=== PATIENT | male | born 1945 | race Caucasian/White ===

== ENCOUNTER 2020-04-06 13:42 | Outpatient (RCR) | payer MEDICARE, OTHER, SELFPAY ==
--- NOTE | 2020-07-31 15:10 | PM.DS ---
DS: Providers Provider Date of Service: 08/01/20 DS: Medications Discharge Medications Home Medications: Previous Rx's Medication Instructions Recorded acetaminophen 650 mg PO BID@0900,1300 #30 tab 07/31/20 acetaminophen 650 mg PO TID PRN #30 tab 07/31/20 allopurinol 300 mg PO DAILY@0900 #30 tab 07/31/20 bicalutamide 50 mg PO DAILY@0900 #30 tab 07/31/20 bisacodyl [Gentle Laxative 10 mg ID DAILY PRN #30 ea 07/31/20 (bisacodyl)] carbidopa-levodopa 1 tab PO DAILY@2100 #30 tab 07/31/20 carbidopa-levodopa 2 tab PO TID@0900,1300,1700 #30 tab 07/31/20 dicyclomine 10 mg PO BID@0900,1700 #30 cap 07/31/20 docusate sodium 100 mg PO BID@1000,2200 #30 cap 07/31/20 fludrocortisone 0.1 mg PO DAILY@0900 #30 tab 07/31/20 lactulose 10 g PO BEDTIME@2200 #30 ml 07/31/20 magnesium hydroxide [Milk of 30 ml PO DAILY PRN #30 ml 07/31/20 Magnesia] miconazole nitrate [Inzo 1 appl TOPICAL DAILY PRN #30 g 07/31/20 Antifungal] nystatin 1 appl TOPICAL BID PRN #30 g 07/31/20 polyethylene glycol 3350 17 g PO DAILY #30 ea 07/31/20 polyvinyl alcohol [Artificial 1 drp OPHTHALMIC (EYE) 07/31/20 Tears (polyvin alc)] TID@0900,1300,2100 #30 ml prochlorperazine maleate 10 mg PO Q6H PRN #30 tab 07/31/20 pseudoephedrine HCl [Nasal 60 mg PO Q6H PRN #30 tab 07/31/20 Decongestant (pseudoeph)] quetiapine 50 mg PO BEDTIME #30 tab 07/31/20 sennosides [Senna Lax] 8.6 mg PO BID@0900,1700 #30 tab 07/31/20 tamsulosin 0.4 mg PO BEDTIME #30 cap 07/31/20 zinc oxide 1 appl TOPICAL DAILY PRN #30 g 07/31/20 DS: Summary Hospital Course Hospital Course: Mr. Rodriguez is a 75 year old with a history of Parkinsons with progressive dementia, HTN, hypercholesterolemia, gout, morbid obesity, depression, IBS, chronic anemia, IBS, ROBYN. Mr. Rodriguez is on carbidopa for his Parkinsons. He is fairly immobile from this and his morbid obesity and ROBYN. He also has orthostatic hypotension for which he was started on Florinef. Mr. Rodriguez has diet controlled diabetes mellitus. His last HbA1c was in the 5 range. He has IBS and is on bentyl. Mr. Rodriguez has had an elevated PSA which is being followed. He is on Casodex and flomax for urinary retention from his prostate issues. Mr. Rodriguez has been on our unit with the exception of a hospitalization in October 17, 2019 for a COVID infection with acute respiratory failure. Mr. Rodriguez received two doses of the Pfizer vaccine. Time Spent with Patient Time attestation: Total time spent providing and/or coordinating discharge services: Discharge coordination time: Greater than 30 minutes Discharge Plan Discharge Attending provider: Ash Donovan Medications: New bicalutamide 50 mg Tablet 50 mg PO DAILY@0900 Qty: 30 RF: 0 sennosides [Senna Lax] 8.6 mg Tablet 8.6 mg PO BID@0900,1700 Qty: 30 RF: 0 acetaminophen 325 mg Tablet 650 mg PO BID@0900,1300 Qty: 30 RF: 0 acetaminophen 325 mg Tablet 650 mg PO TID PRN (Reason: FEVER/HEADACHE/PAIN, MILD (1-3)) Qty: 30 RF: 0 polyethylene glycol 3350 17 gram Powder In Packet 17 g PO DAILY Qty: 30 RF: 0 miconazole nitrate [Inzo Antifungal] 2 % Cream 1 appl topical DAILY PRN (Reason: SKIN IRRITATION) Qty: 30 RF: 0 prochlorperazine maleate 5 mg Tablet 10 mg PO Q6H PRN (Reason: Nausea) Qty: 30 RF: 0 polyvinyl alcohol [Artificial Tears (polyvin alc)] 1.4 % Drops 1 drp ophthalmic (eye) TID@0900,1300,2100 Qty: 30 RF: 0 zinc oxide 20 % Ointment 1 appl topical DAILY PRN (Reason: SKIN IRRITATION) Qty: 30 RF: 0 magnesium hydroxide [Milk of Magnesia] 400 mg/5 mL Suspension 30 ml PO DAILY PRN (Reason: Constipation) Qty: 30 RF: 0 tamsulosin 0.4 mg Capsule 0.4 mg PO BEDTIME Qty: 30 RF: 0 bisacodyl [Gentle Laxative (bisacodyl)] 10 mg Suppository 10 mg ID DAILY PRN (Reason: Constipation) Qty: 30 RF: 0 docusate sodium 100 mg Capsule 100 mg PO BID@1000,2200 Qty: 30 RF: 0 pseudoephedrine HCl [Nasal Decongestant (pseudoeph)] 30 mg Tablet 60 mg PO Q6H PRN (Reason: Congestion) Qty: 30 RF: 0 allopurinol 300 mg Tablet 300 mg PO DAILY@0900 Qty: 30 RF: 0 nystatin 100,000 unit/gram Powder 1 appl topical BID PRN (Reason: Rash) Qty: 30 RF: 0 carbidopa-levodopa 25-100 mg Tablet 2 tab PO TID@0900,1300,1700 Qty: 30 RF: 0 carbidopa-levodopa 25-100 mg Tablet 1 tab PO DAILY@2100 Qty: 30 RF: 0 fludrocortisone 0.1 mg Tablet 0.1 mg PO DAILY@0900 Qty: 30 RF: 0 dicyclomine 10 mg Capsule 10 mg PO BID@0900,1700 Qty: 30 RF: 0 quetiapine 50 mg Tablet 50 mg PO BEDTIME Qty: 30 RF: 0 lactulose 20 gram/30 mL Solution 10 g PO BEDTIME@2200 Qty: 30 RF: 0
== END 2020-08-01 12:24 | disposition home or self-care (01) ==
LOC: HO.SHU2 13:42
PROVIDERS: Visit Provider Hospitalist
DX: Z51.89 Encounter for other specified aftercare (principal)
CPT/HCPCS: 99217

== ENCOUNTER 2020-09-14 05:32 | Outpatient (REF) | payer OTHER, SELFPAY ==
[2020-09-14 06:53] LABS: Basophils Percent Auto 0.4 % (0-2); MANUAL DIFF FLAG SCAN; Mean Corpuscular Volume 93.7 fL (80-98); PLT CLUMP 1; Red Cell Distribution Width 13.8 % (11.0-16.0); SCAN SMEAR FLAG 1
[2020-09-14 06:55] LABS: Eosinophils Absolute Auto 0.2 X10*3/uL (0.0-0.4); Eosinophils Percent Auto 2.7 % (0-4); Hematocrit 41.7 % (42-52); Hemoglobin 13.8 g/dl (14.0-18.0); Imm Gran Abs Auto 0.01 X10*3/uL (0.00-0.03); Imm Gran Pct Auto 0.2 % (0.0-0.4); Lymphocytes Absolute Auto 1.7 X10*3/uL (1.2-4.9); Lymphocytes Percent Auto 31.5 % (20-40); Mean Corpuscular HGB Conc 33.1 g/dl (31.0-36.0); Mean Platelet Volume 10.1 fL (9.4-12.4); Monocytes Absolute Auto 0.4 X10*3/uL (0.1-1.2); Monocytes Percent Auto 7.5 % (2-11); Neutrophils Absolute Auto 3.2 X10*3/uL (2.0-8.3); Neutrophils Percent Auto 57.7 % (45-73); Platelet Count 117 X10*3/uL (160-400); Red Blood Count 4.45 X10*6/uL (4.60-5.80); White Blood Count 5.5 X10*3/uL (4.8-10.8)
[2020-09-14 07:32] LABS: SLIDE REVIEW VERIFIED
[2020-09-14 07:58] LABS: Anion Gap 14 (12-20); Blood Urea Nitrogen 22 mg/dL (9-16); Calcium 8.3 mg/dL (8.4-10.2); Carbon Dioxide 27 mmol/L (22-29); Chloride 107 mmol/L (96-108); Estimated Glomerular Filt Rate > 60; Glucose Fasting 84 mg/dL (60-99); Potassium 3.7 mmol/L (3.3-5.1); Sodium 144 mmol/L (135-145)
[2020-09-14 11:10] LABS: Prostate Specific Antigen 0.07 ng/mL (<0.05-4.0)
== END 2020-09-14 05:33 | disposition home or self-care (01) ==
LOC: HO.HSH2E 05:32
PROVIDERS: Visit Provider Internal Medicine Endocrinology, Diabetes & Metabolism
DX: Z85.46 Personal history of malignant neoplasm of prostate (principal); Z12.5 Encounter for screening for malignant neoplasm of prostate
CPT/HCPCS: 36415; 80048; 84153; 85025

== ENCOUNTER 2021-04-09 23:08 | Outpatient (REF) | payer MEDICARE, SELFPAY ==
[2021-04-09 23:17] LABS: Appearance Urine HAZY; Color Urine YELLOW; Glucose Urine UA NEG (NEG); Leukocyte Esterase Urine NEG (NEG); Nitrite Urine POS (NEG); PH 5.5 (5.0-8.0); Specific Gravity - Urine 1.025 (1.005-1.025); UACC Culture Trigger YES; Urine Blood NEG (NEG); Urine Ketones 5 MG/DL (NEG); Urine Protein TRACE MG/DL (NEG-TRACE)
[2021-04-09 23:25] LABS: Bacteria Urine 3+ /LPF; Mucus Urine 1+ /LPF; Squamous Epithelial Cell Urine TRACE /LPF
== END 2021-04-09 23:09 | disposition home or self-care (01) ==
LOC: HO.HSH2E 23:08
PROVIDERS: Visit Provider Internal Medicine Medical Oncology
DX: N39.0 Urinary tract infection, site not specified (principal)
CPT/HCPCS: 81001; 87086

== ENCOUNTER 2021-04-10 05:46 | Outpatient (REF) | payer MEDICARE, SELFPAY ==
[2021-04-10 07:44] LABS: MANUAL DIFF FLAG NO
[2021-04-10 07:46] LABS: Basophils Percent Auto 0.1 % (0-2); Eosinophils Percent Auto 0.1 % (0-4); Hematocrit 39.7 % (42-52); Hemoglobin 13.1 g/dl (14.0-18.0); Imm Gran Pct Auto 0.7 % (0.0-0.4); Mean Corpuscular Hemoglobin 31.1 pg (27.0-33.0); Mean Corpuscular Volume 94.3 fL (80-98); Mean Platelet Volume 10.4 fL (9.4-12.4); Monocytes Absolute Auto 0.7 X10*3/uL (0.1-1.2); Monocytes Percent Auto 5.1 % (2-11); Neutrophils Absolute Auto 12.2 X10*3/uL (2.0-8.3); Platelet Count 134 X10*3/uL (160-400); Red Blood Count 4.21 X10*6/uL (4.60-5.80)
[2021-04-10 08:04] LABS: Alanine Aminotransferase < 6 U/L (0-40); Albumin Level 3.4 g/dL (3.5-5.0); Alkaline Phosphatase 88 U/L (39-117); Anion Gap 14 (12-20); Aspartate Amino Transferase 11 U/L (5-37); Bilirubin Total 0.9 mg/dL (0.0-1.0); Blood Urea Nitrogen 17 mg/dL (9-16); Calcium 8.3 mg/dL (8.4-10.2); Carbon Dioxide 25 mmol/L (22-29); Chloride 104 mmol/L (96-108); Estimated Glomerular Filt Rate > 60; Glucose Fasting 106 mg/dL (60-99); Potassium 3.9 mmol/L (3.3-5.1); Sodium 139 mmol/L (135-145); Total Protein 6.7 g/dL (6.5-8.0)
[2021-04-10 08:35] LABS: Erythrocyte Sedimentation Rate 65 MM/HR (0-15)
== END 2021-04-10 05:47 | disposition home or self-care (01) ==
LOC: HO.HSH2E 05:46
PROVIDERS: Visit Provider Internal Medicine Medical Oncology
DX: D64.9 Anemia, unspecified (principal)
CPT/HCPCS: 36415; 80053; 85025; 85652

== ENCOUNTER 2021-04-10 19:46 | Inpatient (IN) | payer OTHER, SELFPAY ==
--- NOTE | ~2021-04-10 | US_ITS ---
EXAMINATION: RIGHT LOWER EXTREMITY DEEP VENOUS ULTRASOUND CLINICAL INFORMATION: Right lower extremity pain and swelling. COMPARISON: None. TECHNIQUE: Duplex Doppler imaging with compression maneuvers were performed of the right lower extremity deep venous system. FINDINGS: The visualized common femoral, femoral and popliteal veins demonstrate normal compressibility and color flow without evidence of venous thrombosis. Visualized portions of the calf veins demonstrate normal color fill-in suggesting patency. There is no evidence of a Vargas's cyst. US/US venous duplex LE RT IMPRESSION: No evidence of deep venous thrombosis involving the right lower extremity.
[2021-04-10 19:53] VITALS: BP 132/56; PULSE 60; PULSE 70; RESP 16; TEMP 37.1; O2SAT 95; O2SAT 96; BMI 30.5
[2021-04-10 20:05] VITALS: BP 132/56; PULSE 58; RESP 15; TEMP 37.1; O2SAT 96
[2021-04-10 20:55] LABS: Appearance Urine CLEAR; Color Urine DK YELLOW; Glucose Urine UA NEG (NEG); Leukocyte Esterase Urine NEG (NEG); Nitrite Urine NEG (NEG); Specific Gravity - Urine 1.025 (1.005-1.025); Urine Blood NEG (NEG); Urine Ketones 5 MG/DL (NEG); Urine Protein TRACE MG/DL (NEG-TRACE)
[2021-04-10 21:10] LABS: Bacteria Urine TRACE /LPF; Mucus Urine 1+ /LPF; RBC Urine 0-2 /HPF (0); Squamous Epithelial Cell Urine 1+ /LPF; WBC Urine 0-2 /HPF (0-4)
[2021-04-10 22:00] VITALS: BP 132/56; PULSE 58; RESP 16; TEMP 36.9; O2SAT 97
--- NOTE | 2021-04-10 22:13 | ED.FEVER ---
HPI - Fever General Chief Complaint: Fever Stated Complaint: LETHARGY/FEVER Time Seen by Provider: 04/10/21 22:12 Source: EMS Mode of arrival: EMS Limitations: altered mental status and physical limitation History of Present Illness HPI Narrative: [facility] had a low grade fever. Blood work today showed elevated WBC and pyuria MD elicited complaint: fever, malaise and weakness Onset (ago): hour(s) Context: other (lives in group home) Relieving factors: nothing Related Data Previous Rx's Medication Instructions Recorded acetaminophen 325 mg tablet 650 mg PO BID@0900,1300 #30 tab 07/31/20 acetaminophen 325 mg tablet 650 mg PO TID PRN #30 tab 07/31/20 allopurinol 300 mg tablet 300 mg PO DAILY@0900 #30 tab 07/31/20 bicalutamide 50 mg tablet 50 mg PO DAILY@0900 #30 tab 07/31/20 bisacodyl 10 mg rectal suppository 10 mg AK DAILY PRN #30 ea 07/31/20 (Gentle Laxative (bisacodyl)) carbidopa 25 mg-levodopa 100 mg 1 tab PO DAILY@2100 #30 tab 07/31/20 tablet carbidopa 25 mg-levodopa 100 mg 2 tab PO TID@0900,1300,1700 #30 tab 07/31/20 tablet dicyclomine 10 mg capsule 10 mg PO BID@0900,1700 #30 cap 07/31/20 docusate sodium 100 mg capsule 100 mg PO BID@1000,2200 #30 cap 07/31/20 fludrocortisone 0.1 mg tablet 0.1 mg PO DAILY@0900 #30 tab 07/31/20 lactulose 20 gram/30 mL oral 10 g PO BEDTIME@2200 #30 ml 07/31/20 solution magnesium hydroxide 400 mg/5 mL 30 ml PO DAILY PRN #30 ml 07/31/20 oral suspension (Milk of Magnesia) miconazole nitrate 2 % topical 1 appl TOPICAL DAILY PRN #30 g 07/31/20 cream (Inzo Antifungal) nystatin 100,000 unit/gram topical 1 appl TOPICAL BID PRN #30 g 07/31/20 powder polyethylene glycol 3350 17 gram 17 g PO DAILY #30 ea 07/31/20 oral powder packet polyvinyl alcohol 1.4 % eye drops 1 drp OPHTHALMIC (EYE) 07/31/20 (Artificial Tears (polyvinyl TID@0900,1300,2100 #30 ml alcohol)) prochlorperazine maleate 5 mg 10 mg PO Q6H PRN #30 tab 07/31/20 tablet pseudoephedrine HCl 30 mg tablet 60 mg PO Q6H PRN #30 tab 07/31/20 (Nasal Decongestant (pseudoephedrine)) quetiapine 50 mg tablet 50 mg PO BEDTIME #30 tab 07/31/20 sennosides 8.6 mg tablet (Senna 8.6 mg PO BID@0900,1700 #30 tab 07/31/20 Lax) tamsulosin 0.4 mg capsule 0.4 mg PO BEDTIME #30 cap 07/31/20 zinc oxide 20 % topical ointment 1 appl TOPICAL DAILY PRN #30 g 07/31/20 Allergies Allergy/AdvReac Type Severity Reaction Status Date / Time cefazolin [From KEFZOL] Allergy Unknown RASH Unverified 03/30/20 16:19 Review of Systems Review of Systems: Yes Unobtainable due to mental status [facility] Social History Social History Alcohol intake: never Patient Tobacco Use Status: Never used Tobacco Use of substances other than those prescribed or required for medical reasons: No Advance Directives: No Advance Directives Information Provided: Yes Physical Exam Vital Signs: Vital Signs: Last Vital Signs Temp 98.3 F 04/10/21 23:14 Pulse 62 04/10/21 23:14 Resp 16 04/10/21 23:14 BP 129/43 L 04/10/21 23:14 Pulse Ox 97 04/10/21 23:14 Body Mass Index 30.5 Const: Other: elderly male with parkinsons, speaks slowly Orientation/consciousness: oriented to person HENMT: Head: Yes normal to inspection Ears: external ears normal General nose exam: Normal external nose present Mouth: Normal oral and palatal mucosa present and oropharynx normal Throat: Yes posterior oropharynx normal Eyes: General: appearance normal, both eyes and all related structures Neck: Other: supple Neck: Yes normal visual inspection Chest: Chest palpation & inspection: normal inspection of the chest Resp: Auscultation: clear to auscultation bilaterally Cardio: Jugular venous distension: no JVD Rate: regular rate Rhythm: regular rhythm Heart sounds: S1 normal heart sound present and S2 normal heart sound present GI: Inspection: Yes normal to inspection Palpation (GI): Soft to palpation, nontender and No hepatosplenomegaly present Auscultation: normal bowel sounds : General: Yes no CVA tenderness Back/Spine/Pelvis: Back: no CVA tenderness Skin: Other: right leg with erythema General skin exam: no rashes or lesions noted Neuro: Other: patient is globally weak but able to move his extremities General: oriented to person Extrem: Other: right lower extremity with swelling Psych: Appearance: grossly normal Course Reevaluation(s) Reevaluation #1: Patient with fever and what [facility]. Repeat UA negative, fever and now with and erythematous leg that is swollen, no DVT. Will admit for cellulitis Time: 23:32 MDM - Fever Lab Data Labs: Lab Results 04/10/21 04/10/21 Range/Units 20:28 23:03 Urine Color DK YELLOW Urine Appearance CLEAR Urine pH 6.0 (5.0-8.0) Ur Specific [place] 1.025 (1.005-1.025) Urine Protein TRACE (NEG-TRACE) MG/DL Urine Glucose (UA) NEG (NEG) MG/DL Urine Ketones 5 (NEG) MG/DL Urine Blood NEG (NEG) Urine Nitrite NEG (NEG) Ur Leukocyte Esterase NEG (NEG) Urine RBC 0-2 (0) /HPF Urine WBC 0-2 (0-4) /HPF Ur Squamous Epith Cells 1+ /LPF Urine Bacteria TRACE /LPF Urine Mucus 1+ /LPF COVID-19 (LNOG) Negative (Negative) COVID-19 Clin Com See Note Imaging Data duplex right leg: Radiologist's impression: IMPRESSION: No evidence of deep venous thrombosis involving the right lower extremity. Discharge Plan Discharge Clinical Impression: Cellulitis Patient Disposition: Admitted As Inpatient Prescriptions: No Action bicalutamide 50 mg Tablet 50 mg PO DAILY@0900 Qty: 30 RF: 0 sennosides [Senna Lax] 8.6 mg Tablet 8.6 mg PO BID@0900,1700 Qty: 30 RF: 0 acetaminophen 325 mg Tablet 650 mg PO BID@0900,1300 Qty: 30 RF: 0 acetaminophen 325 mg Tablet 650 mg PO TID PRN (Reason: FEVER/HEADACHE/PAIN, MILD (1-3)) Qty: 30 RF: 0 polyethylene glycol 3350 17 gram Powder In Packet 17 g PO DAILY Qty: 30 RF: 0 miconazole nitrate [Inzo Antifungal] 2 % Cream 1 appl topical DAILY PRN (Reason: SKIN IRRITATION) Qty: 30 RF: 0 prochlorperazine maleate 5 mg Tablet 10 mg PO Q6H PRN (Reason: Nausea) Qty: 30 RF: 0 polyvinyl alcohol [Artificial Tears (polyvin alc)] 1.4 % Drops 1 drp ophthalmic (eye) TID@0900,1300,2100 Qty: 30 RF: 0 zinc oxide 20 % Ointment 1 appl topical DAILY PRN (Reason: SKIN IRRITATION) Qty: 30 RF: 0 magnesium hydroxide [Milk of Magnesia] 400 mg/5 mL Suspension 30 ml PO DAILY PRN (Reason: Constipation) Qty: 30 RF: 0 tamsulosin 0.4 mg Capsule 0.4 mg PO BEDTIME Qty: 30 RF: 0 bisacodyl [Gentle Laxative (bisacodyl)] 10 mg Suppository 10 mg AK DAILY PRN (Reason: Constipation) Qty: 30 RF: 0 docusate sodium 100 mg Capsule 100 mg PO BID@1000,2200 Qty: 30 RF: 0 pseudoephedrine HCl [Nasal Decongestant (pseudoeph)] 30 mg Tablet 60 mg PO Q6H PRN (Reason: Congestion) Qty: 30 RF: 0 allopurinol 300 mg Tablet 300 mg PO DAILY@0900 Qty: 30 RF: 0 nystatin 100,000 unit/gram Powder 1 appl topical BID PRN (Reason: Rash) Qty: 30 RF: 0 carbidopa-levodopa 25-100 mg Tablet 2 tab PO TID@0900,1300,1700 Qty: 30 RF: 0 carbidopa-levodopa 25-100 mg Tablet 1 tab PO DAILY@2100 Qty: 30 RF: 0 fludrocortisone 0.1 mg Tablet 0.1 mg PO DAILY@0900 Qty: 30 RF: 0 dicyclomine 10 mg Capsule 10 mg PO BID@0900,1700 Qty: 30 RF: 0 quetiapine 50 mg Tablet 50 mg PO BEDTIME Qty: 30 RF: 0 lactulose 20 gram/30 mL Solution 10 g PO BEDTIME@2200 Qty: 30 RF: 0
[2021-04-10 23:14] VITALS: BP 129/43; PULSE 62; RESP 16; TEMP 36.8; O2SAT 97
[2021-04-10] MEDS: Ampicillin Sodium/Sulbactam Na 3 GM in 0.9 % Sodium Chloride 100 ML IV (23:18)
[2021-04-10 23:25] LABS: COVID-19 Test Negative (Negative)
--- NOTE | 2021-04-10 23:54 | PM.IMHP ---
History of Present Illness Date of Service: 04/10/21 Chief Complaint: malaise 76-year-old male with a past medical history of hypertension, hyperlipidemia, obesity, Parkinson disease, IBS, anemia, ROBYN, BPH presented to the hospital with a chief complaint of generalized weakness. [facility] Patient reports that he has been feeling weak and tired over the past couple days. Complains of cough. Denies any sputum production Complains of subjective fevers Denies any urinary symptoms. Mentioned that he has chronic venous stasis on his right leg and skin discoloration many years; complains of mild swelling and redness. Denies any nausea vomiting or diarrhea. Review of all other systems is negative except mentioned above ER course: Per ER team [facility] complaining of with a GN subjective fevers; noted to have right leg swollen; concern for cellulitis; given Unasyn. Admitted to the hospital for further management. Dizziness duplex was negative for blood clots. PMFSH Pertinent family history: Reviewed and noncontributory to the current presentation Social History Alcohol intake: never Patient Tobacco Use Status: Never used Tobacco Use of substances other than those prescribed or required for medical reasons: No Advance Directives: No Advance Directives Information Provided: Yes Meds Allergies Allergy/AdvReac Type Severity Reaction Status Date / Time cefazolin [From KEFZOL] Allergy Unknown RASH Unverified 03/30/20 16:19 Physical Exam Vital Signs and Narrative: Vital Signs: Last Vital Signs Temp 98.3 F 04/10/21 23:14 Pulse 62 04/10/21 23:14 Resp 16 04/10/21 23:14 BP 129/43 L 04/10/21 23:14 Pulse Ox 97 04/10/21 23:14 Body Mass Index 30.5 Gen: Appears be in no acute distress HEENT: NCAT, Moist mucosa. Pulmonary: Vesicular breath sounds, fair air entry CVS: Normal S1-S2 Abdomen: BS+, Soft, Nontender Extremities: Warm well perfused; right leg anteriorly noted to have dark discoloration-patient reported chronic; surrounding peripheral erythema noted and swollen leg. Warm to touch. Neuro: Alert and awake. Results Labs Labs: Laboratory Results - last 24 hr 04/10/21 04/10/21 20:28 23:03 Urine Color DK YELLOW Urine Appearance CLEAR Urine pH 6.0 Ur Specific [place] 1.025 Urine Protein TRACE Urine Glucose (UA) NEG Urine Ketones 5 Urine Blood NEG Urine Nitrite NEG Ur Leukocyte Esterase NEG Urine RBC 0-2 Urine WBC 0-2 Ur Squamous Epith Cells 1+ Urine Bacteria TRACE Urine Mucus 1+ COVID-19 (LONG) Negative COVID-19 Clin Com See Note Imaging Radiologist's Impressions: Impressions Venous Duplex 04/10/21 22:22 IMPRESSION: No evidence of deep venous thrombosis involving the right lower extremity. Assessment and Plan (1) Cellulitis: Qualifiers: Laterality: right Site of cellulitis: extremity Site of cellulitis of extremity: lower extremity Qualified Code(s): L03.115 - Cellulitis of right lower limb Status: Acute 76-year-old male with a past medical history of hypertension, hyperlipidemia, Parkinson's disease, ROBYN, obesity, anxiety, depression presented to the hospital with a chief complaint generalized weakness/subjective fevers. Noted to have right leg cellulitis. Admitted for further management. Right leg cellulitis: Continue vancomycin. Venous duplex negative. Id consult. History of Parkinson disease continue home medications carbidopa levodopa. For All other chronic conditions home medications will be continued once med rec is done. DVT ppx: SQH Full code Quality Stroke Does the patient have a stroke diagnosis?: No VTE Prior VTE?: No VTE Risk Level:: Medical - moderate - high VTE Device Contraindication: Treatment Not Indicated VTE Drug Contraindication: N/A - Med Ordered
[2021-04-11] VITALS (8 sets, daily range): BP systolic 115–157; BP diastolic 54–70; PULSE 53–88; RESP 15–18; TEMP 36–37.1; O2SAT 94–100
[2021-04-11] MEDS: Heparin Sodium,Porcine 5,000 UNIT/ML VIAL 5000 UNIT SUBCUT ×2 (00:38→10:15)
[2021-04-11] MEDS: 0.9 % Sodium Chloride Flush 3 ML SYRINGE IVFLUSH ×3 (00:39→16:17)
--- NOTE | 2021-04-11 01:17 | PC.NURSE ---
Pt alert and oriented, forgetful at times. Pt denies pain at this time. Pt incontinent, voided this shift. IV intact, vitals stable, afebrile. Pt tolerated IV abx well. Excoriation noted to buttock, [facility]. Discoloration noted to right lower leg. Redness and warmth noted to right thigh. Report given to ROSY Jimenez. Tech to transport.
[2021-04-11] MEDS: Dextrose 5 % and 0.45 % NaCl 1,000 ML 50 ML IVCONT (01:49)
[2021-04-11] MEDS: vancomycin HCL 1,500 MG in 0.9 % Sodium Chloride 500 ML 333.33 MG IV (02:01)
[2021-04-11 05:44] LABS: MANUAL DIFF FLAG NO
[2021-04-11 05:53] LABS: Basophils Percent Auto 0.1 % (0-2); Eosinophils Absolute Auto 0.2 X10*3/uL (0.0-0.4); Eosinophils Percent Auto 1.8 % (0-4); Hematocrit 35.2 % (42-52); Hemoglobin 11.8 g/dl (14.0-18.0); Imm Gran Abs Auto 0.06 X10*3/uL (0.00-0.03); Imm Gran Pct Auto 0.6 % (0.0-0.4); Lymphocytes Absolute Auto 1.3 X10*3/uL (1.2-4.9); Mean Corpuscular HGB Conc 33.5 g/dl (31.0-36.0); Mean Corpuscular Hemoglobin 31.4 pg (27.0-33.0); Mean Corpuscular Volume 93.6 fL (80-98); Mean Platelet Volume 10.3 fL (9.4-12.4); Monocytes Absolute Auto 0.7 X10*3/uL (0.1-1.2); Monocytes Percent Auto 6.7 % (2-11); Neutrophils Absolute Auto 7.8 X10*3/uL (2.0-8.3); Neutrophils Percent Auto 77.8 % (45-73); Platelet Count 113 X10*3/uL (160-400); Red Blood Count 3.76 X10*6/uL (4.60-5.80); Red Cell Distribution Width 13.7 % (11.0-16.0)
[2021-04-11 06:13] LABS: Anion Gap 12 (12-20); Blood Urea Nitrogen 17 mg/dL (9-16); Calcium 7.7 mg/dL (8.4-10.2); Carbon Dioxide 25 mmol/L (22-29); Chloride 106 mmol/L (96-108); Creatinine Clr Calc Pharmacy 80.7; Estimated Glomerular Filt Rate > 60; Glucose Random 81 mg/dL (60-115); Potassium 3.5 mmol/L (3.3-5.1); Sodium 139 mmol/L (135-145)
[2021-04-11] MEDS: 0.9 % Sodium Chloride 1,000 ML 80 ML IVCONT ×2 (08:49→22:11)
--- NOTE | 2021-04-11 09:58 | MHC.CLN ---
NUTRITION REVIEW OF WEIGHT HX SHOWS WEIGHT LOSS X 1 YEAR -21%. NO OTHER WEIGHTS VIEWED DURING THAT TIME PERIOD.
--- NOTE | 2021-04-11 10:23 | HO.PM.IMPN ---
Subjective Subjective Date of Service: 04/12/21 Interval History: Patient offers no acute complaints, denies fevers, no other acute issues overnight. Review of Systems General weakness, no headache no dizziness no fever chills. CVS no chest pain, no palpitation. Respiratory productive cough, does not know the color of phlegm. Gastrointestinal no nausea no vomiting, no abdominal pain Physical Exam Vital Signs: Vital Signs: Last Vital Signs Temp 97.5 F 04/11/21 07:33 Pulse 60 04/11/21 07:33 Resp 18 04/11/21 07:33 BP 157/67 H 04/11/21 07:33 Pulse Ox 94 04/11/21 07:33 Body Mass Index 30.5 General resting comfortably in no acute distress. Neck supple no JVD. CVS regular rate rhythm, Respiratory lungs clear to auscultation, no respiratory distress, no wheeze, no rhonchi. Gastrointestinal abdomen soft, nontender, bowel sounds audible Extremities right right lower extremity significant discoloration that seems chronic, with significant hyperemia extending to thigh, right leg bigger than left Neuro nonfocal , moving all 4 extremity, speech clear. Skin dark discoloration of lower extremity seems chronic. Psych poor insight Objective Data Active Medications Acetaminophen (Acetaminophen 325 Mg Tablet) 650 mg PO Q6H PRN PRN Reason: Pain, Mild (Pain Scale 1-3) Heparin Sodium (Porcine) (Heparin Sodium,Porcine 5,000 Unit/Ml Vial) 5,000 unit SUBCUT Q12H [facility] Last Admin: 04/11/21 10:15 Dose: 5,000 unit Documented by: GINA Vancomycin HCl 1,500 mg/ (Sodium Chloride) 500 mls @ 333.333 mls/hr IV Q24H [facility] Sodium Chloride (Ns) 1,000 mls @ 80 mls/hr IVCONT .[id number] [facility] Last Admin: 04/11/21 08:49 Dose: 80 mls/hr Documented by: GINA Melatonin (Melatonin 3 Mg Tablet) 6 mg PO BEDTIME PRN PRN Reason: Insomnia Pharmacy Consult (Consult Rx Vancomycin Dosing) 1 each MISCELLANE DAILY PRN PRN Reason: Consult order Senna (Sennosides 8.6 Mg Tablet) 17.2 mg PO BEDTIME PRN PRN Reason: Constipation Sodium Chloride (0.9 % Sodium Chloride Flush 3 Ml Syringe) 3 ml IVFLUSH QSHIFT [facility] Last Admin: 04/11/21 08:49 Dose: 3 ml Documented by: GINA Labs CBC & Chem 7: 04/11/21 05:17 04/11/21 05:17 Labs: Laboratory Results - last 24 hr 04/10/21 04/10/21 04/11/21 20:28 23:03 05:17 MCV 93.6 MCH 31.4 MCHC 33.5 RDW 13.7 Plt Count 113 L MPV 10.3 Immature Gran % (Auto) 0.6 H Neut % (Auto) 77.8 H Lymph % (Auto) 13.0 L [place] % (Auto) 6.7 Eos % (Auto) 1.8 Baso % (Auto) 0.1 Lymph # (Auto) 1.3 [place] # (Auto) 0.7 Eos # (Auto) 0.2 Baso # (Auto) 0.0 Abs Immat Gran (auto) 0.06 H Absolute Neuts (auto) 7.8 Absolute Nucleated RBC 0.000 Nucleated RBC % (auto) 0.0 Anion Gap Estim Creat Clear Calc Estimated GFR Random Glucose Calcium Urine Color DK YELLOW Urine Appearance CLEAR Urine pH 6.0 Ur Specific [place] 1.025 Urine Protein TRACE Urine Glucose (UA) NEG Urine Ketones 5 Urine Blood NEG Urine Nitrite NEG Ur Leukocyte Esterase NEG Urine RBC 0-2 Urine WBC 0-2 Ur Squamous Epith Cells 1+ Urine Bacteria TRACE Urine Mucus 1+ COVID-19 (LONG) Negative COVID-19 Clin Com See Note 04/11/21 05:17 MCV MCH MCHC RDW Plt Count MPV Immature Gran % (Auto) Neut % (Auto) Lymph % (Auto) [place] % (Auto) Eos % (Auto) Baso % (Auto) Lymph # (Auto) [place] # (Auto) Eos # (Auto) Baso # (Auto) Abs Immat Gran (auto) Absolute Neuts (auto) Absolute Nucleated RBC Nucleated RBC % (auto) Anion Gap 12 Estim Creat Clear Calc 80.7 Estimated GFR > 60 Random Glucose 81 Calcium 7.7 L D Urine Color Urine Appearance Urine pH Ur Specific [place] Urine Protein Urine Glucose (UA) Urine Ketones Urine Blood Urine Nitrite Ur Leukocyte Esterase Urine RBC Urine WBC Ur Squamous Epith Cells Urine Bacteria Urine Mucus COVID-19 (LONG) COVID-19 Clin Com Assessment and Plan (1) Cellulitis: Status: Acute (2) Chronic anemia: Status: Acute (3) Hypertension: Status: Acute Assessment and Plan: 76-year-old male with a past medical history of hypertension, hyperlipidemia, Parkinson's disease, ROBYN, obesity, anxiety, depression presented to the hospital with a chief complaint generalized weakness/subjective fevers.? Noted to have right leg cellulitis.? Admitted for further management. Right extensive leg cellulitis:? Significant hyperemia to mid thigh, cont. iv vancomycin day 2,? Venous duplex negative. WBC normalized, blood cultures 1/2 positive for gram-positive cocci, will follow final blood culture Follow Vanco trough and renal function History of Parkinson disease with progressive dementia continue home medications carbidopa/ levodopa. Hypertension stable blood pressure continue Norvasc 2.5 mg daily Depression continues Seroquel Chronic anemia hematocrit stable History of BPH continue home medication DVT ppx: SQH Full code Quality Stroke Does the patient have a stroke diagnosis?: No VTE Prior VTE?: No VTE Risk Level:: Medical - moderate - high VTE Device Contraindication: Treatment Not Indicated VTE Drug Contraindication: N/A - Med Ordered
--- NOTE | 2021-04-11 11:27 | PHA.MEDREC ---
Pharmacy Consult ? Medication Reconciliation Pharmacy has completed the medication reconciliation. Thanks Brooks Lopez
--- NOTE | 2021-04-11 14:13 | MHC.CM.PN ---
[facility]. HE LIVES IN ROOM 225 AT FACILITY. HCP IS ON FILE AND VERIFIED BROTHER MICHELLE ([phone]) IS HCP, ALTHOUGH PATIENT DOES REPORT THAT MICHELLE IS NOW PATIENT'S GUARDIAN PATIENT MOBILIZES WITH A WHEEL CHAIR AT FACILITY WITH ASSISTANCE. PCP IS DR [address] CASE MANAGEMENT OFFICE UPDATED. IMM 04/11 IN CHART
[2021-04-11] MEDS: Sennosides 8.6 MG TABLET PO (16:18)
[2021-04-11] MEDS: Carbidopa/Levodopa 25/100 TABLET 2 TAB PO (16:18)
[2021-04-11] MEDS: Dicyclomine HCl 10 MG CAPSULE PO (16:19)
[2021-04-11] MEDS: Acetaminophen 325 MG TABLET 650 MG PO (16:27)
[2021-04-11] MEDS: Carbidopa/Levodopa 25/100 TABLET 1 TAB PO (19:52)
[2021-04-11] MEDS: Lactulose 20 GM/30 ML SOLUTION 10 GM PO (19:52)
[2021-04-11] MEDS: amLODIPine Besylate 2.5 MG TABLET PO (19:52)
[2021-04-11] MEDS: QUEtiapine Fumarate 50 MG TABLET PO (19:53)
[2021-04-11] MEDS: Tamsulosin HCL 0.4 MG CAPSULE PO (19:53)
[2021-04-11] MEDS: Docusate Sodium 100 MG CAPSULE PO (19:53)
[2021-04-12] VITALS (7 sets, daily range): BP systolic 113–156; BP diastolic 57–84; PULSE 58–70; RESP 16–20; TEMP 36–36.7; O2SAT 93–98
[2021-04-12] MEDS: Heparin Sodium,Porcine 5,000 UNIT/ML VIAL 5000 UNIT SUBCUT ×3 (00:27→23:35)
[2021-04-12] MEDS: 0.9 % Sodium Chloride Flush 3 ML SYRINGE IVFLUSH ×4 (00:27→23:35)
[2021-04-12] MEDS: vancomycin HCL 1,500 MG in 0.9 % Sodium Chloride 500 ML 333.33 MG IV (02:34)
[2021-04-12] MEDS: Docusate Sodium 100 MG CAPSULE PO ×2 (09:15→20:15)
[2021-04-12] MEDS: Bicalutamide 50 MG TABLET PO (09:15)
[2021-04-12] MEDS: Carbidopa/Levodopa 25/100 TABLET 2 TAB PO ×3 (09:15→16:50)
[2021-04-12] MEDS: allopurinoL 300 MG TABLET PO (09:16)
[2021-04-12] MEDS: Dicyclomine HCl 10 MG CAPSULE PO ×2 (09:16→16:50)
--- NOTE | 2021-04-12 15:58 | P.PNIM_ITS ---
Subjective Subjective Date of Service: 04/12/21 Interval History: Being followed for right lower extremity cellulitis, unable to obtain meaningful history due to dementia, patient admits to have chronic leg swelling, denies pain, no acute issues noted overnight. Review of Systems General weakness, no headache no dizziness no fever chills.? CVS no chest pain, no palpitation.? Respiratory? productive cough Gastrointestinal no nausea no vomiting, no abdominal pain Physical Exam Vital Signs: Vital Signs: Last Vital Signs Temp 98.0 F 04/12/21 15:43 Pulse 68 04/12/21 15:43 Resp 18 04/12/21 15:43 BP 113/73 04/12/21 15:43 Pulse Ox 96 04/12/21 15:43 Body Mass Index 30.5 General resting c omfortably in no a cute distress.? Ne ck supple no JVD. CVS? regular rate rhythm, Respirator y lungs clear to a uscultation, no re spiratory distress , no wheeze, no rh onchi. Gastrointes tinal abdomen soft , nontender, bowel sounds audible Ex tremities right ri ght lower extremit y significant disc oloration that see ms chronic, with s ignificant new hyp eremia extending f rom rt foot to thi gh slight improvem ent in redness rig ht leg bigger than left (chronic) Ne uro nonfocal , mov ing all 4 extremit y, speech clear. S kin dark discolora tion of lower extr emity seems chroni c. Psych poor insi ght Objective Data Active Medications Acetaminophen (Acetaminophen 325 Mg Tablet) 650 mg PO Q6H PRN PRN Reason: Pain, Mild (Pain Scale 1-3) Last Admin: 04/11/21 16:27 Dose: 650 mg Documented by: LACIE Allopurinol (Allopurinol 300 Mg Tablet) 300 mg PO DAILY@0900 [facility] Last Admin: 04/12/21 09:16 Dose: 300 mg Documented by: GINA Amlodipine Besylate (Amlodipine Besylate 2.5 Mg Tablet) 2.5 mg PO BEDTIME [facility]; Protocol Last Admin: 04/11/21 19:52 Dose: 2.5 mg Documented by: LACIE Bicalutamide (Bicalutamide 50 Mg Tablet) 50 mg PO DAILY@0900 [facility] Last Admin: 04/12/21 09:15 Dose: 50 mg Documented by: GINA Bisacodyl (Bisacodyl 10 Mg Supp.Rect) 10 mg [place] DAILY PRN PRN Reason: Constipation Carbidopa/Levodopa (Carbidopa/Levodopa 25/100 Tablet) 2 tab PO TID@0900,1300,1700 [facility] Last Admin: 04/12/21 12:39 Dose: 2 tab Documented by: GINA Carbidopa/Levodopa (Carbidopa/Levodopa 25/100 Tablet) 1 tab PO DAILY@2100 [facility] Last Admin: 04/11/21 19:52 Dose: 1 tab Documented by: LACIE Dicyclomine HCl (Dicyclomine Hcl 10 Mg Capsule) 10 mg PO BID@0900,1700 [facility] Last Admin: 04/12/21 09:16 Dose: 10 mg Documented by: GINA Docusate Sodium (Docusate Sodium 100 Mg Capsule) 100 mg PO BID [facility] Last Admin: 04/12/21 09:15 Dose: 100 mg Documented by: GINA Heparin Sodium (Porcine) (Heparin Sodium,Porcine 5,000 Unit/Ml Vial) 5,000 unit SUBCUT Q12H [facility] Last Admin: 04/12/21 12:39 Dose: 5,000 unit Documented by: GINA Vancomycin HCl 1,500 mg/ (Sodium Chloride) 500 mls @ 333.333 mls/hr IV Q24H [facility] Last Infusion: 04/12/21 04:07 Dose: 0 mls/hr Documented by: TRE Lactulose (Lactulose 20 Gm/30 Ml Solution) 10 gm PO BEDTIME [facility] Last Admin: 04/11/21 19:52 Dose: 10 gm Documented by: LACIE Melatonin (Melatonin 3 Mg Tablet) 6 mg PO BEDTIME PRN PRN Reason: Insomnia Pharmacy Consult (Consult Rx Vancomycin Dosing) 1 each MISCELLANE DAILY PRN PRN Reason: Consult order Quetiapine Fumarate (Quetiapine Fumarate 50 Mg Tablet) 50 mg PO BEDTIME [facility] Last Admin: 04/11/21 19:53 Dose: 50 mg Documented by: LACIE Senna (Sennosides 8.6 Mg Tablet) 17.2 mg PO BEDTIME PRN PRN Reason: Constipation Senna (Sennosides 8.6 Mg Tablet) 8.6 mg PO BID@0900,1700 [facility] Last Admin: 04/12/21 09:16 Dose: Not Given Documented by: GINA Non-Admin Reason: loose stools Sodium Chloride (0.9 % Sodium Chloride Flush 3 Ml Syringe) 3 ml IVFLUSH QSHIFT [facility] Last Admin: 04/12/21 09:16 Dose: 3 ml Documented by: GINA Tamsulosin HCl (Tamsulosin Hcl 0.4 Mg Capsule) 0.4 mg PO BEDTIME [facility] Last Admin: 04/11/21 19:53 Dose: 0.4 mg Documented by: LACIE Labs CBC & Chem 7: 04/11/21 05:17 04/11/21 05:17 Microbiology Microbiology Results: Microbiology 04/10/21 23:03 Blood Culture - Preliminary Blood - Venous Prelim: GPC Gram Stain only 04/10/21 23:16 Blood Culture - Preliminary Blood - Venous No growth after 24 hours. Assessment and Plan (1) Hypertension: Status: Acute (2) Chronic anemia: Status: Acute (3) Cellulitis: Status: Acute Assessment and Plan: 76-year-old male with a past medical history of hypertension, hyperlipidemia, Parkinson's disease, ROBYN, obesity, anxiety, depression presented to the hospital with a chief complaint generalized weakness/subjective fevers.? Noted to have right leg cellulitis.? Admitted for further management. Extensive right leg cellulitis: No sepsis, Significant hyperemia to mid thigh, cont. iv vancomycin day 3,? Venous duplex negative. WBC normalized, blood cultures 1/2 positive for gram-positive cocci, will follow final blood culture Follow Vanco trough and renal function Will discuss case with ID if no improvement in redness or swelling. History of Parkinson disease with progressive dementia continue home medications carbidopa/ levodopa. Hypertension stable blood pressure continue Norvasc 2.5 mg daily? Depression continues Seroquel Chronic anemia hematocrit stable History of BPH continue home medication DVT ppx: SQH Full code Quality Stroke Does the patient have a stroke diagnosis?: No VTE Prior VTE?: No VTE Risk Level:: Medical - moderate - high VTE Device Contraindication: Treatment Not Indicated VTE Drug Contraindication: N/A - Med Ordered
[2021-04-12] MEDS: Sennosides 8.6 MG TABLET PO (16:50)
[2021-04-12] MEDS: Melatonin 3 MG TABLET 6 MG PO (20:13)
[2021-04-12] MEDS: QUEtiapine Fumarate 50 MG TABLET PO (20:13)
[2021-04-12] MEDS: amLODIPine Besylate 2.5 MG TABLET PO (20:14)
[2021-04-12] MEDS: Acetaminophen 325 MG TABLET 650 MG PO (20:14)
[2021-04-12] MEDS: Lactulose 20 GM/30 ML SOLUTION 10 GM PO (20:15)
[2021-04-12] MEDS: Carbidopa/Levodopa 25/100 TABLET 1 TAB PO (20:15)
[2021-04-12] MEDS: Tamsulosin HCL 0.4 MG CAPSULE PO (20:15)
[2021-04-13 01:35] LABS: Creatinine Clr Calc Pharmacy 77.2; Estimated Glomerular Filt Rate > 60
[2021-04-13 01:57] LABS: Vancomycin Trough 10.2 mcg/mL (10.0-20.0)
[2021-04-13] MEDS: vancomycin HCL 1,500 MG in 0.9 % Sodium Chloride 500 ML 333.33 MG IV (03:04)
[2021-04-13 04:00] VITALS: BP 141/76; PULSE 51; RESP 16; TEMP 36.6; O2SAT 96
[2021-04-13 08:00] VITALS: BP 113/57; PULSE 60; RESP 18; TEMP 36.1; O2SAT 95
[2021-04-13] MEDS: Bicalutamide 50 MG TABLET PO (09:43)
[2021-04-13] MEDS: allopurinoL 300 MG TABLET PO (09:43)
[2021-04-13] MEDS: Carbidopa/Levodopa 25/100 TABLET 2 TAB PO ×3 (09:43→15:57)
[2021-04-13] MEDS: Dicyclomine HCl 10 MG CAPSULE PO ×2 (09:43→15:55)
[2021-04-13] MEDS: Docusate Sodium 100 MG CAPSULE PO ×2 (09:43→20:03)
[2021-04-13] MEDS: 0.9 % Sodium Chloride Flush 3 ML SYRINGE IVFLUSH ×2 (09:47→15:55)
[2021-04-13 12:00] VITALS: BP 129/66; PULSE 59; RESP 18; TEMP 36.2; O2SAT 94
[2021-04-13] MEDS: Acetaminophen 325 MG TABLET 650 MG PO ×2 (12:20→20:07)
[2021-04-13] MEDS: Heparin Sodium,Porcine 5,000 UNIT/ML VIAL 5000 UNIT SUBCUT (12:20)
[2021-04-13 15:16] VITALS: BP 90/43; PULSE 64; RESP 19; TEMP 36.3; O2SAT 95
[2021-04-13] MEDS: Sennosides 8.6 MG TABLET PO (15:55)
--- NOTE | 2021-04-13 17:22 | P.PNIM_ITS ---
Subjective Subjective Date of Service: 04/13/21 Interval History: No fever Somnolent but arousable Unable to obtain ROS due to dementia Review of Systems Review of Systems: Yes all other systems are reviewed and are negative and Unobtainable due to mental status Physical Exam Vital Signs: Vital Signs: Last Vital Signs Temp 97.4 F 04/13/21 15:16 Pulse 64 04/13/21 15:16 Resp 19 04/13/21 15:16 BP 90/43 L 04/13/21 15:16 Pulse Ox 95 04/13/21 15:16 Body Mass Index 30.5 Gen: in no acute distress HEENT: sclera anicteric, moist mucus membranes Neck: supple Lungs: clear to auscultation bilaterally Heart: regular rate and rhythm, no murmurs Abd: soft, non-tender, non-distended Ext: R leg somewhat swollen Skin: well-demarcated hyperpigmented area on lower RLE that seems chronic, mild erythema and hyperemia extending from R foot to lower thigh, no fluctuant areas Neuro: disoriented Psych: impaired insight Objective Data Active Medications Acetaminophen (Acetaminophen 325 Mg Tablet) 650 mg PO Q6H PRN PRN Reason: Pain, Mild (Pain Scale 1-3) Last Admin: 04/13/21 12:20 Dose: 650 mg Documented by: GINA Allopurinol (Allopurinol 300 Mg Tablet) 300 mg PO DAILY@0900 [facility] Last Admin: 04/13/21 09:43 Dose: 300 mg Documented by: GINA Amlodipine Besylate (Amlodipine Besylate 2.5 Mg Tablet) 2.5 mg PO BEDTIME [facility]; Protocol Last Admin: 04/12/21 20:14 Dose: 2.5 mg Documented by: LACIE Bicalutamide (Bicalutamide 50 Mg Tablet) 50 mg PO DAILY@0900 [facility] Last Admin: 04/13/21 09:43 Dose: 50 mg Documented by: GINA Bisacodyl (Bisacodyl 10 Mg Supp.Rect) 10 mg [place] DAILY PRN PRN Reason: Constipation Carbidopa/Levodopa (Carbidopa/Levodopa 25/100 Tablet) 2 tab PO TID@0900,1300, 1700 [facility] Last Admin: 04/13/21 15:57 Dose: 2 tab Documented by: LACIE Carbidopa/Levodopa (Carbidopa/Levodopa 25/100 Tablet) 1 tab PO DAILY@2100 [facility] Last Admin: 04/12/21 20:15 Dose: 1 tab Documented by: LACIE Dicyclomine HCl (Dicyclomine Hcl 10 Mg Capsule) 10 mg PO BID@0900,1700 [facility] Last Admin: 04/13/21 15:55 Dose: 10 mg Documented by: LACIE Docusate Sodium (Docusate Sodium 100 Mg Capsule) 100 mg PO BID [facility] Last Admin: 04/13/21 09:43 Dose: 100 mg Documented by: GINA Heparin Sodium (Porcine) (Heparin Sodium,Porcine 5,000 Unit/Ml Vial) 5,000 unit SUBCUT Q12H [facility] Last Admin: 04/13/21 12:20 Dose: 5,000 unit Documented by: GINA Vancomycin HCl 1,500 mg/ (Sodium Chloride) 500 mls @ 333.333 mls/hr IV Q24H [facility] Last Infusion: 04/13/21 05:09 Dose: 0 mls/hr Documented by: CALVIN Lactulose (Lactulose 20 Gm/30 Ml Solution) 10 gm PO BEDTIME [facility] Last Admin: 04/12/21 20:15 Dose: 10 gm Documented by: LACIE Melatonin (Melatonin 3 Mg Tablet) 6 mg PO BEDTIME PRN PRN Reason: Insomnia Last Admin: 04/12/21 20:13 Dose: 6 mg Documented by: LACIE Pharmacy Consult (Consult Rx Vancomycin Dosing) 1 each MISCELLANE DAILY PRN PRN Reason: Consult order Quetiapine Fumarate (Quetiapine Fumarate 50 Mg Tablet) 50 mg PO BEDTIME [facility] Last Admin: 04/12/21 20:13 Dose: 50 mg Documented by: LACIE Senna (Sennosides 8.6 Mg Tablet) 17.2 mg PO BEDTIME PRN PRN Reason: Constipation Senna (Sennosides 8.6 Mg Tablet) 8.6 mg PO BID@0900,1700 [facility] Last Admin: 04/13/21 15:55 Dose: 8.6 mg Documented by: LACIE Sodium Chloride (0.9 % Sodium Chloride Flush 3 Ml Syringe) 3 ml IVFLUSH QSHIFT [facility] Last Admin: 04/13/21 15:55 Dose: 3 ml Documented by: LACIE Tamsulosin HCl (Tamsulosin Hcl 0.4 Mg Capsule) 0.4 mg PO BEDTIME [facility] Last Admin: 04/12/21 20:15 Dose: 0.4 mg Documented by: LACIE Labs CBC & Chem 7: 04/11/21 05:17 04/13/21 01:08 Labs: Laboratory Results - last 24 hr 04/13/21 04/13/21 01:08 01:08 Estim Creat Clear Calc 77.2 Estimated GFR > 60 Vancomycin Trough 10.2 Microbiology Microbiology Results: Microbiology 04/10/21 23:03 Blood Culture - Final Blood - Venous Coag negative Staphylococcus 04/10/21 23:16 Blood Culture - Preliminary Blood - Venous No growth after 48 hours. Assessment and Plan (1) Hypertension: Status: Acute (2) Chronic anemia: Status: Acute (3) Cellulitis: Status: Acute Assessment and Plan: hospital d#4 76yo M with HTN, HLD, Parkinson's dementia, ROBYN, obesity, anxiety, depression admitted for RLE cellulitis # extensive RLE cellulitis - IV vancomycin d#4. BCx 1/2 coag-neg Staph = contaminant. Venous duplex negative. WBC normalized. - Consider change to oral doxycycline tomorrow if continues to improve # thrombocytopenia, mild - monitor CBC in am # chronic anemia - H/H stable # HTN - continue amlodipine # Parkinson's dementia - continue carbidopa/levodopa # mood disorder - continue quetiapine # hx prostate CA - continue bicalutamide - continue tamsulosin # VTE ppx - UFH Quality Stroke Does the patient have a stroke diagnosis?: No VTE Prior VTE?: No VTE Risk Level:: Medical - moderate - high VTE Device Contraindication: Treatment Not Indicated VTE Drug Contraindication: N/A - Med Ordered
[2021-04-13 19:10] VITALS: BP 144/70; PULSE 116; RESP 19; TEMP 37.2; O2SAT 94
[2021-04-13 20:02] VITALS: BP 144/70; PULSE 62
[2021-04-13] MEDS: amLODIPine Besylate 2.5 MG TABLET PO (20:02)
[2021-04-13] MEDS: Tamsulosin HCL 0.4 MG CAPSULE PO (20:03)
[2021-04-13] MEDS: QUEtiapine Fumarate 50 MG TABLET PO (20:03)
[2021-04-13] MEDS: Lactulose 20 GM/30 ML SOLUTION 10 GM PO (20:03)
[2021-04-13] MEDS: Carbidopa/Levodopa 25/100 TABLET 1 TAB PO (20:03)
[2021-04-13] MEDS: Melatonin 3 MG TABLET 6 MG PO (20:08)
[2021-04-14] VITALS: BP 148/79; PULSE 59; RESP 16; TEMP 36.6; O2SAT 96
[2021-04-14] MEDS: 0.9 % Sodium Chloride Flush 3 ML SYRINGE IVFLUSH ×2 (00:44→09:28)
[2021-04-14] MEDS: Heparin Sodium,Porcine 5,000 UNIT/ML VIAL 5000 UNIT SUBCUT (00:44)
[2021-04-14] MEDS: vancomycin HCL 1,500 MG in 0.9 % Sodium Chloride 500 ML 333.33 MG IV (03:03)
[2021-04-14 04:00] VITALS: BP 147/73; PULSE 58; RESP 16; TEMP 36.1; O2SAT 96
[2021-04-14 06:09] LABS: Hematocrit 35.9 % (42-52); Hemoglobin 11.8 g/dl (14.0-18.0); Mean Corpuscular HGB Conc 32.9 g/dl (31.0-36.0); Mean Corpuscular Volume 94.2 fL (80-98); Mean Platelet Volume 9.7 fL (9.4-12.4); Platelet Count 131 X10*3/uL (160-400); Red Blood Count 3.81 X10*6/uL (4.60-5.80); Red Cell Distribution Width 13.3 % (11.0-16.0); White Blood Count 5.2 X10*3/uL (4.8-10.8)
[2021-04-14 06:43] LABS: Anion Gap 12 (12-20); Blood Urea Nitrogen 16 mg/dL (9-16); C Reactive Protein 6.07 mg/dL (< or = 0.50); Calcium 7.7 mg/dL (8.4-10.2); Carbon Dioxide 24 mmol/L (22-29); Chloride 112 mmol/L (96-108); Creatinine Clr Calc Pharmacy 88.7; Estimated Glomerular Filt Rate > 60; Glucose Random 82 mg/dL (60-115); Potassium 3.5 mmol/L (3.3-5.1); Sodium 144 mmol/L (135-145)
[2021-04-14 07:57] VITALS: BP 145/72; PULSE 67; RESP 18; TEMP 36.9; O2SAT 96
[2021-04-14] MEDS: Docusate Sodium 100 MG CAPSULE PO (09:18)
[2021-04-14] MEDS: Carbidopa/Levodopa 25/100 TABLET 2 TAB PO ×2 (09:18→12:41)
[2021-04-14] MEDS: allopurinoL 300 MG TABLET PO (09:18)
[2021-04-14] MEDS: Dicyclomine HCl 10 MG CAPSULE PO (09:18)
[2021-04-14] MEDS: Bicalutamide 50 MG TABLET PO (09:18)
[2021-04-14] MEDS: Sennosides 8.6 MG TABLET PO (09:18)
[2021-04-14 10:04] LABS: COVID-19 Test Negative (Negative)
--- NOTE | 2021-04-14 11:23 | MHC.CM.PN ---
Addendum entered by Makenna Maradiaga 04/14/21 15:36: JOS CALLED NURSING [employer]ER AT [facility], [place], AND INFORMED HIM PTS TRANSPORT WAS RUNNING LATE. JOS FAXED DC PAPERWORK AHEAD TO [phone]. Addendum entered by Makenna Maradiaga 04/14/21 11:38: [facility] NUR[facility] PROVIDED A DIRECT PHONE NUMBER FOR THE NURSE TO NURSE [phone] (2ND FLOOR) NUMBER GIVEN TO PTS [facility] NURSE Addendum entered by Makenna Maradiaga 04/14/21 11:30: CM LOCATED PTS HCP IN [facility]. THE NUMBER LISTED FOR MICHELLE THERE IS [phone]. A VM MESSAGE WAS LEFT AT THAT NUMBER INFORMING HIM OF DC AND PROVIDING A CALL BACK NUMBER FOR QUESTIONS. Original Note: PT CLEARED TO DC TODAY, BACK TO [facility]. JOS CALLED NURSING A[employer] F[employer]ER AT [facility] WHO REPORTED THEY COULD ACCEPT PT BACK AND REQUESTED HE BE DISCHARGED BY 1300 HOURS OR CLOSE TO THAT TIME POSSIBLE. HE WAS INFORMED PT WOULD RETURN WITH A NEW RX FOR DOXY. JOS ATTEMPTED TO REACH PTS BROTHER / HCP, MICHELLE AT THE NUMBER FOUND IN CM RECORDS ([phone]) HOWEVER IT WAS AN INCORRECT NUMBER. JOS WILL ATTEMPT TO FIND ALTERNATE NUMBER PT WILL DC BACK TO [facility] TODAY VIA BLS AT 1300 HRS
--- NOTE | 2021-04-14 11:31 | P.DS_ITS ---
DS: Providers Provider Date of Service: 04/14/21 Date of admission: 04/10/21 23:51 Date of discharge: 04/14/21 Primary care physician: Unknown Physician Consults: 04/11/21 00:55 Consult to Infectious Diseases Routine Consulting Provider: Estella Ellis Reason for consultation: cellulitis DS: Diagnosis Discharge Diagnosis (1) Cellulitis: Status: Acute (2) Leukocytosis: Status: Acute DS: Summary Hospital Course Hospital Course: From admission H+P by hospitalist Boo Stephens, 04/10/21: 76-year-old male with a past medical history of hypertension, hyperlipidemia, obesity, Parkinson disease, IBS, anemia, ROBYN, BPH presented to the hospital with a chief complaint of generalized weakness. Patient listened [facility]. Patient reports that he has been feeling weak and tired over the past couple days. Complains of cough.? Denies any sputum production Complains of subjective fevers Denies any urinary symptoms. Mentioned that he has chronic venous stasis on his right leg and skin discoloration many years; complains of mild swelling and redness. Denies any nausea vomiting or diarrhea. Review of all other systems is negative except mentioned above ER course: Per ER team [place] complaining of with a GN subjective fevers; noted to have right leg swollen; concern for cellulitis; given Unasyn.? Admitted to the hospital for further management.? Dizziness duplex was negative for blood clots. This 76 year-old man with HTN, HLD, Parkinson's dementia, ROBYN, obesity, anxiety, depression, and history of prostate cancer was admitted for extensive RLE cellulitis with leukocytosis. He was treated with IV vancomycin for 5 days. Blood cultures grew coagulase-negative Staphylococcus, a contaminant. Venous duplex was negative for thrombus. Leukocytosis normalized and the cellulitis improved markedly. He was discharged back to [facility] to complete 5 more days of PO doxycycline. Time Spent with Patient Time attestation: Total time spent providing and/or coordinating discharge services: Discharge coordination time: Greater than 30 minutes Quality: Stroke Does the patient have a stroke diagnosis?: No Physical Exam Vital Signs: Vital Signs: Last Vital Signs Temp 98.4 F 04/14/21 07:57 Pulse 67 04/14/21 07:57 Resp 18 04/14/21 07:57 BP 145/72 H 04/14/21 07:57 Pulse Ox 96 04/14/21 07:57 Body Mass Index 30.5 Gen: in no acute distress HEENT: sclera anicteric, moist mucus membranes Neck: supple Lungs: clear to auscultation bilaterally Heart: regular rate and rhythm, no murmurs Abd: soft, non-tender, non-distended Ext: R leg somewhat swollen Skin: well-demarcated hyperpigmented area on lower RLE that seems chronic, minimal erythema and hyperemia extending from R foot to lower thigh, no fluctuant areas Neuro: disoriented Psych: impaired insight DS: Data Data Completed and Pending Completed studies during hospitalization [Text1]: Laboratory Results WBC 5.2 X10*3/uL (4.8-10.8) 04/14/21 05:28 RBC 3.81 X10*6/uL (4.60-5.80) L 04/14/21 05:28 Hgb 11.8 g/dl (14.0-18.0) L 04/14/21 05:28 Hct 35.9 % (42-52) L 04/14/21 05:28 MCV 94.2 fL (80-98) 04/14/21 05:28 MCH 31.0 pg (27.0-33.0) 04/14/21 05:28 MCHC 32.9 g/dl (31.0-36.0) 04/14/21 05:28 RDW 13.3 % (11.0-16.0) 04/14/21 05:28 Plt Count 131 X10*3/uL (160-400) L 04/14/21 05:28 MPV 9.7 fL (9.4-12.4) 04/14/21 05:28 Immature Gran % (Auto) 0.6 % (0.0-0.4) H 04/11/21 05:17 Neut % (Auto) 77.8 % (45-73) H 04/11/21 05:17 Lymph % (Auto) 13.0 % (20-40) L 04/11/21 05:17 Alfalfa % (Auto) 6.7 % (2-11) 04/11/21 05:17 Eos % (Auto) 1.8 % (0-4) 04/11/21 05:17 Baso % (Auto) 0.1 % (0-2) 04/11/21 05:17 Lymph # (Auto) 1.3 X10*3/uL (1.2-4.9) 04/11/21 05:17 Alfalfa # (Auto) 0.7 X10*3/uL (0.1-1.2) 04/11/21 05:17 Eos # (Auto) 0.2 X10*3/uL (0.0-0.4) 04/11/21 05:17 Baso # (Auto) 0.0 X10*3/uL (0.0-0.2) 04/11/21 05:17 Abs Immat Gran (auto) 0.06 X10*3/uL (0.00-0.03) H 04/11/21 05:17 Absolute Neuts (auto) 7.8 X10*3/uL (2.0-8.3) 04/11/21 05:17 Absolute Nucleated RBC 0.000 X10*3/uL (0.0-0.012) 04/14/21 05:28 Nucleated RBC % (auto) 0.0 /100WBC (0.0-0.2) 04/14/21 05:28 Sodium 144 mmol/L (135-145) 04/14/21 05:28 Potassium 3.5 mmol/L (3.3-5.1) 04/14/21 05:28 Chloride 112 mmol/L (96-108) H 04/14/21 05:28 Carbon Dioxide 24 mmol/L (22-29) 04/14/21 05:28 Anion Gap 12 (12-20) 04/14/21 05:28 BUN 16 mg/dL (9-16) 04/14/21 05:28 Creatinine 0.80 mg/dL (0.5-1.4) 04/14/21 05:28 Estim Creat Clear Calc 88.7 04/14/21 05:28 Estimated GFR > 60 04/14/21 05:28 Random Glucose 82 mg/dL (60-115) 04/14/21 05:28 Calcium 7.7 mg/dL (8.4-10.2) L 04/14/21 05:28 C-Reactive Protein 6.07 mg/dL (< or = 0.50) H 04/14/21 05:28 Urine Color DK YELLOW 04/10/21 20:28 Urine Appearance CLEAR 04/10/21 20:28 Urine pH 6.0 (5.0-8.0) 04/10/21 20:28 Ur Specific [place] 1.025 (1.005-1.025) 04/10/21 20:28 Urine Protein TRACE MG/DL (NEG-TRACE) 04/10/21 20:28 Urine Glucose (UA) NEG MG/DL (NEG) 04/10/21 20:28 Urine Ketones 5 MG/DL (NEG) 04/10/21 20:28 Urine Blood NEG (NEG) 04/10/21 20:28 Urine Nitrite NEG (NEG) 04/10/21 20:28 Ur Leukocyte Esterase NEG (NEG) 04/10/21 20:28 Urine RBC 0-2 /HPF (0) 04/10/21 20:28 Urine WBC 0-2 /HPF (0-4) 04/10/21 20:28 Ur Squamous Epith Cells 1+ /LPF 04/10/21 20:28 Urine Bacteria TRACE /LPF 04/10/21 20:28 Urine Mucus 1+ /LPF 04/10/21 20:28 Vancomycin Trough 10.2 mcg/mL (10.0-20.0) 04/13/21 01:08 COVID-19 (LONG) Negative (Negative) 04/14/21 09:31 COVID-19 Clin Com See Note 04/14/21 09:31 Impressions Venous Duplex 04/10/21 22:22 IMPRESSION: No evidence of deep venous thrombosis involving the right lower extremity. Discharge Plan Discharge Patient Disposition: [facility] Discharge Diagnosis: cellulitis Referrals: Juan C Garcia MD [Physician] - 1 Week Discharge Medications: New doxycycline monohydrate 100 mg tablet 100 mg PO BID Qty: 10 RF: 0 Continued bicalutamide 50 mg Tablet 50 mg PO DAILY@0900 Qty: 30 RF: 0 sennosides [Senna Lax] 8.6 mg Tablet 8.6 mg PO BID@0900,1700 Qty: 30 RF: 0 acetaminophen 325 mg Tablet 650 mg PO TID PRN (Reason: FEVER/HEADACHE/PAIN, MILD (1-3)) Qty: 30 RF: 0 polyethylene glycol 3350 17 gram Powder In Packet 17 g PO DAILY Qty: 30 RF: 0 polyvinyl alcohol [Artificial Tears (polyvin alc)] 1.4 % Drops 1 drp ophthalmic (eye) TID@0900,1300,2100 Qty: 30 RF: 0 zinc oxide 20 % Ointment 1 appl topical DAILY PRN (Reason: SKIN IRRITATION) Qty: 30 RF: 0 magnesium hydroxide [Milk of Magnesia] 400 mg/5 mL Suspension 30 ml PO DAILY PRN (Reason: Constipation) Qty: 30 RF: 0 tamsulosin 0.4 mg Capsule 0.4 mg PO BEDTIME Qty: 30 RF: 0 bisacodyl [Gentle Laxative (bisacodyl)] 10 mg Suppository 10 mg [place] DAILY PRN (Reason: Constipation) Qty: 30 RF: 0 allopurinol 300 mg Tablet 300 mg PO DAILY@0900 Qty: 30 RF: 0 nystatin 100,000 unit/gram Powder 1 appl topical BID PRN (Reason: Rash) Qty: 30 RF: 0 carbidopa-levodopa 25-100 mg Tablet 2 tab PO TID@0900,1300,1700 Qty: 30 RF: 0 carbidopa-levodopa 25-100 mg Tablet 1 tab PO DAILY@2100 Qty: 30 RF: 0 dicyclomine 10 mg Capsule 10 mg PO BID@0900,1700 Qty: 30 RF: 0 quetiapine 50 mg Tablet 50 mg PO BEDTIME Qty: 30 RF: 0 amlodipine 2.5 mg Tablet 2.5 mg PO BEDTIME RF: 0 acetaminophen 325 mg tablet 650 mg PO BID@0900,1300 PRN (Reason: Pain) RF: 0 docusate sodium 100 mg capsule 100 mg PO BID RF: 0 lactulose 20 gram/30 mL solution 10 g PO BEDTIME RF: 0 triamcinolone acetonide 0.1 % Cream 1 appl TOPICAL BID PRN (Reason: Rash) RF: 0 Discharge Orders: Discharge Order (Routine); Ordered 04/14/21 Ordered By: Tiff Gastelum Diet: advance to usual diet Activity on Discharge: As tolerated Stand Alone Forms: Patient Portal Discharge page Care Plan Goals: cure of cellulitis Health Concerns: cellulitis of right leg Plan of Treatment: completed 5 days of vancomycin in the hospital take 5 more days of doxycycline after discharge Assessment: see Discharge Summary Patient Instructions: Cellulitis (DC)
== END 2021-04-14 16:56 | disposition skilled nursing facility (03) | DRG 603 ==
LOC: HO.ED 23:34 → HO.EDOVER 04-11 00:03 → HO.S3 04-11 00:50
PROVIDERS: Admitting Provider Hospitalist; Emergency Provider Emergency Medicine; Visit Provider Family Medicine
DX: L03.115 Cellulitis of right lower limb (principal); D69.6 Thrombocytopenia, unspecified; C61 Malignant neoplasm of prostate; G20 Parkinson's disease; D72.829 Elevated white blood cell count, unspecified; F02.80 Dementia in other diseases classified elsewhere, unspecified severity, without behavioral disturbance, psychotic disturbance, mood disturbance, and anxiety; E78.5 Hyperlipidemia, unspecified; F32.9 Major depressive disorder, single episode, unspecified; N40.0 Benign prostatic hyperplasia without lower urinary tract symptoms; Z20.822 Contact with and (suspected) exposure to COVID-19; Z79.899 Other long term (current) drug therapy
CPT/HCPCS: 36415; 80048; 80202; 81001; 82565; 85025; 85027; 86140; 87040; 87147; 87205; 87635; 93971; 99285; J0295; J3370

== ENCOUNTER 2021-11-07 06:21 | Outpatient (REF) | payer MEDICARE, SELFPAY ==
[2021-11-07 07:46] LABS: MANUAL DIFF FLAG NO
[2021-11-07 07:49] LABS: Basophils Percent Auto 0.4 % (0-2); Eosinophils Absolute Auto 0.1 X10*3/uL (0.0-0.4); Eosinophils Percent Auto 1.9 % (0-4); Hematocrit 41.8 % (42.0-52.0); Imm Gran Abs Auto 0.01 X10*3/uL (0.00-0.03); Imm Gran Pct Auto 0.2 % (0.0-0.4); Lymphocytes Absolute Auto 1.7 X10*3/uL (1.2-4.9); Lymphocytes Percent Auto 32.9 % (20-40); Mean Corpuscular HGB Conc 33.5 g/dl (31.0-36.0); Mean Corpuscular Hemoglobin 31.5 pg (27.0-33.0); Mean Corpuscular Volume 94.1 fL (80.0-98.0); Monocytes Absolute Auto 0.4 X10*3/uL (0.1-1.2); Monocytes Percent Auto 8.6 % (2-11); Neutrophils Absolute Auto 2.9 x10*3/uL (2.0-8.3); Platelet Count 114 X10*3/uL (160-400); Red Blood Count 4.44 X10*6/uL (4.60-5.80); Red Cell Distribution Width 13.8 % (11.0-16.0); White Blood Count 5.1 X10*3/uL (4.8-10.8)
[2021-11-07 08:07] LABS: Albumin Level 3.6 g/dL (3.5-5.0); Alkaline Phosphatase 86 U/L (39-117); Anion Gap 12 (12-20); Bilirubin Total 0.7 mg/dL (0.0-1.0); Blood Urea Nitrogen 19 mg/dL (9-16); Calcium 8.7 mg/dL (8.4-10.2); Carbon Dioxide 29 mmol/L (22-29); Chloride 106 mmol/L (96-108); Estimated Glomerular Filt Rate > 60; Glucose Random 85 mg/dL (60-115); Potassium 3.7 mmol/L (3.3-5.1); Sodium 143 mmol/L (135-145); Total Protein 6.4 g/dL (6.5-8.0)
[2021-11-07 08:19] LABS: Prostate Specific Antigen 1.87 ng/mL (<0.05-4.0)
[2021-11-07 08:22] LABS: Estimated Average Glucose 103 mg/dL; Hemoglobin A1c % 5.2 %
[2021-11-07 08:27] LABS: Alanine Aminotransferase < 6 U/L (0-40); Aspartate Amino Transferase 12 U/L (5-37)
== END 2021-11-07 06:22 | disposition home or self-care (01) ==
LOC: HO.HSH2E 06:21
PROVIDERS: Visit Provider Internal Medicine Medical Oncology
DX: Z01.812 Encounter for preprocedural laboratory examination (principal); Z12.5 Encounter for screening for malignant neoplasm of prostate
CPT/HCPCS: 36415; 80053; 83036; 84153; 85025

== ENCOUNTER 2022-01-09 05:47 | Outpatient (REF) | payer MEDICARE, SELFPAY ==
[2022-01-09 08:00] LABS: MANUAL DIFF FLAG NO
[2022-01-09 08:03] LABS: Basophils Percent Auto 0.4 % (0-2); Eosinophils Absolute Auto 0.1 X10*3/uL (0.0-0.4); Hematocrit 45.7 % (42.0-52.0); Hemoglobin 14.9 g/dl (14.0-18.0); Imm Gran Abs Auto 0.02 X10*3/uL (0.00-0.03); Imm Gran Pct Auto 0.4 % (0.0-0.4); Lymphocytes Absolute Auto 1.6 X10*3/uL (1.2-4.9); Lymphocytes Percent Auto 28.6 % (20-40); Mean Corpuscular HGB Conc 32.6 g/dl (31.0-36.0); Mean Corpuscular Hemoglobin 31.2 pg (27.0-33.0); Mean Corpuscular Volume 95.8 fL (80.0-98.0); Mean Platelet Volume 10.5 fL (9.4-12.4); Monocytes Absolute Auto 0.4 X10*3/uL (0.1-1.2); Monocytes Percent Auto 7.1 % (2-11); Neutrophils Absolute Auto 3.5 x10*3/uL (2.0-8.3); Neutrophils Percent Auto 61.5 % (45-73); Platelet Count 122 X10*3/uL (160-400); Red Blood Count 4.77 X10*6/uL (4.60-5.80); Red Cell Distribution Width 13.9 % (11.0-16.0); White Blood Count 5.6 X10*3/uL (4.8-10.8)
[2022-01-09 08:18] LABS: Alanine Aminotransferase 8 U/L (0-40); Alkaline Phosphatase 99 U/L (39-117); Anion Gap 12 (12-20); Aspartate Amino Transferase 14 U/L (5-37); Bilirubin Total 0.7 mg/dL (0.0-1.0); Blood Urea Nitrogen 21 mg/dL (9-16); Calcium 8.6 mg/dL (8.4-10.2); Carbon Dioxide 27 mmol/L (22-29); Chloride 107 mmol/L (96-108); Cholesterol 171 mg/dL; Estimated Glomerular Filt Rate > 60; Glucose Fasting 87 mg/dL (60-99); HDL Cholesterol 39 mg/dL; LDL Cholesterol Calculated 118 mg/dl; Potassium 4.4 mmol/L (3.3-5.1); Sodium 142 mmol/L (135-145); Total Protein 6.9 g/dL (6.5-8.0); Triglycerides 70 mg/dL
== END 2022-01-09 05:48 | disposition home or self-care (01) ==
LOC: HO.HSH2E 05:47
PROVIDERS: Visit Provider Internal Medicine Medical Oncology
DX: Z12.5 Encounter for screening for malignant neoplasm of prostate (principal); I10 Essential (primary) hypertension
CPT/HCPCS: 36415; 80053; 80061; 84153; 85025

== ENCOUNTER 2022-08-18 10:32 | Outpatient (REF) | payer MEDICARE, SELFPAY ==
[2022-08-18 11:00] LABS: Anion Gap 14 (12-20); Blood Urea Nitrogen 17 mg/dL (9-16); Calcium 8.5 mg/dL (8.4-10.2); Carbon Dioxide 24 mmol/L (22-29); Chloride 107 mmol/L (96-108); Estimated Glomerular Filt Rate > 60; Glucose Random 113 mg/dL (60-115); Potassium 4.3 mmol/L (3.3-5.1); Sodium 141 mmol/L (135-145)
== END 2022-08-18 10:33 | disposition home or self-care (01) ==
LOC: HO.HSH2E 10:32
PROVIDERS: Visit Provider Internal Medicine Medical Oncology
DX: N28.9 Disorder of kidney and ureter, unspecified (principal); U07.1 COVID-19
CPT/HCPCS: 36415; 80048

== ENCOUNTER 2022-12-10 11:02 | Outpatient (REF) | payer MEDICARE, SELFPAY ==
[2022-12-10 11:08] LABS: MANUAL DIFF FLAG NO
[2022-12-10 11:47] LABS: D Dimer High Sensitivity 269 NG/ML
[2022-12-10 12:02] LABS: Basophils Percent Auto 0.3 % (0-2); Eosinophils Absolute Auto 0.1 X10*3/uL (0.0-0.4); Hematocrit 43.2 % (42.0-52.0); Hemoglobin 14.1 g/dl (14.0-18.0); Imm Gran Abs Auto 0.04 X10*3/uL (0.00-0.03); Imm Gran Pct Auto 0.5 % (0.0-0.4); Lymphocytes Absolute Auto 1.3 X10*3/uL (1.2-4.9); Lymphocytes Percent Auto 17.4 % (20-40); Mean Corpuscular HGB Conc 32.6 g/dl (31.0-36.0); Mean Corpuscular Hemoglobin 31.6 pg (27.0-33.0); Mean Corpuscular Volume 96.9 fL (80.0-98.0); Mean Platelet Volume 10.2 fL (9.4-12.4); Monocytes Absolute Auto 0.4 X10*3/uL (0.1-1.2); Monocytes Percent Auto 5.7 % (2-11); Neutrophils Absolute Auto 5.5 x10*3/uL (2.0-8.3); Neutrophils Percent Auto 75.1 % (45-73); Platelet Count 114 X10*3/uL (160-400); Red Blood Count 4.46 X10*6/uL (4.60-5.80); Red Cell Distribution Width 14.3 % (11.0-16.0); White Blood Count 7.4 X10*3/uL (4.8-10.8)
[2022-12-10 12:28] LABS: Alanine Aminotransferase 12 U/L (0-40); Albumin Level 3.5 g/dL (3.5-5.0); Alkaline Phosphatase 96 U/L (39-117); Anion Gap 13 (12-20); Aspartate Amino Transferase 14 U/L (5-37); Bilirubin Total 0.5 mg/dL (0.0-1.0); Blood Urea Nitrogen 25 mg/dL (9-16); Calcium 8.5 mg/dL (8.4-10.2); Carbon Dioxide 24 mmol/L (22-29); Chloride 109 mmol/L (96-108); Estimated Glomerular Filt Rate > 60; Glucose Random 105 mg/dL (60-115); Potassium 4.4 mmol/L (3.3-5.1); Sodium 142 mmol/L (135-145); Total Protein 6.5 g/dL (6.5-8.0)
== END 2022-12-10 11:03 | disposition home or self-care (01) ==
LOC: HO.HSH2E 11:02
PROVIDERS: Visit Provider Internal Medicine Medical Oncology
DX: F03.90 Unspecified dementia, unspecified severity, without behavioral disturbance, psychotic disturbance, mood disturbance, and anxiety (principal); I10 Essential (primary) hypertension
CPT/HCPCS: 36415; 80053; 85025; 85379

== ENCOUNTER 2022-12-10 13:01 | Emergency (ER) | payer OTHER, MEDICARE, SELFPAY ==
--- NOTE | ~2022-12-10 | US_ITS ---
EXAMINATION: US VENOUS ULTRASOUND WITH DOPPLER LOWER EXTREMITY, RIGHT CLINICAL INFORMATION: Swelling COMPARISON: None available. TECHNIQUE: Ultrasound of the deep veins is performed from the hip to the calf with compression sonography and color and pulse Doppler assessment. Spectral analysis with color-flow imaging is performed. FINDINGS: There is normal venous compression and respiratory variation and augmented flow. The visualized common femoral vein, superficial femoral vein, profunda femoral vein, popliteal vein, and the trifurcation region shows no evidence of deep venous thrombosis. There is no significant popliteal fossa cyst. US/US venous duplex LE RT IMPRESSION: No DVT demonstrated in the right lower extremity.
[2022-12-10 13:12] VITALS: BP 94/47; PULSE 63; O2SAT 95
--- NOTE | 2022-12-10 13:24 | ED_ITS ---
HPI - General Adult General Chief complaint: General Medical Stated complaint: RT LOW LEG SWELLING,WEAKNESS Time Seen by Provider: 12/10/22 13:16 Source: patient and EMS Mode of arrival: EMS Limitations: no limitations History of Present Illness HPI narrative: The emergency room via EMS from [facility]. Patient has no concerns, he states that he feels fine. Seems that the staff at [facility] were concerned the patient has left lower extremity swelling more than usual. Patient denies any pain. Related Data Home Medications Medication Instructions Recorded Confirmed acetaminophen 325 mg tablet 650 mg PO BID@0900,1300 PRN Pain 04/11/21 04/11/21 amlodipine 2.5 mg tablet 2.5 mg PO BEDTIME 04/11/21 04/11/21 docusate sodium 100 mg capsule 100 mg PO BID 04/11/21 04/11/21 lactulose 20 gram/30 mL oral 10 g PO BEDTIME 04/11/21 04/11/21 solution triamcinolone acetonide 0.1 % 1 appl topical BID PRN Rash 04/11/21 04/11/21 topical cream Previous Rx's Medication Instructions Recorded acetaminophen 325 mg tablet 650 mg PO TID PRN 07/31/20 FEVER/HEADACHE/PAIN, MILD (1-3) #30 tabs allopurinol 300 mg tablet 300 mg PO DAILY@0900 #30 tabs 07/31/20 bicalutamide 50 mg tablet 50 mg PO DAILY@0900 #30 tabs 07/31/20 bisacodyl 10 mg rectal suppository 10 mg [place] DAILY PRN Constipation 07/31/20 (Gentle Laxative (bisacodyl)) #30 ea carbidopa 25 mg-levodopa 100 mg 1 tab PO DAILY@2100 #30 tabs 07/31/20 tablet carbidopa 25 mg-levodopa 100 mg 2 tab PO TID@0900,1300,1700 #30 07/31/20 tablet tabs dicyclomine 10 mg capsule 10 mg PO BID@0900,1700 #30 caps 07/31/20 magnesium hydroxide 400 mg/5 mL 30 ml PO DAILY PRN Constipation 07/31/20 oral suspension (Milk of Magnesia) #30 mL nystatin 100,000 unit/gram topical 1 appl topical BID PRN Rash #30 07/31/20 powder grams polyethylene glycol 3350 17 gram 17 g PO DAILY #30 ea 07/31/20 oral powder packet polyvinyl alcohol 1.4 % eye drops 1 drp ophthalmic (eye) 07/31/20 (Artificial Tears (polyvinyl TID@0900,1300,2100 #30 mL alcohol)) quetiapine 50 mg tablet 50 mg PO BEDTIME #30 tabs 07/31/20 sennosides 8.6 mg tablet (Senna 8.6 mg PO BID@0900,1700 #30 tabs 07/31/20 Lax) tamsulosin 0.4 mg capsule 0.4 mg PO BEDTIME #30 caps 07/31/20 zinc oxide 20 % topical ointment 1 appl topical DAILY PRN SKIN 07/31/20 IRRITATION #30 grams doxycycline monohydrate 100 mg 100 mg PO BID #10 tabs 04/14/21 tablet Allergies Allergy/AdvReac Type Severity Reaction Status Date / Time cefazolin [From KEFZOL] Allergy Unknown RASH Verified 04/13/21 03:46 Review of Systems Review of Systems: Constitutional : No Weight loss, No Fever, No Chills, No Night Sweats, No Fatigue, No Malaise ENT/Mouth : No Hearing loss, No Ear Pain, No Nasal Congestion, No Sinus Pain, No Hoarseness, No sore throat, No Rhinorrhea, No Swallowing Difficulty Eyes: No Eye Pain, No Swelling, No Redness, No Foreign Body, No Discharge, No Vision Changes Cardiovascular : No Chest Pain, No SOB, No Dyspnea on Exertion, No Orthopnea, no palpitations Respiratory : No Cough, No Sputum, No Wheezing, No Smoke Exposure, No Dyspnea Gastrointestinal : No Nausea, No Vomiting, No Diarrhea, No Constipation, No abdominal Pain, No Hematochezia, No Melena Genitourinary : no irregular bleeding, No Dysuria, No Urinary Frequency, No Hematuria, No Urinary Incontinence, No Urgency, No Flank Pain, No Urinary Flow Changes, No Hesitancy Musculoskeletal : No joint pain, No Myalgias, No Joint Swelling, staff concerned of swelling in the left lower extremity Skin : No Skin Lesions, No rash Neuro : No Weakness, No Numbness, No Paresthesias, No Loss of Consciousness, No Dizziness, No Headache Psych : No Anxiety/Panic, No Depression, No SI/HI/AH/VH, No Social Issues, Heme/Lymph: No Bruising, No Bleeding,No Lymphadenopathy Endocrine : No Polyuria, No Polydipsia, No Temperature Intolerance [facility] Past Medical History Medical History (Updated 12/10/22 @ 14:48 by Taylor Charles MD) Cellulitis Chronic anemia Hypertension IBS (irritable bowel syndrome) Parkinsons Social History Social History Household Members: None Housing: [facility] Do you presently have visiting nurse or other home services: No Alcohol intake: never Patient Tobacco Use Status: Never used Tobacco Advance Directives: Yes Advance Directives on File: Yes Advance Directives Date on File: 12/10/22 service: Yes Current occupational status: retired and disabled Physical Exam ED Vital Signs: Vital Signs - 24 hr 12/10/22 14:19 Pulse Rate 62 Respiratory Rate 16 Blood Pressure 123/63 Pulse Oximetry 95 Oxygen Delivery Method Room Air Const Other: Appearance: Alert. Oriented X3. No acute distress. Eyes: Pupils equal, round and reactive to light. ENT: Pharynx normal. Neck: Normal inspection. Neck supple. No lymph nodes noted. No crepitus CVS: Normal heart rate and rhythm. Pulses normal. Normal S1 and S2 Respiratory: No respiratory distress. Breath sounds normal. No Wheezing. No rales Abdomen: Soft and nontender. No rigidity. No distention. Skin: Skin warm and dry. Normal skin color. Normal skin turgor. Chronic venous stasis in right lower extremity Extremities: No lower extremity edema. No Lacerations. No Rash, no pain on palpation in either calf, the right calf is a bit more swollen than the left. No erythema Neuro: Oriented X 3. No motor deficit. No sensory deficit. Moving all extremities. No slurred speech. CN 2 through 12 grossly intact Psych: calm, cooperative, normal affect Course Course Course Narrative: Duplex ultrasound pending Medical Decision Making Medical Decision Making MDM Narrative: -duplex ultrasound of the right lower extremity negative for DVT. Patient is asymptomatic. -patient already has compression stockings Discharge Plan Discharge Clinical Impression: Swelling of lower leg Patient Disposition: Home, Self-Care Instructions: Leg Edema (ED) Additional Instructions: Please follow-up with your primary care physician tomorrow. If you have any worsening or new symptoms, please return to the emergency room or call 911 Prescriptions: No Action bicalutamide 50 mg Tablet 50 mg PO DAILY@0900 Qty: 30 0RF sennosides [Senna Lax] 8.6 mg Tablet 8.6 mg PO BID@0900,1700 Qty: 30 0RF acetaminophen 325 mg Tablet 650 mg PO TID PRN (Reason: FEVER/HEADACHE/PAIN, MILD (1-3)) Qty: 30 0RF polyethylene glycol 3350 17 gram Powder In Packet 17 g PO DAILY Qty: 30 0RF polyvinyl alcohol [Artificial Tears (polyvin alc)] 1.4 % Drops 1 drp ophthalmic (eye) TID@0900,1300,2100 Qty: 30 0RF zinc oxide 20 % Ointment 1 appl topical DAILY PRN (Reason: SKIN IRRITATION) Qty: 30 0RF Protocol: Apply to: Apply to: AFFECTED AREAS magnesium hydroxide [Milk of Magnesia] 400 mg/5 mL Suspension 30 ml PO DAILY PRN (Reason: Constipation) Qty: 30 0RF tamsulosin 0.4 mg Capsule 0.4 mg PO BEDTIME Qty: 30 0RF bisacodyl [Gentle Laxative (bisacodyl)] 10 mg Suppository 10 mg WI DAILY PRN (Reason: Constipation) Qty: 30 0RF allopurinol 300 mg Tablet 300 mg PO DAILY@0900 Qty: 30 0RF nystatin 100,000 unit/gram Powder 1 appl topical BID PRN (Reason: Rash) Qty: 30 0RF Protocol: Apply to: Apply to: RASH IN SKIN FOLDS carbidopa-levodopa 25-100 mg Tablet 2 tab PO TID@0900,1300,1700 Qty: 30 0RF carbidopa-levodopa 25-100 mg Tablet 1 tab PO DAILY@2100 Qty: 30 0RF dicyclomine 10 mg Capsule 10 mg PO BID@0900,1700 Qty: 30 0RF quetiapine 50 mg Tablet 50 mg PO BEDTIME Qty: 30 0RF amlodipine 2.5 mg Tablet 2.5 mg PO BEDTIME acetaminophen 325 mg tablet 650 mg PO BID@0900,1300 PRN (Reason: Pain) docusate sodium 100 mg capsule 100 mg PO BID lactulose 20 gram/30 mL solution 10 g PO BEDTIME triamcinolone acetonide 0.1 % Cream 1 appl TOPICAL BID PRN (Reason: Rash) doxycycline monohydrate 100 mg tablet 100 mg PO BID Qty: 10 0RF
[2022-12-10 14:19] VITALS: BP 123/63; PULSE 62; RESP 16; O2SAT 95
[2022-12-10 16:11] VITALS: BP 136/58; PULSE 65; RESP 18; O2SAT 95
--- NOTE | 2022-12-10 16:33 | PC.NURSE ---
Report called to [facility]
== END 2022-12-10 16:49 | disposition home or self-care (01) ==
PROVIDERS: Emergency Provider Emergency Medicine; PCP Internal Medicine Medical Oncology
DX: M79.89 Other specified soft tissue disorders (principal); I10 Essential (primary) hypertension; Z79.899 Other long term (current) drug therapy
CPT/HCPCS: 93971; 99282; 99284

== ENCOUNTER 2023-03-28 06:24 | Outpatient (REF) | payer MEDICARE, SELFPAY ==
[2023-03-28 06:26] LABS: MANUAL DIFF FLAG NO
[2023-03-28 06:31] LABS: Basophils Percent Auto 0.3 % (0-2); Eosinophils Absolute Auto 0.1 X10*3/uL (0.0-0.4); Eosinophils Percent Auto 2.2 % (0-4); Hematocrit 39.1 % (42.0-52.0); Hemoglobin 13.2 g/dl (14.0-18.0); Imm Gran Abs Auto 0.02 X10*3/uL (0.00-0.03); Imm Gran Pct Auto 0.3 % (0.0-0.4); Lymphocytes Percent Auto 34.3 % (20-40); Mean Corpuscular HGB Conc 33.8 g/dl (31.0-36.0); Mean Corpuscular Hemoglobin 32.4 pg (27.0-33.0); Mean Corpuscular Volume 96.1 fL (80.0-98.0); Mean Platelet Volume 9.9 fL (9.4-12.4); Monocytes Absolute Auto 0.5 X10*3/uL (0.1-1.2); Neutrophils Absolute Auto 3.2 x10*3/uL (2.0-8.3); Neutrophils Percent Auto 53.9 % (45-73); Platelet Count 103 X10*3/uL (160-400); Red Blood Count 4.07 X10*6/uL (4.60-5.80); Red Cell Distribution Width 13.6 % (11.0-16.0); White Blood Count 5.9 X10*3/uL (4.8-10.8)
[2023-03-28 06:46] LABS: Alanine Aminotransferase < 5 U/L (0-40); Albumin Level 3.3 g/dL (3.5-5.0); Alkaline Phosphatase 83 U/L (39-117); Anion Gap 11 (12-20); Aspartate Amino Transferase 12 U/L (5-37); Bilirubin Total 0.5 mg/dL (0.0-1.0); Blood Urea Nitrogen 25 mg/dL (9-16); Calcium 8.4 mg/dL (8.4-10.2); Carbon Dioxide 27 mmol/L (22-29); Chloride 110 mmol/L (96-108); Estimated Glomerular Filt Rate > 60; Glucose Random 85 mg/dL (60-115); Potassium 3.8 mmol/L (3.3-5.1); Sodium 144 mmol/L (135-145)
[2023-03-28 07:15] LABS: D Dimer High Sensitivity 292 NG/ML
== END 2023-03-28 06:25 | disposition home or self-care (01) ==
LOC: HO.HSH2E 06:24
PROVIDERS: Visit Provider Internal Medicine Medical Oncology
DX: I10 Essential (primary) hypertension (principal); E11.9 Type 2 diabetes mellitus without complications; G20 Parkinson's disease
CPT/HCPCS: 36415; 80053; 85025; 85379

== ENCOUNTER 2023-05-30 05:00 | Outpatient (REF) | payer MEDICARE, SELFPAY ==
[2023-05-30 06:21] LABS: MANUAL DIFF FLAG NO
[2023-05-30 06:27] LABS: Basophils Percent Auto 0.2 % (0-2); Eosinophils Absolute Auto 0.1 X10*3/uL (0.0-0.4); Eosinophils Percent Auto 2.1 % (0-4); Hematocrit 38.6 % (42.0-52.0); Hemoglobin 13.4 g/dl (14.0-18.0); Imm Gran Abs Auto 0.02 X10*3/uL (0.00-0.03); Imm Gran Pct Auto 0.4 % (0.0-0.4); Lymphocytes Absolute Auto 1.7 X10*3/uL (1.2-4.9); Lymphocytes Percent Auto 30.5 % (20-40); Mean Corpuscular HGB Conc 34.7 g/dl (31.0-36.0); Mean Corpuscular Hemoglobin 32.4 pg (27.0-33.0); Mean Corpuscular Volume 93.2 fL (80.0-98.0); Monocytes Absolute Auto 0.5 X10*3/uL (0.1-1.2); Monocytes Percent Auto 9.2 % (2-11); Neutrophils Absolute Auto 3.3 x10*3/uL (2.0-8.3); Neutrophils Percent Auto 57.6 % (45-73); Platelet Count 107 X10*3/uL (160-400); Red Blood Count 4.14 X10*6/uL (4.60-5.80); Red Cell Distribution Width 13.5 % (11.0-16.0); White Blood Count 5.7 X10*3/uL (4.8-10.8)
[2023-05-30 06:43] LABS: Alanine Aminotransferase < 5 U/L (0-40); Albumin Level 3.3 g/dL (3.5-5.0); Alkaline Phosphatase 89 U/L (39-117); Anion Gap 6 (12-20); Aspartate Amino Transferase 13 U/L (5-37); Bilirubin Total 0.5 mg/dL (0.0-1.0); Blood Urea Nitrogen 18 mg/dL (9-16); Calcium 8.3 mg/dL (8.4-10.2); Carbon Dioxide 30 mmol/L (22-29); Chloride 108 mmol/L (96-108); Cholesterol 140 mg/dL (<200); Estimated Glomerular Filt Rate > 60; Glucose Fasting 90 mg/dL (60-99); HDL Cholesterol 30 mg/dL (>40); LDL Cholesterol Calculated 97 mg/dL (<100); Potassium 3.8 mmol/L (3.3-5.1); Sodium 140 mmol/L (135-145); Triglycerides 66 mg/dL (<150)
[2023-05-30 07:00] LABS: Prostate Specific Antigen Scr 10.27 ng/mL (<0.05-4.0)
[2023-05-30 07:52] LABS: Estimated Average Glucose 100 mg/dL; Hemoglobin A1c % 5.1 % (<6.0)
== END 2023-05-30 05:01 | disposition home or self-care (01) ==
LOC: HO.HSH2E 05:00
PROVIDERS: Visit Provider Internal Medicine Medical Oncology
DX: Z12.5 Encounter for screening for malignant neoplasm of prostate (principal); E11.9 Type 2 diabetes mellitus without complications
CPT/HCPCS: 36415; 80053; 80061; 83036; 84153; 85025

== ENCOUNTER 2023-06-02 14:37 | Outpatient (REF) | payer MEDICARE, SELFPAY ==
[2023-06-02 15:32] LABS: Creatinine Urine 129.04 mg/dL; Microalbum/Creatinine Ratio Ur 6.1 ug/mg cr (<30)
== END 2023-06-02 14:38 | disposition home or self-care (01) ==
LOC: HO.LNP 14:37
PROVIDERS: Visit Provider Internal Medicine Medical Oncology
DX: E11.9 Type 2 diabetes mellitus without complications (principal); G20.A1 Parkinson's disease without dyskinesia, without mention of fluctuations
CPT/HCPCS: 82043; 82570

== ENCOUNTER 2023-06-10 05:03 | Outpatient (REF) | payer MEDICARE, SELFPAY ==
[2023-06-10 07:07] LABS: Prostate Specific Antigen 10.58 ng/mL (<0.05-4.0)
[2023-06-13 15:54] LABS: Testosterone, Total 436 ng/dL (250-1100)
== END 2023-06-10 05:04 | disposition home or self-care (01) ==
LOC: HO.HSH2E 05:03
PROVIDERS: Visit Provider Internal Medicine Medical Oncology
DX: Z12.5 Encounter for screening for malignant neoplasm of prostate (principal); C61 Malignant neoplasm of prostate
CPT/HCPCS: 36415; 84153; 84403

== ENCOUNTER 2023-06-25 11:27 | Outpatient (AMB) | payer MEDICARE, SELFPAY ==
--- NOTE | 2023-06-25 11:28 | A.OFFVIS_ITS ---
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: No Allergies cefazolin [From KEFZOL] Allergy (Unknown, Verified 06/26/23 00:30) RASH Medication List - Last Reconciled 06/26/23 by ZENA Abebe- acetaminophen 650 mg PO BID@0900,1300 PRN allopurinol 300 mg PO DAILY@0900 amlodipine 2.5 mg PO BEDTIME bicalutamide 50 mg PO DAILY@0900 bisacodyl (Gentle Laxative (bisacodyl)) [address] DAILY PRN carbidopa-levodopa 25-100 mg 2 tabs PO TID@0900,1300,1700 carbidopa-levodopa 25-100 mg 1 tab PO DAILY@2100 dicyclomine 10 mg PO BID@0900,1700 docusate sodium 100 mg PO BID doxycycline monohydrate 100 mg PO BID lactulose 10 grams PO BEDTIME magnesium hydroxide (Milk of Magnesia) 30 mL PO DAILY PRN nystatin 1 appl See Protocol topical BID PRN polyethylene glycol 3350 17 grams PO DAILY polyvinyl alcohol 1.4% (Artificial Tears (polyvinyl alcohol)) 1 drp ophthalmic (eye) TID@0900,1300,2100 quetiapine 50 mg PO BEDTIME sennosides (Senna Lax) 8.6 mg PO BID@0900,1700 tamsulosin 0.4 mg PO BEDTIME triamcinolone acetonide 0.1% 1 appl topical BID PRN zinc oxide 20% 1 appl See Protocol topical DAILY PRN HPI HPI Comments History of Present Illness Details Osmel is a very pleasant 78-year-old male patient of Dr. Garcia who resides at the [facility]. He has a past medical history of depression, prostate cancer, hypertension, hyperlipidemia, COPD, obesity, type 2 diabetes, Parkinson's disease, gout, anemia, chronic peripheral venous insufficiency, psychotic disorder, obstructive sleep apnea, and atherosclerotic heart disease. He is being followed up on today as a new patient for his history of prostate cancer. In review of patient's chart it appears patient underwent prostate biopsy September of [address] Garcia. Biopsy results are as follows: Grade group 3 Multiple positive cores High volume 7 out of 12 cores positive 470/1200 [place] 4 + 3; LBL 75%, LML 75%, YAHIR 60%, LBM 90%, LMM 70%, CAMP 50% [place] 3+3; MELLISA 50% PNI positive, LVI negative, ALEC positive core. PSAs are as follows: 06/30--17.8 10/09--18.2 12/30--11 04/01--0.9 01/30--<0.05 10/01--0.1 11/02--1.9 01/02--3.0 06/05--10.3 It appears patient had received Lupron therapy December and June of 2019. It appears patient is on bicalutamide 50 mg daily as well as Flomax 0.4 mg daily. When asked he currently denies any bothersome urinary issues. It appears PCP has ordered a bone scan and this is planned to be completed the week of July. When asked he reports to be happy with current voiding parameters. He otherwise offers no issues or concerns at this time. [facility] Medical History IBS (irritable bowel syndrome) Parkinsons Hypertension Chronic anemia Cellulitis Social History Household Members: None Housing: [facility] Home Do you presently have visiting nurse or other home services: No Alcohol intake: never Patient Tobacco Use Status: Never used Tobacco Advance Directives Date on File: 12/10/22 service: Yes Current occupational status: retired and disabled Review of Systems Const Reports as per HPI Eyes Reports no additional complaints ENT Reports no additional complaints Card Reports as per HPI Resp Reports as per HPI GI Reports as per HPI Reports as per HPI Musc Reports as per HPI Neuro Reports as per HPI Psych Reports as per HPI Endo Reports as per HPI Physical Exam Const General: cooperative, healthy appearing, comfortable, no acute distress, well developed, alert and awake Orientation/consciousness: oriented to person HEENT Head: Yes normal to inspection Eyes General: appearance normal, both eyes and all related structures Neck Neck: Yes normal visual inspection Chest Chest palpation & inspection: normal inspection of the chest Resp Effort & Inspection: normal respiratory effort Cardio Rate: regular rate GI Inspection: Yes normal to inspection General: Yes deferred Neuro General: oriented to person Extrem General: Yes normal to inspection Psych Appearance: grossly normal Speech and movement: Clear speech present Attitude: cooperative Thought content: Normal thought content present Insight: Limited insight present (Psych) Judgement: Limited judgement present (Psych) Assessment & Plan Assessment & Plan (1) Prostate cancer: Code(s): C61 - Malignant neoplasm of prostate (2) Rising PSA following treatment for malignant neoplasm of prostate: Code(s): R97.21 - Rising PSA following treatment for malignant neoplasm of prostate Plan Previous and current medical records were reviewed at length Continue bicalutamide 50 mg daily Continue Flomax 0.4 mg daily Patient reports to be happy with current voiding parameters. Will await results of bone scan Recommendations were made for 2-4 week in office follow-up for GnRH injection with nursing Follow-up with Dr. Sarmiento at next [facility] visit in July; or sooner with any issues, concerns, and or questions. Patient Instructions: The patient had an opportunity to ask questions regarding the treatment plan. All questions were answered. Physical exam, labs, and imaging were discussed and reviewed in detail. As well as risks, benefits, and discussion of treatment choices. No major barriers to understanding were identified. The patient expressed understanding and agreement with the above treatment plan. The patient was made aware they should contact our office by phone for worsening of their current condition, the appearance of new symptoms, or with any questions or concerns. Compliance is encouraged with any medications and follow up testing that is ordered. It is a privilege to be allowed the opportunity to participate in? your urological care.? Again, if you have any questions or concerns If you have any questions or concerns please do not hesitate to contact me. The office is [phone]. This note is constructed using voice recognition software. While every effort has been made to ensure accuracy maintenance person errors may have been included. Yours sincerely, RACHEL Abebe Coding Level of Care Code 49059-Gjcj Fac initial, mod Diagnoses Prostate cancer C61 Rising PSA following treatment for malignant neoplasm of prostate R97.21 Time Spent (min) 35
== END 2023-06-25 16:00 ==
LOC: HO.HUSV 11:27
PROVIDERS: PCP Internal Medicine Medical Oncology; Visit Provider Nurse Practitioner Family
DX: C61 Malignant neoplasm of prostate (principal); R97.21 Rising PSA following treatment for malignant neoplasm of prostate
CPT/HCPCS: 99305

== ENCOUNTER → 2023-07-16 09:50 | Outpatient (REF) | payer MEDICARE, SELFPAY | LOC: HO.NUCMED 09:50 | PROVIDERS: PCP Internal Medicine Medical Oncology; Visit Provider Internal Medicine Medical Oncology | DX: C61 Malignant neoplasm of prostate (principal); R97.21 Rising PSA following treatment for malignant neoplasm of prostate | CPT/HCPCS: 78306; A9503 ==

== ENCOUNTER 2023-07-23 13:13 | Outpatient (AMB) | payer MEDICARE, SELFPAY ==
--- NOTE | 2023-07-23 13:17 | MHC.OFFVIS ---
Intake Intake Visit Reasons: f/u results from bone scan Intake Note: Patient is present for Results of bone scan Allergies cefazolin [From KEFZOL] Allergy (Unknown, Verified 06/26/23 00:30) RASH HPI HPI Comments History of Present Illness Details Osmel is a pleasant male. He is a patient of Dr. Garcia. He resides at the [facility]. He is seen for the following urologic disease - prostate cancer Elevated PSA 06/05 10.6 Bone scan negative Based on PSA would recommend 18 months GnRH Discussed with family members Will need to come to office for GnRH injection Prostate cancer September 2018 - Current therapy intermittent hormones Grade group 3 Multiple positive cores High volume 7 out of 12 cores positive 470/1200 [place] 4 + 3; LBL 75%, LML 75%, YAHIR 60%, LBM 90%, LMM 70%, CAMP 50% [place] 3+3; MELLISA 50% PNI positive, LVI negative, ALEC positive core. 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
--- NOTE | 2023-08-10 20:27 | A.OFFVIS_ITS ---
Intake Intake Visit Reasons: f/u results from bone scan Allergies cefazolin [From KEFZOL] Allergy (Unknown, Verified 06/26/23 00:30) RASH HPI HPI Comments History of Present Illness Details Osmel is a pleasant male. He is a patient of Dr. Garcia. He resides at the [facility]. He is seen for the following urologic disease - prostate cancer Elevated PSA 06/05 10.6 08/06 Bone scan negative - No definite sc intigraphic evidence of osseous metastasis, appear relatively stable since 06/12/2018 Based on PSA would recommend 18 months GnRH Discussed with family members Will need to come to office for GnRH injection Prostate cancer September 2018 - Current therapy intermittent hormones Grade group 3 Multiple positive cores High volume 7 out of 12 cores positive 470/1200 [place] 4 + 3; LBL 75%, LML 75%, YAHIR 60%, LBM 90%, LMM 70%, CAMP 50% [place] 3+3; MELLISA 50% PNI positive, LVI negative, ALEC positive core. PSAs are as follows: 06/30--17.8, 10/09--18.2, 12/30--11, 04/01- -0.9, 01/30--<0.05, 10/01--0.1, 11/02--1.9, 01/02--3.0, 06/05--10.3 PFSH Medical History IBS (irritable bowel syndrome) Parkinsons Hypertension Chronic anemia Cellulitis Social History Household Members: None Housing: Long Term Do you presently have visiting nurse or other home services: No Alcohol intake: never Patient Tobacco Use Status: Never used Tobacco Advance Directives Date on File: 12/10/22 service: Yes Current occupational status: retired and disabled Review of Systems Const Reports as per HPI and Reports no additional complaints Card Reports as per HPI and Reports no additional complaints Resp Reports as per HPI and Reports no additional complaints GI Reports as per HPI and Reports no additional complaints Reports as per HPI Musc Reports no additional complaints and Reports as per HPI Neuro Reports no additional complaints and Reports as per HPI Physical Exam Const General: cooperative, healthy appearing, comfortable and no acute distress Orientation/consciousness: patient oriented x3 HEENT Face and sinus: Yes normal facial exam Mouth: moist mucous membranes Neck Neck: Yes normal visual inspection, Yes full ROM and Yes trachea midline Chest Chest palpation & inspection: normal inspection of the chest Resp Effort & Inspection: normal respiratory effort, able to speak in complete sentences and no respiratory distress GI Inspection: Yes normal to inspection Back/Spine/Pelvis Cervical Spine: normal cervical lordosis Thoracic/Lumbar Spine: thoracic and lumbar spine normal to inspection Skin General skin exam: no rashes or lesions noted Neuro General: patient oriented x3, tone normal and moves all extremities Extrem General: Yes normal to inspection and Yes capillary refill normal Assessment & Plan Assessment & Plan (1) Rising PSA following treatment for malignant neoplasm of prostate: Code(s): R97.21 - Rising PSA following treatment for malignant neoplasm of prostate (2) Prostate cancer: Code(s): C61 - Malignant neoplasm of prostate Plan [facility] in office q3m f/u labs Patient Instructions: Imaging studies, laboratory and physical exam results were discussed and reviewed in detail. No major barriers to patient understanding were identified. An opportunity to ask questions regarding the treatment plan was provided. All questions were answered. The patient expressed understanding and agreement with the above treatment plan. The patient is aware they should contact our office by phone for worsening of their current condition or the appearance of new urologic symptoms. Compliance is encouraged with any medications and followup testing that is ordered. It is a privilege to participate in the urologic care of your patient. If you have any questions or concerns regarding treatment for the above conditions, or other urologic issues, please do not hesitate to contact me. The office telephone contact is [phone]. This note is constructed using voice recognition software. While every effort has been made to ensure accuracy wire frame lamp shade maker errors may have been included. Yours sincerely, Dr Nain Sarmiento MD, [facility] - Urology Providers of Expert, Compassionate Care for the Genitourinary System Coding Level of Care Code 43968-Yghl Fac sub, mod Diagnoses Rising PSA following treatment for malignant neoplasm of prostate R97.21 Prostate cancer C61
== END 2023-07-23 16:00 | disposition home or self-care (01) ==
LOC: HO.HUSV 13:13
PROVIDERS: PCP Internal Medicine Medical Oncology; Visit Provider Urology
DX: R97.21 Rising PSA following treatment for malignant neoplasm of prostate (principal); C61 Malignant neoplasm of prostate
CPT/HCPCS: 99309

== ENCOUNTER 2023-08-20 10:04 | Outpatient (AMB) | payer MEDICARE, SELFPAY ==
--- NOTE | 2023-08-20 10:33 | AM.OFFVISNUR ---
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 Coding Assessment & Plan Assessment & Plan Orders: Orders Prostate Specific Antigen 08/01/23 C61 - Malignant neoplasm of prostate Testosterone, Total 08/01/23 C61 - Malignant neoplasm of prostate AMB Leuprolide Injection - Practice Supplied Today C61 - Malignant neoplasm of prostate
== END 2023-08-20 10:47 | disposition home or self-care (01) ==
PROVIDERS: PCP Internal Medicine Medical Oncology; Visit Provider Urology
DX: C61 Malignant neoplasm of prostate (principal)

== ENCOUNTER → 2023-08-20 10:04 | Outpatient (BNVA) | payer MEDICARE, SELFPAY | PROVIDERS: PCP Internal Medicine Medical Oncology; Visit Provider Urology | DX: C61 Malignant neoplasm of prostate (principal) | CPT/HCPCS: 96402; J9217 ==

== ENCOUNTER 2023-10-27 19:39 | Inpatient (IN) | payer OTHER, SELFPAY ==
--- NOTE | ~2023-10-27 | CT_ITS ---
EXAMINATION: HEAD CT WITHOUT CONTRAST CERVICAL SPINE CT WITHOUT CONTRAST CLINICAL INFORMATION: Fall. Head strike. COMPARISON: None. TECHNIQUE: Contiguous axial imaging of the head was performed without the administration of IV contrast. Axial multidetector volumetric images were also performed through the cervical spine without intravenous contrast. Multiplanar reconstructed images in coronal and sagittal orientations were submitted. This CT examination was performed using dose optimization techniques as appropriate, variously including the following: *Automated exposure control *Adjustment of mA and/or kV according to patient size (this includes techniques or standardized protocols for targeted exams where dose is matched to indication/reason for exam; i.e. extremities or head) *Use of iterative reconstruction technique DOSE: 2001 mGy-cm FINDINGS: HEAD: There is no evidence of acute intracranial hemorrhage or territorial infarction. No abnormal mass-effect or midline shift. No extra-axial fluid collections. Portillo to white matter differentiation is well preserved. Chronic postsurgical changes of a prior left lateral suboccipital craniectomy are noted with underlying encephalomalacia in the lateral aspect of the left cerebellar hemisphere. A few foci of hypoattenuation in the subcortical and periventricular white matter are most consistent with chronic microangiopathic changes. Brain parenchyma is otherwise unremarkable. Mild enlargement of the ventricles, sulci, and extra-axial CSF spaces is indicative of parenchymal volume loss. Mild hyperostosis frontalis interna. No acute fractures. Bilateral lens extractions. Cerumen is present in the right external auditory canal. The sinuses and mastoid air cells are clear. CERVICAL SPINE: Vertebral body heights are normal. No fractures of the vertebral bodies or posterior elements. Vertebral alignment is normal. No subluxation. Degenerative osteophytes and sclerosis are present at the atlantodental articulation, though normal alignment is maintained. Craniocervical junction is normal. There is ankylosis of the cervical spine from C2 through C4 at both the interbody spaces and posterior elements. Mild multilevel degenerative disc disease from C4-C5 through C6-C7. Marked facet arthropathy is evident on the right at C4-C5. Posterior disc osteophyte complexes at C5-C6 and C6-C7 likely produce mild central canal narrowing. Uncovertebral and facet osteophytes produce neural foraminal encroachment at C4-C5 and C5-C6 bilaterally, right greater than left. The thyroid gland is markedly enlarged and heterogeneous with internal calcifications. The left thyroid gland measures 10 cm craniocaudal with associated substernal extension. This enlarged appearance was evident on prior ultrasound from 12/06/2015. Trachea is deviated to the right. Imaged portions of the lung apices are clear. CT/CT cervical spine wo IV con IMPRESSION: 1. No acute intracranial pathology. 2. No acute fracture or malalignment in the cervical spine. 3. Ankylosis of C2-C4 with mild multilevel degenerative disc disease and facet arthropathy. 4. Markedly enlarged thyroid gland with substernal extension, also seen on prior ultrasound from 2016. If this has not been reassessed in a while, based on the recommendations of the ACR Incidental Thyroid Findings Committee (JACR 2015 Aug; 12(2):143-50), further evaluation by thyroid ultrasound is recommended for a heterogeneously enlarged thyroid gland in patients that do not have limited life expectancy or significant co-morbidities, unless clinically warranted.
--- NOTE | ~2023-10-27 | CT_ITS ---
EXAMINATION: CT CHEST WITHOUT CONTRAST CLINICAL INFORMATION: Right anterolateral chest tenderness to palpation COMPARISON: Nuclear medicine bone scan dated 07/16/2023. Chest radiograph dated 10/17/2019. CT abdomen pelvis dated 01/08/2016. TECHNIQUE: Multidetector volumetric CT imaging of the chest was done. Axial MIP volume rendering provided. Sagittal and coronal reformatted images were obtained. This CT examination was performed using dose optimization techniques as appropriate, variously including the following: *Automated exposure control *Adjustment of mA and/or kV according to patient size (this includes techniques or standardized protocols for targeted exams where dose is matched to indication/reason for exam; i.e. extremities or head) *Use of iterative reconstruction technique DLP: 2001 mGy-cm FINDINGS: LUNGS: Linear bibasilar atelectasis in the lower lobes with associated low lung volumes. No focal airspace consolidation. Small fat-containing left Bochdalek hernia. Central airways appear clear. Trachea is deviated to the right by the markedly enlarged thyroid, more pronounced on the left. No appreciable pulmonary nodules. MEDIASTINUM: Heart is normal in size. There is noted above, there is a markedly enlarged thyroid, more pronounced at the left lobe with substernal extension and extensive internal calcification. This deviates the trachea and esophagus to the right. No direct invasion of surrounding structures. No mediastinal or hilar adenopathy. CORONARY ARTERY CALCIFICATION: Present PLEURA: There is no pleural effusion. No pleural mass or thickening. AXILLA: No lymphadenopathy. UPPER ABDOMEN: A calcified granuloma is noted within the liver. A 1.6 cm fluid attenuation cystic structure within the right hepatic lobe not well imaged on this study, favored to correspond to a cyst. No recommend imaging follow-up. OSSEOUS STRUCTURES: Skfe-rh-hvhvfalh multilevel degenerative disc disease is noted in the thoracic spine. No acute fracture or malalignment. No acute osseous findings are identified in the right chest wall anteriorly. CT/CT chest wo IV con IMPRESSION: 1. No acute pulmonary findings. Low lung volumes with bibasilar atelectasis. No appreciable findings in the right anterior/lateral chest to correlate with the patient's symptoms. 4. Markedly enlarged thyroid gland with substernal extension, also seen on prior ultrasound from 2016. If this has not been reassessed since that time, based on the recommendations of the ACR Incidental Thyroid Findings Committee (JACR 2014; 12(2):143-50), further evaluation by thyroid ultrasound is recommended for a heterogeneously enlarged thyroid gland in patients that do not have limited life expectancy or significant co-morbidities, unless clinically warranted.
--- NOTE | 2023-10-27 19:43 | ECG_ITS ---
Test Reason : fall Blood Pressure : / mmHG Vent. Rate : 081 BPM Atrial Rate : 081 BPM P-R Int : 254 ms QRS Dur : 092 ms QT Int : 388 ms P-R-T Axes : 044 042 026 degrees QTc Int : 450 ms Sinus rhythm with 1st degree A-V block Incomplete right bundle branch block Inferior infarct , age undetermined Abnormal ECG No previous ECGs available Referred By: Generic ED Physician Electronically Signed By:ISAURO VACA
[2023-10-27 19:48] VITALS: BP 179/79; PULSE 81; O2SAT 94
[2023-10-27 19:49] VITALS: BMI 44.9
[2023-10-27 19:56] VITALS: BP 167/77; PULSE 77; RESP 16; TEMP 36.5; O2SAT 96
[2023-10-27 20:10] LABS: MANUAL DIFF FLAG NO
[2023-10-27 20:12] LABS: Basophils Percent Auto 0.3 % (0-2); Eosinophils Absolute Auto 0.1 X10*3/uL (0.0-0.4); Eosinophils Percent Auto 1.8 % (0-4); Hematocrit 42.7 % (42.0-52.0); Hemoglobin 14.8 g/dl (14.0-18.0); Imm Gran Abs Auto 0.11 X10*3/uL (0.00-0.03); Imm Gran Pct Auto 1.8 % (0.0-0.4); Lymphocytes Absolute Auto 1.9 X10*3/uL (1.2-4.9); Lymphocytes Percent Auto 31.1 % (20-40); Mean Corpuscular HGB Conc 34.7 g/dl (31.0-36.0); Mean Corpuscular Hemoglobin 32.4 pg (27.0-33.0); Mean Corpuscular Volume 93.4 fL (80.0-98.0); Mean Platelet Volume 9.8 fL (9.4-12.4); Monocytes Absolute Auto 0.4 X10*3/uL (0.1-1.2); Monocytes Percent Auto 6.1 % (2-11); Neutrophils Absolute Auto 3.6 x10*3/uL (2.0-8.3); Neutrophils Percent Auto 58.9 % (45-73); Platelet Count 110 X10*3/uL (160-400); Red Blood Count 4.57 X10*6/uL (4.60-5.80); Red Cell Distribution Width 14.1 % (11.0-16.0); White Blood Count 6.1 X10*3/uL (4.8-10.8)
[2023-10-27 20:17] LABS: Prothrombin Time 12.7 SEC (11.1-13.3)
--- NOTE | 2023-10-27 20:30 | ED_ITS ---
HPI - General Adult General Chief complaint: General Medical Stated complaint: 1st degree heart block, syncope, fall Time Seen by Provider: 10/27/23 19:53 Source: EMS Mode of arrival: EMS Limitations: altered mental status History of Present Illness HPI narrative: Patient is a 78-year-old male who presents to the emergency department via EMS coming from [facility]. Report received from EMS includes that patient was in a Abril lift, he had an episode of loss of consciousness that lasted 2 minutes. The patient was lowered from the Abril lift to the floor and subsequently ?face planted? onto the floor but per report from staff at the facility to EMS this was not a fall of significant distance. He does not respond verbally to me at the time of evaluation to provide any history. He does follow minimal commands. We have contacted patient's brother to obtain a baseline mentation, he states that he typically is slow to respond to questioning due to his history of dementia but he will usually respond to questions. Related Data Home Medications ?Medication ?Instructions ?Recorded ?Confirmed acetaminophen 325 mg tablet 650 mg PO BID@0900,1300 PRN Pain 04/11/21 06/26/23 amlodipine 2.5 mg tablet 2.5 mg PO BEDTIME 04/11/21 10/28/23 docusate sodium 100 mg capsule 100 mg PO BID 04/11/21 06/26/23 lactulose 20 gram/30 mL oral 10 g PO BEDTIME 04/11/21 06/26/23 solution triamcinolone acetonide 0.1 % 1 appl topical BID PRN Rash 04/11/21 06/26/23 topical cream Previous Rx's ?Medication ?Instructions ?Recorded allopurinol 300 mg tablet 300 mg PO DAILY@0900 #30 tabs 07/31/20 bicalutamide 50 mg tablet 50 mg PO DAILY@0900 #30 tabs 07/31/20 bisacodyl 10 mg rectal suppository 10 mg NV DAILY PRN Constipation 07/31/20 (Gentle Laxative (bisacodyl)) #30 ea carbidopa 25 mg-levodopa 100 mg 1 tab PO DAILY@2100 #30 tabs 07/31/20 tablet carbidopa 25 mg-levodopa 100 mg 2 tab PO TID@0900,1300,1700 #30 07/31/20 tablet tabs dicyclomine 10 mg capsule 10 mg PO BID@0900,1700 #30 caps 07/31/20 magnesium hydroxide 400 mg/5 mL 30 ml PO DAILY PRN Constipation 07/31/20 oral suspension (Milk of Magnesia) #30 mL nystatin 100,000 unit/gram topical 1 appl topical BID PRN Rash #30 07/31/20 powder grams polyethylene glycol 3350 17 gram 17 g PO DAILY #30 ea 07/31/20 oral powder packet polyvinyl alcohol 1.4 % eye drops 1 drp ophthalmic (eye) 07/31/20 (Artificial Tears (polyvinyl TID@0900,1300,2100 #30 mL alcohol)) quetiapine 50 mg tablet 50 mg PO BEDTIME #30 tabs 07/31/20 sennosides 8.6 mg tablet (Senna 8.6 mg PO BID@0900,1700 #30 tabs 07/31/20 Lax) tamsulosin 0.4 mg capsule 0.4 mg PO BEDTIME #30 caps 07/31/20 zinc oxide 20 % topical ointment 1 appl topical DAILY PRN SKIN 07/31/20 IRRITATION #30 grams doxycycline monohydrate 100 mg 100 mg PO BID #10 tabs 04/14/21 tablet Allergies Allergy/AdvReac Type Severity Reaction Status Date / Time cefazolin [From KEFZOL] Allergy Unknown RASH Verified 10/27/23 19:53 Review of Systems 2 Review of Systems: Yes Unobtainable due to mental status PMFSH Past Medical History Attestation statement: The following information was validated with the patient. Source: old records reviewed Medical History IBS (irritable bowel syndrome) Parkinsons Hypertension Chronic anemia Cellulitis Social History Social History Household Members: None Housing: Retirement Do you presently have visiting nurse or other home services: No Unable to assess alcohol history related to: Unknown Alcohol intake: never Patient Tobacco Use Status: Never used Tobacco Smoked in Last 30 Days: No Use of substances other than those prescribed or required for medical reasons: Unknown Advance Directives: Yes Advance Directives on File: Yes Advance Directives Date on File: 12/10/22 service: Yes Current occupational status: retired and disabled Physical Exam ED Vital Signs: Vital Signs - 24 hr 10/27/23 19:56 10/27/23 22:35 Temperature 97.7 F 97.6 F Pulse Rate 77 71 Respiratory Rate 16 14 Blood Pressure 167/77 H 180/73 H Pulse Oximetry 96 100 Oxygen Delivery Method Nasal Cannula with ETCO2 Room Air Nasal Cannula Oxygen Flow Rate 2 3 BMI result Body Mass Index 44.9 Appearance: Alert.? Not responding verbally, unable to assess orientation No acute distress. Eyes: Pupils equal, round and reactive to light.? ENT: Pharynx normal. Small amount of blood to the oropharynx that is dried, I do not see any active bleeding. He has poor dentition throughout, has dental caries and fractures of the upper front teeth, these do appear old rather than new.?? Neck: Normal inspection.? Neck supple.? In hard cervical spine collar? CVS: Heart sounds normal. Normal heart rate and rhythm.? Pulses normal.?? Respiratory: No respiratory distress.? Lung sounds clear to auscultation bilaterally. Noted to be wincing in withdrawing and pain upon palpation of the right upper anterior/right lateral chest. Abdomen: Soft and non-tender. Normoactive bowel sounds. ? Skin: Skin warm and dry.? Normal skin color.? Extremities: No lower extremity edema.? No calf ttp? Neuro: Moves all extremities spontaneously. Course Reevaluation(s) Reevaluation #1: CT of the head is without acute intracranial pathology, no acute fracture or subluxation of the cervical spine, multilevel degenerative disc disease and facet arthropathy is present. There is incidental finding of markedly enlarged thyroid gland substernal extension previously seen on ultrasound, unclear whether there has been further evaluation for this outpatient. Chest CT is without acute etiology, no evidence of rib fractures or pneumothorax. Labs reveal mild hyperkalemia of 5.3, otherwise overall unremarkable CMP. High sensitive troponin is below detectable limits, EKG reveals a sinus rhythm with first-degree AV block; NV interval 254 MS, QTC 450, no ST elevation, no ST depression. No prior EKGs available for review, upon review of records from long-term care [facility] no indication of prior arrhythmia or heart block. Time: 23:25 Medications Administered Generic Name Dose Route Start Last Admin Trade Name Freq PRN Reason Stop Dose Admin Carbidopa/Levodopa 1 tab 10/28/23 00:45 10/28/23 01:03 Carbidopa/Levodopa 25/100 Tablet PO Not Given DAILY@2100 ABIOLA Dicyclomine HCl 10 mg 10/28/23 00:45 10/28/23 01:04 Dicyclomine Hcl 10 Mg Capsule PO Not Given BID@0900,1700 ABIOLA Sodium Chloride 1,000 mls @ 999 mls/hr 10/28/23 00:30 10/28/23 00:52 Ns IV 10/28/23 01:30 999 mls/hr .Q1H1M ABIOLA Administration Ceftriaxone Sodium 1 gm/ 50 mls @ 100 mls/hr 10/28/23 00:30 10/28/23 00:49 Sodium Chloride IV 100 mls/hr BEDTIME ABIOLA Administration Medical Decision Making Medical Decision Making [facility] Narrative: Patient is a 78-year-old male with past medical history of dementia, depression, malignant neoplasm of the prostate, hypertension, ASCVD, hyperlipidemia, COPD, type 2 diabetes, Parkinson's, gout, anemia, peripheral venous insufficiency, obstructive sleep apnea, osteoarthritis, orthostatic hypotension who presents to the emergency department via EMS for evaluation after episode of unconsciousness and subsequent fall as per HPI. Plan to obtain CT of the head/cervical spine to exclude ICH, SDH, fracture, subluxation, addition to CT of the chest to evaluate for rib fractures given notable tenderness on exam. Lung sounds are present bilaterally, have lower suspicion for significant pneumothorax at this time. Given reported syncope, Will obtain CBC to evaluate for leukocytosis/ anemia, CMP and lipase to evaluate for abnormal electrolytes /abnormal renal function/ abnormal hepatic/biliary function, EKG and troponin to evaluate for ischemia/ACS, and Urinalysis. Differential Diagnosis Differential Diagnoses: The differential diagnosis associated with the presentation includes (See narrative above) Admission/Observation Consideration of admission/observation: Escalation of care including admission/observation considered (See narrative above and course narrative for further detail) Lab Data [facility] Lab Attestation statement: I reviewed the patient's lab results. (See course narrative for further detail) 10/27/23 19:59 10/27/23 19:59 Labs: Lab Results 10/27/23 10/27/23 10/28/23 Range/Units 19:59 20:03 00:01 WBC 6.1 (4.8-10.8) X10*3/uL RBC 4.57 L (4.60-5.80) X10*6/uL Hgb 14.8 (14.0-18.0) g/dl Hct 42.7 (42.0-52.0) % MCV 93.4 (80.0-98.0) fL MCH 32.4 (27.0-33.0) pg MCHC 34.7 (31.0-36.0) g/dl RDW 14.1 (11.0-16.0) % Plt Count 110 L (160-400) X10*3/uL MPV 9.8 (9.4-12.4) fL Immature Gran % (Auto) 1.8 H (0.0-0.4) % Neut % (Auto) 58.9 (45-73) % Lymph % (Auto) 31.1 (20-40) % Phelps % (Auto) 6.1 (2-11) % Eos % (Auto) 1.8 (0-4) % Baso % (Auto) 0.3 (0-2) % Lymph # (Auto) 1.9 (1.2-4.9) X10*3/uL Phelps # (Auto) 0.4 (0.1-1.2) X10*3/uL Eos # (Auto) 0.1 (0.0-0.4) X10*3/uL Baso # (Auto) 0.0 (0.0-0.2) X10*3/uL Abs Immat Gran (auto) 0.11 H (0.00-0.03) X10*3/uL Absolute Neuts (auto) 3.6 (2.0-8.3) x10*3/uL Absolute Nucleated RBC 0.000 (0.0-0.012) X10*3/uL Nucleated RBC % (auto) 0.0 (0.0-0.2) /100WBC PT 12.7 (11.1-13.3) SEC INR 1.0 (0.9-1.1) Sodium 140 (135-145) mmol/L Potassium 5.3 H (3.3-5.1) mmol/L Chloride 108 (96-108) mmol/L Carbon Dioxide 23 (22-29) mmol/L Anion Gap 14 (12-20) BUN 21 H (9-16) mg/dL Creatinine 0.98 (0.5-1.4) mg/dL Estim Creat Clear Calc 80.4 Estimated GFR > 60 Random Glucose 161 H (60-115) mg/dL Calcium 8.5 (8.4-10.2) mg/dL Magnesium 2.0 (1.6-2.6) mg/dL Total Bilirubin 0.3 (0.0-1.0) mg/dL AST 36 (5-37) U/L ALT 10 (0-40) U/L Alkaline Phosphatase 116 (39-117) U/L Troponin I High Sens < 2.7 (<3.5-35.0) ng/L B-Natriuretic Peptide 54 (<100) pg/mL Total Protein 7.6 (6.5-8.0) g/dL Albumin 3.5 (3.5-5.0) g/dL TSH 2.83 (0.32-4.0) uIU/mL Urine Color Yellow Urine Appearance Cloudy Urine pH 6.0 (5.0-9.0) Ur Specific [place] 1.020 (1.005-1.025) Urine Protein Negative (Neg-Trace) mg/dL Urine Glucose (UA) Negative (Negative) mg/dL Urine Ketones Negative (Negative) mg/dL Urine Blood Trace H (Negative) Urine Nitrite Negative (Negative) Ur Leukocyte Esterase Small (1+) H (Negative) Urine RBC 0-2 (0-2) /HPF Urine WBC 21-50 H (0-5) /HPF Ur Squamous Epith Cells 6-10 (0-2) /HPF Urine Bacteria None Seen (None Seen) Hyaline Casts 0-2 (0-2) /LPF Independent Interpretation I performed an independent interpretation of an: EKG (See course narrative) Radiology Impression Discussion of test interpretation with radiology: I have reviewed the radiologist's reading. Radiologist Impression: CT/CT head/brain wo IV con IMPRESSION: 1. No acute intracranial pathology. 2. No acute fracture or malalignment in the cervical spine. 3. Ankylosis of C2-C4 with mild multilevel degenerative disc disease and facet arthropathy. 4. Markedly enlarged thyroid gland with substernal extension, also seen on prior ultrasound from 2016. If this has not been reassessed in a while, based on the recommendations of the ACR Incidental Thyroid Findings Committee (JACR 2014; 12(2):143-50), further evaluation by thyroid ultrasound is recommended for a heterogeneously enlarged thyroid gland in patients that do not have limited life expectancy or significant co-morbidities, unless clinically warranted. CT/CT chest wo IV con IMPRESSION: 1. No acute pulmonary findings. Low lung volumes with bibasilar atelectasis. No appreciable findings in the right anterior/lateral chest to correlate with the patient's symptoms. Independent Historian Clinical information obtained from an independent historian. History obtained from or confirmed by: EMS External Record Review External record reviewed: Outpatient record (Record from [facility]) Critical Care Time Critical Care Time Critical Care Time: Yes Total Critical Care Time: 45 Attestation: I personally attest to this critical care time spent taking care of the patient exclusive of all other billable procedures was approximately 45 minutes including initial evaluation of patient, ordering tests, CT interpretation, EKG interpretation, medical consultation, documentation, re-evaluation. Discharge Plan Discharge Clinical Impression: Syncope Patient Disposition: Admitted As Inpatient
[2023-10-27 20:33] LABS: B Type Natriuretic Peptide 54 pg/mL (<100)
[2023-10-27 20:33] LABS: Alanine Aminotransferase 10 U/L (0-40); Albumin Level 3.5 g/dL (3.5-5.0); Alkaline Phosphatase 116 U/L (39-117); Anion Gap 14 (12-20); Aspartate Amino Transferase 36 U/L (5-37); Bilirubin Total 0.3 mg/dL (0.0-1.0); Blood Urea Nitrogen 21 mg/dL (9-16); Calcium 8.5 mg/dL (8.4-10.2); Carbon Dioxide 23 mmol/L (22-29); Chloride 108 mmol/L (96-108); Creatinine Clr Calc Pharmacy 80.4; Estimated Glomerular Filt Rate > 60; Glucose Random 161 mg/dL (60-115); Potassium 5.3 mmol/L (3.3-5.1); Sodium 140 mmol/L (135-145); Total Protein 7.6 g/dL (6.5-8.0)
[2023-10-27 20:37] LABS: Troponin-I High Sensitivity < 2.7 ng/L (<3.5-35.0)
[2023-10-27 22:35] VITALS: BP 180/73; PULSE 71; RESP 14; TEMP 36.4; O2SAT 100
--- NOTE | 2023-10-27 22:38 | PC.NURSE ---
left message at [facility] to get story re: events leading up to EMS being called. Left call back #.
[2023-10-28] VITALS (7 sets, daily range): BP systolic 119–176; BP diastolic 58–99; PULSE 55–65; RESP 10–21; TEMP 35.8–36.8; O2SAT 96–99; BMI 44.0
--- NOTE | 2023-10-28 | ECG_ITS ---
Test Reason : CP Blood Pressure : / mmHG Vent. Rate : 063 BPM Atrial Rate : 063 BPM P-R Int : 280 ms QRS Dur : 080 ms QT Int : 432 ms P-R-T Axes : 044 066 029 degrees QTc Int : 442 ms Sinus rhythm with 1st degree A-V block Low voltage QRS Borderline ECG When compared with ECG of 27-OCT-2023 19:47, No significant change was found Referred By: Ash Donovan Electronically Signed By:ISAURO VACA
[2023-10-28 00:06] LABS: TSH reflex Free T4 2.83 uIU/mL (0.32-4.0)
[2023-10-28 00:12] LABS: Appearance Urine Cloudy; Color Urine Yellow; Glucose Urine UA Negative (Negative); Leukocyte Esterase Urine Small (1+) (Negative); Nitrite Urine Negative (Negative); UMIC TRIGGER UACC YES; Urine Blood Trace (Negative); Urine Ketones Negative (Negative); Urine Protein Negative (Neg-Trace)
[2023-10-28 00:20] LABS: Bacteria Urine None Seen (None Seen); Hyaline Casts Urine 0-2 /LPF (0-2); RBC Urine 0-2 /HPF (0-2); UACC Culture Trigger YES; WBC Urine 21-50 /HPF (0-5)
--- NOTE | 2023-10-28 00:43 | PM.IMHP ---
History of Present Illness Date of Service: 10/28/23 Attending physician on admission: Wanda Gilliam Chief Complaint: Loss of consciousness Osmel Rodriguez is a 78 years old man with past medical history significant for Parkinson's disease, syncope, orthostatic hypotension, prostate cancer, essential hypertension and IBS was brought to the emergency department after he was noted to be unconscious in kait lift at [facility]. It seems like the patient was lower from the left to the floor (face down, he did not fall). According to ED triage note staff reports approximately 2 minutes of unconsciousness, then he awoke to verbal stimuli. On evaluation, patient was awake and able to tell me his name. His speech was delayed, which seems to be patient's baseline. In the ED, he was found to have stable vital signs. Last BP was 180/73. Blood workup showed no leukocytosis or anemia. Platelets slightly low, 110. Potassium level is 5.3. No other significant electrolyte imbalances. Renal function is adequate. LFTs, BNP and troponin are normal. Head, C-spine and chest CT scans were obtained which incidentally showed a markedly enlarged thyroid gland with substernal extension. There are no intracranial or acute C-spine pathology. ECG showed normal sinus rhythm with a 1st AV block, Q-waves in the inferior leads and incomplete right bundle block branch block without ischemic changes. ED tx: None. Review of Systems Review of Systems: Yes Unobtainable due to mental status [facility] Medical History (Updated 10/28/23 @ 01:55 by Wanda Gilliam MD) Cardiac arrest IBS (irritable bowel syndrome) Parkinsons Hypertension Chronic anemia Cellulitis Social History Household Members: None Housing: [facility] Do you presently have visiting nurse or other home services: No Unable to assess alcohol history related to: Unknown Alcohol intake: never Patient Tobacco Use Status: Never used Tobacco Smoked in Last 30 Days: No Use of substances other than those prescribed or required for medical reasons: Unknown Advance Directives: Yes Advance Directives on File: Yes Advance Directives Date on File: 12/10/22 service: Yes Current occupational status: retired and disabled Meds Allergies Allergy/AdvReac Type Severity Reaction Status Date / Time cefazolin [From KEFZOL] Allergy Unknown RASH Verified 10/27/23 19:53 Active Medications: Current Medications Allopurinol (Allopurinol 300 Mg Tablet) 300 mg PO DAILY@0900 [facility] Amlodipine Besylate (Amlodipine Besylate 2.5 Mg Tablet) 2.5 mg PO BEDTIME [facility]; Protocol Carbidopa/Levodopa (Carbidopa/Levodopa 25/100 Tablet) 2 tab PO TID@0900,1300,1700 [facility] Dicyclomine HCl (Dicyclomine Hcl 10 Mg Capsule) 10 mg PO BID@0900,1700 [facility] Heparin Sodium (Porcine) (Heparin Sodium,Porcine 5,000 Unit/Ml Vial) 5,000 unit SUBCUT Q12H [facility] Sodium Chloride (Ns) 1,000 mls @ 999 mls/hr IV .Q1H1M [facility] Stop: 10/28/23 01:30 Ceftriaxone Sodium 1 gm/ (Sodium Chloride) 50 mls @ 100 mls/hr IV BEDTIME [facility] Magnesium Hydroxide (Milk Of Magnesia 30 Ml Oral.Susp) 30 ml PO DAILY PRN PRN Reason: Constipation Memantine (Memantine Hcl 10 Mg Tablet) 10 mg PO DAILY [facility] Quetiapine Fumarate (Quetiapine Fumarate 50 Mg Tablet) 50 mg PO BEDTIME [facility] Senna (Senna Glendo Extract Oral Syrup 15 Ml Syrup) 7.5 ml PO BID [facility] Sodium Chloride (0.9 % Sodium Chloride Flush 3 Ml Syringe) 3 ml IVFLUSH QSHIFT [facility] Tamsulosin HCl (Tamsulosin Hcl 0.4 Mg Capsule) 0.4 mg PO BEDTIME [facility] Home Medications ?Medication ?Instructions ?Recorded ?Confirmed ?Last Taken ?Type acetaminophen 325 mg tablet 650 mg PO BID@0900,1300 PRN Pain 04/11/21 06/26/23 Unknown History amlodipine 2.5 mg tablet 2.5 mg PO BEDTIME 04/11/21 10/28/23 04/09/21 History docusate sodium 100 mg capsule 100 mg PO BID 04/11/21 06/26/23 04/10/21 History lactulose 20 gram/30 mL oral 10 g PO BEDTIME 04/11/21 06/26/23 04/09/21 History solution triamcinolone acetonide 0.1 % 1 appl topical BID PRN Rash 04/11/21 06/26/23 04/10/21 History topical cream Physical Exam Vital Signs and Narrative: Vital Signs: Last Vital Signs Temp 97.6 F 10/27/23 22:35 Pulse 71 10/27/23 22:35 Resp 14 10/27/23 22:35 BP 180/73 H 10/27/23 22:35 Pulse Ox 100 10/27/23 22:35 O2 Del Method Room Air, Nasal C annula 10/27/23 22:35 O2 Flow Rate 3 10/27/23 22:35 BMI result Body Mass Index 44.9 Constitutional - Awake, No apparent distress. Obese. HEENT - Pupils equally round and reactive to light. Normal sclerae. Dry oral mucosa Heart - RRR, No murmur. Lungs - Normal lung expansion, poor respiratory effort, No respiratory distress, CTA bilaterally Abdomen - NT / ND; +BS; No rebound or guarding - No CVA tenderness Extremities - right LE extensive area of hyperpigmentation. No edema Skin - Warm/Dry. No pallor. No jaundice Neurological - Alert & oriented x1. No facial droop. No gross focal weakness noted. Tremors. Psychological - Depression affect Results Labs 10/27/23 19:59 10/27/23 19:59 Labs: Laboratory Results - last 24 hr 10/27/23 10/27/23 10/28/23 19:59 20:03 00:01 MCV 93.4 MCH 32.4 MCHC 34.7 RDW 14.1 Plt Count 110 L MPV 9.8 Immature Gran % (Auto) 1.8 H Neut % (Auto) 58.9 Lymph % (Auto) 31.1 [place] % (Auto) 6.1 Eos % (Auto) 1.8 Baso % (Auto) 0.3 Lymph # (Auto) 1.9 [place] # (Auto) 0.4 Eos # (Auto) 0.1 Baso # (Auto) 0.0 Abs Immat Gran (auto) 0.11 H Absolute Neuts (auto) 3.6 Absolute Nucleated RBC 0.000 Nucleated RBC % (auto) 0.0 PT 12.7 INR 1.0 Anion Gap 14 Estim Creat Clear Calc 80.4 Estimated GFR > 60 Random Glucose 161 H Calcium 8.5 Magnesium 2.0 Total Bilirubin 0.3 AST 36 ALT 10 Alkaline Phosphatase 116 Troponin I High Sens < 2.7 B-Natriuretic Peptide 54 Total Protein 7.6 Albumin 3.5 TSH 2.83 Urine Color Yellow Urine Appearance Cloudy Urine pH 6.0 Ur Specific [place] 1.020 Urine Protein Negative Urine Glucose (UA) Negative Urine Ketones Negative Urine Blood Trace H Urine Nitrite Negative Ur Leukocyte Esterase Small (1+) H Urine RBC 0-2 Urine WBC 21-50 H Ur Squamous Epith Cells 6-10 Urine Bacteria None Seen Hyaline Casts 0-2 Imaging Radiologist's Impressions: Impressions Cervical Spine CT 10/27/23 21:03 IMPRESSION: 1. No acute intracranial pathology. 2. No acute fracture or malalignment in the cervical spine. 3. Ankylosis of C2-C4 with mild multilevel degenerative disc disease and facet arthropathy. 4. Markedly enlarged thyroid gland with substernal extension, also seen on prior ultrasound from 2015. If this has not been reassessed in a while, based on the recommendations of the ACR Incidental Thyroid Findings Committee (JACR 2014; 12(2):143-50), further evaluation by thyroid ultrasound is recommended for a heterogeneously enlarged thyroid gland in patients that do not have limited life expectancy or significant co-morbidities, unless clinically warranted. Chest CT 10/27/23 21:03 IMPRESSION: 1. No acute pulmonary findings. Low lung volumes with bibasilar atelectasis. No appreciable findings in the right anterior/lateral chest to correlate with the patient's symptoms. 4. Markedly enlarged thyroid gland with substernal extension, also seen on prior ultrasound from 2015. If this has not been reassessed since that time, based on the recommendations of the ACR Incidental Thyroid Findings Committee (JACR 2014; 12(2):143-50), further evaluation by thyroid ultrasound is recommended for a heterogeneously enlarged thyroid gland in patients that do not have limited life expectancy or significant co-morbidities, unless clinically warranted. Head CT 10/27/23 21:03 IMPRESSION: 1. No acute intracranial pathology. 2. No acute fracture or malalignment in the cervical spine. 3. Ankylosis of C2-C4 with mild multilevel degenerative disc disease and facet arthropathy. 4. Markedly enlarged thyroid gland with substernal extension, also seen on prior ultrasound from 2015. If this has not been reassessed in a while, based on the recommendations of the ACR Incidental Thyroid Findings Committee (JACR 2014; 12(2):143-50), further evaluation by thyroid ultrasound is recommended for a heterogeneously enlarged thyroid gland in patients that do not have limited life expectancy or significant co-morbidities, unless clinically warranted. Assessment and Plan (1) Syncope: Qualifiers: Syncope type: unspecified Qualified Code(s): R55 - Syncope and collapse Status: Acute (2) Prostate cancer: Status: Acute (3) Parkinsons: Qualifiers: Dyskinesia presence: unspecified whether dyskinesia Fluctuating manifestations: unspecified whether manifestations fluctuate Qualified Code(s): G20.A1 - Parkinson's disease without dyskinesia, without mention of fluctuations Status: Acute (4) Hypertension: Qualifiers: Hypertension type: primary hypertension Qualified Code(s): I10 - Essential (primary) hypertension Status: Acute Plan Osmel Rodriguez is a 78 years old man with past medical history significant for syncope, CAD and orthostatic hypotension presents with: Syncope. Etiology unclear: ?Arrhythmia, ?orthostatic hypotension. Keeping observation. Telemetry. Pulse oximetry. Orthostatic vital signs q shift. Hold tamsulosin. Start IV fluids. Check D-dimer, recheck troponin and venous blood gas. Obtain echocardiogram. Parkinson's disease. Continue carbidopa. Lewy Body dementia. Continue Namenda. Gout. Continue allopurinol. Chronic anemia and thrombocytopenia. Continue to monitor Presumed UTI. Start therapy with ceftriaxone. Obtain urine culture. Essential hypertension. Continue amlodipine. Obstructive sleep apnea. Patient is using O2 as needed. IBS. No signs or symptoms reported. Mood disorder/depression. Continue Seroquel. Obesity. BMI 44.9 kg/m2. Weight loss. Hx of prostate cancer and BPH. Tamsulosin on hold. Code status: DNR/DNI (BiPAP okay). DVT prophylaxis: Heparin Quality Stroke Does the patient have a stroke diagnosis?: No VTE Prior VTE?: No VTE Risk Level:: Medical - moderate - high VTE Device Contraindication: Treatment Not Indicated VTE Drug Contraindication: N/A - Med Ordered
[2023-10-28] MEDS: cefTRIAXone sodium 1 GM in 0.9 % Sodium Chloride 50 ML IV ×2 (00:49→20:43)
[2023-10-28] MEDS: 0.9 % Sodium Chloride 1,000 ML 999 ML IV (00:52)
[2023-10-28 01:11] LABS: VBG Base Excess 3.9 mmol/L; VBG HCO3 28 mmol/L (22-26); VBG pCO2 42 mmHg; VBG pH 7.43 (7.32-7.43); VBG pO2 59 mmHg
[2023-10-28 01:16] LABS: Venous Blood Gas Refer to POC result
[2023-10-28 02:01] LABS: Glucose, Whole Blood 123 mg/dL (60-115)
--- NOTE | 2023-10-28 06:04 | PC.NURSE ---
PT was noted to have taken out his IV while and it was found on the floor. No trauma to the area of the right wrist where IV was placed.
[2023-10-28 06:27] LABS: MANUAL DIFF FLAG NO
[2023-10-28 06:33] LABS: Basophils Percent Auto 0.3 % (0-2); Eosinophils Absolute Auto 0.1 X10*3/uL (0.0-0.4); Eosinophils Percent Auto 0.7 % (0-4); Hematocrit 42.6 % (42.0-52.0); Hemoglobin 14.1 g/dl (14.0-18.0); Imm Gran Abs Auto 0.07 X10*3/uL (0.00-0.03); Imm Gran Pct Auto 0.9 % (0.0-0.4); Lymphocytes Absolute Auto 1.3 X10*3/uL (1.2-4.9); Lymphocytes Percent Auto 17.5 % (20-40); Mean Corpuscular HGB Conc 33.1 g/dl (31.0-36.0); Mean Corpuscular Hemoglobin 31.6 pg (27.0-33.0); Mean Corpuscular Volume 95.5 fL (80.0-98.0); Mean Platelet Volume 9.8 fL (9.4-12.4); Monocytes Absolute Auto 0.5 X10*3/uL (0.1-1.2); Monocytes Percent Auto 6.1 % (2-11); Neutrophils Absolute Auto 5.7 x10*3/uL (2.0-8.3); Neutrophils Percent Auto 74.5 % (45-73); Platelet Count 101 X10*3/uL (160-400); Red Blood Count 4.46 X10*6/uL (4.60-5.80); Red Cell Distribution Width 13.8 % (11.0-16.0); White Blood Count 7.6 X10*3/uL (4.8-10.8)
[2023-10-28 06:35] LABS: D Dimer High Sensitivity 464 NG/ML
[2023-10-28 06:50] LABS: Anion Gap 12 (12-20); Blood Urea Nitrogen 18 mg/dL (9-16); Calcium 8.5 mg/dL (8.4-10.2); Carbon Dioxide 25 mmol/L (22-29); Chloride 110 mmol/L (96-108); Estimated Glomerular Filt Rate > 60; Glucose Random 104 mg/dL (60-115); Potassium 4.1 mmol/L (3.3-5.1); Sodium 143 mmol/L (135-145); Troponin-I High Sensitivity 14.3 ng/L (<3.5-35.0)
--- NOTE | 2023-10-28 07:00 | CA_ITS ---
Transthoracic Echocardiogram Patient (Last, First, Middle): Osmel Rodriguez E Gender: Male Date of : 1945 Age: 78 Procedure Date: 10/28/2023 Procedure Type: Transthoracic Echocardiogram Location: ER Height: 167.64 cm Weight: 126.1 kg BSA: 2.30 m2 Heart Rate: bpm BP: 158 / 58 mmHg Highballer: Referring MD: Wanda Gilliam MD Symptoms: syncope Study Quality: Adequate w contrast ECG Rhythm: Sinus Conclusions: - The left ventricular systolic function is normal. The visually estimated ejection fraction is between 65-70%. - There is moderately increased left ventricular wall thickness. - No obvious valvular pathology seen on this study. Findings Procedure Information Contrast agent, definity, is being given per protocol without apparent complications. Left Ventricle Normal left ventricular cavity size. There is moderately increased left ventricular wall thickness. The left ventricular systolic function is normal. The visually estimated ejection fraction is between 65-70%. There is no evidence of regional wall motion abnormalities. Diastolic function is normal for age. Right Ventricle Normal right ventricular cavity size and systolic function. Atria The left atrium is mildly dilated. The right atrium is normal in size. Aortic Valve There is a normal trileaflet aortic valve. There is mild calcification of the aortic valve. There is no aortic valve stenosis. There is trace (trivial) aortic valve regurgitation. Mitral Valve The mitral valve appears normal. There is no mitral valve regurgitation. There is no mitral valve stenosis. Pulmonic Valve The pulmonic valve is likely normal. Tricuspid Valve There is trace tricuspid valve regurgitation. There is no evidence of pulmonary hypertension. Great Vessels The asc aorta is normal in size. Venous The inferior vena cava was not well visualized. Pericardium/Pleural There is no evidence of pericardial effusion. Prior Study Comparison No prior study available for comparison. Recommendations, Care & Conclusions No obvious valvular pathology seen on this study. Measurements 2D Linear Measurements IVSd: 1.42 0.6-0.9/0.6-1.0 cm LVIDd: 4.12 3.9-5.3/4.2-5.9 cm LVIDd Index: 1.79 2.4-3.2/2.2-3.1 cm/m2 LVIDs: 2.63 2.0-3.6 cm LVPWd: 1.34 0.7-1.1 cm Ao Root: 3.20 2.1-3.5 cm LA Diam: 3.30 2.7-3.8/3.0-4.0 cm LAIDs Index: 1.43 1.5-2.3 cm/m2 LV Mass: 265.96 67-162/88-224 g LV Mass Index: 115.63 43-95/49-115 g/m2 LVOT Diam: 2.10 3.0+(-)1.3 cm 2D Systolic Function EF 4C: 74.30 >55% EF 2C: 68.60 >55% EF BiP: 72.20 >55% Mitral Valve MV Pk E: 0.72 MV PK A: 0.94 MV Decel Time: 214.00 E/A: 0.80 E'Lateral: 5.11 E'Medial: 4.57 E/E' Med: 15.80 E/E' Lat: 14.10 PHT: 63.00 MVA PHT: 3.49 Decel [place]: 3.37 Aortic Valve AoV Pk [place]: 1.84 AoV Mn Kirby: 1.12 AoV VTI: 0.49 AoV Pk Grad: 14.00 Aov Mn Grad: 6.00 IVY Cont.VTI: 2.27 LVOT LVOT Pk [place]: 1.02 LVOT Mn [place]: 0.68 LVOT VTI: 0.32 LVOT Pk Grad: 4.00 LVOT Mn Grad: 2.00 LVOT Diam: 2.10 LVOT Area: 3.46 Diastolic Function MV Pk E: 0.72 MV Pk A: 0.94 E/A: 0.80 E'Medial: 4.57 E/E' Med: 15.80 E' Laterial: 5.11 E/E' Lat: 14.10 Right Ventricle TAPSE (mm): 35.50 TVS' [place]: 16.90 Tricuspid Valve TR Pk [place]: 1.27 TR Pk Grad: 6.00 Great Vessels Aorta Ao Root-2D: 3.20 2.0-3.7 cm Ao Asc: 3.20 2.1-3.4 cm Pulmonary Valve PV Pk [place]: 0.97 Peak PV Grad: 4.00 Updated in Other Vendor System with Status of Final Jono Jenkins MD electronically signed on 10/28/2023 4:18:07 PM with status of Final
[2023-10-28 07:22] LABS: Folate 5.6 ng/mL (> or = 4.0); Vitamin B12 321 pg/mL (200-900)
--- NOTE | 2023-10-28 07:26 | PC.NURSE ---
Spoke with supervisor scouring pads Maribel whom could not provide any information re: ambulation status. Asked to contact in the morning.
--- NOTE | 2023-10-28 10:02 | P.CONCA_ITS ---
History of Present Illness History of Present Illness Date of Service: 10/28/23 Chief complaint: Syncope Narrative: Patient is nonverbal and not able to give any information. Reviewed the chart. It seems that he has a history of Parkinson's disease, orthostatic hypotension, syncope, prostate cancer among others. ER presentation is because of being unconscious in the Abril lift at his facility. Upon initial arrival, patient was awake and able to say the name although speech was delayed. That was apparently his baseline. Currently, I tried numerous times to communicate with him and he has not able to answer even a single word. Per admission documentation, he has been admitted with a diagnosis of syncope for further evaluation. Review of Systems 2 Review of Systems: Unable to obtain[facility] Past Medical History Medical History (Updated 10/28/23 @ 01:55 by Wanda Gilliam MD) Cardiac arrest IBS (irritable bowel syndrome) Parkinsons Hypertension Chronic anemia Cellulitis Family History Pertinent family history: Unable to obtain. Social History Social History Household Members: None Housing: Shelter Do you presently have visiting nurse or other home services: No Unable to assess alcohol history related to: Unknown Alcohol intake: never Patient Tobacco Use Status: Never used Tobacco Smoked in Last 30 Days: No Use of substances other than those prescribed or required for medical reasons: Unknown Advance Directives: Yes Advance Directives on File: Yes Advance Directives Date on File: 12/10/22 service: Yes Current occupational status: retired and disabled Meds Allergies Allergy/AdvReac Type Severity Reaction Status Date / Time cefazolin [From KEFZOL] Allergy Unknown RASH Verified 10/27/23 19:53 Active Medications: Current Medications Allopurinol (Allopurinol 300 Mg Tablet) 300 mg PO DAILY@0900 [facility] Amlodipine Besylate (Amlodipine Besylate 2.5 Mg Tablet) 2.5 mg PO BEDTIME [facility]; Protocol Carbidopa/Levodopa (Carbidopa/Levodopa 25/100 Tablet) 2 tab PO TID@0900,1300,1700 [facility] Carbidopa/Levodopa (Carbidopa/Levodopa 25/100 Tablet) 1 tab PO DAILY@2100 [facility] Last Admin: 10/28/23 01:03 Dose: Not Given Dicyclomine HCl (Dicyclomine Hcl 10 Mg Capsule) 10 mg PO BID@0900,1700 [facility] Last Admin: 10/28/23 01:04 Dose: Not Given Heparin Sodium (Porcine) (Heparin Sodium,Porcine 5,000 Unit/Ml Vial) 5,000 unit SUBCUT Q12H [facility] Ceftriaxone Sodium 1 gm/ (Sodium Chloride) 50 mls @ 100 mls/hr IV BEDTIME [facility] Last Infusion: 10/28/23 01:19 Dose: Infused Magnesium Hydroxide (Milk Of Magnesia 30 Ml Oral.Susp) 30 ml PO DAILY PRN PRN Reason: Constipation Memantine (Memantine Hcl 10 Mg Tablet) 10 mg PO DAILY [facility] Quetiapine Fumarate (Quetiapine Fumarate 50 Mg Tablet) 50 mg PO BEDTIME [facility] Senna (Senna [place] Extract Oral Syrup 15 Ml Syrup) 7.5 ml PO BID [facility] Sodium Chloride (0.9 % Sodium Chloride Flush 3 Ml Syringe) 3 ml IVFLUSH QSHIFT [facility] Last Admin: 10/28/23 07:03 Dose: Not Given Home Medications ?Medication ?Instructions ?Recorded ?Confirmed ?Last Taken ?Type acetaminophen 325 mg tablet 650 mg PO BID@0900,1300 PRN Pain 04/11/21 06/26/23 Unknown History amlodipine 2.5 mg tablet 2.5 mg PO BEDTIME 04/11/21 10/28/23 04/09/21 History docusate sodium 100 mg capsule 100 mg PO BID 04/11/21 06/26/23 04/10/21 History lactulose 20 gram/30 mL oral 10 g PO BEDTIME 04/11/21 06/26/23 04/09/21 History solution triamcinolone acetonide 0.1 % 1 appl topical BID PRN Rash 04/11/21 06/26/23 04/10/21 History topical cream Physical Exam 2 Vital Signs: Vital Signs: Last Vital Signs Temp 97.5 F 10/28/23 09:59 Pulse 55 10/28/23 09:59 Resp 10 L 10/28/23 09:59 BP 154/58 H 10/28/23 09:59 Pulse Ox 99 10/28/23 09:59 O2 Del Method Room Air 10/28/23 09:59 O2 Flow Rate 2 10/28/23 01:54 BMI result Body Mass Index 44.9 Const: General: comfortable and no acute distress O rientation/consciousness: No patient oriented x3 HEENT: Other: Unremarkable Head: Yes normal to inspection Neck: Neck: Yes normal visual inspection Chest: Chest palpation & inspection: normal inspection of the chest Resp: Auscultation: clear to auscultation bilaterally Cardio: Palpation: normal PMI Heart sounds: S1 normal heart sound present, S2 normal heart sound present, no gallops, no murmurs and no rubs GI: Palpation (GI): Soft to palpation Back/Spine/Pelvis: Other: unremarkable Skin: General skin exam: no rashes or lesions noted Neuro: General: No patient oriented x3 Extrem: General: Yes normal to inspection Psych: Mental Status: mental status grossly abnormal Objective Labs and Meds 10/28/23 05:12 10/28/23 05:12 Lab results: Laboratory Results - last 24 hr 10/27/23 10/27/23 10/28/23 19:59 20:03 00:01 WBC 6.1 RBC 4.57 L Hgb 14.8 Hct 42.7 MCV 93.4 MCH 32.4 MCHC 34.7 RDW 14.1 Plt Count 110 L MPV 9.8 Immature Gran % (Auto) 1.8 H Neut % (Auto) 58.9 Lymph % (Auto) 31.1 [place] % (Auto) 6.1 Eos % (Auto) 1.8 Baso % (Auto) 0.3 Lymph # (Auto) 1.9 [place] # (Auto) 0.4 Eos # (Auto) 0.1 Baso # (Auto) 0.0 Abs Immat Gran (auto) 0.11 H Absolute Neuts (auto) 3.6 Absolute Nucleated RBC 0.000 Nucleated RBC % (auto) 0.0 PT 12.7 INR 1.0 D-Dimer High Sensitivty VBG pH VBG pCO2 VBG pO2 VBG HCO3 VBG O2 Saturation VBG Base Excess Sodium 140 Potassium 5.3 H Chloride 108 Carbon Dioxide 23 Anion Gap 14 BUN 21 H Creatinine 0.98 Estim Creat Clear Calc 80.4 Estimated GFR > 60 POC Glucose Random Glucose 161 H Calcium 8.5 Magnesium 2.0 Total Bilirubin 0.3 AST 36 ALT 10 Alkaline Phosphatase 116 Total Creatine Kinase Troponin I High Sens < 2.7 B-Natriuretic Peptide 54 Total Protein 7.6 Albumin 3.5 Vitamin B12 Folate TSH 2.83 Urine Color Yellow Urine Appearance Cloudy Urine pH 6.0 Ur Specific [place] 1.020 Urine Protein Negative Urine Glucose (UA) Negative Urine Ketones Negative Urine Blood Trace H Urine Nitrite Negative Ur Leukocyte Esterase Small (1+) H Urine RBC 0-2 Urine WBC 21-50 H Ur Squamous Epith Cells 6-10 Urine Bacteria None Seen Hyaline Casts 0-2 10/28/23 10/28/23 10/28/23 01:03 01:58 05:12 WBC 7.6 RBC 4.46 L Hgb 14.1 Hct 42.6 MCV 95.5 MCH 31.6 MCHC 33.1 RDW 13.8 Plt Count 101 L MPV 9.8 Immature Gran % (Auto) 0.9 H Neut % (Auto) 74.5 H Lymph % (Auto) 17.5 L [place] % (Auto) 6.1 Eos % (Auto) 0.7 Baso % (Auto) 0.3 Lymph # (Auto) 1.3 [place] # (Auto) 0.5 Eos # (Auto) 0.1 Baso # (Auto) 0.0 Abs Immat Gran (auto) 0.07 H Absolute Neuts (auto) 5.7 Absolute Nucleated RBC 0.000 Nucleated RBC % (auto) 0.0 PT INR D-Dimer High Sensitivty 464 VBG pH 7.43 VBG pCO2 42 VBG pO2 59 VBG HCO3 28 H VBG O2 Saturation 90.0 VBG Base Excess 3.9 Sodium 143 Potassium 4.1 D Chloride 110 H Carbon Dioxide 25 Anion Gap 12 BUN 18 H Creatinine 0.83 Estim Creat Clear Calc 95.0 Estimated GFR > 60 POC Glucose 123 H Random Glucose 104 Calcium 8.5 Magnesium 2.0 Total Bilirubin AST ALT Alkaline Phosphatase Total Creatine Kinase 1802 H Troponin I High Sens 14.3 D B-Natriuretic Peptide Total Protein Albumin Vitamin B12 321 Folate 5.6 TSH Urine Color Urine Appearance Urine pH Ur Specific [place] Urine Protein Urine Glucose (UA) Urine Ketones Urine Blood Urine Nitrite Ur Leukocyte Esterase Urine RBC Urine WBC Ur Squamous Epith Cells Urine Bacteria Hyaline Casts ECG Interpretation: EKG with sinus rhythm with a first-degree heart block at 254 milliseconds; can not exclude old inferior infarct. No previous EKG in our system. Imaging Radiologist's impression: Impressions Cervical Spine CT 10/27/23 21:03 IMPRESSION: 1. No acute intracranial pathology. 2. No acute fracture or malalignment in the cervical spine. 3. Ankylosis of C2-C4 with mild multilevel degenerative disc disease and facet arthropathy. 4. Markedly enlarged thyroid gland with substernal extension, also seen on prior ultrasound from 2016. If this has not been reassessed in a while, based on the recommendations of the ACR Incidental Thyroid Findings Committee (JACR 2014; 12(2):143-50), further evaluation by thyroid ultrasound is recommended for a heterogeneously enlarged thyroid gland in patients that do not have limited life expectancy or significant co-morbidities, unless clinically warranted. Chest CT 10/27/23 21:03 IMPRESSION: 1. No acute pulmonary findings. Low lung volumes with bibasilar atelectasis. No appreciable findings in the right anterior/lateral chest to correlate with the patient's symptoms. 4. Markedly enlarged thyroid gland with substernal extension, also seen on prior ultrasound from 2015. If this has not been reassessed since that time, based on the recommendations of the ACR Incidental Thyroid Findings Committee (JACR 2014; 12(2):143-50), further evaluation by thyroid ultrasound is recommended for a heterogeneously enlarged thyroid gland in patients that do not have limited life expectancy or significant co-morbidities, unless clinically warranted. Head CT 10/27/23 21:03 IMPRESSION: 1. No acute intracranial pathology. 2. No acute fracture or malalignment in the cervical spine. 3. Ankylosis of C2-C4 with mild multilevel degenerative disc disease and facet arthropathy. 4. Markedly enlarged thyroid gland with substernal extension, also seen on prior ultrasound from 2015. If this has not been reassessed in a while, based on the recommendations of the ACR Incidental Thyroid Findings Committee (JACR 2014; 12(2):143-50), further evaluation by thyroid ultrasound is recommended for a heterogeneously enlarged thyroid gland in patients that do not have limited life expectancy or significant co-morbidities, unless clinically warranted. Assessment and Plan (1) Syncope: Qualifiers: Syncope type: unspecified Qualified Code(s): R55 - Syncope and collapse Status: Acute Plan On review of vital signs, blood pressures are other on the higher side than being low. Hence low blood pressure most likely not the issue. Telemetry with some sinus bradycardia but again nothing profoundly concerning. Can review the echocardiogram once completed. Overall, doubt any true cardiac etiology for his episode. More likely neurological in nature. While being inpatient, can keep on telemetry. Procedures Date of Service Date of Service: 10/28/23
--- NOTE | 2023-10-28 10:37 | PC.NURSE ---
assumed care of pt at 0700. 20G IV placed via ultrasound to right upper arm. speech pathologist at bedside. AM meds to be administered once speech eval complete. 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 rr even/unlabored. awaiting bed assignment. plan of care ongoing.
--- NOTE | 2023-10-28 10:51 | MHC.CM.PN ---
Lyubov 10/28/23, pt resides at the [facility], he requires assistance with all ADL's and was not able to answer questions due to cognitive impairment. His brother, José is HCP, Lyubov form discussed with him on the phone and will be sent to him. DC plan is for pt to return to 's home via ambulance. CM to follow and assist with DC plan.
--- NOTE | 2023-10-28 11:26 | MHC.SL.SWA ---
Speech Pathologist Impression: Risk of Aspiration Due to: Neurological Condition Dysphasia Diet Status: Liquid Consistency and Strategies for Safe Swallow: Liquid Intake Recommendation: Thin Liquid Intake Strategies: Small Sips Unrestricted Solid Food Consistency: Dietary Recommendations: Chopped/Advanced (NDD3) Additional Modifications to Solid Foods: Oral Medication Intake: Whole with Puree Please contact the pharmacy regarding appropriate crushable or liquid drug formulations that are available whenever modified delivery is recommended. Compensatory Strategies and Precautions to be Taken for Safe Swallow: Sitting Upright (90 deg) Liquids from Cup Liquids from Straw Small Bites and Sips Alternate Liquids/Solids Avoid Specific Foods Supervision While Eating and Drinking for Safe Swallow: Intermittent Supervision Foods to Avoid: Swallowing Recommended Treatments: Compens. Strategy Educat. Recommendation for Speech: Comment: Recommend START diet of CHOPPED/ADVANCED SOLIDS (NDD3) and THIN LIQUIDS. MEDS WHOLE with PUREE. Pt will benefit from TRAY SETUP and INTERMITTENT SUPERVISION. Frequency/Duration: Daily Timeline to reassess: PRN Trust Officer Clinican/Clinical Fellow: No Supervisory Statement: I have reviewed and agree with the student/clinical fellow's documentation: N/A Speech Language Pathologist: David Pena M.A., [facility] SUPERVISOR
[2023-10-28] MEDS: allopurinoL 300 MG TABLET PO (11:45)
[2023-10-28] MEDS: Memantine HCl 10 MG TABLET PO (11:45)
[2023-10-28] MEDS: Dicyclomine HCl 10 MG CAPSULE PO ×2 (11:46→16:13)
[2023-10-28] MEDS: Heparin Sodium,Porcine 5,000 UNIT/ML VIAL 5000 UNIT SUBCUT ×2 (11:46→20:44)
[2023-10-28] MEDS: Lactated Ringers 1,000 ML 150 ML IVCONT ×2 (11:53→21:41)
--- NOTE | 2023-10-28 11:55 | PC.NURSE ---
pt medicated per MAR, meds given whole w apple sauce per SUPERVISOR KNITTING eval recommendation. LR running at 150ml/hr.
--- NOTE | 2023-10-28 12:00 | PHA.MEDREC ---
Pharmacy Consult ? Medication Reconciliation Pharmacy has completed the medication reconciliation. Used list from [facility] rec.
[2023-10-28] MEDS: Carbidopa/Levodopa 25/100 TABLET 2 TAB PO ×2 (12:59→16:13)
--- NOTE | 2023-10-28 15:05 | MHC.EDTECH ---
THIS PCT ASSUMED CARE OF PATIENT AT 1500 ,VITALS TAKEN ,PATIENT WAS INCONTINENT OF URINE CARE GIVEN AND BEDDING CHANGE ,CALL DUNN WITHIN PATIENT REACH .
[2023-10-28] MEDS: Docusate Sodium 100 MG CAPSULE PO (16:13)
[2023-10-28] MEDS: 0.9 % Sodium Chloride Flush 3 ML SYRINGE IVFLUSH ×2 (16:13→21:03)
[2023-10-28] MEDS: Sennosides 8.6 MG TABLET PO (16:13)
[2023-10-28] MEDS: amLODIPine Besylate 2.5 MG TABLET PO (20:42)
[2023-10-28] MEDS: Tamsulosin HCL 0.4 MG CAPSULE PO (20:42)
[2023-10-28] MEDS: QUEtiapine Fumarate 50 MG TABLET PO (20:42)
[2023-10-28] MEDS: Lactulose 20 GM/30 ML SOLUTION 10 GM PO (20:43)
[2023-10-28] MEDS: Carbidopa/Levodopa 25/100 TABLET 1 TAB PO (20:43)
[2023-10-29 04:00] VITALS: BP 152/66; PULSE 54; RESP 21; TEMP 36.1; O2SAT 96
[2023-10-29] MEDS: Lactated Ringers 1,000 ML 150 ML IVCONT ×2 (04:15→14:15)
[2023-10-29 07:22] VITALS: BP 135/60; PULSE 57; RESP 20; TEMP 37.1; O2SAT 96
[2023-10-29] MEDS: 0.9 % Sodium Chloride Flush 3 ML SYRINGE IVFLUSH ×2 (08:55→20:33)
[2023-10-29] MEDS: Docusate Sodium 100 MG CAPSULE PO ×2 (08:55→17:07)
[2023-10-29] MEDS: Carbidopa/Levodopa 25/100 TABLET 2 TAB PO ×3 (08:55→17:07)
[2023-10-29] MEDS: Dicyclomine HCl 10 MG CAPSULE PO ×2 (08:55→17:07)
[2023-10-29] MEDS: Heparin Sodium,Porcine 5,000 UNIT/ML VIAL 5000 UNIT SUBCUT ×2 (08:55→20:47)
[2023-10-29] MEDS: Memantine HCl 10 MG TABLET PO ×2 (08:55)
[2023-10-29] MEDS: allopurinoL 300 MG TABLET PO (08:55)
[2023-10-29] MEDS: polyethylene glycoL 3350 17 GM POWD.PACK PO (08:57)
[2023-10-29] MEDS: Sennosides 8.6 MG TABLET PO ×2 (08:58→17:07)
[2023-10-29 08:59] LABS: MANUAL DIFF FLAG NO
[2023-10-29] MEDS: Artificial Tears 15 ML DROPS 1 DROP EYE-BOTH ×3 (09:00→17:07)
[2023-10-29 09:17] LABS: Basophils Percent Auto 0.2 % (0-2); Eosinophils Absolute Auto 0.1 X10*3/uL (0.0-0.4); Hematocrit 42.5 % (42.0-52.0); Hemoglobin 14.3 g/dl (14.0-18.0); Imm Gran Abs Auto 0.03 X10*3/uL (0.00-0.03); Imm Gran Pct Auto 0.5 % (0.0-0.4); Lymphocytes Absolute Auto 1.3 X10*3/uL (1.2-4.9); Lymphocytes Percent Auto 20.9 % (20-40); Mean Corpuscular HGB Conc 33.6 g/dl (31.0-36.0); Mean Corpuscular Hemoglobin 32.2 pg (27.0-33.0); Mean Corpuscular Volume 95.7 fL (80.0-98.0); Mean Platelet Volume 9.7 fL (9.4-12.4); Monocytes Absolute Auto 0.4 X10*3/uL (0.1-1.2); Monocytes Percent Auto 6.5 % (2-11); Neutrophils Absolute Auto 4.2 x10*3/uL (2.0-8.3); Neutrophils Percent Auto 69.9 % (45-73); Platelet Count 104 X10*3/uL (160-400); Red Blood Count 4.44 X10*6/uL (4.60-5.80)
[2023-10-29 09:24] LABS: Anion Gap 8 (12-20); Blood Urea Nitrogen 14 mg/dL (9-16); Calcium 8.8 mg/dL (8.4-10.2); Carbon Dioxide 31 mmol/L (22-29); Chloride 106 mmol/L (96-108); Creatinine Clr Calc Pharmacy 101.2; Estimated Glomerular Filt Rate > 60; Glucose Random 88 mg/dL (60-115); Sodium 141 mmol/L (135-145)
[2023-10-29 11:20] VITALS: BP 148/68; PULSE 62; RESP 16; TEMP 36.4; O2SAT 93
--- NOTE | 2023-10-29 11:31 | PM.NEUROCN ---
History of Present Illness Data of Consult Service Date: 10/29/23 Primary Care Provider: Juan C Garcia MD HPI This is a 78 years old man with history of Parkinson's disease, syncope, orthostatic hypotension, prostate cancer, essential hypertension and IBS, who was brought to the emergency department after he was noted to be unconscious in abril lift at his residential facility. It seems like the patient was lowered from the Abril lift to the floor (face down, he did not fall). According to ED triage note, the staff reports approximately 2 minutes of unconsciousness, then he awoke to verbal stimuli. On evaluation, patient was awake and able to tell his name and seems to be patient's baseline. In the ED, he was found to have stable vital signs. Last BP was 180/73. Blood workup showed no leukocytosis or anemia. Platelets slightly low, 110. Potassium level is 5.3. No other significant electrolyte imbalances. Renal function is adequate. LFTs, BNP and troponin are normal. Head, C-spine and chest CT scans were obtained which incidentally showed a markedly enlarged thyroid gland with substernal extension. CT brain and C spine showed no intracranial or acute C-spine pathology. ECG showed normal sinus rhythm with a 1st AV block, Q-waves in the inferior leads and incomplete right bundle block branch block without ischemic changes. CPK is significantly elevated raising the possibility of a fall. Review of Systems Review of Systems: Unable to obtain. Yes Unobtainable due to mental status PMFSH Past Medical History Medical History Cardiac arrest IBS (irritable bowel syndrome) Parkinsons Hypertension Chronic anemia Cellulitis Family History Pertinent family history: Unable to obtain. Social History Social History Household Members: None Housing: [facility]way Do you presently have visiting nurse or other home services: No Unable to assess alcohol history related to: Unknown Alcohol intake: never Patient Tobacco Use Status: Never used Tobacco Advance Directives Date on File: 12/10/22 service: Yes Current occupational status: retired and disabled Meds Allergies Allergy/AdvReac Type Severity Reaction Status Date / Time cefazolin [From KEFZOL] Allergy Unknown RASH Verified 10/27/23 19:53 Active Medications: Current Medications Acetaminophen (Acetaminophen 325 Mg Tablet) 650 mg PO Q6H PRN PRN Reason: Fever Or Pain Allopurinol (Allopurinol 300 Mg Tablet) 300 mg PO DAILY@0900 [facility] Last Admin: 10/29/23 08:55 Dose: 300 mg Amlodipine Besylate (Amlodipine Besylate 2.5 Mg Tablet) 2.5 mg PO BEDTIME [facility]; Protocol Last Admin: 10/28/23 20:42 Dose: 2.5 mg Artificial Tears (Artificial Tears 15 Ml Drops) 1 drop EYE-BOTH TID@0900,1300,1700 [facility] Last Admin: 10/28/23 16:49 Dose: Not Given Bisacodyl (Bisacodyl 10 Mg Supp.Rect) 10 mg [place] DAILY PRN PRN Reason: Constipation Carbidopa/Levodopa (Carbidopa/Levodopa 25/100 Tablet) 2 tab PO TID@0900,1300,1700 [facility] Last Admin: 10/29/23 08:55 Dose: 2 tab Carbidopa/Levodopa (Carbidopa/Levodopa 25/100 Tablet) 1 tab PO DAILY@2100 [facility] Last Admin: 10/28/23 20:43 Dose: 1 tab Dicyclomine HCl (Dicyclomine Hcl 10 Mg Capsule) 10 mg PO BID@0900,1700 [facility] Last Admin: 10/29/23 08:55 Dose: 10 mg Docusate Sodium (Docusate Sodium 100 Mg Capsule) 100 mg PO BID@0900,1700 [facility] Last Admin: 10/29/23 08:55 Dose: 100 mg Guaifenesin (Guaifenesin 100 Mg/5 Ml Liquid) 10 ml PO Q4H PRN PRN Reason: Cough Heparin Sodium (Porcine) (Heparin Sodium,Porcine 5,000 Unit/Ml Vial) 5,000 unit SUBCUT Q12H [facility] Last Admin: 10/29/23 08:55 Dose: 5,000 unit Ceftriaxone Sodium 1 gm/ (Sodium Chloride) 50 mls @ 100 mls/hr IV BEDTIME [facility] Last Infusion: 10/28/23 21:38 Dose: Infused Lactated Ringer's (Lr) 1,000 mls @ 150 mls/hr IVCONT .Q6H40M [facility] Last Admin: 10/29/23 04:15 Dose: 150 mls/hr Lactulose (Lactulose 20 Gm/30 Ml Solution) 10 gm PO BEDTIME [facility] Last Admin: 10/28/23 20:43 Dose: 10 gm Loperamide HCl (Loperamide Hcl 2 Mg Capsule) 4 mg PO DAILY MRX1 PRN PRN Reason: Diarrhea Magnesium Hydroxide (Milk Of Magnesia 30 Ml Oral.Susp) 30 ml PO DAILY PRN PRN Reason: Constipation Magnesium Hydroxide (Milk Of Magnesia 30 Ml Oral.Susp) 30 ml PO DAILY@2100 PRN PRN Reason: Constipation Memantine (Memantine Hcl 10 Mg Tablet) 10 mg PO DAILY [facility] Last Admin: 10/29/23 08:55 Dose: 10 mg Memantine (Memantine Hcl 10 Mg Tablet) 10 mg PO DAILY@0900 [facility] Last Admin: 10/29/23 08:55 Dose: 10 mg Polyethylene Glycol (Polyethylene Glycol 3350 17 Gm Powd.Pack) 17 gm PO DAILY@0900 [facility] Last Admin: 10/29/23 08:57 Dose: 17 gm Quetiapine Fumarate (Quetiapine Fumarate 50 Mg Tablet) 50 mg PO BEDTIME [facility] Last Admin: 10/28/23 20:42 Dose: 50 mg Senna (Senna [place] Extract Oral Syrup 15 Ml Syrup) 7.5 ml PO BID [facility] Last Admin: 10/29/23 08:57 Dose: 7.5 ml Senna (Sennosides 8.6 Mg Tablet) 8.6 mg PO BID@0900,1700 [facility] Last Admin: 10/29/23 08:58 Dose: 8.6 mg Sodium Biphosphate/Sodium Phosphate (Sodium Phosphate,[place]-Dibasic 133 Ml Enema) 118 ml [place] DAILY PRN PRN Reason: Constipation Sodium Chloride (0.9 % Sodium Chloride Flush 3 Ml Syringe) 3 ml IVFLUSH QSHIFT [facility] Last Admin: 10/29/23 08:55 Dose: 3 ml Tamsulosin HCl (Tamsulosin Hcl 0.4 Mg Capsule) 0.4 mg PO BEDTIME [facility] Last Admin: 10/28/23 20:42 Dose: 0.4 mg Home Medications ?Medication ?Instructions ?Recorded ?Confirmed ?Last Taken ?Type acetaminophen 325 mg tablet 650 mg PO Q6H PRN Fever Or Pain 04/11/21 10/28/23 Unknown History amlodipine 2.5 mg tablet 2.5 mg PO BEDTIME 04/11/21 10/28/23 04/09/21 History docusate sodium 100 mg capsule 100 mg PO BID@0900,1700 04/11/21 10/28/23 10/27/23 History lactulose 20 gram/30 mL oral 10 g PO BEDTIME 04/11/21 10/28/23 10/27/23 History solution guaifenesin 100 mg/5 mL oral liquid 200 mg PO Q4H PRN Cough 10/28/23 10/28/23 Unknown History loperamide 2 mg tablet 4 mg PO DAILY MRX1 PRN Diarrhea 10/28/23 10/28/23 Unknown History magnesium hydroxide 400 mg/5 mL 30 ml PO DAILY@2100 PRN 10/28/23 10/28/23 Unknown History oral suspension (Milk of Magnesia) Constipation memantine 10 mg tablet 10 mg PO DAILY@0900 10/28/23 10/28/23 10/27/23 History ondansetron HCl 4 mg tablet 4 mg PO TID PRN Nausea 10/28/23 10/28/23 Unknown History polyethylene glycol 3350 17 gram 17 g PO DAILY@0900 10/28/23 10/28/23 10/27/23 History oral powder packet polyvinyl alcohol 1.4 % eye drops 1 drp ophthalmic (eye) 10/28/23 10/28/23 10/27/23 History (Artificial Tears (polyvinyl TID@0900,1300,1700 alcohol)) sodium phosphates 19 gram-7 118 ml [place] DAILY PRN Constipation 10/28/23 10/28/23 Unknown History gram/118 mL enema (Fleet Enema) Physical Exam Vital Signs: Vital Signs: Last Vital Signs Temp 97.6 F 10/29/23 11:20 Pulse 62 10/29/23 11:20 Resp 16 10/29/23 11:20 BP 148/68 H 10/29/23 11:20 Pulse Ox 93 10/29/23 11:20 O2 Del Method Room Air 10/29/23 11:20 O2 Flow Rate 2 10/28/23 01:54 BMI result Body Mass Index 44.0 Const: General: comfortable and no acute distress Orientation/consciousness: No patient oriented x3 HEENT: Other: Unremarkable Head: Yes normal to inspection Neck: Neck: Yes normal visual inspection Chest: Chest palpation & inspection: normal inspection of the chest Resp: Auscultation: clear to auscultation bilaterally Cardio: Palpation: normal PMI Heart sounds: S1 normal heart sound present, S2 normal heart sound present, no gallops, no murmurs and no rubs GI: Palpation (GI): Soft to palpation Back/Spine/Pelvis: Other: unremarkable Skin: General skin exam: no rashes or lesions noted Neuro: Other: He is a poor historian and unreliable in this information. It is unclear if he can walk at all because they use a Abril lift to get him up. He denies having had a fall, although he has some periorbital bruising and a large black area of ecchymosis in his right leg. He has decreased facial expression and typical Parkinsonian tremor on the left. Mild increase in tone. Gait and coordination could not be tested General: No patient oriented x3 Extrem: General: Yes normal to inspection Psych: Mental Status: mental status grossly abnormal Results Labs 10/29/23 08:48 10/29/23 08:48 Labs: Short CBC 10/29/23 Range/Units 08:48 WBC 6.0 (4.8-10.8) X10*3/uL Hgb 14.3 (14.0-18.0) g/dl Hct 42.5 (42.0-52.0) % Plt Count 104 L (160-400) X10*3/uL BMP 10/29/23 08:48 Sodium 141 Potassium 4.0 Chloride 106 Carbon Dioxide 31 H BUN 14 Creatinine 0.77 Calcium 8.8 Cardiac Enzymes 10/29/23 Range/Units 08:48 Total Creatine Kinase 1747 H (38-174) U/L Microbiology Microbiology Results: Microbiology 10/28/23 Unknown Urine Catheterized - Rudd Catheter Urine Culture - Preliminary Proteus species Assessment and Plan (1) Syncope: Qualifiers: Syncope type: unspecified Qualified Code(s): R55 - Syncope and collapse Status: Acute Possible cardiogenic syncope versus low blood pressure. Nothing to suggest a stroke or TIA, or a seizure. Recommendation: Cardiac monitoring, echocardiogram. Check orthostatics by having him sit with his legs dangling since he cannot stand. Continue current parkinsonian medications Plan On review of vital signs, blood pressures are other on the higher side than being low. Hence low blood pressure most likely not the issue. Telemetry with some sinus bradycardia but again nothing profoundly concerning. Can review the echocardiogram once completed. Overall, doubt any true cardiac etiology for his episode. More likely neurological in nature. While being inpatient, can keep on telemetry. Procedures Date of Service Date of Service: 10/29/23
--- NOTE | 2023-10-29 12:19 | MHC.SL.SWA ---
Speech Pathologist Impression: Risk of aspiration, oral phase dysphagia Risk of Aspiration Due to: Neurological Condition Dysphasia Diet Status: No change at this time Liquid Consistency and Strategies for Safe Swallow: Liquid Intake Recommendation: Thin Liquid Intake Strategies: Small Sips Unrestricted Solid Food Consistency: Dietary Recommendations: Chopped/Advanced (NDD3) Additional Modifications to Solid Foods: Patient exhibits mild oral phase dysphagia characterized by slow mastication and presence of oral residuals. He is recommended a CHOPPED/ADVANCED (NDD3) diet and THIN liquids, pills to be administered WHOLE in PUREE. Patient will need assistance with set up of TRAY, periodic check-in to monitor tolerance. Recommend alternate solids/liquids for improved clearance. Oral Medication Intake: Whole with Puree Please contact the pharmacy regarding appropriate crushable or liquid drug formulations that are available whenever modified delivery is recommended. Compensatory Strategies and Precautions to be Taken for Safe Swallow: Sitting Upright (90 deg) Liquids from Cup Liquids from Straw Small Bites and Sips Alternate Liquids/Solids Rate of Ingestion Change Avoid Specific Foods Supervision While Eating and Drinking for Safe Swallow: Intermittent Supervision Foods to Avoid: Avoid dry foods Swallowing Recommended Treatments: Compens. Strategy Educat. Recommendation for Speech: Frequency/Duration: Daily Date Range for Service Req: Timeline to reassess: PRN Youth Minister Clinican/Clinical Fellow: No Supervisory Statement: I have reviewed and agree with the student/clinical fellow's documentation: N/A Speech Language Pathologist: Zonia Ferraro M.A., CCC-COMPLETION ENGINEER
[2023-10-29 15:40] VITALS: BP 146/76; PULSE 71; RESP 18; TEMP 36.5; O2SAT 96
--- NOTE | 2023-10-29 15:53 | HO.PM.IMPN ---
Subjective Subjective Date of Service: 10/29/23 Interval History: Remains confused; no acute issues no further syncopal episodes Review of Systems Unable to obtain Physical Exam Vital Signs: Vital Signs: Last Vital Signs Temp 97.7 F 10/29/23 15:40 Pulse 71 10/29/23 15:40 Resp 18 10/29/23 15:40 BP 175/82 H 10/29/23 15:40 Pulse Ox 96 10/29/23 15:40 O2 Del Method Room Air 10/29/23 15:40 O2 Flow Rate 2 10/28/23 01:54 BMI result Body Mass Index 44.0 Const: Other: No acute distress Resp: Other: Clear to auscultation bilaterally no rales rhonchi or wheezes Cardio: Other: No S4; positive S1-S2; no S3 murmurs rubs or gallops GI: Other: Soft nontender nondistended normoactive bowel sounds Extrem: Other: No edema bilaterally Objective Data Active Medications Acetaminophen (Acetaminophen 325 Mg Tablet) 650 mg PO Q6H PRN PRN Reason: Fever Or Pain Allopurinol (Allopurinol 300 Mg Tablet) 300 mg PO DAILY@0900 [facility] Last Admin: 10/29/23 08:55 Dose: 300 mg Documented By: PARISH Amlodipine Besylate (Amlodipine Besylate 2.5 Mg Tablet) 2.5 mg PO BEDTIME [facility]; Protocol Last Admin: 10/28/23 20:42 Dose: 2.5 mg Documented By: NANY Artificial Tears (Artificial Tears 15 Ml Drops) 1 drop EYE-BOTH TID@0900,1300,1700 [facility] Last Admin: 10/29/23 14:15 Dose: 1 drop Documented By: PARISH Bisacodyl (Bisacodyl 10 Mg Supp.Rect) 10 mg IN DAILY PRN PRN Reason: Constipation Carbidopa/Levodopa (Carbidopa/Levodopa 25/100 Tablet) 2 tab PO TID@0900,1300,1700 [facility] Last Admin: 10/29/23 14:15 Dose: 2 tab Documented By: PARISH Carbidopa/Levodopa (Carbidopa/Levodopa 25/100 Tablet) 1 tab PO DAILY@2100 [facility] Last Admin: 10/28/23 20:43 Dose: 1 tab Documented By: NANY Dicyclomine HCl (Dicyclomine Hcl 10 Mg Capsule) 10 mg PO BID@0900,1700 [facility] Last Admin: 10/29/23 08:55 Dose: 10 mg Documented By: PARISH Docusate Sodium (Docusate Sodium 100 Mg Capsule) 100 mg PO BID@0900,1700 [facility] Last Admin: 10/29/23 08:55 Dose: 100 mg Documented By: PARISH Guaifenesin (Guaifenesin 100 Mg/5 Ml Liquid) 10 ml PO Q4H PRN PRN Reason: Cough Heparin Sodium (Porcine) (Heparin Sodium,Porcine 5,000 Unit/Ml Vial) 5,000 unit SUBCUT Q12H [facility] Last Admin: 10/29/23 08:55 Dose: 5,000 unit Documented By: PARISH Ceftriaxone Sodium 1 gm/ (Sodium Chloride) 50 mls @ 100 mls/hr IV BEDTIME [facility] Last Infusion: 10/28/23 21:38 Dose: Infused Documented By: NANY Lactated Ringer's (Lr) 1,000 mls @ 150 mls/hr IVCONT .Q6H40M [facility] Last Admin: 10/29/23 14:15 Dose: 150 mls/hr Documented By: PARISH Lactulose (Lactulose 20 Gm/30 Ml Solution) 10 gm PO BEDTIME [facility] Last Admin: 10/28/23 20:43 Dose: 10 gm Documented By: NANY Loperamide HCl (Loperamide Hcl 2 Mg Capsule) 4 mg PO DAILY MRX1 PRN PRN Reason: Diarrhea Magnesium Hydroxide (Milk Of Magnesia 30 Ml Oral.Susp) 30 ml PO DAILY PRN PRN Reason: Constipation Magnesium Hydroxide (Milk Of Magnesia 30 Ml Oral.Susp) 30 ml PO DAILY@2100 PRN PRN Reason: Constipation Memantine (Memantine Hcl 10 Mg Tablet) 10 mg PO DAILY [facility] Last Admin: 10/29/23 08:55 Dose: 10 mg Documented By: PARISH Memantine (Memantine Hcl 10 Mg Tablet) 10 mg PO DAILY@0900 [facility] Last Admin: 10/29/23 08:55 Dose: 10 mg Documented By: PARISH Polyethylene Glycol (Polyethylene Glycol 3350 17 Gm Powd.Pack) 17 gm PO DAILY@0900 [facility] Last Admin: 10/29/23 08:57 Dose: 17 gm Documented By: PARISH Quetiapine Fumarate (Quetiapine Fumarate 50 Mg Tablet) 50 mg PO BEDTIME [facility] Last Admin: 10/28/23 20:42 Dose: 50 mg Documented By: NANY Senna (Senna Turley Extract Oral Syrup 15 Ml Syrup) 7.5 ml PO BID [facility] Last Admin: 10/29/23 08:57 Dose: 7.5 ml Documented By: PARISH Senna (Sennosides 8.6 Mg Tablet) 8.6 mg PO BID@0900,1700 [facility] Last Admin: 10/29/23 08:58 Dose: 8.6 mg Documented By: PARISH Sodium Biphosphate/Sodium Phosphate (Sodium Phosphate,[place]-Dibasic 133 Ml Enema) 118 ml IN DAILY PRN PRN Reason: Constipation Sodium Chloride (0.9 % Sodium Chloride Flush 3 Ml Syringe) 3 ml IVFLUSH QSHIFT [facility] Last Admin: 10/29/23 15:52 Dose: Not Given Documented By: PARISH Non-Admin Reason: IV Running Tamsulosin HCl (Tamsulosin Hcl 0.4 Mg Capsule) 0.4 mg PO BEDTIME [facility] Last Admin: 10/28/23 20:42 Dose: 0.4 mg Documented By: NANY Labs 10/29/23 08:48 10/29/23 08:48 Labs: Laboratory Results - last 24 hr 10/29/23 08:48 MCV 95.7 MCH 32.2 MCHC 33.6 RDW 14.0 Plt Count 104 L MPV 9.7 Immature Gran % (Auto) 0.5 H Neut % (Auto) 69.9 Lymph % (Auto) 20.9 [place] % (Auto) 6.5 Eos % (Auto) 2.0 Baso % (Auto) 0.2 Lymph # (Auto) 1.3 [place] # (Auto) 0.4 Eos # (Auto) 0.1 Baso # (Auto) 0.0 Abs Immat Gran (auto) 0.03 Absolute Neuts (auto) 4.2 Absolute Nucleated RBC 0.000 Nucleated RBC % (auto) 0.0 Anion Gap 8 L Estim Creat Clear Calc 101.2 Estimated GFR > 60 Random Glucose 88 Calcium 8.8 Total Creatine Kinase 1747 H Microbiology Microbiology Results: Microbiology 10/28/23 Unknown Urine Culture - Preliminary Urine Catheterized - Rudd Catheter Proteus species Assessment and Plan (1) Syncope: Status: Acute (2) Parkinsons: Status: Acute (3) UTI (urinary tract infection): Status: Acute Plan Osmel Rodriguez is a 78 years old man with past medical history significant for syncope, CAD and orthostatic hypotension presents with: 1.Syncope -echo unremarkable -appreciate neuro input -follow clinically 2.Parkinson's disease/Lewy Body dementia -namenda /sinemet 3.Presumed UTI.. Likely culprit of exacerbation of syncope -ceftriaxone (2) -await formal culture 4.Essential hypertension -acceptable control on current therapies -adjust as indicated DNR/DNI (BiPAP okay). Heparin Requires ongoing hospitalization for IV antibiotics to treat UTI pending formal culture results Quality Stroke Does the patient have a stroke diagnosis?: No VTE Prior VTE?: No VTE Risk Level:: Medical - moderate - high VTE Device Contraindication: Treatment Not Indicated VTE Drug Contraindication: N/A - Med Ordered
[2023-10-29 19:51] VITALS: BP 138/98; PULSE 72; RESP 16; TEMP 36.1; O2SAT 96
[2023-10-29] MEDS: amLODIPine Besylate 2.5 MG TABLET PO (20:31)
[2023-10-29] MEDS: Carbidopa/Levodopa 25/100 TABLET 1 TAB PO (20:31)
[2023-10-29] MEDS: QUEtiapine Fumarate 50 MG TABLET PO (20:32)
[2023-10-29] MEDS: Lactulose 20 GM/30 ML SOLUTION 10 GM PO (20:32)
[2023-10-29] MEDS: Tamsulosin HCL 0.4 MG CAPSULE PO (20:32)
[2023-10-29] MEDS: cefTRIAXone sodium 1 GM in 0.9 % Sodium Chloride 50 ML IV (20:32)
[2023-10-30] VITALS: BP 159/80; PULSE 68; RESP 17; TEMP 36.8; O2SAT 97
[2023-10-30 04:00] VITALS: BP 129/72; PULSE 73; RESP 18; TEMP 36.4; O2SAT 98
[2023-10-30] MEDS: Lactated Ringers 1,000 ML 150 ML IVCONT (04:10)
[2023-10-30 07:51] VITALS: BP 155/83; PULSE 86; RESP 19; TEMP 36.2; O2SAT 96
[2023-10-30 08:00] VITALS: BP 119/83; PULSE 150
[2023-10-30] MEDS: Memantine HCl 10 MG TABLET PO ×2 (09:30→10:59)
[2023-10-30] MEDS: Carbidopa/Levodopa 25/100 TABLET 2 TAB PO ×2 (09:30→14:16)
[2023-10-30] MEDS: Artificial Tears 15 ML DROPS 1 DROP EYE-BOTH ×2 (10:58→14:16)
[2023-10-30] MEDS: Dicyclomine HCl 10 MG CAPSULE PO (10:58)
[2023-10-30] MEDS: allopurinoL 300 MG TABLET PO (10:58)
[2023-10-30] MEDS: Heparin Sodium,Porcine 5,000 UNIT/ML VIAL 5000 UNIT SUBCUT (10:59)
[2023-10-30 11:10] LABS: Alanine Aminotransferase 16 U/L (0-40); Albumin Level 3.4 g/dL (3.5-5.0); Alkaline Phosphatase 118 U/L (39-117); Anion Gap 12 (12-20); Aspartate Amino Transferase 46 U/L (5-37); Bilirubin Total 0.7 mg/dL (0.0-1.0); Blood Urea Nitrogen 14 mg/dL (9-16); Calcium 8.8 mg/dL (8.4-10.2); Carbon Dioxide 28 mmol/L (22-29); Chloride 107 mmol/L (96-108); Creatinine Clr Calc Pharmacy 83.8; Estimated Glomerular Filt Rate > 60; Glucose Fasting 121 mg/dL (60-99); Potassium 3.8 mmol/L (3.3-5.1); Sodium 143 mmol/L (135-145); Total Protein 6.4 g/dL (6.5-8.0)
[2023-10-30 11:35] VITALS: BP 154/82; PULSE 79; RESP 17; TEMP 36.2; O2SAT 94
--- NOTE | 2023-10-30 11:45 | MHC.CM.PN ---
Addendum entered by Esme Humphrey RN 10/30/23 11:58: cm contacted pt's brother/hcp José whois agreeable to dc plan, imm delivered 10/30/23. Original Note: PT MEDICALLY CLERED FOR DC BACK TO LTC AT [facility], [facility]ENEF[facility] AND THEY REPORT HE DOES NOT, [facility] FOR TRANSPORT AT 2PM.
--- NOTE | 2023-10-30 12:44 | P.DS_ITS ---
DS: Providers Provider Date of Service: 10/30/23 Date of admission: 10/30/23 08:52 Date of discharge: 10/30/23 Primary care physician: Juan C Garcia MD Consults: 10/28/23 07:40 Consult to Cardiology Routine Consulting Provider: [facility] Reason for consultation: Syncope 10/28/23 15:30 Consult to Neurology Routine Consulting Provider: [facility] Reason for consultation: syncope DS: Diagnosis Discharge Diagnosis (1) Syncope: Status: Acute (2) Parkinsons: Status: Acute (3) UTI (urinary tract infection): Status: Acute DS: Summary Hospital Course Hospital Course: 78 years old man with past medical history significant for Parkinson's disease, syncope, orthostatic hypotension, prostate cancer, essential hypertension and IBS was brought to the emergency department after he was noted to be unconscious in kait lift at he is wanting facility. It seems like the patient was lower from the left to the floor (face down, he did not fall). According to ED triage note staff reports approximately 2 minutes of unconsciousness, then he awoke to verbal stimuli. On evaluation, patient was awake and able to tell me his name. His speech was delayed, which seems to be patient's baseline. In the ED, he was found to have stable vital signs. Last BP was 180/73. Blood workup showed no leukocytosis or anemia. Platelets slightly low, 110. Potassium level is 5.3. No other significant electrolyte imbalances. Renal function is adequate. LFTs, BNP and troponin are normal. Head, C-spine and chest CT scans were obtained which incidentally showed a markedly enlarged thyroid gland with substernal extension. There are no intracranial or acute C-spine pathology. ECG showed normal sinus rhythm with a 1st AV block, Q-waves in the inferior leads and incomplete right bundle block branch block without ischemic changes. Hospital Course Admitted to telemetry where monitor failed to demonstrate any acute dysrhythmias. Initial workup including CTA of head and chest failed to demonstrate any acute abnormalities they would coincide with presenting complaint. Patient was seen in consultation by Neurology and was felt not to have any acute neurological issues. Ultimately urine grew out Proteus which is likely culprit to the overall syncopal episode. Patient completed 3 doses of ceftriaxone (organism sensitive to ceftriaxone) will be discharged on 7 days of p.o. Ceftin. He will resume all care as previous at [facility] with a addition to his Ceftin. Time Attestation Discharge Coordination Time (in mins): 35 Quality: Safe Use of Opioids Does Pt have an Active Cancer Diagnosis on the Problem List?: No Quality: Stroke Does the patient have a stroke diagnosis?: No Physical Exam Vital Signs: Vital Signs: Last Vital Signs Temp 97.1 F 10/30/23 11:35 Pulse 79 10/30/23 11:35 Resp 17 10/30/23 11:35 BP 154/82 H 10/30/23 11:35 Pulse Ox 94 10/30/23 11:35 O2 Del Method Room Air 10/30/23 11:35 O2 Flow Rate 2 10/28/23 01:54 BMI result Body Mass Index 44.0 Const: Other: No acute distress Resp: Other: Clear to auscultation bilaterally no rales rhonchi or wheezes Cardio: Other: No S4; positive S1-S2; no S3 murmurs rubs or gallops GI: Other: Soft nontender nondistended normoactive bowel sounds Extrem: Other: No edema bilaterally DS: Data Data Completed and Pending Labs on day of discharge: Laboratory Results - last 24 hr 10/30/23 10:35 Sodium 143 Potassium 3.8 Chloride 107 Carbon Dioxide 28 Anion Gap 12 BUN 14 Creatinine 0.93 Estim Creat Clear Calc 83.8 Estimated GFR > 60 Fasting Glucose 121 H Calcium 8.8 Total Bilirubin 0.7 AST 46 H ALT 16 Alkaline Phosphatase 118 H Total Creatine Kinase 1466 H Total Protein 6.4 L Albumin 3.4 L Discharge Plan Discharge Anticipated Discharge Date/Time: 10/30/23 12:40 Patient Disposition: Xfer SNF Discharge Diagnosis: Urinary tract infection. .. Proteus Referrals: [facility] [Outside] - 1 Week Juan C Garcia MD [Primary Care Provider] - 1 Week Discharge Medications: New cefuroxime axetil 500 mg tablet 500 mg PO BID 10 Days Qty: 20 0RF Continued sennosides [Senna Lax] 8.6 mg Tablet 8.6 mg PO BID@0900,1700 Qty: 30 0RF tamsulosin 0.4 mg Capsule 0.4 mg PO BEDTIME Qty: 30 0RF bisacodyl [Gentle Laxative (bisacodyl)] 10 mg Suppository 10 mg WI DAILY PRN (Reason: Constipation) Qty: 30 0RF Rx Instructions: FOR NO BOWEL MOVEMENT IN 3 DAYS allopurinol 300 mg Tablet 300 mg PO DAILY@0900 Qty: 30 0RF carbidopa-levodopa 25-100 mg Tablet 2 tab PO TID@0900,1300,1700 Qty: 30 0RF carbidopa-levodopa 25-100 mg Tablet 1 tab PO DAILY@2100 Qty: 30 0RF dicyclomine 10 mg Capsule 10 mg PO BID@0900,1700 Qty: 30 0RF quetiapine 50 mg Tablet 50 mg PO BEDTIME Qty: 30 0RF amlodipine 2.5 mg Tablet 2.5 mg PO BEDTIME acetaminophen 325 mg tablet 650 mg PO Q6H PRN (Reason: Fever Or Pain) docusate sodium 100 mg capsule 100 mg PO BID@0900,1700 lactulose 20 gram/30 mL solution 10 g PO BEDTIME polyvinyl alcohol [Artificial Tears (polyvin alc)] 1.4 % drops 1 drp ophthalmic (eye) TID@0900,1300,1700 memantine 10 mg Tablet 10 mg PO DAILY@0900 ondansetron HCl 4 mg Tablet 4 mg PO TID PRN (Reason: Nausea) loperamide 2 mg Tablet 4 mg PO DAILY MRX1 PRN (Reason: Diarrhea) guaifenesin 100 mg/5 mL Liquid 200 mg PO Q4H PRN (Reason: Cough) Fleet Enema 19-7 gram/118 mL Enema 118 ml WI DAILY PRN (Reason: Constipation) Rx Instructions: FOR NO BOWEL MOVEMENT IN 3 DAYS polyethylene glycol 3350 17 gram powder in packet 17 g PO DAILY@0900 magnesium hydroxide [Milk of Magnesia] 400 mg/5 mL suspension 30 ml PO DAILY@2100 PRN (Reason: Constipation) Discharge Orders: Discharge Order (Routine); Ordered 10/30/23 Ordered By: Ash Donovan Diet: Advance to usual diet Activity on Discharge: As tolerated Stand Alone Forms: Patient Portal Discharge page Print Language: Albanian Care Plan Goals: Resume all medicines as taken prior to hospitalization Health Concerns: Urine culture grew Proteus sensitive to ceftriaxone. You will need to complete a 10 day course of Ceftin 500 mg b.i.d. Plan of Treatment: Resume all treatments as previous at [facility] Assessment: See discharge summary
--- NOTE | 2023-10-30 13:14 | MHC.SL.SWA ---
Speech Pathologist Impression: Risk of Aspiration Due to: Neurological Condition Dysphasia Diet Status: Recommend patient continue on current diet of Chopped/Advanced with Thin Liquids, pills whole with puree. Liquid Consistency and Strategies for Safe Swallow: Liquid Intake Recommendation: Thin Liquid Intake Strategies: Small Sips Solid Food Consistency: Dietary Recommendations: Chopped/Advanced (NDD3) Additional Modifications to Solid Foods: Patient requires one to one feeding, with ample cueing to orient and engage in the meal ( here is a bite of ). Recommend providing patient with frequent smaller meals if possible (e.g. take elements off tray, re-attempt at a later time in the day between meals). Add sauces and gravies. Oral Medication Intake: Whole with Puree Please contact the pharmacy regarding appropriate crushable or liquid drug formulations that are available whenever modified delivery is recommended. Compensatory Strategies and Precautions to be Taken for Safe Swallow: Sitting Upright (90 deg) Liquids from Cup Liquids from Straw Small Bites and Sips Alternate Liquids/Solids Rate of Ingestion Change Supervision While Eating and Drinking for Safe Swallow: Total Assistance (1:1) Foods to Avoid: Avoid dry foods Swallowing Recommended Treatments: Compens. Strategy Educat. Recommendation for Speech: Comment: Patient was seen at lunch with PHARMACEUTICAL COMPOUNDING SUPERVISOR initially feeding him 1-1. Head of bed was adjusted slightly so he was at 90 degrees while eating. PHARMACEUTICAL COMPOUNDING SUPERVISOR was attempting to cue him in advance of presenting food, with patient having eyes closed mostly and talking/muttering out of context remarks. Patient intermittently took bites of food in small amounts of mixture of chopped pork and mashed potatoes, masticating for a mildly prolonged period, then swallowing, but also shut mouth firmly at times when presented with food. Patient also took sips from dilia george with straw, but would refuse second sip. PHARMACEUTICAL COMPOUNDING SUPERVISOR left when patient appeared to refuse further food, RESEARCH TECH gave patient a brief break and attempted to feed some more. With RESEARCH TECH, patient took a few bites of the pork, which was chopped small but somewhat hard, which he masticated for a prolonged period, then initiated a timely swallow. Patient was also given sips of apple juice by straw, again taking a couple of sips and then refusing. Hand over hand holding of fork to self feed was attempted with patient following through with taking a bite, but this was effortful today. Patient then again refused any further food, eating only a small amount of the meal. Recommend patient continue on current diet of Chopped/Advanced with Thin Liquids, pills whole with Puree. Patient requires one to one feeding, with ample cueing to orient and engage in the meal ( here is a bite of ). Patient may benefit from a nutrition consult, if not already ordered, due to reduced po intake. Frequency/Duration: Daily Date Range for Service Req: Timeline to reassess: PRN Direct Support Professional Clinican/Clinical Fellow: No Supervisory Statement: I have reviewed and agree with the student/clinical fellow's documentation: N/A Speech Language Pathologist: Esme Bernabe M.A., CCC-RESEARCH TECH
== END 2023-10-30 14:18 | disposition skilled nursing facility (03) | DRG 690 ==
LOC: HO.ED 20:30 → HO.EDOVER 10-28 00:43 → HO.IMC 10-28 14:40
PROVIDERS: Nurse Practitioner Family; Student in an Organized Health Care Education/Training Program; Admitting Provider Internal Medicine; Emergency Provider Emergency Medicine; PCP Internal Medicine Medical Oncology; Visit Provider Hospitalist
DX: N39.0 Urinary tract infection, site not specified (principal); D69.6 Thrombocytopenia, unspecified; K58.9 Irritable bowel syndrome, unspecified; G31.83 Neurocognitive disorder with Lewy bodies; B96.4 Proteus (mirabilis) (morganii) as the cause of diseases classified elsewhere; D64.9 Anemia, unspecified; F02.80 Dementia in other diseases classified elsewhere, unspecified severity, without behavioral disturbance, psychotic disturbance, mood disturbance, and anxiety; G20.A1 Parkinson's disease without dyskinesia, without mention of fluctuations; I25.10 Atherosclerotic heart disease of native coronary artery without angina pectoris; Z66 Do not resuscitate; I10 Essential (primary) hypertension; G47.33 Obstructive sleep apnea (adult) (pediatric); F32.A Depression, unspecified; Z85.46 Personal history of malignant neoplasm of prostate; Z79.899 Other long term (current) drug therapy
CPT/HCPCS: 36415; 70450; 71250; 72125; 80048; 80053; 81001; 82550; 82607; 82746; 82803; 82947; 83735; 83880; 84443; 84484; 85025; 85379; 85610; 87086; 87088; 87186; 92526; 92610; 93005; 93306; 99285; J0696; J1644; J7120; Q9957

== ENCOUNTER → 2023-10-27 19:43 | Outpatient (BNV) | payer OTHER, SELFPAY | PROVIDERS: Admitting Provider Internal Medicine; Emergency Provider Emergency Medicine; PCP Internal Medicine Medical Oncology; Visit Provider Internal Medicine | DX: I44.0 Atrioventricular block, first degree (principal); I45.10 Unspecified right bundle-branch block | CPT/HCPCS: 93010 ==

== ENCOUNTER → 2023-10-28 00:16 | Outpatient (BNV) | payer MEDICARE, OTHER, SELFPAY | PROVIDERS: Admitting Provider Internal Medicine; Emergency Provider Emergency Medicine; PCP Internal Medicine Medical Oncology; Visit Provider Internal Medicine | DX: R55 Syncope and collapse (principal); G20.A1 Parkinson's disease without dyskinesia, without mention of fluctuations; N39.0 Urinary tract infection, site not specified | CPT/HCPCS: 99223; 99232; 99239 ==

== ENCOUNTER → 2023-10-28 00:16 | Outpatient (BNV) | payer OTHER, SELFPAY | PROVIDERS: Admitting Provider Internal Medicine; Emergency Provider Emergency Medicine; PCP Internal Medicine Medical Oncology; Visit Provider Internal Medicine | DX: R55 Syncope and collapse (principal); I35.8 Other nonrheumatic aortic valve disorders | CPT/HCPCS: 93010; 93306; 99222 ==

== ENCOUNTER → 2023-10-28 00:16 | Outpatient (BNV) | payer OTHER, SELFPAY | PROVIDERS: Admitting Provider Internal Medicine; Emergency Provider Emergency Medicine; PCP Internal Medicine Medical Oncology; Visit Provider Psychiatry & Neurology Neurology | DX: R55 Syncope and collapse (principal) | CPT/HCPCS: 99222 ==

== ENCOUNTER 2023-11-03 14:45 | Outpatient (REF) | payer MEDICARE, SELFPAY ==
[2023-11-03 15:36] LABS: Appearance Urine Clear; Color Urine Dark Yellow; Glucose Urine UA Negative (Negative); Leukocyte Esterase Urine Negative (Negative); Nitrite Urine Negative (Negative); Specific Gravity - Urine 1.025 (1.005-1.025); Urine Blood Negative (Negative); Urine Ketones Trace mg/dL (Negative); Urine Protein Negative (Neg-Trace)
== END 2023-11-03 14:46 | disposition home or self-care (01) ==
LOC: HO.HSH2E 14:45
PROVIDERS: Visit Provider Internal Medicine Medical Oncology
DX: R35.0 Frequency of micturition (principal); R53.83 Other fatigue; Z87.440 Personal history of urinary (tract) infections
CPT/HCPCS: 81003; 87086

== ENCOUNTER 2023-11-04 05:30 | Outpatient (REF) | payer MEDICARE, SELFPAY ==
[2023-11-04 05:55] LABS: MANUAL DIFF FLAG NO
[2023-11-04 06:03] LABS: Basophils Percent Auto 0.2 % (0-2); Eosinophils Absolute Auto 0.2 X10*3/uL (0.0-0.4); Hematocrit 38.9 % (42.0-52.0); Hemoglobin 13.2 g/dl (14.0-18.0); Imm Gran Abs Auto 0.05 X10*3/uL (0.00-0.03); Imm Gran Pct Auto 0.9 % (0.0-0.4); Lymphocytes Absolute Auto 1.5 X10*3/uL (1.2-4.9); Lymphocytes Percent Auto 27.3 % (20-40); Mean Corpuscular HGB Conc 33.9 g/dl (31.0-36.0); Mean Corpuscular Hemoglobin 31.7 pg (27.0-33.0); Mean Corpuscular Volume 93.5 fL (80.0-98.0); Mean Platelet Volume 10.1 fL (9.4-12.4); Monocytes Absolute Auto 0.6 X10*3/uL (0.1-1.2); Neutrophils Absolute Auto 3.3 x10*3/uL (2.0-8.3); Neutrophils Percent Auto 58.6 % (45-73); Red Blood Count 4.16 X10*6/uL (4.60-5.80); Red Cell Distribution Width 14.4 % (11.0-16.0); White Blood Count 5.6 X10*3/uL (4.8-10.8)
[2023-11-04 06:04] LABS: Platelet Count 96 X10*3/uL (160-400)
[2023-11-04 06:08] LABS: Lactic Acid 0.7 mmol/L (0.5-2.0)
[2023-11-04 06:14] LABS: Alanine Aminotransferase 10 U/L (0-40); Albumin Level 2.9 g/dL (3.5-5.0); Alkaline Phosphatase 77 U/L (39-117); Anion Gap 10 (12-20); Aspartate Amino Transferase 21 U/L (5-37); Bilirubin Total 0.4 mg/dL (0.0-1.0); Blood Urea Nitrogen 18 mg/dL (9-16); Carbon Dioxide 24 mmol/L (22-29); Chloride 110 mmol/L (96-108); Estimated Glomerular Filt Rate > 60; Glucose Fasting 84 mg/dL (60-99); Potassium 3.7 mmol/L (3.3-5.1); Sodium 140 mmol/L (135-145); Total Protein 5.5 g/dL (6.5-8.0)
[2023-11-04 06:32] LABS: Prostate Specific Antigen 8.55 ng/mL (<0.05-4.0)
== END 2023-11-04 05:31 | disposition home or self-care (01) ==
LOC: HO.HSH2E 05:30
PROVIDERS: Visit Provider Internal Medicine Medical Oncology
DX: Z12.5 Encounter for screening for malignant neoplasm of prostate (principal); R53.83 Other fatigue
CPT/HCPCS: 36415; 80053; 82550; 83605; 84153; 85025

== ENCOUNTER 2023-11-17 06:15 | Outpatient (REF) | payer MEDICARE, SELFPAY ==
[2023-11-17 06:20] LABS: MANUAL DIFF FLAG NO
[2023-11-17 07:07] LABS: Basophils Percent Auto 0.4 % (0-2); Eosinophils Absolute Auto 0.1 X10*3/uL (0.0-0.4); Eosinophils Percent Auto 1.9 % (0-4); Hematocrit 40.6 % (42.0-52.0); Hemoglobin 13.6 g/dl (14.0-18.0); Imm Gran Abs Auto 0.06 X10*3/uL (0.00-0.03); Imm Gran Pct Auto 0.9 % (0.0-0.4); Lymphocytes Absolute Auto 2.1 X10*3/uL (1.2-4.9); Lymphocytes Percent Auto 30.7 % (20-40); Mean Corpuscular HGB Conc 33.5 g/dl (31.0-36.0); Mean Corpuscular Hemoglobin 32.3 pg (27.0-33.0); Mean Corpuscular Volume 96.4 fL (80.0-98.0); Mean Platelet Volume 10.4 fL (9.4-12.4); Monocytes Absolute Auto 0.6 X10*3/uL (0.1-1.2); Monocytes Percent Auto 8.6 % (2-11); Neutrophils Absolute Auto 3.9 x10*3/uL (2.0-8.3); Neutrophils Percent Auto 57.5 % (45-73); Platelet Count 127 X10*3/uL (160-400); Red Blood Count 4.21 X10*6/uL (4.60-5.80); Red Cell Distribution Width 14.4 % (11.0-16.0); White Blood Count 6.7 X10*3/uL (4.8-10.8)
[2023-11-17 07:08] LABS: Alanine Aminotransferase < 5 U/L (0-40); Albumin Level 3.2 g/dL (3.5-5.0); Alkaline Phosphatase 93 U/L (39-117); Anion Gap 15 (12-20); Aspartate Amino Transferase 12 U/L (5-37); Bilirubin Total 0.3 mg/dL (0.0-1.0); Blood Urea Nitrogen 21 mg/dL (9-16); Calcium 8.6 mg/dL (8.4-10.2); Carbon Dioxide 24 mmol/L (22-29); Chloride 109 mmol/L (96-108); Estimated Glomerular Filt Rate > 60; Glucose Random 103 mg/dL (60-115); Sodium 144 mmol/L (135-145); Total Protein 6.1 g/dL (6.5-8.0)
[2023-11-17 07:28] LABS: Prostate Specific Antigen 10.57 ng/mL (<0.05-4.0)
[2023-11-21 15:48] LABS: Testosterone, Total 9 ng/dL (250-1100)
== END 2023-11-17 06:16 | disposition home or self-care (01) ==
LOC: HO.HSH2E 06:15
PROVIDERS: Visit Provider Internal Medicine Medical Oncology
DX: Z12.5 Encounter for screening for malignant neoplasm of prostate (principal); C61 Malignant neoplasm of prostate
CPT/HCPCS: 36415; 80053; 84153; 84403; 85025

== ENCOUNTER 2023-12-17 12:26 | Outpatient (REF) | payer MEDICARE, SELFPAY ==
[2023-12-17 12:34] LABS: MANUAL DIFF FLAG NO
[2023-12-17 12:44] LABS: Basophils Percent Auto 0.2 % (0-2); Eosinophils Absolute Auto 0.1 X10*3/uL (0.0-0.4); Eosinophils Percent Auto 1.3 % (0-4); Hematocrit 40.1 % (42.0-52.0); Hemoglobin 13.8 g/dl (14.0-18.0); Imm Gran Abs Auto 0.03 X10*3/uL (0.00-0.03); Imm Gran Pct Auto 0.5 % (0.0-0.4); Lymphocytes Absolute Auto 0.8 X10*3/uL (1.2-4.9); Lymphocytes Percent Auto 12.8 % (20-40); Mean Corpuscular HGB Conc 34.4 g/dl (31.0-36.0); Mean Corpuscular Hemoglobin 32.7 pg (27.0-33.0); Mean Platelet Volume 9.9 fL (9.4-12.4); Monocytes Absolute Auto 0.7 X10*3/uL (0.1-1.2); Monocytes Percent Auto 10.8 % (2-11); Neutrophils Absolute Auto 4.7 x10*3/uL (2.0-8.3); Neutrophils Percent Auto 74.4 % (45-73); Platelet Count 113 X10*3/uL (160-400); Red Blood Count 4.22 X10*6/uL (4.60-5.80); Red Cell Distribution Width 14.5 % (11.0-16.0); White Blood Count 6.3 X10*3/uL (4.8-10.8)
[2023-12-17 13:01] LABS: Alanine Aminotransferase 8 U/L (0-40); Albumin Level 3.4 g/dL (3.5-5.0); Alkaline Phosphatase 96 U/L (39-117); Anion Gap 12 (12-20); Aspartate Amino Transferase 16 U/L (5-37); Bilirubin Total 0.5 mg/dL (0.0-1.0); Blood Urea Nitrogen 19 mg/dL (9-16); Calcium 8.8 mg/dL (8.4-10.2); Carbon Dioxide 26 mmol/L (22-29); Chloride 106 mmol/L (96-108); Estimated Glomerular Filt Rate > 60; Glucose Random 115 mg/dL (60-115); Potassium 4.1 mmol/L (3.3-5.1); Sodium 140 mmol/L (135-145); Total Protein 6.6 g/dL (6.5-8.0)
[2023-12-17 13:56] LABS: Adenovirus PCR Not Detected (Not Detect.); Bordetella parapertussis PCR Not Detected (Not Detect.); Bordetella pertussis PCR Not Detected (Not Detect.); Chlamydia pneumoniae PCR Not Detected (Not Detect.); Coronavirus 229E PCR Not Detected (Not Detect.); Coronavirus HKU1 PCR Not Detected (Not Detect.); Coronavirus NL63 PCR Not Detected (Not Detect.); Coronavirus OC43 PCR Not Detected (Not Detect.); Human metapneumovirus PCR Not Detected (Not Detect.); Influenza A PCR Not Detected (Not Detect.); Influenza B PCR Not Detected (Not Detect.); Mycoplasma pneumoniae PCR Not Detected (Not Detect.); Parainfluenza 1 PCR Not Detected (Not Detect.); Parainfluenza 2 PCR Not Detected (Not Detect.); Parainfluenza 3 PCR Detected (Not Detect.); Parainfluenza 4 PCR Not Detected (Not Detect.); RSV PCR Not Detected (Not Detect.); Rhino/Enterovirus PCR Not Detected (Not Detect.)
[2023-12-17 14:21] LABS: SARS-CoV-2 PCR Not Detected (Not Detect.)
== END 2023-12-17 12:27 | disposition home or self-care (01) ==
LOC: HO.HSH2E 12:26
PROVIDERS: Visit Provider Internal Medicine Medical Oncology
DX: R50.9 Fever, unspecified (principal); R05.9 Cough, unspecified
CPT/HCPCS: 80053; 85025; 87633

== ENCOUNTER 2024-01-14 06:35 | Outpatient (REF) | payer MEDICARE, SELFPAY ==
[2024-01-14 11:11] LABS: Prostate Specific Antigen 11.35 ng/mL (<0.05-4.0)
[2024-01-19 13:15] LABS: Testosterone, Total 10 ng/dL (250-1100)
[2024-01-20 13:24] LABS: Testosterone, Free 0.8 pg/mL (30.0-135.0); Testosterone, Total 7 ng/dL (250-1100)
== END 2024-01-14 06:36 | disposition home or self-care (01) ==
LOC: HO.HSH2E 06:35
PROVIDERS: Urology; Visit Provider Internal Medicine Medical Oncology
DX: Z12.5 Encounter for screening for malignant neoplasm of prostate (principal); C61 Malignant neoplasm of prostate; R97.21 Rising PSA following treatment for malignant neoplasm of prostate
CPT/HCPCS: 36415; 84153; 84402; 84403

== ENCOUNTER 2024-02-06 06:47 | Outpatient (REF) | payer MEDICARE, SELFPAY ==
[2024-02-06 07:46] LABS: Estimated Average Glucose 103 mg/dL; Hemoglobin A1c % 5.2 % (<6.0)
== END 2024-02-06 06:48 | disposition home or self-care (01) ==
LOC: HO.HSH2E 06:47
PROVIDERS: Visit Provider Internal Medicine Endocrinology, Diabetes & Metabolism
DX: E11.9 Type 2 diabetes mellitus without complications (principal)
CPT/HCPCS: 36415; 83036

== ENCOUNTER 2024-02-24 09:49 | Outpatient (AMB) | payer MEDICARE, SELFPAY ==
--- NOTE | 2024-02-24 09:50 | A.OFFVIS_ITS ---
Intake Visit Reasons: Eligard(No PA Needed) Intake Note: Pt presents to the office today for an Eligard injection Urology meds:Tamsulosin Blood thinners:None Allergies cefazolin [From KEFZOL] Allergy (Unknown, Verified 02/24/24 09:51) RASH HPI Comments Details: Osmel is a pleasant male. He is a patient of Dr. Garcia. He resides at the [facility]. He is seen for the following urologic disease - prostate cancer Here for review PSA stable Adequately blocked GnRH today Three-month follow-up [facility] lab work, six-month follow-up office GnRH 02/03 PSA 11, T 7 09/06 GnRH at office Elevated PSA 06/05 10.6 08/06 Bone scan negative - No definite scintigraphic evidence of osseous metastasis, appear relatively stable since 06/12/2018 Prostate cancer September 2018 - Current therapy intermittent hormones Grade group 3 Multiple positive cores High volume 7 out of 12 cores positive 470/1200 Jose 4 + 3; LBL 75%, LML 75%, YAHIR 60%, LBM 90%, LMM 70%, CAMP 50% Buena 3+3; MELLISA 50% PNI positive, LVI negative, ALEC positive core. PSAs are as follows: 06/30--17.8, 10/09--18.2, 12/30--11, 04/01--0.9, 01/30--<0.05, 10/01--0.1, 11/02--1.9, 01/02--3.0, 06/05--10.3 [facility] Medical History (Updated 02/24/24 @ 10:19 by Nain Sarmiento MD) Prostate cancer Syncope Cardiac arrest IBS (irritable bowel syndrome) Parkinsons Hypertension Chronic anemia Cellulitis Social History Household Members: None Housing: Skilled Nursing Do you presently have visiting nurse or other home services: No Unable to assess alcohol history related to: Unknown Alcohol intake: never Patient Tobacco Use Status: Never used Tobacco Advance Directives Date on File: 12/10/22 service: Yes Current occupational status: retired and disabled Review of Systems Const Denies chills and Denies fever(s) Card Reports no additional complaints and Denies syncope Resp Denies cough GI Denies abdominal pain and Denies heartburn Reports as per HPI and Denies change in libido Neuro Denies syncope Psych Denies change in libido Endo Denies change in libido Physical Exam Const General: cooperative, healthy appearing, comfortable and no acute distress Orientation/consciousness: patient oriented x3 HEENT Face and sinus: Yes normal facial exam Mouth: moist mucous membranes Neck Neck: Yes normal visual inspection, Yes full ROM and Yes trachea midline Chest Chest palpation & inspection: normal inspection of the chest Resp Effort & Inspection: normal respiratory effort, able to speak in complete sentences and no respiratory distress GI Inspection: Yes normal to inspection Back/Spine/Pelvis Cervical Spine: normal cervical lordosis Thoracic/Lumbar Spine: thoracic and lumbar spine normal to inspection Skin General skin exam: no rashes or lesions noted Neuro General: patient oriented x3, gait normal, tone normal and moves all extremities Extrem General: Yes normal to inspection and Yes capillary refill normal Assessment & Plan Assessment & Plan (1) Prostate cancer: Code(s): C61 - Malignant neoplasm of prostate Category: Medical (2) Rising PSA following treatment for malignant neoplasm of prostate: Code(s): R97.21 - Rising PSA following treatment for malignant neoplasm of prostate Category: Medical Plan Six-month follow-up blood work GnRH Three-month follow-up [facility] lab work Orders: Orders Prostate Specific Antigen 6 Months C61 - Malignant neoplasm of prostate Testosterone, Total 6 Months C61 - Malignant neoplasm of prostate Patient Instructions: Imaging studies, laboratory and physical exam results were discussed and reviewed in detail. No major barriers to patient understanding were identified. An opportunity to ask questions regarding the treatment plan was provided. All questions were answered. The patient expressed understanding and agreement with the above treatment plan. The patient is aware they should contact our office by phone for worsening of their current condition or the appearance of new urologic symptoms. Compliance is encouraged with any medications and followup testing that is ordered. It is a privilege to participate in the urologic care of your patient. If you have any questions or concerns regarding treatment for the above conditions, or other urologic issues, please do not hesitate to contact me. The office telephone contact is [phone]. This note is constructed using voice recognition software. While every effort has been made to ensure accuracy bushing and broach operator errors may have been included. Yours sincerely, Dr Nain Sarmiento MDYUKI [facility] - Urology Providers of Expert, Compassionate Care for the Genitourinary System Coding Level of Care Code Est Pt Level 3 (42483) Diagnoses Prostate cancer C61 Rising PSA following treatment for malignant neoplasm of prostate R97.21
== END 2024-02-24 10:30 | disposition home or self-care (01) ==
PROVIDERS: PCP Internal Medicine Medical Oncology; Visit Provider Urology
DX: C61 Malignant neoplasm of prostate (principal); R97.21 Rising PSA following treatment for malignant neoplasm of prostate
CPT/HCPCS: 99213

== ENCOUNTER → 2024-02-24 09:49 | Outpatient (BNVA) | payer MEDICARE, SELFPAY | PROVIDERS: PCP Internal Medicine Medical Oncology; Visit Provider Urology | DX: C61 Malignant neoplasm of prostate (principal); R97.21 Rising PSA following treatment for malignant neoplasm of prostate | CPT/HCPCS: 96402; 99212; J9217 ==

== ENCOUNTER 2024-03-18 09:13 | Outpatient (AMB) | payer OTHER, SELFPAY ==
--- NOTE | 2024-03-18 09:18 | A.OFFVIS_ITS ---
Vital Signs 03/18/24 09:20 Height 5 ft 8 in Weight 300 lb BMI 45.6 BP 126/84 Blood Pressure Location Rt brachial Position Sitting Respiration 17 Pulse 58 Pulse Source Pulse Oximeter Pulse Oximetry (%) 97 Oxygen Delivery Method Room Air Intake Visit Reasons: 315LVM+Let ENP-Parkinson disease Intake Note: Pt presents to the office for new pt evaluation for Parkinson's. Envelope Adjuster Required: No Allergies cefazolin [From KEFZOL] Allergy (Unknown, Verified 03/18/24 09:18) RASH HPI Comments Details: 79y/o male with multiple medical issues ,Parkinsons disease, dementia comes for further management. He is from [facility] and comes alone for his appointment. He was not able to provide a detailed history but says he was diagnosed with dementia and parkinsons about 5 years ago. He denies any hallucinations, complulsive behaviors , dizziness etc. His mood is stable now. He is in a wheelchair but can walk with walker. His speech is softer, he has trouble using utensils , needs assistance with all ADLS. Unsure if he had any recent falls. [facility], [facility] Medical History (Updated 03/18/24 @ 10:29 by Kristi Andrade MD) Dementia Parkinson's disease without dyskinesia, without mention of fluctuations Anemia Gout Arthritis Anemia Obesity COPD (chronic obstructive pulmonary disease) Hyperlipidemia HTN (hypertension) CAD (coronary artery disease) Depression Dementia Prostate cancer Syncope Cardiac arrest IBS (irritable bowel syndrome) Parkinsons Hypertension Chronic anemia Cellulitis Social History Household Members: None Housing: Custodial Do you presently have visiting nurse or other home services: No Unable to assess alcohol history related to: Unknown Alcohol intake: never Patient Tobacco Use Status: Never used Tobacco Advance Directives Date on File: 12/10/22 service: Yes Current occupational status: retired and disabled Physical Exam Vital Signs: Last Vital Signs Pulse 58 03/18/24 09:20 Resp 17 03/18/24 09:20 BP 126/84 03/18/24 09:20 Pulse Ox 97 03/18/24 09:20 Oxygen Delivery Method Room Air 03/18/24 09:20 BMI result Body Mass Index 45.6 Const General: cooperative and no acute distress Nutritional Appearance: obese Orientation/consciousness: oriented to person and oriented to place Eyes Pupils: Equal, round and reactive pupils present Neuro Other: Danyel Ue moderate amplitude rest tremors Left >Right Left face- decreased movement severe hypophonia Decreased facial expression and blink Fine finger movements- mildly decreased foot taps - decreased No cog wheel rigidty on todays exam Moderate bradykinesia General: oriented to person, oriented to place and Unable to assess gait Cranial nerves: Yes Equal, round and reactive pupils present, Yes Nystagmus not present and Yes Midline tongue present Cognition (Neuro): abnormal cognition Gait exam (Neuro): Unable to assess gait Deep tendon reflexes (DTR's): Right triceps reflex intensity grade: 1+, Left triceps reflex intensity grade: 1+, Rt Biceps (C5, C6): 1+, Left biceps reflex intensity grade: 1+, Right brachioradialis reflex intensity grade: 1+, Left brachioradialis reflex intensity grade: 1+, Right patellar reflex intensity grade: 1+ and Left patellar reflex intensity grade: 1+ Assessment & Plan Assessment & Plan (1) Parkinson's disease without dyskinesia, without mention of fluctuations: Code(s): G20.A1 - Parkinson's disease without dyskinesia, without mention of fluctuations Category: Medical (2) Dementia: Comment: ? parkinsons associated, vascular Code(s): F03.90 - Unspecified dementia, unspecified severity, without behavioral disturbance, psychotic disturbance, mood disturbance, and anxiety Category: Medical Plan Notes to get more info on his medical history Increase carbidopa/levodopa 25/100 2tabs qid Increase memantine 10mg bid Monitor for hallucinations and hypotension Physical and Speech therapy Coding Level of Care Code New Pt Level 4 (43050) Complex EM visit Add On G2211 Diagnoses Parkinson's disease without dyskinesia, without mention of fluctuations G20.A1 Dementia F03.90
[2024-03-18 09:20] VITALS: BP 126/84; PULSE 58; RESP 17; O2SAT 97; BMI 45.6
== END 2024-03-18 09:59 | disposition home or self-care (01) ==
PROVIDERS: PCP Internal Medicine Medical Oncology; Visit Provider Psychiatry & Neurology Neurology
DX: G20.A1 Parkinson's disease without dyskinesia, without mention of fluctuations (principal); F03.90 Unspecified dementia, unspecified severity, without behavioral disturbance, psychotic disturbance, mood disturbance, and anxiety
CPT/HCPCS: 99204; 99214; G2211

== ENCOUNTER → 2024-03-18 09:13 | Outpatient (BNVA) | payer MEDICARE, SELFPAY | PROVIDERS: PCP Internal Medicine Medical Oncology; Visit Provider Psychiatry & Neurology Neurology | DX: G20.A1 Parkinson's disease without dyskinesia, without mention of fluctuations (principal); F02.80 Dementia in other diseases classified elsewhere, unspecified severity, without behavioral disturbance, psychotic disturbance, mood disturbance, and anxiety | CPT/HCPCS: 99202 ==

== ENCOUNTER 2024-03-22 09:42 | Inpatient (IN) | payer OTHER, MEDICARE, SELFPAY ==
[2024-03-22] VITALS (8 sets, daily range): BP systolic 135–172; BP diastolic 63–121; PULSE 58–84; RESP 12–22; TEMP 36.7–36.8; O2SAT 94–96; BMI 38.3
--- NOTE | ~2024-03-22 | CT_ITS ---
EXAMINATION: CT HEAD WITHOUT CONTRAST CLINICAL INFORMATION: Dizziness. COMPARISON: CT head dated October 27, 2023. TECHNIQUE: Contiguous axial imaging was performed from the skull base to vertex without intravenous administration of contrast. This CT examination was performed using dose optimization techniques as appropriate, variously including the following: *Automated exposure control *Adjustment of mA and/or kV according to patient size (this includes techniques or standardized protocols for targeted exams where dose is matched to indication/reason for exam; i.e. extremities or head) *Use of iterative reconstruction technique DLP: 778 mGy-cm FINDINGS: There is no acute intracranial hemorrhage. There is no evidence of acute/subacute cerebral or cerebellar infarction. There is no midline shift or mass effect. No extra-axial fluid collection. The ventricles are normal in size. There is a stable area of encephalomalacia within the lateral inferior left cerebellar hemisphere subjacent to a craniectomy defect. The ocular lenses are surgically absent. The orbits are otherwise unremarkable. Visualized paranasal sinuses are clear. Mastoid air cells are clear. There is a left lateral suboccipital craniectomy defect. CT/CT head/brain wo IV con IMPRESSION: No acute intracranial abnormality. Postsurgical changes of a prior left lateral suboccipital craniectomy with underlying encephalomalacia in the lateral aspect of the left cerebellar hemisphere. Electronically signed by: Eloy Thompson DO 03/22/2024 02:46 PM EDT
--- NOTE | ~2024-03-22 | XR_ITS ---
EXAMINATION: XR CHEST CLINICAL INFORMATION: Chest pain. COMPARISON: Chest radiograph 04/01/2024. TECHNIQUE: Frontal view of the chest was obtained. FINDINGS: Stable prominence of the cardiomediastinal silhouette. No focal consolidation, pleural effusion or pneumothorax. Mild subsegmental atelectasis is seen in the left lower lobe. No acute osseous findings. XR/XR chest 1V IMPRESSION: Mild subsegmental atelectasis in the left lower lobe. Otherwise, no acute cardiopulmonary findings. Electronically signed by: Ese Li MD 03/22/2024 10:52 AM EDT
--- NOTE | ~2024-03-22 | US_ITS ---
EXAMINATION: US TRIPLEX LOWER EXTREMITY, RIGHT CLINICAL INFORMATION: Right lower extremity edema. COMPARISON: Venous ultrasound dated December 10, 2022. TECHNIQUE: Color-flow triplex imaging with spectral analysis and compression Doppler were performed on the right lower extremity. FINDINGS: Respiratory variation, normal compression and augmented flow are noted throughout the right lower extremity. The visualized common femoral vein, superficial femoral vein, profunda femoral vein, popliteal vein and midcalf peroneal and posterior tibial venous segments show no evidence of deep venous thrombosis. There is no Vargas's cyst. US/US venous duplex LE RT IMPRESSION: No evidence of deep venous thrombosis involving the right lower extremity. Electronically signed by: Eloy Thompson DO 03/22/2024 02:51 PM EDT
--- NOTE | ~2024-03-22 | US_ITS ---
EXAMINATION: US RETROPERITONEAL LIMITED, LEFT(RENAL ONLY) CLINICAL INFORMATION: Evaluate renal mass.. COMPARISON: None available. TECHNIQUE: Transabdominal imaging of left kidney is performed. FINDINGS: LEFT KIDNEY: 11.0 x 4.8 x 4.5 cm (SAG x AP x TRV). The kidney is normal in size, contour, and increased echogenicity. There is mild cortical thinning. There is a anechoic cyst upper pole laterally measuring 5.4 x 2.4 x 4.6 cm. No additional cysts seen. There is no congenital stones. No hydronephrosis. Right kidney was not imaged as per request US/US renal LT IMPRESSION: Small anechoic cyst left kidney. Electronically signed by: Audi Barrientos MD 03/22/2024 09:57 PM EDT
--- NOTE | ~2024-03-22 | CT_ITS ---
EXAMINATION: CT CHEST, ABDOMEN AND PELVIS WITHOUT CONTRAST CLINICAL INFORMATION: Difficulty breathing, abdominal distention, confusion and dizziness COMPARISON: Chest radiograph earlier today CT chest 10/27/2023, CT abdomen and pelvis 01/08/2016 TECHNIQUE: Multidetector volumetric imaging was performed from the thoracic inlet through the pubic symphysis without IV contrast. Sagittal and coronal reformatted images were obtained on the technologist's workstation. This CT examination was performed using dose optimization techniques as appropriate, variously including the following: *Automated exposure control *Adjustment of mA and/or kV according to patient size (this includes techniques or standardized protocols for targeted exams where dose is matched to indication/reason for exam; i.e. extremities or head) *Use of iterative reconstruction technique DLP: 635 mGy-cm FINDINGS: CHEST: Lung: The lungs are clear without concerning focal opacity or nodule. There is a 4 mm perifissural nodule in the right lower lobe unchanged from prior (16:200 compare 21:22). Mediastinum: The heart is mildly enlarged. Coronary calcium is present. The central vascular structures are otherwise unremarkable. No hilar or mediastinal lymphadenopathy. Thyroid: Again seen is a markedly enlarged left lobe of the thyroid with substernal extension into the mediastinum down to the level below the aortic arch. Appearances are similar to 10/27/2023. Pericardium/Pleura: No significant effusion. No pleural mass or thickening. Chest Wall/Axilla: Unremarkable ABDOMEN/PELVIS: Peritoneal Space: No significant free air or free fluid identified. Liver, Gallbladder, Biliary Tree: The liver is normal in size, shape, and attenuation. Calcified hepatic granuloma again noted. No focal hepatic lesion or biliary ductal dilatation is present. The gallbladder is unremarkable with no evidence of radiopaque gallstones, gallbladder wall thickening, or obvious pericholecystic inflammatory changes. Pancreas: Unremarkable . There is fatty replacement in the head and uncinate of the pancreas Spleen: Calcified splenic granulomas are present Adrenal Glands: Unremarkable Kidneys and Ureters: The kidneys are normal in size, shape, and attenuation. No hydronephrosis, hydroureter, or calculi seen. Multiple left-sided benign Bosniak class I renal cysts are noted, the largest measuring 5.3 cm which require no additional imaging or follow-up. There is one hyperattenuating mass measuring 1.8 cm in size) 2:40). At the time of the prior 01/08/2016 study this measured 0.7 cm (prior 2:38). Although this may be a hemorrhagic/proteinaceous Bosniak class II cyst, ultrasound is recommended for further evaluation. Bladder: Unremarkable Gastrointestinal Tract: The small and large bowel are unremarkable. The appendix is unremarkable. Abdominal Wall: No significant hernia is appreciated. Lymph Nodes: No lymphadenopathy. Vascular: Calcific atherosclerotic changes are present in the aorta and iliofemoral vessels. There is no evidence of an abdominal aortic aneurysm.. The IVC appears unremarkable. PELVIC VISCERA: Unremarkable OSSEUS STRUCTURES: Mild degenerative changes are noted in the spine . There is a sclerotic walled lytic lesion in the right iliac bone (2:67) which is new when compared to 01/08/2016. In the vertebral body of T12 there had been what looked like a hemangioma which is now larger and there is a lytic expansile lesion extending into the pedicle and posterior elements on the left (2:26) which was not present on the 01/08/2016 study. There is a rounded lytic area in the L2 vertebral body which is unchanged when compared to the 2016 study and may be a hemangioma. There is a new lytic area at the superior endplate of L3 which could be a Schmorl's node but given other lesions could be suspicious. No acute fractures. CT/CT abdomen pelvis wo IV con IMPRESSION: 1. No evidence of pulmonary metastatic disease. 2. Unchanged 4 mm perifissural nodule. 3. Markedly enlarged left lobe of thyroid with substernal extension similar to prior. 4. Hepatic and splenic granulomas. 5. Enlarging hyperattenuating left renal mass. Ultrasound is recommended for further evaluation. 6. New lytic lesions in the spine and pelvis as described above. These are suspicious for metastatic disease. Bone scan or MRI may be useful for further evaluation. Fleischner guidelines were followed. Electronically signed by: Matthieu Borden MD 03/22/2024 03:29 PM EDT
--- NOTE | 2024-03-22 09:55 | ECG_ITS ---
Test Reason : CP Blood Pressure : / mmHG Vent. Rate : 057 BPM Atrial Rate : 057 BPM P-R Int : 266 ms QRS Dur : 078 ms QT Int : 410 ms P-R-T Axes : 062 069 050 degrees QTc Int : 399 ms Sinus bradycardia with 1st degree A-V block Nonspecific ST abnormality Abnormal ECG When compared with ECG of 28-OCT-2023 17:59, No significant change was found Referred By: Generic ED Physician Electronically Signed By:ENRRIQUE ALVAREZ
--- NOTE | 2024-03-22 10:49 | MHC.EDTECH ---
EKG delayed due to EKG machine in use / machine unavailable. Patient resting comfortably at this time. Patient states he is comfortable. Call grier placed within reach.
[2024-03-22 11:11] LABS: MANUAL DIFF FLAG NO
[2024-03-22 11:14] LABS: Basophils Percent Auto 0.3 % (0-2); Eosinophils Percent Auto 0.5 % (0-4); Hemoglobin 14.8 g/dl (14.0-18.0); Imm Gran Abs Auto 0.04 X10*3/uL (0.00-0.03); Imm Gran Pct Auto 0.5 % (0.0-0.4); Lymphocytes Absolute Auto 1.4 X10*3/uL (1.2-4.9); Lymphocytes Percent Auto 18.1 % (20-40); Mean Corpuscular HGB Conc 33.6 g/dl (31.0-36.0); Mean Corpuscular Hemoglobin 31.4 pg (27.0-33.0); Mean Corpuscular Volume 93.4 fL (80.0-98.0); Mean Platelet Volume 9.4 fL (9.4-12.4); Monocytes Absolute Auto 0.5 X10*3/uL (0.1-1.2); Monocytes Percent Auto 6.6 % (2-11); Neutrophils Absolute Auto 5.6 x10*3/uL (2.0-8.3); Platelet Count 117 X10*3/uL (160-400); Red Blood Count 4.71 X10*6/uL (4.60-5.80); Red Cell Distribution Width 14.1 % (11.0-16.0); White Blood Count 7.5 X10*3/uL (4.8-10.8)
[2024-03-22 11:33] LABS: Alanine Aminotransferase 11 U/L (0-40); Albumin Level 3.7 g/dL (3.5-5.0); Alkaline Phosphatase 111 U/L (39-117); Anion Gap 12 (12-20); Aspartate Amino Transferase 16 U/L (5-37); Bilirubin Total 0.6 mg/dL (0.0-1.0); Blood Urea Nitrogen 24 mg/dL (9-16); Calcium 9.1 mg/dL (8.4-10.2); Carbon Dioxide 28 mmol/L (22-29); Chloride 107 mmol/L (96-108); Creatinine Clr Calc Pharmacy 83.4; Estimated Glomerular Filt Rate > 60; Glucose Random 106 mg/dL (60-115); Potassium 4.2 mmol/L (3.3-5.1); Sodium 143 mmol/L (135-145); Total Protein 6.8 g/dL (6.5-8.0)
[2024-03-22 11:39] LABS: Troponin-I High Sensitivity 4.7 ng/L (<3.5-35.0)
--- NOTE | 2024-03-22 11:59 | ED_ITS ---
HPI - Chest Pain General Chief Complaint: Chest Pain Stated Complaint: DIZZY,CP FROM SNF PER EMS Time Seen by Provider: 03/22/24 11:47 Source: patient and old records reviewed Mode of arrival: EMS Limitations: altered mental status and physical limitation History of Present Illness ED Provider: Tiny CARCAMO HPI narrative: 79yo male hx of HLD, depression, CAD, HTN, prostate cancer, dementia, anemia, parkinsons, COPD presents from 's home with CC of chest pain & dizziness per ems and report. Patient is AMS at baseline, currently only oriented to self. Patient unable to recall onset of symptoms, severity, associated sx. Unable to perform ROS due to patient's mental status. MD complaint: chest pain Pertinent past history: coronary artery disease and other (Hx cardiac arrest, COPD, HTN, HLD) Onset (ago): unknown (Patient unable to recall onset of sx) Risk Factors Pulmonary embolism risk factors: immobilization and morbid obesity Related Data Home Medications ?Medication ?Instructions ?Recorded ?Confirmed acetaminophen 325 mg tablet 650 mg PO Q6H PRN Fever Or Pain 04/11/21 03/22/24 amlodipine 2.5 mg tablet 2.5 mg PO BEDTIME 04/11/21 03/22/24 docusate sodium 100 mg capsule 100 mg PO BID@0900,1700 04/11/21 03/22/24 lactulose 20 gram/30 mL oral 10 g PO BEDTIME 04/11/21 03/22/24 solution guaifenesin 100 mg/5 mL oral liquid 200 mg PO Q4H PRN Cough 10/28/23 03/22/24 loperamide 2 mg tablet 4 mg PO DAILY MRX1 PRN Diarrhea 10/28/23 03/22/24 magnesium hydroxide 400 mg/5 mL 30 ml PO DAILY@2100 PRN 10/28/23 03/22/24 oral suspension (Milk of Magnesia) Constipation memantine 10 mg tablet 10 mg PO BID@0900,1700 10/28/23 03/22/24 ondansetron HCl 4 mg tablet 4 mg PO TID PRN Nausea 10/28/23 03/22/24 polyethylene glycol 3350 17 gram 17 g PO DAILY 10/28/23 03/22/24 oral powder packet polyvinyl alcohol 1.4 % eye drops 1 drp ophthalmic (eye) 10/28/23 03/22/24 (Artificial Tears (polyvinyl TID@0900,1300,1700 alcohol)) sodium phosphates 19 gram-7 118 ml SD DAILY PRN Constipation 10/28/23 03/22/24 gram/118 mL enema (Fleet Enema) albuterol sulfate 90 mcg/actuation 2 puff inhalation Q4H PRN Wheezing 03/22/24 03/22/24 aerosol inhaler allopurinol 300 mg tablet 300 mg PO DAILY 03/22/24 03/22/24 benzocaine 15 mg-menthol 3.6 mg 1 zenon mucous membrane Q2H PRN Sore 03/22/24 03/22/24 lozenges Throat carbidopa 25 mg-levodopa 100 mg 2 tab PO QID 03/22/24 03/22/24 tablet Previous Rx's ?Medication ?Instructions ?Recorded bisacodyl 10 mg rectal suppository 10 mg SD DAILY PRN Constipation 07/31/20 (Gentle Laxative (bisacodyl)) #30 ea dicyclomine 10 mg capsule 10 mg PO BID@0900,1700 #30 caps 07/31/20 quetiapine 50 mg tablet 50 mg PO BEDTIME #30 tabs 07/31/20 sennosides 8.6 mg tablet (Senna 8.6 mg PO BID@0900,1700 #30 tabs 07/31/20 Lax) tamsulosin 0.4 mg capsule 0.4 mg PO BEDTIME #30 caps 07/31/20 Allergies Allergy/AdvReac Type Severity Reaction Status Date / Time cefazolin [From KEFZOL] Allergy Unknown RASH Verified 03/22/24 10:01 Review of Systems 2 Review of Systems: Yes Unobtainable due to mental status PMFSH Past Medical History Attestation statement: The following information was validated with the patient. Source: old records reviewed and nursing notes reviewed Medical History (Updated 03/22/24 @ 14:37 by SIVAKUMAR Vivar) Dementia Parkinson's disease without dyskinesia, without mention of fluctuations Anemia Gout Arthritis Anemia Obesity COPD (chronic obstructive pulmonary disease) Hyperlipidemia HTN (hypertension) CAD (coronary artery disease) Depression Dementia Prostate cancer Syncope Cardiac arrest IBS (irritable bowel syndrome) Parkinsons Hypertension Chronic anemia Cellulitis Social History Social History Household Members: None Housing: Halfway Do you presently have visiting nurse or other home services: No Unable to assess alcohol history related to: Unknown Alcohol intake: never Patient Tobacco Use Status: Never used Tobacco Smoked in Last 30 Days: No Use of substances other than those prescribed or required for medical reasons: No Advance Directives: Yes Advance Directives on File: Yes Advance Directives Date on File: 12/10/22 Do you have a plan to hurt others: No Plan service: Yes Current occupational status: retired and disabled Physical Exam 2 Vital Signs: Vital Signs: Last Vital Signs Temp 98.0 F 03/22/24 15:46 Pulse 76 03/22/24 18:07 Resp 15 03/22/24 17:03 BP 152/121 H 03/22/24 18:07 Pulse Ox 95 03/22/24 17:03 O2 Del Method Room Air 03/22/24 17:03 BMI result Body Mass Index 38.3 VSS Appearance: Alert.? Oriented to self only.? No acute distress.?Obese body habitus Head: Normocephalic, atraumatic, no step-offs or deformities Eyes: Pupils equal at 2mm, round and reactive to light.? ENT:External ears normal Neck: Normal inspection.? Neck supple.? CVS: Bradycardic 56-60bpm. Pulses normal.? Respiratory: No respiratory distress.? Breath sounds normal Abdomen: Soft and nontender.? Skin: Skin warm and dry.? Stasis pigmentosa RLE and central cyanosis affecting pt's lips, otherwise skin color appropriate for ethnicity.? Normal skin turgor.? Extremities: 1+ pitting edema to RLE.? No calf ttp. 4/5 strength to bilateral upper and lower extremities Neuro: Oriented X 1. No evidence of motor or sensory deficits Course Reevaluation(s) Reevaluation #1: CBC unremarkable. Chemistry no acute findings needing intervention. Initial troponin 4.7, nonischemic. Repeat scheduled for now. Time: 14:36 Reevaluation #2: US negative. Sign out to Dr. Nieto pending imaging, repeat trop Time: 14:57 Reevaluation #3: I assumed care SIVAKUMAR Purdy, 79-year-old male with baseline dementia came in for chest pain and dizziness, unclear history of syncope versus near syncope. Patient will be observed overnight in the hospital. Time: 18:57 Medical Decision Making Medical Decision Making [facility] Narrative: 79 yo m AMS at baseline [facility] for CP [facility]. Patient unable to provide hx PE R LE edema when compared to L. Oriented only to person. Not place, time or situation. Will rule out ACS, dysrhythmia, metabolic derangements, urinary infection. Unlikely intracranial hemorrhage, stroke, posterior stroke. Plan labs, imaging, urine. Differential Diagnosis Differential Diagnoses: The differential diagnosis associated with the presentation includes Will rule out ACS, dysrhythmia, metabolic derangements, urinary infection. Unlikely intracranial hemorrhage, stroke, posterior stroke. Admission/Observation Consideration of admission/observation: Escalation of care including admission/observation considered possible Lab Data [facility] Lab Attestation statement: I reviewed the patient's lab results. 03/22/24 11:02 03/22/24 11:02 Labs: Lab Results 03/22/24 03/22/24 Range/Units 11:02 15:02 WBC 7.5 (4.8-10.8) X10*3/uL RBC 4.71 (4.60-5.80) X10*6/uL Hgb 14.8 (14.0-18.0) g/dl Hct 44.0 (42.0-52.0) % MCV 93.4 (80.0-98.0) fL MCH 31.4 (27.0-33.0) pg MCHC 33.6 (31.0-36.0) g/dl RDW 14.1 (11.0-16.0) % Plt Count 117 L (160-400) X10*3/uL MPV 9.4 (9.4-12.4) fL Immature Gran % (Auto) 0.5 H (0.0-0.4) % Neut % (Auto) 74.0 H (45-73) % Lymph % (Auto) 18.1 L (20-40) % [place] % (Auto) 6.6 (2-11) % Eos % (Auto) 0.5 (0-4) % Baso % (Auto) 0.3 (0-2) % Lymph # (Auto) 1.4 (1.2-4.9) X10*3/uL [place] # (Auto) 0.5 (0.1-1.2) X10*3/uL Eos # (Auto) 0.0 (0.0-0.4) X10*3/uL Baso # (Auto) 0.0 (0.0-0.2) X10*3/uL Abs Immat Gran (auto) 0.04 H (0.00-0.03) X10*3/uL Absolute Neuts (auto) 5.6 (2.0-8.3) x10*3/uL Absolute Nucleated RBC 0.000 (0.0-0.012) X10*3/uL Nucleated RBC % (auto) 0.0 (0.0-0.2) /100WBC Sodium 143 (135-145) mmol/L Potassium 4.2 (3.3-5.1) mmol/L Chloride 107 (96-108) mmol/L Carbon Dioxide 28 (22-29) mmol/L Anion Gap 12 (12-20) BUN 24 H (9-16) mg/dL Creatinine 0.91 (0.5-1.4) mg/dL Estim Creat Clear Calc 83.4 Estimated GFR > 60 Random Glucose 106 (60-115) mg/dL Calcium 9.1 (8.4-10.2) mg/dL Total Bilirubin 0.6 (0.0-1.0) mg/dL AST 16 (5-37) U/L ALT 11 (0-40) U/L Alkaline Phosphatase 111 (39-117) U/L Troponin I High Sens 4.7 D 4.4 (<3.5-35.0) ng/L Total Protein 6.8 (6.5-8.0) g/dL Albumin 3.7 (3.5-5.0) g/dL Independent Interpretation I performed an independent interpretation of an: EKG (Vent. Rate : 057 BPM Atrial Rate : 057 BPM P-R Int : 266 ms QRS Dur : 078 ms QT Int : 410 ms P-R-T Axes : 062 069 050 degrees QTc Int : 399 ms Sinus bradycardia with 1st degree A-V block Nonspecific ST abnormality Abnormal ECG When compared with ECG of 28-OCT-2023 17:5), Ultrasound (US/US venous duplex LE RT IMPRESSION: No evidence of deep venous thrombosis involving the right lower extremity.) and CT Scan (PENDING ) Radiology Impression Discussion of test interpretation with radiology: I have reviewed the radiologist's reading. External Record Review External record reviewed: Office record, Outpatient record, Prior outpatient labs, Prior outpatient radiology and Primary care record Chronic Conditions Patient?s care impacted by: Hypertension and Other (HLD, depression, CAD, HTN, prostate cancer, dementia, anemia, parkinsons, COPD) Critical Care Time Critical Care Time Critical Care Time: Yes Total Critical Care Time: 35 Attestation: I attest to this time spent taking care of the patient, obtaining history, physical, reviewing labs, imaging, treatment of patients condition +/- specialist/hospitalist consult Discharge Plan Discharge Clinical Impression: Chest pain, Dizziness Patient Disposition: Admitted As Inpatient Prescriptions: No Action sennosides [Senna Lax] 8.6 mg Tablet 8.6 mg PO BID@0900,1700 Qty: 30 0RF tamsulosin 0.4 mg Capsule 0.4 mg PO BEDTIME Qty: 30 0RF bisacodyl [Gentle Laxative (bisacodyl)] 10 mg Suppository 10 mg SD DAILY PRN (Reason: Constipation) Qty: 30 0RF Rx Instructions: FOR NO BOWEL MOVEMENT IN 3 DAYS dicyclomine 10 mg Capsule 10 mg PO BID@0900,1700 Qty: 30 0RF quetiapine 50 mg Tablet 50 mg PO BEDTIME Qty: 30 0RF amlodipine 2.5 mg Tablet 2.5 mg PO BEDTIME acetaminophen 325 mg tablet 650 mg PO Q6H PRN (Reason: Fever Or Pain) docusate sodium 100 mg capsule 100 mg PO BID@0900,1700 lactulose 20 gram/30 mL solution 10 g PO BEDTIME polyvinyl alcohol [Artificial Tears (polyvin alc)] 1.4 % drops 1 drp ophthalmic (eye) TID@0900,1300,1700 memantine 10 mg Tablet 10 mg PO BID@0900,1700 ondansetron HCl 4 mg Tablet 4 mg PO TID PRN (Reason: Nausea) loperamide 2 mg Tablet 4 mg PO DAILY MRX1 PRN (Reason: Diarrhea) guaifenesin 100 mg/5 mL Liquid 200 mg PO Q4H PRN (Reason: Cough) Fleet Enema 19-7 gram/118 mL Enema 118 ml SD DAILY PRN (Reason: Constipation) Rx Instructions: FOR NO BOWEL MOVEMENT IN 3 DAYS polyethylene glycol 3350 17 gram powder in packet 17 g PO DAILY magnesium hydroxide [Milk of Magnesia] 400 mg/5 mL suspension 30 ml PO DAILY@2100 PRN (Reason: Constipation) albuterol sulfate 90 mcg/actuation Hfa Aerosol Inhaler 2 puff INHALATION Q4H PRN (Reason: Wheezing) benzocaine-menthol 15-3.6 mg Lozenge 1 zenon MUCOUS MEMBRANE Q2H PRN (Reason: Sore Throat) allopurinol 300 mg tablet 300 mg PO DAILY carbidopa-levodopa 25-100 mg tablet 2 tab PO QID Print Language: Kyrgyz
--- NOTE | 2024-03-22 12:25 | PHA.MEDREC ---
Pharmacy Consult ? Medication Reconciliation Pharmacy has completed the medication reconciliation, utilized list from [facility].
[2024-03-22 15:44] LABS: Troponin-I High Sensitivity 4.4 ng/L (<3.5-35.0)
--- NOTE | 2024-03-22 18:42 | MHC.EDTECH ---
tech went to obtain orthostatic vitals, pt only able to lay flat without max assist. rn aware and told tech it was unsafe to proceed any further. supine vitals entere in work list
--- NOTE | 2024-03-22 19:10 | PM.IMHP ---
History of Present Illness Date of Service: 03/22/24 Attending physician on admission: Yvon Sims Chief Complaint: dizziness,chest pain 79yo male hx of HLD, depression, CAD, HTN, prostate cancer on eligard, dementia, anemia, parkinsons with orthostatic hypotension, COPD presents from 's home for evaluation of dizziness and chest pain. The patient is altered at baseline and is oriented to self and time on exam. He is a vague historian. he reports pain across the anterior chest (reproducible) and constant lightheadedness that started yesterday. Per report from [facility], it is unclear if the patient had an unwitnessed syncopal episode. He has similar presentation during admission from 10/2023 related to UTI. Since arrival, pt hypertensive to 152/121 (taken on forearm-- repeat manual BP requested), vitals otherwise stable. Unable to check orthostatic vital signs as patient is unable to sit forward unassisted or stand. No leukocytosis or anemia, plt 117 (consistent with baseline). Renal function baseline, electrolyte levels normal. Troponin 4.7 --> 4.4. Venous duplex right lower extremity negative for DVT. Head CT negative for acute intracranial abnormality but shows postsurgical changes of prior left lateral suboccipital craniectomy with underlying encephalomalacia in the lateral aspect of the left cerebellar hemisphere. CT chest and CT abdomen/pelvis negative for evidence of pulmonary metastatic disease with unchanged 4 mm perifissural nodule. There is markedly enlarged left lobe of the thyroid with substernal extension similar to prior. There are hepatic and splenic granulomas. There is also an enlarging hyperattenuating left renal mass and new lytic lesions in the spine and pelvis suspicious for metastatic disease. He has been following with both Dr. Garcia and Dr Sarmiento for prostate cancer and PSA levels have been stable overall. Review of Systems Review of Systems: Yes Unobtainable due to mental status [facility] Medical History Dementia Parkinson's disease without dyskinesia, without mention of fluctuations Anemia Gout Arthritis Anemia Obesity COPD (chronic obstructive pulmonary disease) Hyperlipidemia HTN (hypertension) CAD (coronary artery disease) Depression Dementia Prostate cancer Syncope Cardiac arrest IBS (irritable bowel syndrome) Parkinsons Hypertension Chronic anemia Cellulitis Social History Household Members: None Housing: Snf Do you presently have visiting nurse or other home services: No Unable to assess alcohol history related to: Unknown Alcohol intake: never Patient Tobacco Use Status: Never used Tobacco Smoked in Last 30 Days: No Use of substances other than those prescribed or required for medical reasons: No Advance Directives: Yes Advance Directives on File: Yes Advance Directives Date on File: 12/10/22 Do you have a plan to hurt others: No Plan service: Yes Current occupational status: retired and disabled Meds Allergies Allergy/AdvReac Type Severity Reaction Status Date / Time cefazolin [From KEFZOL] Allergy Unknown RASH Verified 03/22/24 10:01 Active Medications: Current Medications Acetaminophen (Acetaminophen 325 Mg Tablet) 650 mg PO Q6H PRN PRN Reason: Pain, Mild (Pain Scale 1-3), fever or headache Calcium Carbonate (Calcium Carbonate 750 Mg Tab.Chew) 750 mg PO Q4H PRN PRN Reason: Heartburn Enoxaparin Sodium (Enoxaparin Sodium 40 Mg/0.4 Ml Syringe) 40 mg SUBCUT Q24H ABIOLA Magnesium Hydroxide (Milk Of Magnesia 30 Ml Oral.Susp) 30 ml PO DAILY PRN PRN Reason: Constipation Ondansetron HCl (Ondansetron Hcl 4 Mg/2 Ml Vial) 4 mg IVPUSH Q8H PRN PRN Reason: Nausea and Vomiting Oxycodone HCl (Oxycodone Hcl Immed Release 5 Mg Tablet) 5 mg PO Q6H PRN PRN Reason: Pain, Severe (Pain Scale 7-10) Home Medications ?Medication ?Instructions ?Recorded ?Confirmed ?Last Taken ?Type acetaminophen 325 mg tablet 650 mg PO Q6H PRN Fever Or Pain 04/11/21 03/22/24 03/22/24 09:00 History amlodipine 2.5 mg tablet 2.5 mg PO BEDTIME 04/11/21 03/22/24 03/21/24 21:00 History docusate sodium 100 mg capsule 100 mg PO BID@0900,1700 04/11/21 03/22/24 03/22/24 09:00 History lactulose 20 gram/30 mL oral 10 g PO BEDTIME 04/11/21 03/22/24 03/21/24 21:00 History solution guaifenesin 100 mg/5 mL oral liquid 200 mg PO Q4H PRN Cough 10/28/23 03/22/24 Unknown History loperamide 2 mg tablet 4 mg PO DAILY MRX1 PRN Diarrhea 10/28/23 03/22/24 Unknown History magnesium hydroxide 400 mg/5 mL 30 ml PO DAILY@2100 PRN 10/28/23 03/22/24 Unknown History oral suspension (Milk of Magnesia) Constipation memantine 10 mg tablet 10 mg PO BID@0900,1700 10/28/23 03/22/24 03/22/24 09:00 History ondansetron HCl 4 mg tablet 4 mg PO TID PRN Nausea 10/28/23 03/22/24 Unknown History polyethylene glycol 3350 17 gram 17 g PO DAILY 10/28/23 03/22/24 03/22/24 09:00 History oral powder packet polyvinyl alcohol 1.4 % eye drops 1 drp ophthalmic (eye) 10/28/23 03/22/24 03/22/24 09:00 History (Artificial Tears (polyvinyl TID@0900,1300,1700 alcohol)) sodium phosphates 19 gram-7 118 ml [place] DAILY PRN Constipation 10/28/23 03/22/24 Unknown History gram/118 mL enema (Fleet Enema) albuterol sulfate 90 mcg/actuation 2 puff inhalation Q4H PRN Wheezing 03/22/24 03/22/24 Unknown History aerosol inhaler allopurinol 300 mg tablet 300 mg PO DAILY 03/22/24 03/22/24 03/22/24 09:00 History benzocaine 15 mg-menthol 3.6 mg 1 zenon mucous membrane Q2H PRN Sore 03/22/24 03/22/24 Unknown History lozenges Throat carbidopa 25 mg-levodopa 100 mg 2 tab PO QID 03/22/24 03/22/24 03/22/24 09:00 History tablet Physical Exam Vital Signs and Narrative: Vital Signs: Last Vital Signs Temp 98.0 F 03/22/24 15:46 Pulse 76 03/22/24 18:07 Resp 15 03/22/24 17:03 BP 152/121 H 03/22/24 18:07 Pulse Ox 95 03/22/24 17:03 O2 Del Method Room Air 03/22/24 17:03 BMI result Body Mass Index 38.3 Constitutional - Awake and Alert, No apparent distress Eyes - PERRLA, EOMI Cardiovascular - S1S2, RRR, minimally pitting ble edema Respiratory - Normal lung expansion, Normal respiratory effort, No respiratory distress, CTA bilaterally Gastrointestinal - NT / ND; +BS; No rebound or guarding Extremities - no calf tenderness bilaterally, no swelling Skin - Warm/Dry. RLE hyperpigmentation Neurological - Alert & oriented to self and place, CN II-XII in tact, 5/5 strength BUE and BLE, pill rolling tremors Psychological - Appropriate affect Results Labs 03/22/24 11:02 03/22/24 11:02 Labs: Laboratory Results - last 24 hr 03/22/24 03/22/24 11:02 15:02 MCV 93.4 MCH 31.4 MCHC 33.6 RDW 14.1 Plt Count 117 L MPV 9.4 Immature Gran % (Auto) 0.5 H Neut % (Auto) 74.0 H Lymph % (Auto) 18.1 L [place] % (Auto) 6.6 Eos % (Auto) 0.5 Baso % (Auto) 0.3 Lymph # (Auto) 1.4 [place] # (Auto) 0.5 Eos # (Auto) 0.0 Baso # (Auto) 0.0 Abs Immat Gran (auto) 0.04 H Absolute Neuts (auto) 5.6 Absolute Nucleated RBC 0.000 Nucleated RBC % (auto) 0.0 Anion Gap 12 Estim Creat Clear Calc 83.4 Estimated GFR > 60 Random Glucose 106 Calcium 9.1 Total Bilirubin 0.6 AST 16 ALT 11 Alkaline Phosphatase 111 Troponin I High Sens 4.7 D 4.4 Total Protein 6.8 Albumin 3.7 Imaging Radiologist's Impressions: Impressions Chest X-Ray 03/22/24 10:15 IMPRESSION: Mild subsegmental atelectasis in the left lower lobe. Otherwise, no acute cardiopulmonary findings. Electronically signed by: Ese Li MD 03/22/2024 10:52 AM EDT RP Head CT 03/22/24 11:53 IMPRESSION: No acute intracranial abnormality. Postsurgical changes of a prior left lateral suboccipital craniectomy with underlying encephalomalacia in the lateral aspect of the left cerebellar hemisphere. Electronically signed by: Eloy Thompson DO 03/22/2024 02:46 PM EDT RP Chest CT 03/22/24 13:11 IMPRESSION: 1. No evidence of pulmonary metastatic disease. 2. Unchanged 4 mm perifissural nodule. 3. Markedly enlarged left lobe of thyroid with substernal extension similar to prior. 4. Hepatic and splenic granulomas. 5. Enlarging hyperattenuating left renal mass. Ultrasound is recommended for further evaluation. 6. New lytic lesions in the spine and pelvis as described above. These are suspicious for metastatic disease. Bone scan or MRI may be useful for further evaluation. Fleischner guidelines were followed. Electronically signed by: Matthieu Borden MD 03/22/2024 03:29 PM EDT RP Abdomen/Pelvis CT 03/22/24 13:15 IMPRESSION: 1. No evidence of pulmonary metastatic disease. 2. Unchanged 4 mm perifissural nodule. 3. Markedly enlarged left lobe of thyroid with substernal extension similar to prior. 4. Hepatic and splenic granulomas. 5. Enlarging hyperattenuating left renal mass. Ultrasound is recommended for further evaluation. 6. New lytic lesions in the spine and pelvis as described above. These are suspicious for metastatic disease. Bone scan or MRI may be useful for further evaluation. Fleischner guidelines were followed. Electronically signed by: Matthieu Borden MD 03/22/2024 03:29 PM EDT RP Venous Duplex 03/22/24 13:15 IMPRESSION: No evidence of deep venous thrombosis involving the right lower extremity. Electronically signed by: Eloy Thompson DO 03/22/2024 02:51 PM EDT RP Assessment and Plan (1) Dizziness: Status: Acute (2) Chest pain: Status: Acute (3) Metastatic disease: Status: Acute Plan 79yo male hx of HLD, depression, CAD, HTN, prostate cancer on eligard, dementia, anemia, parkinsons iwth orthostatic hypotension, COPD admitted for further management of near syncope with new metastatic disease #Near syncope -Head CT negative for acute intracranial abn -No hypotension. Unable to check orthostatic VS due to inability to sit or stand independently -EKG shows sinus bradycardia, rate 57 with first-degree AV jourdan block, no acute ischemic changes, unchanged from prior EKGs -had similar presentation in 10/2023 which was found to be related to UTI. UA/UC ordered with straight catheterization -echo 11/04 showed normal LV systolic function with EF 65-70% without any obvious valvular pathology -check COVID/flu/RSV -monitor on telemetry #Metastatic disease -known history prostate CA on eligard. Today CT abd/pelvis with enlarging L renal mass with evidence of bony mets in lumbar spine/pelvis -Check renal US. Also has known thyroid nodule- unchanged -pain management prn -oncology consult #Atypical CP -non cardiac in nature- reproducible -trops flat and wnl. EKG non ischemic -Chest CT negative for metastatic disease or acute cardiopulmonary abn -check COVID/flu/RSV #Unspecified dementia with mood disorder/Parkinsons -mentation appears baseline -continue home meds #HTN -continue amlodipine #COPD -no exacerbation, continue home inhalers] #Prostate cancer -continue flomax, see above dvt prophylaxis- lovenox dnr/dni pt requires inpt stay at least 2 midnights for management of near syncope requiring cardiac monitoring as well as expert consultation and further imaging given new metastatic disease Quality Stroke Does the patient have a stroke diagnosis?: No VTE Prior VTE?: No VTE Risk Level:: Medical - moderate - high VTE Device Contraindication: Treatment Not Indicated VTE Drug Contraindication: N/A - Med Ordered
[2024-03-22] MEDS: Enoxaparin Sodium 40 MG/0.4 ML SYRINGE SUBCUT (19:45)
--- NOTE | 2024-03-22 19:45 | PC.NURSE ---
This tag writer assumed care of this Pt at 1900. Pt able to verbalize with multiple prompts, not able to engage in conversation, word salad. Pt shaking upper extremities, hx of Parkinson. Per pervious RN Pt ripped IV out. New IV placed and wrapped.
[2024-03-22] MEDS: Lactulose 20 GM/30 ML SOLUTION 10 GM PO (21:11)
[2024-03-22] MEDS: Carbidopa/Levodopa 25/100 TABLET 2 TAB PO (21:12)
[2024-03-22] MEDS: Tamsulosin HCL 0.4 MG CAPSULE PO (21:15)
[2024-03-22] MEDS: amLODIPine Besylate 2.5 MG TABLET PO (21:17)
[2024-03-22] MEDS: QUEtiapine Fumarate 50 MG TABLET PO (21:17)
--- NOTE | 2024-03-22 23:00 | PC.NURSE ---
Pt incontinent of urine, incontinent care provided with two assist, redness noted to buttock area. Pt repositioned. Barrier cream applied. Discoloration to right lower leg noted. Hx of CAD.
[2024-03-23] VITALS (8 sets, daily range): BP systolic 144–183; BP diastolic 74–88; PULSE 60–92; RESP 12–16; TEMP 36.4–36.8; O2SAT 93–97
[2024-03-23 02:54] LABS: Influenza A PCR NEGATIVE (Negative); Influenza B PCR NEGATIVE (Negative); Resp Syncy Virus RNA Qual PCR NEGATIVE (Negative); SARS COV2 PCR INHOUSE NEGATIVE (Negative)
--- NOTE | 2024-03-23 03:49 | PC.NURSE ---
Pt appears to be sleeping at this time, equal, non labored respirations.
[2024-03-23 04:51] LABS: MANUAL DIFF FLAG NO
[2024-03-23 04:54] LABS: Basophils Percent Auto 0.5 % (0-2); Eosinophils Absolute Auto 0.1 X10*3/uL (0.0-0.4); Eosinophils Percent Auto 0.8 % (0-4); Hematocrit 40.5 % (42.0-52.0); Hemoglobin 13.5 g/dl (14.0-18.0); Imm Gran Abs Auto 0.02 X10*3/uL (0.00-0.03); Imm Gran Pct Auto 0.3 % (0.0-0.4); Lymphocytes Absolute Auto 1.7 X10*3/uL (1.2-4.9); Lymphocytes Percent Auto 26.6 % (20-40); Mean Corpuscular HGB Conc 33.3 g/dl (31.0-36.0); Mean Corpuscular Hemoglobin 31.2 pg (27.0-33.0); Mean Corpuscular Volume 93.5 fL (80.0-98.0); Mean Platelet Volume 9.7 fL (9.4-12.4); Monocytes Absolute Auto 0.5 X10*3/uL (0.1-1.2); Monocytes Percent Auto 7.6 % (2-11); Neutrophils Absolute Auto 4.1 x10*3/uL (2.0-8.3); Neutrophils Percent Auto 64.2 % (45-73); Platelet Count 100 X10*3/uL (160-400); Red Blood Count 4.33 X10*6/uL (4.60-5.80); Red Cell Distribution Width 14.1 % (11.0-16.0); White Blood Count 6.3 X10*3/uL (4.8-10.8)
[2024-03-23 05:15] LABS: Anion Gap 13 (12-20); Blood Urea Nitrogen 23 mg/dL (9-16); Calcium 8.8 mg/dL (8.4-10.2); Carbon Dioxide 25 mmol/L (22-29); Chloride 109 mmol/L (96-108); Creatinine Clr Calc Pharmacy 82.5; Estimated Glomerular Filt Rate > 60; Glucose Random 87 mg/dL (60-115); Potassium 3.9 mmol/L (3.3-5.1); Sodium 143 mmol/L (135-145)
--- NOTE | 2024-03-23 05:30 | PC.NURSE ---
Pt incontinent of urine, incontinent care provided.. Pt repositioned.
[2024-03-23 08:27] LABS: Appearance Urine Clear; Color Urine Yellow; Glucose Urine UA Negative (Negative); Leukocyte Esterase Urine Small (1+) (Negative); Nitrite Urine Positive (Negative); PH 5.5 (5.0-9.0); UMIC TRIGGER UACC YES; Urine Blood Negative (Negative); Urine Ketones Trace mg/dL (Negative); Urine Protein Negative (Neg-Trace)
[2024-03-23 08:32] LABS: Bacteria Urine 4+ (None Seen); Hyaline Casts Urine 0-2 /LPF (0-2); RBC Urine 0-2 /HPF (0-2); Squamous Epithelial Cell Urine 0-2 /HPF (0-2); UACC Culture Trigger YES
--- NOTE | 2024-03-23 08:56 | P.CNHO_ITS ---
Subjective - Subjective Chief complaint: None Patient: new to practice Consult date: 03/23/24 Primary Care Provider: Júnior Green MD HPI - Consult Narrative Reason for consult: ? Kidney cancer with bone Mets Narrative: Osmel Rodriguez is a 79 year old male with hx of HLD, depression, CAD, HTN, prostate cancer on eligard, dementia, anemia, parkinsons with orthostatic hypotension, COPD presents from [facility] home for evaluation of dizziness and chest pain. The patient is altered at baseline and is oriented to self and time on exam. He is a vague historian. he reports pain across the anterior chest (reproducible) and constant lightheadedness that started yesterday. Per report from [facility], it is unclear if the patient had an unwitnessed syncopal episode. Evaluation showed Renal function baseline, electrolyte levels normal. Troponin 4.7 --> 4.4. Venous duplex right lower extremity negative for DVT. Head CT negative for acute intracranial abnormality but shows postsurgical changes of prior left lateral suboccipital craniectomy with underlying encephalomalacia in the lateral aspect of the left cerebellar hemisphere. CT chest and CT abdomen/pelvis negative for evidence of pulmonary metastatic disease with unchanged 4 mm perifissural nodule. There is markedly enlarged left lobe of the thyroid with substernal extension similar to prior. There are hepatic and splenic granulomas. There is also an enlarging hyperattenuating left renal mass and new lytic lesions in the spine and pelvis suspicious for metastatic disease. He has been following with both Dr. Garcia and Dr Sarmiento for prostate cancer and PSA levels have been stable overall. [facility] Medical History: Medical History (Last Reviewed 03/22/24 @ 19:53 by SIVAKUMAR Engel) Anemia Anemia Arthritis CAD (coronary artery disease) Cardiac arrest Cellulitis Chronic anemia COPD (chronic obstructive pulmonary disease) Dementia Dementia Depression Gout HTN (hypertension) Hyperlipidemia Hypertension IBS (irritable bowel syndrome) Obesity Parkinson's disease without dyskinesia, without mention of fluctuations Parkinsons Prostate cancer Syncope Social History: Social History (Last Reviewed 03/22/24 @ 19:53 by SIVAKUMAR Engel) Living Situation History: Household Members: None Housing: Intermediate Do you presently have visiting nurse or other home services: No Alcohol History: Unable to assess alcohol history related to: Unknown Alcohol History Details: 1. How often do you have a drink containing alcohol?: a. Never Tobacco History: Patient Tobacco Use Status: Never used Tobacco Smoked in Last 30 Days: No Substance Use History: Use of substances other than those prescribed or required for medical reasons : No Advance Directives: Advance Directives: Yes Advance Directives on File: Yes Advance Directives Date on File: 12/10/22 Homicidal Assessment: Do you have a plan to hurt others: No Plan Nutrition Assessment: Nutrition Risks: No Nutritional Risk Occupation Assessmet: service: Yes Current occupational status: retired Current occupational status: disabled Home Medications and Allergies Current Medications: Current Medications Acetaminophen (Acetaminophen 325 Mg Tablet) 650 mg PO Q6H PRN PRN Reason: Pain, Mild (Pain Scale 1-3), fever or headache Albuterol Sulfate (Albuterol Sulfate 90 Mcg 8 Gm Inhaler) 2 puff INHALE Q4H PRN PRN Reason: Wheezing Allopurinol (Allopurinol 300 Mg Tablet) 300 mg PO DAILY [facility] Amlodipine Besylate (Amlodipine Besylate 2.5 Mg Tablet) 2.5 mg PO BEDTIME [facility]; Protocol Last Admin: 03/22/24 21:17 Dose: 2.5 mg Artificial Tears (Artificial Tears 15 Ml Drops) 1 drop EYE-BOTH TID@0900,1300,1700 [facility] Benzocaine (Throat Lozenge, Medicated Lozenge) 1 lozenge MUCOUS MEM Q2H PRN PRN Reason: Sore Throat Bisacodyl (Bisacodyl 10 Mg Supp.Rect) 10 mg [place] DAILY PRN PRN Reason: Constipation Calcium Carbonate (Calcium Carbonate 750 Mg Tab.Chew) 750 mg PO Q4H PRN PRN Reason: Heartburn Carbidopa/Levodopa (Carbidopa/Levodopa 25/100 Tablet) 2 tab PO QID [facility] Last Admin: 03/22/24 21:12 Dose: 2 tab Dicyclomine HCl (Dicyclomine Hcl 10 Mg Capsule) 10 mg PO BID@0900,1700 [facility] Docusate Sodium (Docusate Sodium 100 Mg Capsule) 100 mg PO BID@0900,1700 [facility] Enoxaparin Sodium (Enoxaparin Sodium 40 Mg/0.4 Ml Syringe) 40 mg SUBCUT Q24H [facility] Last Admin: 03/22/24 19:45 Dose: 40 mg Guaifenesin (Guaifenesin 100 Mg/5 Ml Liquid) 5 ml PO Q4H PRN PRN Reason: Cough Lactulose (Lactulose 20 Gm/30 Ml Solution) 10 gm PO BEDTIME [facility] Last Admin: 03/22/24 21:11 Dose: 10 gm Loperamide HCl (Loperamide Hcl 2 Mg Capsule) 4 mg PO DAILY MRX1 PRN PRN Reason: Diarrhea Magnesium Hydroxide (Milk Of Magnesia 30 Ml Oral.Susp) 30 ml PO DAILY PRN PRN Reason: Constipation Magnesium Hydroxide (Milk Of Magnesia 30 Ml Oral.Susp) 30 ml PO DAILY@2100 PRN PRN Reason: Constipation Memantine (Memantine Hcl 10 Mg Tablet) 10 mg PO BID@0900,1700 [facility] Ondansetron HCl (Ondansetron Hcl 4 Mg/2 Ml Vial) 4 mg IVPUSH Q8H PRN PRN Reason: Nausea and Vomiting Oxycodone HCl (Oxycodone Hcl Immed Release 5 Mg Tablet) 5 mg PO Q6H PRN PRN Reason: Pain, Severe (Pain Scale 7-10) Polyethylene Glycol (Polyethylene Glycol 3350 17 Gm Powd.Pack) 17 gm PO DAILY [facility] Quetiapine Fumarate (Quetiapine Fumarate 50 Mg Tablet) 50 mg PO BEDTIME [facility] Last Admin: 03/22/24 21:17 Dose: 50 mg Senna (Sennosides 8.6 Mg Tablet) 8.6 mg PO BID@0900,1700 [facility] Sodium Biphosphate/Sodium Phosphate (Sodium Phosphate,[place]-Dibasic 133 Ml Enema) 118 ml [place] DAILY PRN PRN Reason: Constipation Tamsulosin HCl (Tamsulosin Hcl 0.4 Mg Capsule) 0.4 mg PO BEDTIME [facility] Last Admin: 03/22/24 21:15 Dose: 0.4 mg Home Medications ?Medication ?Instructions ?Recorded ?Confirmed ?Type acetaminophen 325 mg tablet 650 mg PO Q6H PRN Fever Or Pain 04/11/21 03/22/24 History amlodipine 2.5 mg tablet 2.5 mg PO BEDTIME 04/11/21 03/22/24 History docusate sodium 100 mg capsule 100 mg PO BID@0900,1700 04/11/21 03/22/24 History lactulose 20 gram/30 mL oral 10 g PO BEDTIME 04/11/21 03/22/24 History solution guaifenesin 100 mg/5 mL oral liquid 200 mg PO Q4H PRN Cough 10/28/23 03/22/24 History loperamide 2 mg tablet 4 mg PO DAILY MRX1 PRN Diarrhea 10/28/23 03/22/24 History magnesium hydroxide 400 mg/5 mL 30 ml PO DAILY@2100 PRN 10/28/23 03/22/24 History oral suspension (Milk of Magnesia) Constipation memantine 10 mg tablet 10 mg PO BID@0900,1700 10/28/23 03/22/24 History ondansetron HCl 4 mg tablet 4 mg PO TID PRN Nausea 10/28/23 03/22/24 History polyethylene glycol 3350 17 gram 17 g PO DAILY 10/28/23 03/22/24 History oral powder packet polyvinyl alcohol 1.4 % eye drops 1 drp ophthalmic (eye) 10/28/23 03/22/24 History (Artificial Tears (polyvinyl TID@0900,1300,1700 alcohol)) sodium phosphates 19 gram-7 118 ml [place] DAILY PRN Constipation 10/28/23 03/22/24 History gram/118 mL enema (Fleet Enema) albuterol sulfate 90 mcg/actuation 2 puff inhalation Q4H PRN Wheezing 03/22/24 03/22/24 History aerosol inhaler allopurinol 300 mg tablet 300 mg PO DAILY 03/22/24 03/22/24 History benzocaine 15 mg-menthol 3.6 mg 1 zenon mucous membrane Q2H PRN Sore 03/22/24 03/22/24 History lozenges Throat carbidopa 25 mg-levodopa 100 mg 2 tab PO QID 03/22/24 03/22/24 History tablet Allergies Allergy/AdvReac Type Severity Reaction Status Date / Time cefazolin [From KEFZOL] Allergy Unknown RASH Verified 03/22/24 10:01 Physical Exam Vital signs: Vital Signs Temp 98.2 F 03/23/24 06:22 Pulse 68 03/23/24 08:26 Resp 14 03/23/24 08:26 BP 157/79 H 03/23/24 08:26 Pulse Ox 96 03/23/24 08:26 O2 Del Method Room Air 03/23/24 08:26 Intake & Output 03/22/24 03/23/24 03/23/24 18:59 06:59 18:59 Other: Urine Color Yellow Weight 114.305 kg Weight 114.305 kg - Constitutional Present: no acute distress - Routine HEENT Exam Head: Present: normal inspection Eye: Present: EOMI, PERRL - Routine Neck Exam Present: supple - Routine Respiratory Exam Absent: accessory muscle use - Routine Cardiovascular Exam Cardiovascular: Present: S1, S2 Hem/Onc Consult Result - Labs CBC & Chem 7: 03/23/24 04:33 03/23/24 04:33 Labs: Short CBC 03/22/24 03/23/24 Range/Units 11:02 04:33 WBC 7.5 6.3 (4.8-10.8) X10*3/uL Hgb 14.8 13.5 L (14.0-18.0) g/dl Hct 44.0 40.5 L (42.0-52.0) % Plt Count 117 L 100 L (160-400) X10*3/uL BMP 03/22/24 03/23/24 11:02 04:33 Sodium 143 143 Potassium 4.2 3.9 Chloride 107 109 H Carbon Dioxide 28 25 BUN 24 H 23 H Creatinine 0.91 0.92 Calcium 9.1 8.8 Liver Function 03/22/24 Range/Units 11:02 Total Bilirubin 0.6 (0.0-1.0) mg/dL AST 16 (5-37) U/L ALT 11 (0-40) U/L Alkaline Phosphatase 111 (39-117) U/L Albumin 3.7 (3.5-5.0) g/dL Urine 03/23/24 03/23/24 03/23/24 Range/Units 08:14 08:14 08:14 Urine Color Yellow Cancelled Urine Appearance Clear Cancelled Urine pH 5.5 (5.0-9.0) Ur Specific [place] (1.005-1.025) Urine Protein (Neg-Trace) mg/dL Urine Glucose (UA) (Negative) mg/dL 03/23/24 03/23/24 03/23/24 Range/Units 08:14 08:14 08:14 Urine Color Urine Appearance Urine pH Cancelled (5.0-9.0) Ur Specific [place] 1.020 Cancelled (1.005-1.025) Urine Protein Negative Cancelled (Neg-Trace) mg/dL Urine Glucose (UA) Negative (Negative) mg/dL 03/23/24 Range/Units 08:14 Urine Color Urine Appearance Urine pH (5.0-9.0) Ur Specific [place] (1.005-1.025) Urine Protein (Neg-Trace) mg/dL Urine Glucose (UA) Cancelled (Negative) mg/dL Assessment and Plan Patient Active problem list reviewed?: Yes (1) Prostate cancer Status: Chronic Assessment and plan: 1. This is a 79-year-old male with history of prostate cancer, dementia and Parkinson's disease who was noted to have lesion in his left kidney suggestive of malignancy on CT scan. Ultrasound of the left kidney however shows a 5.4 x 4.6 cm anechoic cyst in the upper pole of the left kidney. On CT abdomen there was lytic lesion in the right iliac bone as well as T12 and L2 vertebral bodies. Lytic lesion in L3 versus Schmorl's node. Patient could have metastatic prostate cancer. His last PSA in January was over 11 NG/mL. He is on Eligard, is followed by Dr. Sarmiento. I recommend repeat PSA testing. He can follow up with his urologist as outpatient. No further oncological intervention is necessary at this time. Thank you for this referral. - Time Spent With Patient Time Spent with Patient (in minutes): 15
--- NOTE | 2024-03-23 09:47 | MHC.CM.PN ---
IMM 03/23/24, Pt resides L[facility]. He has Dementia and is confused at baseline. Call placed to José, his brother and HCP, left VM message and sent IMM to him. DCP: return to [facility]. CM to follow and assist with DC plan.
[2024-03-23] MEDS: Carbidopa/Levodopa 25/100 TABLET 2 TAB PO ×3 (09:50→17:58)
[2024-03-23] MEDS: Memantine HCl 10 MG TABLET PO ×2 (09:52→18:00)
[2024-03-23] MEDS: allopurinoL 300 MG TABLET PO (09:53)
[2024-03-23] MEDS: Dicyclomine HCl 10 MG CAPSULE PO ×2 (09:55→17:59)
[2024-03-23] MEDS: Sennosides 8.6 MG TABLET PO ×2 (09:58→18:00)
--- NOTE | 2024-03-23 10:19 | PC.NURSE ---
pharmacy called and requested artificial tears
--- NOTE | 2024-03-23 11:00 | P.PNIM_ITS ---
Subjective Subjective Date of Service: 03/23/24 Interval History: weakness Physical Exam 2 Vital Signs: Vital Signs: Last Vital Signs Temp 98.2 F 03/23/24 06:22 Pulse 68 03/23/24 08:26 Resp 14 03/23/24 08:26 BP 157/79 H 03/23/24 08:26 Pulse Ox 96 03/23/24 08:26 O2 Del Method Room Air 03/23/24 08:26 BMI result Body Mass Index 38.3 Alert, frail appearing, minimally verbal, resting tremor, abdomen soft hyperactive bowel sounds Objective Data Active Medications Acetaminophen (Acetaminophen 325 Mg Tablet) 650 mg PO Q6H PRN PRN Reason: Pain, Mild (Pain Scale 1-3), fever or headache Albuterol Sulfate (Albuterol Sulfate 90 Mcg 8 Gm Inhaler) 2 puff INHALE Q4H PRN PRN Reason: Wheezing Allopurinol (Allopurinol 300 Mg Tablet) 300 mg PO DAILY [facility] Last Admin: 03/23/24 09:53 Dose: 300 mg Documented By: MARQUIS Amlodipine Besylate (Amlodipine Besylate 2.5 Mg Tablet) 2.5 mg PO BEDTIME [facility]; Protocol Last Admin: 03/22/24 21:17 Dose: 2.5 mg Documented By: FAIZANANFord Artificial Tears (Artificial Tears 15 Ml Drops) 1 drop EYE-BOTH TID@0900,1300,1700 [facility] Benzocaine (Throat Lozenge, Medicated Lozenge) 1 lozenge MUCOUS MEM Q2H PRN PRN Reason: Sore Throat Bisacodyl (Bisacodyl 10 Mg Supp.Rect) 10 mg [place] DAILY PRN PRN Reason: Constipation Calcium Carbonate (Calcium Carbonate 750 Mg Tab.Chew) 750 mg PO Q4H PRN PRN Reason: Heartburn Carbidopa/Levodopa (Carbidopa/Levodopa 25/100 Tablet) 2 tab PO QID [facility] Last Admin: 03/23/24 09:50 Dose: 2 tab Documented By: MARQUIS Dicyclomine HCl (Dicyclomine Hcl 10 Mg Capsule) 10 mg PO BID@0900,1700 [facility] Last Admin: 03/23/24 09:55 Dose: 10 mg Documented By: MARQUIS Docusate Sodium (Docusate Sodium 100 Mg Capsule) 100 mg PO BID@0900,1700 [facility] Last Admin: 03/23/24 09:58 Dose: Not Given Documented By: MARQUIS Non-Admin Reason: Patient Refused Enoxaparin Sodium (Enoxaparin Sodium 40 Mg/0.4 Ml Syringe) 40 mg SUBCUT Q24H [facility] Last Admin: 03/22/24 19:45 Dose: 40 mg Documented By: JIMBO Guaifenesin (Guaifenesin 100 Mg/5 Ml Liquid) 5 ml PO Q4H PRN PRN Reason: Cough Lactulose (Lactulose 20 Gm/30 Ml Solution) 10 gm PO BEDTIME [facility] Last Admin: 03/22/24 21:11 Dose: 10 gm Documented By: JIMBO Loperamide HCl (Loperamide Hcl 2 Mg Capsule) 4 mg PO DAILY MRX1 PRN PRN Reason: Diarrhea Magnesium Hydroxide (Milk Of Magnesia 30 Ml Oral.Susp) 30 ml PO DAILY PRN PRN Reason: Constipation Magnesium Hydroxide (Milk Of Magnesia 30 Ml Oral.Susp) 30 ml PO DAILY@2100 PRN PRN Reason: Constipation Memantine (Memantine Hcl 10 Mg Tablet) 10 mg PO BID@0900,1700 [facility] Last Admin: 03/23/24 09:52 Dose: 10 mg Documented By: MARQUIS Ondansetron HCl (Ondansetron Hcl 4 Mg/2 Ml Vial) 4 mg IVPUSH Q8H PRN PRN Reason: Nausea and Vomiting Oxycodone HCl (Oxycodone Hcl Immed Release 5 Mg Tablet) 5 mg PO Q6H PRN PRN Reason: Pain, Severe (Pain Scale 7-10) Polyethylene Glycol (Polyethylene Glycol 3350 17 Gm Powd.Pack) 17 gm PO DAILY [facility] Last Admin: 03/23/24 09:58 Dose: Not Given Documented By: MARQUIS Non-Admin Reason: Patient Refused Quetiapine Fumarate (Quetiapine Fumarate 50 Mg Tablet) 50 mg PO BEDTIME [facility] Last Admin: 03/22/24 21:17 Dose: 50 mg Documented By: JIMBO Senna (Sennosides 8.6 Mg Tablet) 8.6 mg PO BID@0900,1700 [facility] Last Admin: 03/23/24 09:58 Dose: 8.6 mg Documented By: MARQUIS Sodium Biphosphate/Sodium Phosphate (Sodium Phosphate,[place]-Dibasic 133 Ml Enema) 118 ml [place] DAILY PRN PRN Reason: Constipation Tamsulosin HCl (Tamsulosin Hcl 0.4 Mg Capsule) 0.4 mg PO BEDTIME [facility] Last Admin: 03/22/24 21:15 Dose: 0.4 mg Documented By: JIMBO Labs 03/23/24 04:33 03/23/24 04:33 Labs: Laboratory Results - last 24 hr 03/22/24 03/22/24 03/23/24 11:02 15:02 02:10 MCV 93.4 MCH 31.4 MCHC 33.6 RDW 14.1 Plt Count 117 L MPV 9.4 Immature Gran % (Auto) 0.5 H Neut % (Auto) 74.0 H Lymph % (Auto) 18.1 L [place] % (Auto) 6.6 Eos % (Auto) 0.5 Baso % (Auto) 0.3 Lymph # (Auto) 1.4 [place] # (Auto) 0.5 Eos # (Auto) 0.0 Baso # (Auto) 0.0 Abs Immat Gran (auto) 0.04 H Absolute Neuts (auto) 5.6 Absolute Nucleated RBC 0.000 Nucleated RBC % (auto) 0.0 Anion Gap 12 Estim Creat Clear Calc 83.4 Estimated GFR > 60 Random Glucose 106 Calcium 9.1 Total Bilirubin 0.6 AST 16 ALT 11 Alkaline Phosphatase 111 Troponin I High Sens 4.7 D 4.4 Total Protein 6.8 Albumin 3.7 Urine Color Urine Appearance Urine pH Ur Specific [place] Urine Protein Urine Glucose (UA) Urine Ketones Urine Blood Urine Nitrite Ur Leukocyte Esterase Urine RBC Urine WBC Ur Squamous Epith Cells Urine Bacteria Hyaline Casts Influenza Type A (PCR) NEGATIVE Influenza Type B (PCR) NEGATIVE RSV RNA Qual (PCR) NEGATIVE SARS-CoV-2 RNA (RT-PCR) NEGATIVE 03/23/24 03/23/24 03/23/24 04:33 08:14 08:14 MCV 93.5 MCH 31.2 MCHC 33.3 RDW 14.1 Plt Count 100 L MPV 9.7 Immature Gran % (Auto) 0.3 Neut % (Auto) 64.2 Lymph % (Auto) 26.6 [place] % (Auto) 7.6 Eos % (Auto) 0.8 Baso % (Auto) 0.5 Lymph # (Auto) 1.7 [place] # (Auto) 0.5 Eos # (Auto) 0.1 Baso # (Auto) 0.0 Abs Immat Gran (auto) 0.02 Absolute Neuts (auto) 4.1 Absolute Nucleated RBC 0.000 Nucleated RBC % (auto) 0.0 Anion Gap 13 Estim Creat Clear Calc 82.5 Estimated GFR > 60 Random Glucose 87 Calcium 8.8 Total Bilirubin AST ALT Alkaline Phosphatase Troponin I High Sens Total Protein Albumin Urine Color Yellow Cancelled Urine Appearance Clear Urine pH Ur Specific [place] Urine Protein Urine Glucose (UA) Urine Ketones Urine Blood Urine Nitrite Ur Leukocyte Esterase Urine RBC Urine WBC Ur Squamous Epith Cells Urine Bacteria Hyaline Casts Influenza Type A (PCR) Influenza Type B (PCR) RSV RNA Qual (PCR) SARS-CoV-2 RNA (RT-PCR) 03/23/24 03/23/24 03/23/24 08:14 08:14 08:14 MCV MCH MCHC RDW Plt Count MPV Immature Gran % (Auto) Neut % (Auto) Lymph % (Auto) [place] % (Auto) Eos % (Auto) Baso % (Auto) Lymph # (Auto) [place] # (Auto) Eos # (Auto) Baso # (Auto) Abs Immat Gran (auto) Absolute Neuts (auto) Absolute Nucleated RBC Nucleated RBC % (auto) Anion Gap Estim Creat Clear Calc Estimated GFR Random Glucose Calcium Total Bilirubin AST ALT Alkaline Phosphatase Troponin I High Sens Total Protein Albumin Urine Color Urine Appearance Cancelled Urine pH 5.5 Cancelled Ur Specific [place] 1.020 Cancelled Urine Protein Negative Urine Glucose (UA) Urine Ketones Urine Blood Urine Nitrite Ur Leukocyte Esterase Urine RBC Urine WBC Ur Squamous Epith Cells Urine Bacteria Hyaline Casts Influenza Type A (PCR) Influenza Type B (PCR) RSV RNA Qual (PCR) SARS-CoV-2 RNA (RT-PCR) 03/23/24 03/23/24 03/23/24 08:14 08:14 08:14 MCV MCH MCHC RDW Plt Count MPV Immature Gran % (Auto) Neut % (Auto) Lymph % (Auto) [place] % (Auto) Eos % (Auto) Baso % (Auto) Lymph # (Auto) [place] # (Auto) Eos # (Auto) Baso # (Auto) Abs Immat Gran (auto) Absolute Neuts (auto) Absolute Nucleated RBC Nucleated RBC % (auto) Anion Gap Estim Creat Clear Calc Estimated GFR Random Glucose Calcium Total Bilirubin AST ALT Alkaline Phosphatase Troponin I High Sens Total Protein Albumin Urine Color Urine Appearance Urine pH Ur Specific [place] Urine Protein Cancelled Urine Glucose (UA) Negative Cancelled Urine Ketones Trace Cancelled Urine Blood Negative Urine Nitrite Ur Leukocyte Esterase Urine RBC Urine WBC Ur Squamous Epith Cells Urine Bacteria Hyaline Casts Influenza Type A (PCR) Influenza Type B (PCR) RSV RNA Qual (PCR) SARS-CoV-2 RNA (RT-PCR) 03/23/24 03/23/24 03/23/24 08:14 08:14 08:14 MCV MCH MCHC RDW Plt Count MPV Immature Gran % (Auto) Neut % (Auto) Lymph % (Auto) [place] % (Auto) Eos % (Auto) Baso % (Auto) Lymph # (Auto) [place] # (Auto) Eos # (Auto) Baso # (Auto) Abs Immat Gran (auto) Absolute Neuts (auto) Absolute Nucleated RBC Nucleated RBC % (auto) Anion Gap Estim Creat Clear Calc Estimated GFR Random Glucose Calcium Total Bilirubin AST ALT Alkaline Phosphatase Troponin I High Sens Total Protein Albumin Urine Color Urine Appearance Urine pH Ur Specific [place] Urine Protein Urine Glucose (UA) Urine Ketones Urine Blood Cancelled Urine Nitrite Positive H Cancelled Ur Leukocyte Esterase Small (1+) H Cancelled Urine RBC 0-2 Urine WBC 6-10 H Ur Squamous Epith Cells 0-2 Urine Bacteria 4+ Hyaline Casts 0-2 Influenza Type A (PCR) Influenza Type B (PCR) RSV RNA Qual (PCR) SARS-CoV-2 RNA (RT-PCR) Assessment and Plan (1) Metastatic disease: Status: Acute Plan 79M PMH hyperlipidemia, depression, coronary disease, hypertension, metastatic prostate CA on Eligard, Alzheimer dementia, anemia, Parkinson's with orthostatic hypotension, COPD presented with near-syncope and also found to have new bony Mets Near-syncope Possibly related to UTI, initiated IV ceftriaxone, follow-up cultures Prostate cancer on Lupron with new finding of bony metastasis Oncology eval Alzheimer's and Parkinson's dementia Continue Sinemet Hypertension Continue amlodipine COPD Stable DVT prophylaxis with Lovenox DNR/DNI reason for continued hospitalization: Awaiting cultures Quality Stroke Does the patient have a stroke diagnosis?: No VTE Prior VTE?: No VTE Risk Level:: Medical - moderate - high VTE Device Contraindication: Treatment Not Indicated VTE Drug Contraindication: N/A - Med Ordered
--- NOTE | 2024-03-23 11:04 | MHC.EDTECH ---
Pt awake and alert at 10am but not oriented. Attempted to feed patient breakfast however patient refusing oral intake. Pt only taking small amounts of orange juice.
[2024-03-23] MEDS: cefTRIAXone sodium 1 GM in 0.9 % Sodium Chloride 50 ML IV (11:12)
[2024-03-23] MEDS: Artificial Tears 15 ML DROPS 1 DROP EYE-BOTH ×2 (13:44→17:58)
[2024-03-23] MEDS: Docusate Sodium 100 MG CAPSULE PO (18:00)
[2024-03-23] MEDS: Enoxaparin Sodium 40 MG/0.4 ML SYRINGE SUBCUT (20:50)
--- NOTE | 2024-03-23 21:08 | PC.NURSE ---
incontinence care provided prior to transport. transported by [facility] PCT.
[2024-03-23 21:26] LABS: Glucose, Whole Blood 103 mg/dL (60-115)
[2024-03-23 23:29] LABS: Venous Blood Gas Refer to POC result
[2024-03-23 23:33] LABS: VBG Base Excess 2.9 mmol/L; VBG HCO3 26 mmol/L (22-26); VBG pCO2 35 mmHg; VBG pH 7.47 (7.32-7.43); VBG pO2 64 mmHg
[2024-03-23 23:37] LABS: Ammonia 32 umol/L (13-55)
[2024-03-23 23:44] LABS: Lactate Dehydrogenase 210 U/L (118-273)
[2024-03-24] VITALS (8 sets, daily range): BP systolic 128–179; BP diastolic 58–85; PULSE 59–108; RESP 16–23; TEMP 36.3–37; O2SAT 92–95; BMI 39.6
[2024-03-24 00:05] LABS: Prostate Specific Antigen 15.42 ng/mL (<0.05-4.0)
--- NOTE | 2024-03-24 00:29 | PM.EVENT ---
Event Note Date of Service: 03/24/24 Event Note: RN reported difficulty with swallowing. Will change pt to NPO and get speech eval Time Spent With Patient Time: Total time managing care of this patient today ____ minutes.
[2024-03-24 07:00] LABS: Hematocrit 40.1 % (42.0-52.0); Hemoglobin 13.5 g/dl (14.0-18.0); Mean Corpuscular HGB Conc 33.7 g/dl (31.0-36.0); Mean Corpuscular Hemoglobin 31.3 pg (27.0-33.0); Mean Platelet Volume 9.9 fL (9.4-12.4); Platelet Count 108 X10*3/uL (160-400); Red Blood Count 4.31 X10*6/uL (4.60-5.80); White Blood Count 5.9 X10*3/uL (4.8-10.8)
[2024-03-24 07:20] LABS: Anion Gap 13 (12-20); Blood Urea Nitrogen 23 mg/dL (9-16); Calcium 8.9 mg/dL (8.4-10.2); Carbon Dioxide 26 mmol/L (22-29); Chloride 107 mmol/L (96-108); Creatinine Clr Calc Pharmacy 87.7; Estimated Glomerular Filt Rate > 60; Glucose Fasting 76 mg/dL (60-99); Potassium 3.6 mmol/L (3.3-5.1); Sodium 142 mmol/L (135-145)
--- NOTE | 2024-03-24 09:54 | P.PNIM_ITS ---
Subjective Subjective Date of Service: 03/24/24 Interval History: weakness Physical Exam 2 Vital Signs: Vital Signs: Last Vital Signs Temp 98.6 F 03/24/24 06:56 Pulse 68 03/24/24 06:56 Resp 17 03/24/24 06:56 BP 160/80 H 03/24/24 06:56 Pulse Ox 95 03/24/24 06:56 O2 Del Method Room Air 03/24/24 06:56 BMI result Body Mass Index 39.6 Alert, frail appearing, minimally verbal, resting tremor, abdomen soft hyperactive bowel sounds Objective Data Active Medications Acetaminophen (Acetaminophen 325 Mg Tablet) 650 mg PO Q6H PRN PRN Reason: Pain, Mild (Pain Scale 1-3), fever or headache Albuterol Sulfate (Albuterol Sulfate 90 Mcg 8 Gm Inhaler) 2 puff INHALE Q4H PRN PRN Reason: Wheezing Allopurinol (Allopurinol 300 Mg Tablet) 300 mg PO DAILY [facility] Last Admin: 03/23/24 09:53 Dose: 300 mg Documented By: MARQUIS Amlodipine Besylate (Amlodipine Besylate 2.5 Mg Tablet) 2.5 mg PO BEDTIME [facility]; Protocol Last Admin: 03/23/24 23:01 Dose: Not Given Documented By: ROYCE Non-Admin Reason: inability to swallow Artificial Tears (Artificial Tears 15 Ml Drops) 1 drop EYE-BOTH TID@0900,1300,1700 [facility] Last Admin: 03/23/24 17:58 Dose: 1 drop Documented By: JIMMY Benzocaine (Throat Lozenge, Medicated Lozenge) 1 lozenge MUCOUS MEM Q2H PRN PRN Reason: Sore Throat Bisacodyl (Bisacodyl 10 Mg Supp.Rect) [address] DAILY PRN PRN Reason: Constipation Calcium Carbonate (Calcium Carbonate 750 Mg Tab.Chew) 750 mg PO Q4H PRN PRN Reason: Heartburn Carbidopa/Levodopa (Carbidopa/Levodopa 25/100 Tablet) 2 tab PO QID [facility] Last Admin: 03/23/24 23:02 Dose: Not Given Documented By: ROYCE Non-Admin Reason: Inability to swallow Dicyclomine HCl (Dicyclomine Hcl 10 Mg Capsule) 10 mg PO BID@0900,1700 [facility] Last Admin: 03/23/24 17:59 Dose: 10 mg Documented By: JIMMY Docusate Sodium (Docusate Sodium 100 Mg Capsule) 100 mg PO BID@0900,1700 [facility] Last Admin: 03/23/24 18:00 Dose: 100 mg Documented By: JIMMY Enoxaparin Sodium (Enoxaparin Sodium 40 Mg/0.4 Ml Syringe) 40 mg SUBCUT Q24H [facility] Last Admin: 03/23/24 20:50 Dose: 40 mg Documented By: MAYKEL Guaifenesin (Guaifenesin 100 Mg/5 Ml Liquid) 5 ml PO Q4H PRN PRN Reason: Cough Ceftriaxone Sodium 1 gm/ (Sodium Chloride) 50 mls @ 100 mls/hr IV Q24H [facility] Last Infusion: 03/23/24 13:31 Dose: Infused Documented By: JIMMY Lactulose (Lactulose 20 Gm/30 Ml Solution) 10 gm PO BEDTIME [facility] Last Admin: 03/22/24 21:11 Dose: 10 gm Documented By: JIMBO Loperamide HCl (Loperamide Hcl 2 Mg Capsule) 4 mg PO DAILY MRX1 PRN PRN Reason: Diarrhea Magnesium Hydroxide (Milk Of Magnesia 30 Ml Oral.Susp) 30 ml PO DAILY PRN PRN Reason: Constipation Magnesium Hydroxide (Milk Of Magnesia 30 Ml Oral.Susp) 30 ml PO DAILY@2100 PRN PRN Reason: Constipation Memantine (Memantine Hcl 10 Mg Tablet) 10 mg PO BID@0900,1700 [facility] Last Admin: 03/23/24 18:00 Dose: 10 mg Documented By: JIMMY Ondansetron HCl (Ondansetron Hcl 4 Mg/2 Ml Vial) 4 mg IVPUSH Q8H PRN PRN Reason: Nausea and Vomiting Oxycodone HCl (Oxycodone Hcl Immed Release 5 Mg Tablet) 5 mg PO Q6H PRN PRN Reason: Pain, Severe (Pain Scale 7-10) Polyethylene Glycol (Polyethylene Glycol 3350 17 Gm Powd.Pack) 17 gm PO DAILY [facility] Last Admin: 03/23/24 09:58 Dose: Not Given Documented By: MARQUIS Non-Admin Reason: Patient Refused Quetiapine Fumarate (Quetiapine Fumarate 50 Mg Tablet) 50 mg PO BEDTIME [facility] Last Admin: 03/23/24 23:02 Dose: Not Given Documented By: ROYCE Non-Admin Reason: Inability to swallow Senna (Sennosides 8.6 Mg Tablet) 8.6 mg PO BID@0900,1700 [facility] Last Admin: 03/23/24 18:00 Dose: 8.6 mg Documented By: JIMMY Sodium Biphosphate/Sodium Phosphate (Sodium Phosphate,[place]-Dibasic 133 Ml Enema) [address] DAILY PRN PRN Reason: Constipation Tamsulosin HCl (Tamsulosin Hcl 0.4 Mg Capsule) 0.4 mg PO BEDTIME [facility] Last Admin: 03/23/24 23:02 Dose: Not Given Documented By: ROYCE Non-Admin Reason: Inability to swallow Labs 03/24/24 06:22 03/24/24 06:22 Labs: Laboratory Results - last 24 hr 03/23/24 03/23/24 03/23/24 20:27 23:21 23:28 MCV MCH MCHC RDW Plt Count MPV Absolute Nucleated RBC Nucleated RBC % (auto) VBG pH 7.47 H VBG pCO2 35 VBG pO2 64 VBG HCO3 26 VBG O2 Saturation 95.0 VBG Base Excess 2.9 Anion Gap Estim Creat Clear Calc Estimated GFR POC Glucose 103 Fasting Glucose Calcium Ammonia 32 Lactate Dehydrogenase 210 Prostate Specific Ag 15.42 H 03/24/24 06:22 MCV 93.0 MCH 31.3 MCHC 33.7 RDW 14.0 Plt Count 108 L MPV 9.9 Absolute Nucleated RBC 0.000 Nucleated RBC % (auto) 0.0 VBG pH VBG pCO2 VBG pO2 VBG HCO3 VBG O2 Saturation VBG Base Excess Anion Gap 13 Estim Creat Clear Calc 87.7 Estimated GFR > 60 POC Glucose Fasting Glucose 76 Calcium 8.9 Ammonia Lactate Dehydrogenase Prostate Specific Ag Assessment and Plan (1) Metastatic disease: Status: Acute Plan 79M PMH hyperlipidemia, depression, coronary disease, hypertension, metastatic prostate CA on Eligard, Alzheimer dementia, anemia, Parkinson's with orthostatic hypotension, COPD presented with near-syncope and also found to have new bony Mets Near-syncope Possibly related to UTI, continue IV ceftriaxone, follow-up cultures dysphagia npo, 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
--- NOTE | 2024-03-24 10:13 | MHC.CM.PN ---
Per ROUNDS discussion, Patient is not yet medically cleared for dc r/t pending cultures; returning to LTC is the goal and CM will continue to follow.
[2024-03-24] MEDS: Carbidopa/Levodopa 25/100 TABLET 2 TAB PO ×4 (10:20→20:09)
[2024-03-24] MEDS: Memantine HCl 10 MG TABLET PO ×2 (10:20→16:55)
[2024-03-24] MEDS: Docusate Sodium 100 MG CAPSULE PO (10:20)
[2024-03-24] MEDS: Dicyclomine HCl 10 MG CAPSULE PO ×2 (10:20→16:55)
[2024-03-24] MEDS: allopurinoL 300 MG TABLET PO (10:20)
[2024-03-24] MEDS: Sennosides 8.6 MG TABLET PO ×2 (10:20→16:55)
[2024-03-24] MEDS: cefTRIAXone sodium 1 GM in 0.9 % Sodium Chloride 50 ML IV (10:21)
[2024-03-24] MEDS: Artificial Tears 15 ML DROPS 1 DROP EYE-BOTH ×2 (10:21→14:08)
--- NOTE | 2024-03-24 10:38 | MHC.SL.SWA ---
Speech Pathologist Impression: Oral phase dysphagia Risk of Aspiration Due to: Lethargy Weak Voice Dysphasia Diet Status: UPGRADE from NPO Liquid Consistency and Strategies for Safe Swallow: Liquid Intake Recommendation: Thin Liquid Intake Strategies: Small Sips Solid Food Consistency: Dietary Recommendations: Grnd/Mech Altered (NDD2) Oral Medication Intake: Whole with Liquid Please contact the pharmacy regarding appropriate crushable or liquid drug formulations that are available whenever modified delivery is recommended. Compensatory Strategies and Precautions to be Taken for Safe Swallow: Sitting Upright (90 deg) Liquids from Straw Small Bites and Sips Alternate Liquids/Solids Supervision While Eating and Drinking for Safe Swallow: Total Assistance (1:1) Foods to Avoid: Avoid dry foods Swallowing Recommended Treatments: Compens. Strategy Educat. Recommendation for Speech: Inpatient Speech Therapy Modified Barium Swallow Study - Inpatient Modified Barium Swallow Study - Outpatient Comment: Recommend UPGRADE to GROUND/MECH ALTERED solids (NDD2), THIN liquids, pills WHOLE w/ LIQUID. Recommend continued dysphagia tx at next level of care if pt has not returned to baseline diet at time of d/c (regular solids, thin liquids). Pt likely to be recommended for MBSS d/t hx of PD. Recommendation for inpatient vs. outpatient exam depending on pt's progression of hospitalization. Likely to be recommended as outpatient. Armor Reconnaissance Specialist Clinican/Clinical Fellow: No Supervisory Statement: I have reviewed and agree with the student/clinical fellow's documentation: N/A Speech Language Pathologist: Rosalind Solitario M.A., CCC-SERVICE LINE COORDINATOR
--- NOTE | 2024-03-24 12:49 | HO.WOUND ---
Wound Consult: Initial 79yr old male admitted to [facility] on 03/22/24 - See progress notes and H&P for detailed history.? Wound consult placed for redness to buttock on admission.? Patient agreeable to assessment and photo documentation.? Sacrum Etiology: ?Redness - MASD ?Present on Admission Wound Bed: well defined area of intact blanchable redness noted - foam dressing in place in addition to barrier cream to the exposed tissue Drainage / Odor: None Edges: ? well defined Lizzie wound: intact - MASD ? No Induration, Fluctuance or Warmth noted Pain: no noted Goals of Treatment: ? Foam to aid in off loading pressure ot the sacrum and barrier cream to protect from moisture and friciton Of note bilateral heels assessed - intact no redness noted - preventative foams applied to aid in off loading and floated with pillows. Recommendations: 1. Turn and Reposition every 2 hours and as needed for patient comfort.? Use pillows or wedges to support off loading positions. 2. Off Load all bony prominences with use of pillows and heel boots if needed.? Apply Preventative foams where needed. ? 3. Monitor for incontinence and moisture control, use barrier creams when needed for prevention and treatment. 4. Provide adequate and supplemental nutrition.? 5. Continue low air loss mattress. 6. When applicable maintain blood glucose levels per Providers order. 7. Sacrum - Apply sacral foam dressing - peel back and assess Q shift and change every 5 days and PRN. 8. Perineal and buttock - Routine cleansing - apply barrier cream twice daily and after each episode of incontinence. 9. Bilateral Heels - Apply preventative foams - peel back and assess Q shift and Change every 5 days and PRN. Float heels off of bed surface with pillows. Re-consult wound care Nurse for wound deterioration or wound changes.
--- NOTE | 2024-03-24 15:06 | MHC.CM.PN ---
JOS returned a call to Patient's Brother/HCP/José @ listed #. JOS has asked MD to call José, who is requesting a clinical update. JOS will follow.
[2024-03-24] MEDS: Enoxaparin Sodium 40 MG/0.4 ML SYRINGE SUBCUT (20:09)
[2024-03-24] MEDS: amLODIPine Besylate 2.5 MG TABLET PO (20:09)
[2024-03-24] MEDS: QUEtiapine Fumarate 50 MG TABLET PO (20:09)
[2024-03-24] MEDS: Tamsulosin HCL 0.4 MG CAPSULE PO (20:09)
[2024-03-25 03:25] VITALS: BP 113/62; PULSE 80; RESP 20; TEMP 36.7; O2SAT 96
[2024-03-25 07:49] VITALS: BP 144/72; PULSE 63; RESP 18; TEMP 36; O2SAT 93
--- NOTE | 2024-03-25 08:53 | P.DS_ITS ---
DS: Providers Provider Date of Service: 03/25/24 Date of admission: 03/22/24 19:10 Date of discharge: 03/25/24 Primary care physician: Júnior Green MD Consults: 03/22/24 19:03 Consult to Hematology / Oncology Routine Consulting Provider: [facility] [place]/Hematology Reason for consultation: new renal mass with possible bony mets 03/24/24 01:31 Consult to Wound Care Routine Reason for consultation: redness to buttcks DS: Diagnosis Discharge Diagnosis (1) Metastatic disease: Status: Acute DS: Summary Hospital Course Hospital Course: from initial hpi: 79yo male hx of HLD, depression, CAD, HTN, prostate cancer on eligard, dementia, anemia, parkinsons with orthostatic hypotension, COPD presents from 's home for evaluation of dizziness and chest pain. The patient is altered at baseline and is oriented to self and time on exam. He is a vague historian. he reports pain across the anterior chest (reproducible) and constant lightheadedness that started yesterday. [facility], it is unclear if the patient had an unwitnessed syncopal episode. He has similar presentation during admission from 10/2023 related to UTI. Since arrival, pt hypertensive to 152/121 (taken on forearm-- repeat manual BP requested), vitals otherwise stable. Unable to check orthostatic vital signs as patient is unable to sit forward unassisted or stand. No leukocytosis or anemia, plt 117 (consistent with baseline). Renal function baseline, electrolyte levels normal. Troponin 4.7 --> 4.4. Venous duplex right lower extremity negative for DVT. Head CT negative for acute intracranial abnormality but shows postsurgical changes of prior left lateral suboccipital craniectomy with underlying encephalomalacia in the lateral aspect of the left cerebellar hemisphere. CT chest and CT abdomen/pelvis negative for evidence of pulmonary metastatic disease with unchanged 4 mm perifissural nodule. There is markedly enlarged left lobe of the thyroid with substernal extension similar to prior. There are hepatic and splenic granulomas. There is also an enlarging hyperattenuating left renal mass and new lytic lesions in the spine and pelvis suspicious for metastatic disease. He has been following with both Dr. Garcia and Dr Sarmiento for prostate cancer and PSA levels have been stable overall. hospital course: Patient was admitted for near-syncope and acute metabolic encephalopathy likely related to urinary tract infection. Was treated with IV ceftriaxone urine culture grew sensitive E coli, will be discharged on 5 more days of cefuroxime. Patient's mental status returned to baseline. Noted to have dysphagia was seen by speech therapy who recommended ndd2 solids and thin liquids. For Alzheimer's and Parkinson's dementia he is back to his baseline and was continued on Sinemet. For patient's prostate cancer he was noted to have new finding of bony metastasis on imaging. He was seen by Oncology who recommended continuing Lupron and outpatient follow-up. For hypertension was continued on amlodipine. For COPD was stable. Time Attestation Discharge Coordination Time (in mins): 34 Quality: Safe Use of Opioids Does Pt have an Active Cancer Diagnosis on the Problem List?: Yes Opioid Measure Date for [facility] Report: 02/24/24 Opioid Measure Time for [facility] Report: 08:54 Quality: Stroke Does the patient have a stroke diagnosis?: No Physical Exam Vital Signs: Vital Signs: Last Vital Signs Temp 96.8 F 03/25/24 07:49 Pulse 63 03/25/24 07:49 Resp 18 03/25/24 07:49 BP 144/72 H 03/25/24 07:49 Pulse Ox 93 03/25/24 07:49 O2 Del Method Room Air 03/25/24 07:49 BMI result Body Mass Index 39.6 more Alert, frail appearing, more verbal, resting tremor, abdomen soft Discharge Plan Discharge Anticipated Discharge Date/Time: 03/25/24 08:50 Patient Disposition: Xfer SNF Discharge Diagnosis: uti, metastatic prostate ca Referrals: Júnior Green MD [Primary Care Provider] - 1 Week Discharge Medications: New cefuroxime axetil 500 mg tablet 500 mg PO BID Qty: 10 0RF Continued sennosides [Senna Lax] 8.6 mg Tablet 8.6 mg PO BID@0900,1700 Qty: 30 0RF tamsulosin 0.4 mg Capsule 0.4 mg PO BEDTIME Qty: 30 0RF bisacodyl [Gentle Laxative (bisacodyl)] 10 mg Suppository 10 mg FL DAILY PRN (Reason: Constipation) Qty: 30 0RF Rx Instructions: FOR NO BOWEL MOVEMENT IN 3 DAYS dicyclomine 10 mg Capsule 10 mg PO BID@0900,1700 Qty: 30 0RF quetiapine 50 mg Tablet 50 mg PO BEDTIME Qty: 30 0RF amlodipine 2.5 mg Tablet 2.5 mg PO BEDTIME acetaminophen 325 mg tablet 650 mg PO Q6H PRN (Reason: Fever Or Pain) docusate sodium 100 mg capsule 100 mg PO BID@0900,1700 lactulose 20 gram/30 mL solution 10 g PO BEDTIME polyvinyl alcohol [Artificial Tears (polyvin alc)] 1.4 % drops 1 drp ophthalmic (eye) TID@0900,1300,1700 memantine 10 mg Tablet 10 mg PO BID@0900,1700 ondansetron HCl 4 mg Tablet 4 mg PO TID PRN (Reason: Nausea) loperamide 2 mg Tablet 4 mg PO DAILY MRX1 PRN (Reason: Diarrhea) guaifenesin 100 mg/5 mL Liquid 200 mg PO Q4H PRN (Reason: Cough) Fleet Enema 19-7 gram/118 mL Enema 118 ml FL DAILY PRN (Reason: Constipation) Rx Instructions: FOR NO BOWEL MOVEMENT IN 3 DAYS polyethylene glycol 3350 17 gram powder in packet 17 g PO DAILY magnesium hydroxide [Milk of Magnesia] 400 mg/5 mL suspension 30 ml PO DAILY@2100 PRN (Reason: Constipation) albuterol sulfate 90 mcg/actuation Hfa Aerosol Inhaler 2 puff INHALATION Q4H PRN (Reason: Wheezing) benzocaine-menthol 15-3.6 mg Lozenge 1 zenon MUCOUS MEMBRANE Q2H PRN (Reason: Sore Throat) allopurinol 300 mg tablet 300 mg PO DAILY carbidopa-levodopa 25-100 mg tablet 2 tab PO QID Discharge Orders: Discharge Order (Routine); Ordered 03/25/24 Ordered By: Thierry Son Diet: ndd2 solids, thin liquids Activity on Discharge: As tolerated Stand Alone Forms: Patient Portal Discharge page Print Language: Peruvian Care Plan Goals: recovery Health Concerns: uti, prostate mets Plan of Treatment: 5 more days ceftin, diet changed as above, continue lupron, follow up with prostate cancer doctor Assessment: see above
[2024-03-25] MEDS: Dicyclomine HCl 10 MG CAPSULE PO (09:19)
[2024-03-25] MEDS: Memantine HCl 10 MG TABLET PO (09:19)
[2024-03-25] MEDS: Carbidopa/Levodopa 25/100 TABLET 2 TAB PO (09:19)
[2024-03-25] MEDS: allopurinoL 300 MG TABLET PO (09:20)
[2024-03-25] MEDS: Artificial Tears 15 ML DROPS 1 DROP EYE-BOTH (09:20)
--- NOTE | 2024-03-25 09:36 | MHC.CM.PN ---
Patient has been medically cleared for dc today, to return to LTC @ [facility]. [facility] will transport Patient today at 1PM. CM spoke with Brother/HCP/José and informed him of the dc plan. Last IMM addressed on 03/23/2024. JOS spoke with RN Papier Mache' Molder/Sindhu at the [facility]s Home @ [phone] and per her request, faxed the dc summary to [phone].
--- NOTE | 2024-03-25 09:45 | MHC.SL.SWA ---
Speech Pathologist Impression: Risk of Aspiration Due to: Lethargy Weak Voice Dysphasia Diet Status: Recommend continue on Ground/Mechanical (NDD2) with THIN lqiuids, pills crushed in puree. Liquid Consistency and Strategies for Safe Swallow: Liquid Intake Recommendation: Thin Liquid Intake Strategies: Small Sips Solid Food Consistency: Dietary Recommendations: Grnd/Mech Altered (NDD2) Additional Modifications to Solid Foods: Assure that patient has swallowed before presenting more food/liquid. Patient eats at a slower pace overall. Alternate liquids and solids, small bites and sips. Straw o.k. if controlled and well supervised, discontinue straw with any coughing/signs of aspiration. Recommend pills that cannot be crushed be delivered whole in puree. Oral Medication Intake: Crushed with Puree Please contact the pharmacy regarding appropriate crushable or liquid drug formulations that are available whenever modified delivery is recommended. Compensatory Strategies and Precautions to be Taken for Safe Swallow: Sitting Upright (90 deg) Liquids from Cup Liquids from Straw Alternate Liquids/Solids Rate of Ingestion Change Oral Check Supervision While Eating and Drinking for Safe Swallow: Total Assistance (1:1) Foods to Avoid: Mixed consistencies, difficult to chew solids. Swallowing Recommended Treatments: Compens. Strategy Educat. Recommendation for Speech: Inpatient Speech Therapy Modified Barium Swallow Study - Inpatient Modified Barium Swallow Study - Outpatient Comment: Patient seen at breakfast to assess toleration of recommended diet of Ground/Mechanical and Thin liquids. A time of WOOL SHEARER visit, patient was being fed by GROUNDS CARETAKER. Patient was awake with waxing waning level of alertness/engagement throughout. Patient was observed eating bites of scrambled egg, producing a slow munching pattern on this consistency, mild to moderate delay initiating swallow, though large fat pad on neck made swallow hard to visualize/palpate. Good oral clearance on each bite, no clinical signs of aspiration on this consistency. GROUNDS CARETAKER gave patient Pratt Juice via straw, with patient being able to adequately suck up liquid with straw, appeared to orally contain bolus before propelling for swallow. No clinical signs of aspiration on multiple observations of liquid delivered this way. Patient appears to be tolerating these diet consistencies well. Recommend continue on Ground/Mechanical (NDD2) with THIN lqiuids, pills crushed in puree. Patient will continue to require 1-1 feed, slower rate of ingestion, alternate liquids and solids. WOOL SHEARER will continue to follow. Frequency/Duration: Date Range for Service Req: Timeline to reassess: Home Worker Clinican/Clinical Fellow: No Supervisory Statement: I have reviewed and agree with the student/clinical fellow's documentation: N/A Speech Language Pathologist: Esme Bernabe M.A., CCC-WOOL SHEARER
[2024-03-25] MEDS: Acetaminophen 325 MG TABLET 650 MG PO (10:15)
[2024-03-25 10:25] LABS: Hematocrit 40.5 % (42.0-52.0); Mean Corpuscular HGB Conc 34.6 g/dl (31.0-36.0); Mean Corpuscular Hemoglobin 31.9 pg (27.0-33.0); Mean Corpuscular Volume 92.3 fL (80.0-98.0); Mean Platelet Volume 9.4 fL (9.4-12.4); Platelet Count 107 X10*3/uL (160-400); Red Blood Count 4.39 X10*6/uL (4.60-5.80); Red Cell Distribution Width 14.1 % (11.0-16.0); White Blood Count 6.2 X10*3/uL (4.8-10.8)
[2024-03-25 10:40] LABS: Anion Gap 13 (12-20); Blood Urea Nitrogen 22 mg/dL (9-16); Estimated Glomerular Filt Rate > 60; Glucose Fasting 97 mg/dL (60-99); Magnesium 1.9 mg/dL (1.6-2.6); Potassium 3.8 mmol/L (3.3-5.1); Sodium 142 mmol/L (135-145)
[2024-03-25 11:22] LABS: Calcium 9.2 mg/dL (8.4-10.2); Carbon Dioxide 27 mmol/L (22-29); Chloride 106 mmol/L (96-108); Creatinine Clr Calc Pharmacy 78.8
[2024-03-25 11:46] VITALS: BP 155/74; PULSE 60; RESP 16; TEMP 36.1; O2SAT 93
== END 2024-03-25 13:39 | disposition skilled nursing facility (03) | DRG 689 ==
LOC: HO.ED 18:58 → HO.EDOVER 19:12 → HO.IMC 03-23 19:54
PROVIDERS: Internal Medicine; Physician Assistant; Student in an Organized Health Care Education/Training Program; Admitting Provider Physician Assistant; Emergency Provider Emergency Medicine Emergency Medical Services; PCP Internal Medicine Endocrinology, Diabetes & Metabolism; Visit Provider Internal Medicine
DX: N39.0 Urinary tract infection, site not specified (principal); G93.41 Metabolic encephalopathy; C79.51 Secondary malignant neoplasm of bone; C79.02 Secondary malignant neoplasm of left kidney and renal pelvis; I25.10 Atherosclerotic heart disease of native coronary artery without angina pectoris; R13.10 Dysphagia, unspecified; R55 Syncope and collapse; G20.A1 Parkinson's disease without dyskinesia, without mention of fluctuations; Z66 Do not resuscitate; G30.9 Alzheimer's disease, unspecified; F02.80 Dementia in other diseases classified elsewhere, unspecified severity, without behavioral disturbance, psychotic disturbance, mood disturbance, and anxiety; I10 Essential (primary) hypertension; J44.9 Chronic obstructive pulmonary disease, unspecified; B96.20 Unspecified Escherichia coli [E. coli] as the cause of diseases classified elsewhere; C61 Malignant neoplasm of prostate; Z20.822 Contact with and (suspected) exposure to COVID-19; Z79.899 Other long term (current) drug therapy
CPT/HCPCS: 0241U; 36415; 70450; 71045; 71250; 74176; 76775; 80048; 80053; 81001; 82140; 82803; 82947; 83615; 83735; 84153; 84484; 85025; 85027; 87086; 87088; 87186; 92610; 92950; 93005; 93971; 99285; J0696; J1650

== ENCOUNTER → 2024-03-22 19:10 | Outpatient (BNV) | payer OTHER, MEDICARE, SELFPAY | PROVIDERS: Admitting Provider Physician Assistant; Emergency Provider Emergency Medicine Emergency Medical Services; PCP Internal Medicine Endocrinology, Diabetes & Metabolism; Visit Provider Internal Medicine | DX: C61 Malignant neoplasm of prostate (principal) | CPT/HCPCS: 99222 ==

== ENCOUNTER → 2024-03-22 19:10 | Outpatient (BNV) | payer MEDICARE, SELFPAY | PROVIDERS: Admitting Provider Physician Assistant; Emergency Provider Emergency Medicine Emergency Medical Services; PCP Internal Medicine Endocrinology, Diabetes & Metabolism; Visit Provider Physician Assistant | DX: C79.9 Secondary malignant neoplasm of unspecified site (principal) | CPT/HCPCS: 99223; 99233; 99239 ==

== ENCOUNTER 2024-04-21 13:00 | Outpatient (AMB) | payer MEDICARE, SELFPAY ==
--- NOTE | 2024-04-21 13:03 | A.OFFVIS_ITS ---
Intake Intake Visit Reasons: 3M follow Intake Note: patient is present for follow up Allergies cefazolin [From KEFZOL] Allergy (Unknown, Verified 03/22/24 10:01) RASH HPI HPI Comments History of Present Illness Details Osmel is a pleasant male. He is a patient of Dr. Garcia. [facility] He is seen for the following urologic disease - prostate cancer 05/06 Se[facility] at [facility] Recent CT scan 03/22/24 - multiple left renal cysts. One cyst d escribed as hyperattenuating mass measuring 1.8 cm in size compared to 0.8cm in 2016 Extremely slow growth rate Would consider for surveillance imaging New lytic lesions in the spine and pelvis. These are suspicious for metastatic disease (bone scan in July was stable in appearance) Given new imaging findings would add antiandrogen. Initial suggestion was abiraterone. [facility] Prior generation medication would be bicalutamide 50 mg t.i.d.. This represents castration resistant metastatic prostate cancer PSA 15 02/24/24 [facility] 02/03 PSA 11, T 7 09/06 GnRH at office Elevated PSA 06/05 10.6 08/06 Bone scan negative - No definite sc intigraphic evidence of osseous metastasis, appear relatively stable since 06/12/2018 Prostate cancer September 2018 - Current therapy intermittent hormones Grade group 3 Multiple positive cores High volume 7 out of 12 cores positive 470/1200 [place] 4 + 3; LBL 75%, LML 75%, YAHIR 60%, LBM 90%, LMM 70%, CAMP 50% [place] 3+3; MELLISA 50% PNI positive, LVI negative, ALEC positive core. PSAs are as follows: 06/30--17.8, 10/09--18.2, 12/30--11, 04/01- -0.9, 01/30--<0.05, 10/01--0.1, 11/02--1.9, 01/02--3.0, 06/05--10.3 [facility] Medical History Dementia Parkinson's disease without dyskinesia, without mention of fluctuations Anemia Gout Arthritis Anemia Obesity COPD (chronic obstructive pulmonary disease) Hyperlipidemia HTN (hypertension) CAD (coronary artery disease) Depression Dementia Prostate cancer Syncope Cardiac arrest IBS (irritable bowel syndrome) Parkinsons Hypertension Chronic anemia Cellulitis Social History Household Members: None Housing: Jail Do you presently have visiting nurse or other home services: Yes ([facility]) Unable to assess alcohol history related to: Unknown Alcohol intake: never Patient Tobacco Use Status: Never used Tobacco Advance Directives Date on File: 12/10/22 service: Yes Current occupational status: retired and disabled Review of Systems Const Denies chills and Denies fever(s) Card Reports no additional complaints and Denies syncope Resp Denies cough GI Denies abdominal pain and Denies heartburn Reports as per HPI and Denies change in libido Neuro Denies syncope Psych Denies change in libido Endo Denies change in libido Physical Exam Const General: cooperative, healthy appearing, comfortable and no acute distress Orientation/consciousness: patient oriented x3 HEENT Face and sinus: Yes normal facial exam Mouth: moist mucous membranes Neck Neck: Yes normal visual inspection, Yes full ROM and Yes trachea midline Chest Chest palpation & inspection: normal inspection of the chest Resp Effort & Inspection: normal respiratory effort, able to speak in complete sent ences and no respiratory distress GI Inspection: Yes normal to inspection Back/Spine/Pelvis Cervical Spine: normal cervical lordosis Thoracic/Lumbar Spine: thoracic and lumbar spine normal to inspection Skin General skin exam: no rashes or lesions noted Neuro General: patient oriented x3, gait normal, tone normal and moves all extremities Extrem General: Yes normal to inspection and Yes capillary refill normal Assessment & Plan Assessment & Plan (1) Prostate cancer metastatic to bone: Code(s): C61 - Malignant neoplasm of prostate; C79.51 - Secondary malignant neoplasm of bone Plan Add antiandrogen to GnRH Would consider for LU177 if develops pain Patient Instructions: Imaging studies, laboratory and physical exam results were discussed and reviewed in detail. No major barriers to patient understanding were identified. An opportunity to ask questions regarding the treatment plan was provided. All questions were answered. The patient expressed understanding and agreement with the above treatment plan. The patient is aware they should contact our office by phone for worsening of their current condition or the appearance of new urologic symptoms. Compliance is encouraged with any medications and followup testing that is ordered. It is a privilege to participate in the urologic care of your patient. If you have any questions or concerns regarding treatment for the above conditions, or other urologic issues, please do not hesitate to contact me. The office telephone contact is [phone]. This note is constructed using voice recognition software. While every effort has been made to ensure accuracy quality control microbiologist errors may have been included. Yours sincerely, Dr Nain Sarmiento MD, YUKI [facility] - Urology Providers of Expert, Compassionate Care for the Genitourinary System Coding Level of Care Code 48023-Xdny Fac sub, high Diagnoses Prostate cancer metastatic to bone C61; C79.51
== END 2024-04-21 16:00 | disposition home or self-care (01) ==
LOC: HO.HUSV 13:00
PROVIDERS: PCP Internal Medicine Endocrinology, Diabetes & Metabolism; Visit Provider Urology
DX: C61 Malignant neoplasm of prostate (principal); C79.51 Secondary malignant neoplasm of bone
CPT/HCPCS: 99310

== ENCOUNTER 2024-05-19 11:41 | Outpatient (AMB) | payer MEDICARE, SELFPAY ==
--- NOTE | 2024-05-18 17:25 | HO.VETSHOME ---
Intake Intake Visit Reasons: Follow up- treatment for prostate CA Allergies cefazolin [From KEFZOL] Allergy (Unknown, Verified 03/22/24 10:01) RASH HPI HPI Comments History of Present Illness Details Osmel is a pleasant male. He is a patient of Dr. Garcia. He resides at the [facility]. He is seen for the following urologic disease - prostate cancer 05/19/24--reviewed PSA 03/23/24---15..42 01/14/24 TT--7 ng/dL He is not tolerating Casodex t.i.d.. Will decrease to Casodex 50 mg daily. Patient is on Fosamax and calcium. Recommend bone density testing. 05/06--Seen at [facility] Recent CT scan 03/22/24 - multiple left renal cysts. One cyst described as hyperattenuating mass measuring 1.8 cm in size compared to 0.8cm in 2016 Extremely slow growth rate Would consider for surveillance imaging New lytic lesions in the spine and pelvis. These are suspicious for metastatic disease (bone scan in July was stable in appearance) Given new imaging findings would add antiandrogen. Initial suggestion was abiraterone. This is not covered [facility]. Prior generation medication would be bicalutamide 50 mg t.i.d.. This represents castration resistant metastatic prostate cancer PSA 15 02/24/24 [facility] 02/03 PSA 11, T 7 09/06 GnRH at office Elevated PSA 06/05 10.6 08/06 Bone scan negative - No definite scintigraphic evidence of osseous metastasis, appear relatively stable since 06/12/2018 Prostate cancer September 2018 - Current therapy intermittent hormones Grade group 3 Multiple positive cores High volume 7 out of 12 cores positive 470/1200 [place] 4 + 3; LBL 75%, LML 75%, YAHIR 60%, LBM 90%, LMM 70%, CAMP 50% [place] 3+3; MELLISA 50% PNI positive, LVI negative, ALEC positive core. PSAs are as follows: 06/30--17.8, 10/09--18.2, 12/30--11, 04/01--0.9, 01/30--<0.05, 10/01--0.1, 11/02--1.9, 01/02--3.0, 06/05--10.3 [facility] Medical History Dementia Parkinson's disease without dyskinesia, without mention of fluctuations Anemia Gout Arthritis Anemia Obesity COPD (chronic obstructive pulmonary disease) Hyperlipidemia HTN (hypertension) CAD (coronary artery disease) Depression Dementia Prostate cancer Syncope Cardiac arrest IBS (irritable bowel syndrome) Parkinsons Hypertension Chronic anemia Cellulitis Social History Household Members: None Housing: Detention Do you presently have visiting nurse or other home services: Yes ([facility]) Unable to assess alcohol history related to: Unknown Alcohol intake: never Patient Tobacco Use Status: Never used Tobacco Advance Directives Date on File: 12/10/22 service: Yes Current occupational status: retired and disabled Review of Systems Const All systems reviewed & are unremarkable except as noted in HPI and below Reports no additional complaints Eyes Reports no additional complaints ENT Reports no additional complaints Card Reports no additional complaints Resp Reports no additional complaints GI Reports no additional complaints Reports as per HPI Musc Reports no additional complaints Skin/Breast Reports system reviewed and no additional complaints, except as documented Neuro Reports no additional complaints Psych Reports no additional complaints Endo Reports no additional complaints Derrick/Lymph Reports no additional complaints Aller/Immun Reports no additional complaints Assessment & Plan Assessment & Plan (1) Prostate cancer metastatic to bone: Code(s): C61 - Malignant neoplasm of prostate; C79.51 - Secondary malignant neoplasm of bone Plan He is not tolerating Casodex t.i.d.. Will decreased to Casodex 50 mg daily. Patient is on Fosamax and calcium. Recommend bone density testing. Coding Level of Care Code 80969-Idfr Fac sub, mod Diagnoses Prostate cancer metastatic to bone C61; C79.51
== END 2024-05-19 16:00 | disposition home or self-care (01) ==
LOC: HO.HUSV 11:41
PROVIDERS: PCP Internal Medicine Endocrinology, Diabetes & Metabolism; Visit Provider Urology
DX: C61 Malignant neoplasm of prostate (principal); C79.51 Secondary malignant neoplasm of bone
CPT/HCPCS: 99309

== ENCOUNTER 2024-07-05 06:34 | Outpatient (REF) | payer MEDICARE, SELFPAY ==
[2024-07-05 07:20] LABS: Anion Gap 12 (12-20); Blood Urea Nitrogen 16 mg/dL (9-16); Carbon Dioxide 26 mmol/L (22-29); Chloride 106 mmol/L (96-108); Estimated Glomerular Filt Rate > 60; Potassium 3.3 mmol/L (3.3-5.1); Sodium 141 mmol/L (135-145)
[2024-07-05 07:53] LABS: PSA,Total (Free>4and<10) 6.11 ng/mL (0.00-4.00)
[2024-07-06 10:39] LABS: Free Prostate Spec Ag 0.2 ng/mL; Percent Free Prostate Spec Ag 4 % (calc) (>25); Prostate Specific Ag Total 5.4 ng/mL (< OR = 4.0)
== END 2024-07-05 06:35 | disposition home or self-care (01) ==
LOC: HO.HSH2E 06:34
PROVIDERS: Visit Provider Nurse Practitioner Acute Care
DX: Z12.5 Encounter for screening for malignant neoplasm of prostate (principal); R97.20 Elevated prostate specific antigen [PSA]; U07.1 COVID-19
CPT/HCPCS: 36415; 80051; 82565; 84153; 84154; 84520

== ENCOUNTER 2024-07-16 06:24 | Outpatient (REF) | payer MEDICARE, SELFPAY | END 2024-07-16 06:25 | disposition home or self-care (01) | LOC: HO.HSH2E 06:24 | PROVIDERS: Visit Provider Internal Medicine Endocrinology, Diabetes & Metabolism | DX: Z13.89 Encounter for screening for other disorder (principal) | CPT/HCPCS: 36415; 84402; 84403 ==

== ENCOUNTER 2024-07-19 06:24 | Outpatient (REF) | payer MEDICARE, SELFPAY ==
[2024-07-19 07:23] LABS: Anion Gap 11 (12-20); Carbon Dioxide 25 mmol/L (22-29); Chloride 110 mmol/L (96-108); Potassium 3.9 mmol/L (3.3-5.1); Sodium 142 mmol/L (135-145)
[2024-07-24 16:09] LABS: Testosterone, Free 1.5 pg/mL (30.0-135.0); Testosterone, Total 11 ng/dL (250-1100)
== END 2024-07-19 06:25 | disposition home or self-care (01) ==
LOC: HO.HSH2E 06:24
PROVIDERS: Visit Provider Internal Medicine Endocrinology, Diabetes & Metabolism
DX: R97.20 Elevated prostate specific antigen [PSA] (principal); C61 Malignant neoplasm of prostate
CPT/HCPCS: 36415; 80051; 84402; 84403

== ENCOUNTER 2024-07-22 14:48 | Outpatient (AMB) | payer MEDICARE, SELFPAY ==
--- NOTE | 2024-07-22 16:36 | A.OFFVIS_ITS ---
Intake Intake Visit Reasons: PSA/Testo results since starting Casodex Allergies cefazolin [From KEFZOL] Allergy (Unknown, Verified 03/22/24 10:01) RASH HPI HPI Comments History of Present Illness Details Osmel is a pleasant male. He is a patient of Dr. Garcia. He resides at [facility]. He is seen for the following urologic disease - prostate cancer 08/07 current therapy. [facility] q.6 months w ith Casodex 50 mg daily. PSA has fallen 04/06 15.4 to 07/06 6.1 Will remain on current therapy Interval surveillance - plan on bone scan prior to next GnRH injection in 09/0705/19/24--reviewed PSA 03/23/24---15..42 01/14/24 TT--7 ng/dL He is not tolerating Casodex t.i.d.. Will decrease to Casodex 50 mg daily. Patient is on Fosamax and calcium. Recommend bone density testing. 05/06--Seen at [facility] Recent CT scan 03/22/24 - multiple left renal cysts. One cyst d escribed as hyperattenuating mass measuring 1.8 cm in size compared to 0.8cm in 2016 Extremely slow growth rate New lytic lesions in the spine and pelvis. These are suspicious for metastatic disease (bone scan in July was stable in appearance) Given new imaging findings would add antiandrogen. Initial suggestion was abiraterone. This is not covered through [facility]. Prior generation medication would be bicalutamide 50 mg t.i.d.. This represents castration resistant metastatic prostate cancer PSA 15 02/24/24 [facility] 02/03 PSA 11, T 7 09/06 GnRH at office Elevated PSA 06/05 10.6 08/06 Bone scan negative - No definite sc intigraphic evidence of osseous metastasis, appear relatively stable since 06/12/2018 Prostate cancer September 2018 - Current therapy intermittent hormones Grade group 3 Multiple positive cores High volume 7 out of 12 cores positive 470/1200 [place] 4 + 3; LBL 75%, LML 75%, YAHIR 60%, LBM 90%, LMM 70%, CAMP 50% [place] 3+3; MELLISA 50% PNI positive, LVI negative, ALEC positive core. PSAs are as follows: 06/30--17.8, 10/09--18.2, 6/19--11, 04/01- -0.9, 01/30--<0.05, 10/01--0.1, 11/02--1.9, 01/02--3.0, 06/05--10.3 [facility] Medical History Dementia Parkinson's disease without dyskinesia, without mention of fluctuations Anemia Gout Arthritis Anemia Obesity COPD (chronic obstructive pulmonary disease) Hyperlipidemia HTN (hypertension) CAD (coronary artery disease) Depression Dementia Prostate cancer Syncope Cardiac arrest IBS (irritable bowel syndrome) Parkinsons Hypertension Chronic anemia Cellulitis Social History Household Members: None Housing: Assisted Do you presently have visiting nurse or other home services: Yes ([facility]) Unable to assess alcohol history related to: Unknown Alcohol intake: never Patient Tobacco Use Status: Never used Tobacco Advance Directives Date on File: 12/10/22 service: Yes Current occupational status: retired and disabled Review of Systems Const Reports as per HPI and Reports no additional complaints Card Reports as per HPI and Reports no additional complaints Resp Reports as per HPI and Reports no additional complaints GI Reports as per HPI and Reports no additional complaints Reports as per HPI Musc Reports no additional complaints and Reports as per HPI Neuro Reports no additional complaints and Reports as per HPI Physical Exam Const General: cooperative, healthy appearing, comfortable and no acute distress Orientation/consciousness: patient oriented x3 HEENT Face and sinus: Yes normal facial exam Mouth: moist mucous membranes Neck Neck: Yes normal visual inspection, Yes full ROM and Yes trachea midline Chest Chest palpation & inspection: normal inspection of the chest Resp Effort & Inspection: normal respiratory effort, able to speak in complete sentences and no respiratory distress GI Inspection: Yes normal to inspection Back/Spine/Pelvis Cervical Spine: normal cervical lordosis Thoracic/Lumbar Spine: thoracic and lumbar spine normal to inspection Skin General skin exam: no rashes or lesions noted Neuro General: patient oriented x3, tone normal and moves all extremities Extrem General: Yes normal to inspection and Yes capillary refill normal Assessment & Plan Assessment & Plan (1) Prostate cancer metastatic to bone: Code(s): C61 - Malignant neoplasm of prostate; C79.51 - Secondary malignant neoplasm of bone Plan Bone scan [facility] in February Orders: Orders NM bone scan whole body Today C61 - Malignant neoplasm of prostate, C79.51 - Secondary malignant neoplasm of bone Patient Instructions: Imaging studies, laboratory and physical exam results were discussed and reviewed in detail. No major barriers to patient understanding were identified. An opportunity to ask questions regarding the treatment plan was provided. All questions were answered. The patient expressed understanding and agreement with the above treatment plan. The patient is aware they should contact our office by phone for worsening of their current condition or the appearance of new urologic symptoms. Compliance is encouraged with any medications and followup testing that is ordered. It is a privilege to participate in the urologic care of your patient. If you have any questions or concerns regarding treatment for the above conditions, or other urologic issues, please do not hesitate to contact me. The office telephone contact is [phone]. This note is constructed using voice recognition software. While every effort has been made to ensure accuracy television maintenance man errors may have been included. Yours sincerely, Dr Nain Sarmiento MD, Y[facility] - Urology Providers of Expert, Compassionate Care for the Genitourinary System Coding Level of Care Code 68604-Invs Fac sub, mod Diagnoses Prostate cancer metastatic to bone C61; C79.51
== END 2024-07-22 16:42 | disposition home or self-care (01) ==
LOC: HO.HUSV 14:48
PROVIDERS: PCP Internal Medicine Endocrinology, Diabetes & Metabolism; Visit Provider Urology
DX: C61 Malignant neoplasm of prostate (principal); C79.51 Secondary malignant neoplasm of bone
CPT/HCPCS: 99309

== ENCOUNTER 2024-08-26 10:19 | Outpatient (AMB) | payer MEDICARE, SELFPAY ==
--- NOTE | 2024-08-26 10:43 | AM.OFFVISNUR ---
Intake Visit Reasons: GnRH(PA Set) Allergies cefazolin [From KEFZOL] Allergy (Unknown, Verified 03/22/24 10:01) RASH Office Meds Eligard (6 month) 45 mg (6 month) subcutaneous syringe Performing Provider: Nain Sarmiento MD [facility]forming [facility] Administered by: Ana Alvarez RN on 08/26/24 10:43 Dose Route Admin Location Dispensed Lot Number Expiration Date [facility] Tube Bender Hand 45 mg subcut 1 ea Comments: Injection to Left upper arm Assessment & Plan Assessment & Plan Orders: Orders AMB Leuprolide Injection - Practice Supplied Today C61 - Malignant neoplasm of prostate, C79.51 - Secondary malignant neoplasm of bone Coding
--- OUTSIDE RECORDS SUMMARY | 2024-08-26 11:03 | XMS_ITS | Encounter Summary ---
Author Organization [facility] Address [address] [place] [address] Care Team Providers Care Process Improvement Specialist Name Role Phone Unavailable Primary Care Provider Unavailabl e Encounter Details Date Type Department Care Team (Latest Contact Info) Description 10/16/2018 Abstract [facility] CONVERSIONS Dental, Provider, DDS Social History Tobacco Use Types Packs/Day Years Used Date Smoking Tobacco: Never Assessed Sex and Gender Information Value Date Recorded Sex Assigned at Male 05/13/2022 10:26 AM EDT Legal Sex Male 10:26 AM EDT Gender Identity Male 05/13/2022 10:26 AM EDT Sexual Orientation Straight 05/13/2022 10 :26 AM EDT documented as of this encounter Plan of Treatment Not on file documented as of this encounter Visit Diagnoses Not on filedocumented in this encounter
--- OUTSIDE RECORDS SUMMARY | 2024-08-26 11:03 | XMS_ITS | Clinical Summary ---
Author Organization [facility] Address [address] [place] [address] Care Team Providers Care Show Dog Trainer Name Role Phone Unavailable Primary Care Provider Unavailabl e Allergies Active Allergy Reactions Criticality Noted Date Comments Cefazolin 09/30/2017 Clozapine 09/30/2017 Medications acetaminophen (Tylenol) 325 MG tablet Take 1 tablet by mouth every 4 (four) hours. 02/16/20 14 Active acetaminophen (Tylenol 8 Hour) 650 MG ER tablet Take 2 tablets by mouth every 8 (eight) hours. Active allopurinol (Zyloprim) 300 MG tablet Take 1 tablet by mouth at bed time. 02/16/20 14 Active bicalutamide (Casodex) 50 MG chemo tablet Take 1 tablet by mouth at bed time. Active bisacodyl (Laxative) 10 MG suppository Insert 1 suppository into the rectum at bed time. Active carbidopa-levodopa (Sinemet) 25-100 MG tablet Take 1 tablet by mouth every 8 (eight) hours. Active carboxymethylcellu lose (Refresh Celluvisc) 1 % ophthalmic solution dropperette Active ciprofloxacin (Cipro) 500 MG tablet Take 1 tablet by mouth every 12 (twelve) hours. Active dicyclomine (Bentyl) 20 MG tablet Take 1 tablet by mouth every 6 (six) hours. 02/16/20 14 Active Docusate Sodium (DSS) 100 MG capsule Take 1 capsule by mouth at bed time. 02/16/20 14 Active fludrocortisone (Florinef) 0.1 MG tablet Take 1 tablet by mouth at bed time. Active guaiFENesin (Cough Syrup) 100 MG/5ML liquid Take 10 mL by mouth every 4 (four) hours. Active magnesium hydroxide (Milk of Magnesia) 400 MG/5ML suspension Take 30 mL by mouth at bed time. Active midodrine (Proamatine) 5 MG tablet Take 2 tablets by mouth every 8 (eight) hours. Active pneumococcal conjugate (Prevnar 13) vaccine Inject 0.5 mL into the shoulder, thigh, or buttocks. Active QUEtiapine (SEROquel) 50 MG tablet Take 1 tablet by mouth every 12 (twelve) hours. Active Soap & Cleansers (SM Skin Cleanser Gentle) lotion Activ e sulfamethoxazole-t rimethoprim (Bactrim DS) 800-160 MG tablet Take 1 tablet by mouth every 12 (twelve) hours. Active tuberculin (Aplisol) 5 UNIT/0.1ML injection Active allopurinol (Zyloprim) 300 MG tablet Take 1 tablet by mouth in the morning. 08/07/19 16 Active amLODIPine (Norvasc) 2.5 MG tablet Take 1 tablet by mouth at bedtime. 08/28/19 23 Active lactulose (Chronulac) 10 GM/15ML solution Take 20 g by mouth 3 times daily. Active loperamide (Imodium A-D) 2 MG tablet Take 4 mg by mouth if needed for diarrhea. Active memantine (Namenda) 5 MG tablet Take 1 tablet by mouth 2 times daily. 11/14/19 23 Active polyethylene glycol, PEG, 3350 (Miralax) 17 g packet Take 17 g by mouth. Active polyvinyl alcohol (Liquifilm Tears) 1.4 % ophthalmic solution Administer 1 drop into both eyes if needed for dry eyes. Active sennosides (Senokot) 8.6 MG tablet Take 1 tablet by mouth 2 times daily. Active tamsulosin (Flomax) 0.4 MG 24 hr capsule Take 1 capsule by mouth at bedtime. 10/01/19 17 Active ondansetron ODT (Zofran-ODT) 4 MG disintegrating tablet Take 4 mg by mouth every 8 (eight) hours if needed for nausea or vomiting. Active Benzocaine-Menthol 15-2.6 MG lozenge Dissolve in the mouth every 2 (two) hours if needed. Active ALBUTEROL SULFATE HFA IN Inhale. Active alendronate (Fosamax) 70 MG tablet Take 70 mg by mouth every 7 (seven) days. Take in the morning with a full glass of water, on an empty stomach, and do not take anything else by mouth or lie down for the next 30 min. Active Active Problems No known active problems Encounters Date Type Department Care Team Description 06/02/2024 8:00 AM EST Office Visit [facility] [address] [place] [address] DavidisidoroWoodrow dempseyler 05/26/2024 2:00 PM EST Office Visit [facility] [address] [place] [address] Jerry Emerson DMD from Last 3 Months Social History Tobacco Use Types Packs/Day Years Used Date Smoking Tobacco: Unknown Tobacco Cessation:Counseling Given: Not Answered Alcohol Use Standard Drinks/Week Comments Defer 0 (1 standard drink = 0.6 oz pur e alcohol) Sex and Gender Information Value Date Recorded Sex Assigned at Male 05/13/2022 10:26 AM EDT Legal Sex Male 10:26 AM EDT Gender Identity Male 05/13/2022 10:26 AM EDT Sexual Orientation Straight 05/13/2022 10 :26 AM EDT Last Filed Vital Signs Vital Sign Reading Time Taken Comments Blood Pressure 118/80 05/26/2024 2:26 PM EST Pulse 69 09/11/2022 10:27 AM EST Temperature 35.6 ??C (96 ??F) 06/19/2022 9:12 AM EST Respiratory Rate - - Oxygen Saturation - - Inhaled Oxygen Concentration - - Weight - - Height - - Body Mass Index - - Plan of Treatment Health Maintenance Due Date Last Done Comments Dental X-Ray: Full Mouth 1947 Depression Screening 1945 Lipid Panel 1945 SDOH Screening 1947 Alcohol/Substance Use Screening 1959 Hepatitis C Screening 1965 Zoster Vaccines (3 of 3) 12/04/2021 10/09/2021, 03/14 RSV Patients and Patients Aged 60 years or older (1 - 1-dose 75+ series) 2022 DTaP/Tdap/Td Vaccines (3 - Tdap) 01/21/2024 01/20/2014, 01/11/2011, 01/16/1999 COVID-19 Vaccine ( season) 2024 05/08/2023, 04/01/2022, 11/02/2021, Additional history exists Influenza Vaccine (#1) 2024, 04/16/2023, 04/18/2022, Additional history exists Dental Oral Exam 11/17/2024 05/19/2024, , 07/23/2023, Additional history exists Dental Prophylaxis 12/01/2024 06/02/2024, 0 03/05/2024, 07/02/2023 Dental X-Ray: Bitewings 01/28/2025 01/28/20 24, 07/23/2023, 06/19/2022 Tobacco Screening 06/02/2025 06/02/2024 Pneumococcal Vaccine: 50+ Years Completed 2023, 09/22/2018, 09/30/2016, Additional history exists HIB Vaccines Aged Out No longer eligi ble based on patient's age to complete this topic HPV Vaccines Aged Out No longer eligi ble based on patient's age to complete this topic Hepatitis A Vaccines Aged Out No long er eligible based on patient's age to complete this topic Hepatitis B Vaccines Aged Out No long er eligible based on patient's age to complete this topic IPV Vaccines Aged Out No longer eligi ble based on patient's age to complete this topic Meningococcal Vaccine Aged Out No viktor jonathan eligible based on patient's age to complete this topic RSV under 20 months Aged Out No longe r eligible based on patient's age to complete this topic Rotavirus Vaccines Aged Out No longer eligible based on patient's age to complete this topic Procedures Procedure Name Priority Date/Time Associated Diagnosis Comments ORAL HYGIENE INSTRUCTIONS Routine 2023 8:00 AM EST TOPICAL APPLICATION OF FLUORIDE VARNISH Routine 06/02/2024 8:00 AM EST PROPHYLAXIS - ADULT Routine 06/02/2024 8 :00 AM EST 23 I RESIN-BASED COMPOSITE - 1 SURF, ANTERIOR Routine 05/26/2024 2:00 PM EST 24 I RESIN-BASED COMPOSITE - 1 SURF, ANTERIOR Routine 05/26/2024 2:00 PM EST 25 I RESIN-BASED COMPOSITE - 1 SURF, ANTERIOR Routine 05/26/2024 2:00 PM EST 26 I RESIN-BASED COMPOSITE - 1 SURF, ANTERIOR Routine 05/26/2024 2:00 PM EST 27 I RESIN-BASED COMPOSITE - 1 SURF, ANTERIOR Routine 05/26/2024 2:00 PM EST COMPREHENSIVE ORAL EVALUATION - NEW OR ESTABLISHED PATIENT Routine 05/19/2024 11:00 AM EST BITEWINGS - 4 RADIOGRAPHIC IMAGES Routine 01/28/2024 9:00 AM EDT from Last 3 Months or Most Recently Relevant to Health Maintenance
--- OUTSIDE RECORDS SUMMARY | 2024-08-26 11:03 | XMS_ITS | Encounter Summary ---
Author Organization [employer] Address [address] [place] [address] [place] [address] Care Team Providers Care Professor Of Sociology Name Role Phone Unavailable Primary Care Provider Unavailabl e Encounter Details Date Type Department Care Team (Late st Contact Info) Description 08/07/2023 Abstract [facility] D[facility]AL [address] [place] [address] Jerry Emerson, DMD 230 [place] [address] Social History Tobacco Use Types Packs/Day Years Used Date Smoking Tobacco: Unknown Sex and Gender Information Value Date Recorded [...]
--- OUTSIDE RECORDS SUMMARY | 2024-08-26 11:03 | XMS_ITS | Encounter Summary ---
Author Organization [employer] Address [address] [employer] [address] 7 [place] [address] Care Team Providers Care Front Desk Lead Name Role Phone Unavailable Primary Care Provider Unavailabl e Encounter Details Date Type Department Care Team (Latest Contact Info) Description 10/04/2020 Abstract [facility] CONVERSIONS Dental, Provider, DDS Social History Tobacco [...]
--- OUTSIDE RECORDS SUMMARY | 2024-08-26 11:03 | XMS_ITS | Encounter Summary ---
Author Organization [employer] Address [address] [place] [address] [place] [address] Care Team Providers Care Teleservices Representative Name Role Phone Unavailable Primary Care Provider Unavailabl e Encounter Details Date Type Department Care Team (Late st Contact Info) Description 07/04/2023 Abstract [facility] D[facility] [address] [place] [address] Jerry Emerson, DMD 230 [place] [address] Social History Tobacco Use Types Packs/Day Years [...]
--- OUTSIDE RECORDS SUMMARY | 2024-08-26 11:03 | XMS_ITS | Encounter Summary ---
Author Organization [employer] Address [address] [place] [address] [place] [address] Care Team Providers Care Prize Fighter Name Role Phone Unavailable Primary Care Provider Unavailabl e Encounter Details Date Type Department Care Team (Late st Contact Info) Description 07/24/2023 Abstract [facility] D[facility]AL [address] [place] [address] Jerry Emerson, DMD [address] [place] [address] Social History Tobacco Use Types Packs/Day Years [...]
--- OUTSIDE RECORDS SUMMARY | 2024-08-26 11:03 | XMS_ITS | Encounter Summary ---
Author Organization [employer] Address [address] [place] [address] [place] [address] Care Team Providers Care Ophthalmic Surgical Assistant Name Role Phone Unavailable Primary Care Provider Unavailabl e Encounter Details Date Type Department Care Team (Late st Contact Info) Description 07/04/[address] [facility] D[facility] [address] [place] [address] Jerry Emerson, DMD 230 [place] [address] Social History Tobacco Use Types Packs/Day Years [...]
--- OUTSIDE RECORDS SUMMARY | 2024-08-26 11:03 | XMS_ITS | Encounter Summary ---
Author Organization [employer] Address [address] [place] [address] [place] [address] Care Team Providers Care Brake Lining Maker Name Role Phone Unavailable Primary Care Provider Unavailabl e Encounter Details Date Type Department Care Team (Late st Contact Info) Description 08/07/2023 Abstract [facility] D[facility]AL [address] [place] [address] Jerry Emerson, DMD [address] [place] [address] Social History Tobacco Use Types Packs/Day Years [...]
--- OUTSIDE RECORDS SUMMARY | 2024-08-26 11:03 | XMS_ITS | Encounter Summary ---
Author Organization [employer] Address [address] [place] [address] [place] [address] Care Team Providers Care Network Security Officer Name Role Phone Unavailable Primary Care Provider Unavailabl e Encounter Details Date Type Department Care Team (Late st Contact Info) Description 07/24/2023 Abstract [facility] D[facility] [address] [place] [address] Jerry Emerson, DMD [address] [place] [address] Social History Tobacco Use Types Packs/Day Years [...]
--- OUTSIDE RECORDS SUMMARY | 2024-08-26 11:03 | XMS_ITS | Encounter Summary ---
Author Organization [employer] Address [address] [place] [address] [place] [address] Care Team Providers Care Motorbike Courier Name Role Phone Unavailable Primary Care Provider Unavailabl e Encounter Details Date Type Department Care Team (Late st Contact Info) Description 07/04/2023 Abstract [facility] D[facility]AL [address] [place] [address] Jerry Emerson, DMD [address] [place] [address] Social History Tobacco Use Types Packs/Day Years [...]
--- OUTSIDE RECORDS SUMMARY | 2024-08-26 11:04 | XMS_ITS | Encounter Summary ---
Author Organization [employer] Address [address] [place] [address] [place] [address] Care Team Providers Care Anesthesia Tech Name Role Phone Unavailable Primary Care Provider Unavailabl e Encounter Details Date Type Department Care Team (Late st Contact Info) Description 07/24/2023 Abstract [facility] [address] [place] [address] Jerry Emerson, DMD [address] [place] [address] Social History Tobacco Use Types Packs/Day Years [...]
--- OUTSIDE RECORDS SUMMARY | 2024-08-26 11:04 | XMS_ITS | Encounter Summary ---
Author Organization [employer] Address [address] [place] [address] [place] [address] Care Team Providers Care Change Booth Attendant Name Role Phone Unavailable Primary Care Provider Unavailabl e Encounter Details Date Type Department Care Team (Late st Contact Info) Description 08/07/2023 Abstract [facility] D[facility] [address] [place] [address] Jerry Emerson, DMD [address] [place] [address] Social History Tobacco Use Types Packs/Day Years [...]
--- OUTSIDE RECORDS SUMMARY | 2024-08-26 11:04 | XMS_ITS | Encounter Summary ---
Author Organization [employer] Address [address] [place] [address] [place] [address] Care Team Providers Care Machine Silk Screen Printer Name Role Phone Unavailable Primary Care Provider Unavailabl e Encounter Details Date Type Department Care Team (Late st Contact Info) Description 07/24/2023 Abstract [facility] [address] [place] [address] Jerry Emerson, DMD 230 [place] [address] Social History Tobacco Use Types Packs/Day Years [...]
--- OUTSIDE RECORDS SUMMARY | 2024-08-26 11:04 | XMS_ITS | Encounter Summary ---
Author Organization [employer] Address [address] [place] [address] [place] [address] Care Team Providers Care Logistics Manager Name Role Phone Unavailable Primary Care Provider Unavailabl e Encounter Details Date Type Department Care Team (Late st Contact Info) Description 08/07/[address] [facility] D[facility]AL [address] [place] [address] Jerry Emerson, DMD 230 [place] [address] Social History Tobacco Use Types Packs/Day Years [...]
--- OUTSIDE RECORDS SUMMARY | 2024-08-26 11:04 | XMS_ITS | Encounter Summary ---
Author Organization [employer] Address [address] [place] [address] [place] [address] Care Team Providers Care Warehouse Checker Name Role Phone Unavailable Primary Care Provider Unavailabl e Encounter Details Date Type Department Care Team (Late st Contact Info) Description 07/24/2023 Abstract [facility] D[facility] [address] [place] [address] Jerry Emerson, DMD 230 [place] [address] Social History Tobacco Use Types Packs/Day Years [...]
== END 2024-08-26 10:43 | disposition home or self-care (01) ==
LOC: HO.HUSH 10:19
PROVIDERS: PCP Internal Medicine Endocrinology, Diabetes & Metabolism; Visit Provider Urology
DX: C61 Malignant neoplasm of prostate (principal); C79.51 Secondary malignant neoplasm of bone

== ENCOUNTER → 2024-08-26 10:19 | Outpatient (BNVA) | payer MEDICARE, SELFPAY | PROVIDERS: PCP Internal Medicine Endocrinology, Diabetes & Metabolism; Visit Provider Urology | DX: C61 Malignant neoplasm of prostate (principal); C79.51 Secondary malignant neoplasm of bone | CPT/HCPCS: 96402; J9217 ==

== ENCOUNTER → 2024-09-22 09:53 | Outpatient (REF) | payer MEDICARE, SELFPAY ==
--- NOTE | ~2024-09-22 | NM_ITS ---
EXAMINATION: NM BONE SCAN OF THE WHOLE BODY CLINICAL INFORMATION: Secondary malignant neoplasm of bone. Prostate CA. Metastases to bone. COMPARISON: 07/16/[address] head, chest, abdomen, and pelvis 03/22/2024. TECHNIQUE: Multiple gamma scintillation camera images of the whole body were performed 3 hours following the intravenous administration of 30 mCi Tc-99m MDP. FINDINGS: In the head, there is a subtle right anterior calvarial focus of uptake, not previously evident. Review of recent CT demonstrates no definite lesion although there is hyperostosis frontalis internus. Mild expected uptake in the region of the paranasal sinuses, and mild expected dental uptake. In the thoracic cage and upper extremities, no suspicious focal lesion. Degenerative uptake in the sternoclavicular joints, and right greater than left shoulder joints. In the spine, no pathologic uptake identified. Mild degenerative uptake is present in the lower lumbar spine, and along the thoracic spinous processes. No bone scan correlate to the lytic T12, and L1 lesions seen on recent CT scan. In the pelvis, no definite pathologic foci of uptake identified. No bone scan correlate to the lytic right iliac lesion seen on recent CT. In the lower extremities, there is a focus of uptake in the left distal femoral metadiaphysis, suspicious. No additional pathologic uptake. Degenerative uptake in the left greater than right knee joints, and bilateral feet. No other definite bony abnormalities are noted. The urinary bladder and faint visualization of both kidneys are noted. A focus of soft tissue uptake is again noted in the left lateral abdomen, correlating with a dystrophic calcification in the abdominal wall. NM/NM bone scan whole body IMPRESSION: 1. Pathologic focus of uptake identified in the left distal femoral metadiaphysis. This was not previously seen. 2. Subtle focus of right calvarial uptake, possibly representing early pathologic lesion. This could also relate to hyperostosis frontalis. 3. No additional pathologic focus of uptake identified. Electronically signed by: Lorne Ortega MD 09/22/2024 02:56 PM EDT
--- OUTSIDE RECORDS SUMMARY | 2024-09-22 11:06 | XMS_ITS | Encounter Summary ---
Author Organization [employer] Address [address] [place] [address] 7 [place] [address] Care Team Providers Care Rn Rehabilitation Name Role Phone Unavailable Primary Care Provider Unavailabl e Encounter Details Date Type Department Care Team (Late st Contact Info) Description 07/04/2023 Abstract [facility] D[facility] 110 [place] [address] Jerry Emerson, DMD [address] [place] [address] Social History Tobacco Use Types Packs/Day Years [...]
--- OUTSIDE RECORDS SUMMARY | 2024-09-22 11:06 | XMS_ITS | Clinical Summary ---
Author Organization [employer] Address [address] [facility] 7[address] [place] [address] Care Team Providers Care Malted Milk Supervisor Name Role Phone Unavailable Primary Care Provider [...] Active Active Problems No known active problems Social History Tobacco Use Types Packs/Day Years [...] Procedure Name Priority Date/Time Associated Diagnosis Comments PROPHYLAXIS - ADULT Routine 06/02/2024 8 :00 AM EST COMPREHENSIVE ORAL EVALUATION - NEW OR ESTABLISHED PATIENT Routine 05/19/2024 11:00 AM EST BITEWINGS - 4 RADIOGRAPHIC IMAGES Routine 01/28/2024 9:00 AM EDT from Last 3 Months or Most Recently Relevant to Health Maintenance
--- OUTSIDE RECORDS SUMMARY | 2024-09-22 11:06 | XMS_ITS | Encounter Summary ---
Author Organization [employer] Address [address] [facility] 7 [place] [address] Care Team Providers Care Mixer Pigment Name Role Phone Unavailable Primary Care Provider Unavailabl e Encounter Details Date Type Department Care Team (Latest Contact Info) Description 10/04/2020 Abstract [facility] CONVERSIONS Dental, Provider, DDS Social History [...]
--- OUTSIDE RECORDS SUMMARY | 2024-09-22 11:06 | XMS_ITS | Encounter Summary ---
Author Organization [employer] Address [address] [place] [address] [place] [address] Care Team Providers Care Medicaid Nurse Name Role Phone Unavailable Primary Care Provider Unavailabl e Encounter Details Date Type Department Care Team (Late st Contact Info) Description 07/24/2023 Abstract [facility] D[facility] 110 [place] [address] Jerry Emerson, DMD 230 [place] [address] Social History Tobacco Use Types Packs/Day Years [...]
--- OUTSIDE RECORDS SUMMARY | 2024-09-22 11:06 | XMS_ITS | Encounter Summary ---
Author Organization [employer] Address [address] [place] [address] [place] [address] Care Team Providers Care Tile Mechanic Name Role Phone Unavailable Primary Care Provider Unavailabl e Encounter Details Date Type Department Care Team (Late st Contact Info) Description 07/24/2023 Abstract [facility] D[facility]AL [address] [place] [address] Jerry Emerson, DMD [address] [place] [address] Social History Tobacco Use Types Packs/Day Years [...]
--- OUTSIDE RECORDS SUMMARY | 2024-09-22 11:06 | XMS_ITS | Encounter Summary ---
Author Organization [employer] Address [address] [place] [address] [place] [address] Care Team Providers Care Him Manager Name Role Phone Unavailable Primary Care Provider Unavailabl e Encounter Details Date Type Department Care Team (Late st Contact Info) Description 08/07/2023 Abstract [facility] D[facility] [address] [place] [address] Jerry Emerson, DMD [address] [place] [address] Social History Tobacco Use Types Packs/Day Years [...]
--- OUTSIDE RECORDS SUMMARY | 2024-09-22 11:06 | XMS_ITS | Encounter Summary ---
Author Organization [employer] Address [address] [place] [address] 7 [place] [address] Care Team Providers Care Torsion Spring Coiling Machine Setter Name Role Phone Unavailable Primary Care Provider Unavailabl e Encounter Details Date Type Department Care Team (Late st Contact Info) Description 07/04/2023 Abstract [facility] D[facility] [address] [place] [address] Jerry Emerson, DMD 230 [place] [address] Social History Tobacco Use Types Packs/Day Years [...]
--- OUTSIDE RECORDS SUMMARY | 2024-09-22 11:06 | XMS_ITS | Encounter Summary ---
Author Organization [employer] Address [address] [place] [address] [place] [address] Care Team Providers Care Director Design Name Role Phone Unavailable Primary Care Provider Unavailabl e Encounter Details Date Type Department Care Team (Late st Contact Info) Description 08/07/2023 Abstract [facility] D[facility] [address] [place] [address] Jerry Emerson, DMD [address] [place] [address] Social History Tobacco Use Types Packs/Day Years [...]
--- OUTSIDE RECORDS SUMMARY | 2024-09-22 11:06 | XMS_ITS | Encounter Summary ---
Author Organization [employer] Address [address] [place] [address] [place] [address] Care Team Providers Care Structural Ironworker Name Role Phone Unavailable Primary Care Provider Unavailabl e Reason for Visit * Reason Comments Filling Encounter Details Date Type Department Care Team (Late st Contact Info) Description 05/26/2024 2:00 PM EST Office Visit [facility] DENTAL [address] [place] [address] Jerry Emerson DMD [address] [place] [address] Social History Tobacco Use Types Packs/Day Years Used Date Smoking Tobacco: Unknown Alcohol Use Standard Drinks/Week Comments Defer 0 (1 standard drink = 0.6 oz pur e alcohol) Sex and Gender Information Value Date Recorded Sex Assigned at Male 05/13/2022 10:26 AM EDT Legal Sex Male 10:26 AM EDT Gender Identity Male 05/13/2022 10:26 AM EDT Sexual Orientation Straight 05/13/2022 10 :26 AM EDT documented as of this encounter Last Filed Vital Signs Vital Sign Reading Time Taken Comments Blood Pressure 118/80 05/26/2024 2:26 PM EST Pulse - - Temperature - - Respiratory Rate - - Oxygen Saturation - - Inhaled Oxygen Concentration - - Weight - - Height - - Body Mass Index - - documented in this encounter Progress Notes * Jerry Emerson DMD - 05/26/2024 2:00 PM EST Teeth#23-27: No L.A., existed unsounded enamel is being excavated, Gluma placed, etch and martinez, composite A-3.5 is packed, carved, and smoothed, occlusion check. Pt feels fine NV: prophy, exam, monitor the broken teeth Pt does not want to have any exo at this time Felicitas documented in this encounter Plan of Treatment Not on file documented as of this encounter Procedures Procedure Name Priority Date/Time Associated Diagnosis Comments 23 I RESIN-BASED COMPOSITE - 1 SURF, [...] SURF, ANTERIOR Routine 05/26/2024 2:00 PM EST documented in this encounter Visit Diagnoses Not on filedocumented in this encounter
--- OUTSIDE RECORDS SUMMARY | 2024-09-22 11:06 | XMS_ITS | Encounter Summary ---
Author Organization [employer] Address [address] [place] [address] 7 [place] [address] Care Team Providers Care Splicer Machine Operator Name Role Phone Unavailable Primary Care Provider Unavailabl e Encounter Details Date Type Department Care Team (Late st Contact Info) Description 07/04/2023 Abstract [facility] D[facility] 110 [place] [address] Jerry Emerson, DMD 230 [place] [address] Social History Tobacco Use Types Packs/Day Years [...]
--- OUTSIDE RECORDS SUMMARY | 2024-09-22 11:06 | XMS_ITS | Encounter Summary ---
Author Organization [employer] Address [address] [place] [address] [place] [address] Care Team Providers Care Technical Solutions Director Name Role Phone Unavailable Primary Care Provider Unavailabl e Encounter Details Date Type Department Care Team (Late st Contact Info) Description 07/24/2023 Abstract [facility] D[facility] [address] [place] [address] Jerry Emerson, DMD [address] [place] [address] Social History Tobacco Use Types Packs/Day Years [...]
--- OUTSIDE RECORDS SUMMARY | 2024-09-22 11:06 | XMS_ITS | Encounter Summary ---
Author Organization [employer] Address [address] [place] [address] [place] [address] Care Team Providers Care Sail Finisher Machine Name Role Phone Unavailable Primary Care Provider Unavailabl e Encounter Details Date Type Department Care Team (Late st Contact Info) Description 08/07/[address] [facility] DENTAL [address] [place] [address] Jerry Emerson, DMD 230 [place] [address] Social History Tobacco Use Types Packs/Day Years [...]
--- OUTSIDE RECORDS SUMMARY | 2024-09-22 11:06 | XMS_ITS | Encounter Summary ---
Author Organization [employer] Address [address] [facility] 7 [place] [address] Care Team Providers Care Roaster Supervisor Name Role Phone Unavailable Primary Care Provider Unavailabl e Encounter Details Date Type Department Care Team (Latest Contact Info) Description 10/16/2018 Abstract [facility] CONVERSIONS Dental, Provider, DDS Social History [...]
--- OUTSIDE RECORDS SUMMARY | 2024-09-22 11:06 | XMS_ITS | Encounter Summary ---
Author Organization [employer] Address [address] [place] [address] [place] [address] Care Team Providers Care Court Usher Name Role Phone Unavailable Primary Care Provider Unavailabl e Encounter Details Date Type Department Care Team (Late st Contact Info) Description 08/07/2023 Abstract [facility] [address] [place] [address] Jerry Emerson, DMD [address] [place] [address] Social History Tobacco Use Types Packs/Day Years [...]
--- OUTSIDE RECORDS SUMMARY | 2024-09-22 11:06 | XMS_ITS | Encounter Summary ---
Author Organization [employer] Address [address] [place] [address] [place] [address] Care Team Providers Care Canopy Inspector Name Role Phone Unavailable Primary Care Provider Unavailabl e Encounter Details Date Type Department Care Team (Late st Contact Info) Description 07/24/2023 Abstract [facility] DENTAL [address] [place] [address] Jerry Emerson, DMD 230 [place] [address] Social History Tobacco Use Types Packs/Day Years [...]
--- OUTSIDE RECORDS SUMMARY | 2024-09-22 11:06 | XMS_ITS | Encounter Summary ---
Author Organization [employer] Address [address] [place] [address] [place] [address] Care Team Providers Care Temperature Regulator Name Role Phone Unavailable Primary Care Provider Unavailabl e Encounter Details Date Type Department Care Team (Late st Contact Info) Description 07/24/2023 Abstract [facility] DENTAL 110 [place] [address] Jerry Emerson, DMD 230 [place] [address] Social History Tobacco Use Types Packs/Day Years [...]
== END ==
LOC: HO.NUCMED 09:53
PROVIDERS: Visit Provider Urology
DX: C61 Malignant neoplasm of prostate (principal); C79.51 Secondary malignant neoplasm of bone
CPT/HCPCS: 78306; A9503

== ENCOUNTER → 2024-09-22 09:55 | Outpatient (BNV) | payer MEDICARE, SELFPAY | PROVIDERS: Visit Provider Radiology Diagnostic Radiology | DX: C79.51 Secondary malignant neoplasm of bone (principal) | CPT/HCPCS: 78306 ==

== ENCOUNTER 2024-10-04 10:09 | Outpatient (AMB) | payer MEDICARE, OTHER, SELFPAY ==
--- NOTE | 2024-10-04 10:12 | A.OFFVIS_ITS ---
Intake Visit Reasons: follow up Parkinson disease Intake Note: Patient presents for follow up Increase carbidopa/levodopa and Increase memantine. Allergies cefazolin [From KEFZOL] Allergy (Unknown, Verified 10/04/24 10:15) RASH HPI Comments Details: 79y/o male with multiple medical issues ,Parkinsons disease, dementia comes for further management. He is from [facility] and comes alone for his appointmen t. He was not able to provide a detailed history but says he was diagnosed with dementia and parkinsons about 5 years ago.No change from last visit i reviewed all his scans ,new lytic lesions in spine iliac crest - see full report- ? mets No further history was obtainable he was unable to answer any quetsions today [facility] Medical History Dementia Parkinson's disease without dyskinesia, without mention of fluctuations Anemia Gout Arthritis Anemia Obesity COPD (chronic obstructive pulmonary disease) Hyperlipidemia HTN (hypertension) CAD (coronary artery disease) Depression Dementia Prostate cancer Syncope Cardiac arrest IBS (irritable bowel syndrome) Parkinsons Hypertension Chronic anemia Cellulitis Social History Household Members: None Housing: [facility] Do you presently have visiting nurse or other home services: Yes ([facility]) Unable to assess alcohol history related to: Unknown Alcohol intake: never Patient Tobacco Use Status: Never used Tobacco Advance Directives Date on File: 12/10/22 service: Yes Current occupational status: retired and disabled Physical Exam Const General: cooperative and no acute distress Nutritional Appearance: obese Orientation/consciousness: oriented to person Eyes Pupils: Equal, round and reactive pupils present Neuro Other: Mild rest tremors left UE( less compared to last visit) Left face- decreased movement severe hypophonia Decreased facial expression and blink Fine finger movements- mildly decreased foot taps - decreased No cog wheel rigidty on todays exam Moderate bradykinesia General: oriented to person and Unable to assess gait Cranial nerves: Yes Equal, round and reactive pupils present Cognition (Neuro): abnormal cognition Gait exam (Neuro): Unable to assess gait Results Reviewed Results Reviewed: CT abdomen, chest, pelvis-see scanned - Positive for lytic lesion in Right iliac bone T12 L2 L3 Assessment & Plan Assessment & Plan (1) Parkinson's disease without dyskinesia, without mention of fluctuations: Code(s): G20.A1 - Parkinson's disease without dyskinesia, without mention of fluctuations Category: Medical Qualifiers: Fluctuating manifestations: without fluctuating manifestations Qualified Code(s): G20.A1 - Parkinson's disease without dyskinesia, without mention of fluctuations (2) Dementia: Comment: ? parkinsons associated, vascular Code(s): F03.90 - Unspecified dementia, unspecified severity, without behavioral disturbance, psychotic disturbance, mood disturbance, and anxiety Category: Medical Plan F/U with urology carbidopa/levodopa 25/100 2tabs qid memantine 10mg bid Monitor for hallucinations and hypotension Physical and Speech therapy Coding Level of Care Code Est Pt Level 4 (74591) Complex EM visit Add On G2211 Diagnoses Parkinson's disease without dyskinesia or fluctuating manifestations G20.A1 Fluctuating manifestations: without fluctuating manifestations Dementia F03.90
== END 2024-10-04 10:32 | disposition home or self-care (01) ==
LOC: HO.HSMS 10:10
PROVIDERS: PCP Internal Medicine Medical Oncology; Visit Provider Psychiatry & Neurology Neurology
DX: G20.A1 Parkinson's disease without dyskinesia, without mention of fluctuations (principal); F03.90 Unspecified dementia, unspecified severity, without behavioral disturbance, psychotic disturbance, mood disturbance, and anxiety
CPT/HCPCS: 99214; G2211

== ENCOUNTER → 2024-10-04 10:09 | Outpatient (BNVA) | payer MEDICARE, OTHER, SELFPAY | PROVIDERS: PCP Internal Medicine Medical Oncology; Visit Provider Psychiatry & Neurology Neurology | DX: G20.A1 Parkinson's disease without dyskinesia, without mention of fluctuations (principal); F02.80 Dementia in other diseases classified elsewhere, unspecified severity, without behavioral disturbance, psychotic disturbance, mood disturbance, and anxiety | CPT/HCPCS: 99212 ==

== ENCOUNTER 2024-10-05 05:54 | Outpatient (REF) | payer MEDICARE, SELFPAY ==
[2024-10-05 06:43] LABS: Prostate Specific Antigen Scr 4.27 ng/mL (<0.05-4.0)
[2024-10-10 11:48] LABS: Testosterone, Free 1.3 pg/mL (30.0-135.0); Testosterone, Total 9 ng/dL (250-1100)
== END 2024-10-05 05:55 | disposition home or self-care (01) ==
LOC: HO.HSH2E 05:54
PROVIDERS: Visit Provider Internal Medicine Endocrinology, Diabetes & Metabolism
DX: C61 Malignant neoplasm of prostate (principal); Z12.5 Encounter for screening for malignant neoplasm of prostate
CPT/HCPCS: 36415; 84153; 84402; 84403

== ENCOUNTER 2024-10-13 13:11 | Outpatient (AMB) | payer MEDICARE, SELFPAY ==
--- NOTE | 2024-10-13 13:11 | MHC.OFFVIS ---
Intake Visit Reasons: bone scan/ PSA follow up Intake Note: Patient is present for BONE SCAN/PSA F/U Urology Medication:TAMSULOSIN,ALLOPURINOL Antibiotic Allergy:NONE Blood Thinner:NONE Offset Printing Operator Required: No Allergies cefazolin [From KEFZOL] Allergy (Unknown, Verified 10/13/24 13:13) RASH [facility] Medical History Dementia Parkinson's disease without dyskinesia, without mention of fluctuations Anemia Gout Arthritis Anemia Obesity COPD (chronic obstructive pulmonary disease) Hyperlipidemia HTN (hypertension) CAD (coronary artery disease) Depression Dementia Prostate cancer Syncope Cardiac arrest IBS (irritable bowel syndrome) Parkinsons Hypertension Chronic anemia Cellulitis Social History Household Members: None Housing: Senior Care Do you presently have visiting nurse or other home services: Yes ([facility]) Unable to assess alcohol history related to: Unknown Alcohol intake: never Patient Tobacco Use Status: Never used Tobacco Advance Directives Date on File: 12/10/22 service: Yes Current occupational status: retired and disabled Coding
--- NOTE | 2024-10-13 15:40 | HO.VETSHOME ---
Intake Intake Visit Reasons: bone scan/ PSA follow up Allergies cefazolin [From KEFZOL] Allergy (Unknown, Verified 10/13/24 13:13) RASH HPI HPI Comments History of Present Illness Details Osmel is a pleasant male. He is a patient of Dr. Garcia. He resides at the [facility]. He is seen for the following urologic disease - prostate cancer 11/05 PSA 4.3, T9 Last GnRH 09/07 PSA should have fallen further Bone scan shows probable lesion on left upper femur Would recommend change from Casodex 50 mg to 2nd generation antiandrogen Abiraterone is now generic and would be recommended along with prednisone 2.5 mg p.o. b.i.d. 08/07 current therapy. GNRH q.6 months with Casodex 50 mg daily. PSA has fallen 04/06 15.4 to 07/06 6.1 GnRH injection 09/0705/19/24--reviewed PSA 03/23/24---15..42 01/14/24 TT--7 ng/dL He is not tolerating Casodex t.i.d.. Will decrease to Casodex 50 mg daily. Patient is on Fosamax and calcium. Recommend bone density testing. 05/06--Seen at [facility] Recent CT scan 03/22/24 - multiple left renal cysts. One cyst described as hyperattenuating mass measuring 1.8 cm in size compared to 0.8cm in 2016 Extremely slow growth rate New lytic lesions in the spine and pelvis. These are suspicious for metastatic disease (bone scan in July was stable in appearance) Given new imaging findings would add antiandrogen. Initial suggestion was abiraterone. This is not covered through [facility]. Prior generation medication would be bicalutamide 50 mg t.i.d.. This represents castration resistant metastatic prostate cancer PSA 15 02/24/24 GNRH 02/03 PSA 11, T 7 09/06 GnRH at office Elevated PSA 06/05 10.6 08/06 Bone scan negative - No definite scintigraphic evidence of osseous metastasis, appear relatively stable since 06/12/2018 Prostate cancer September 2018 - Current therapy intermittent hormones Grade group 3 Multiple positive cores High volume 7 out of 12 cores positive 470/1200 Jose 4 + 3; LBL 75%, LML 75%, YAHIR 60%, LBM 90%, LMM 70%, CAMP 50% Jose 3+3; MELLISA 50% PNI positive, LVI negative, ALEC positive core. PSAs are as follows: 06/30--17.8, 10/09--18.2, 12/30--11, 04/01--0.9, 01/30--<0.05, 10/01--0.1, 11/02--1.9, 01/02--3.0, 06/05--10.3 [facility] Medical History Dementia Parkinson's disease without dyskinesia, without mention of fluctuations Anemia Gout Arthritis Anemia Obesity COPD (chronic obstructive pulmonary disease) Hyperlipidemia HTN (hypertension) CAD (coronary artery disease) Depression Dementia Prostate cancer Syncope Cardiac arrest IBS (irritable bowel syndrome) Parkinsons Hypertension Chronic anemia Cellulitis Social History Household Members: None Housing: Jail Do you presently have visiting nurse or other home services: Yes ([facility]) Unable to assess alcohol history related to: Unknown Alcohol intake: never Patient Tobacco Use Status: Never used Tobacco Advance Directives Date on File: 12/10/22 service: Yes Current occupational status: retired and disabled Review of Systems Const Denies chills and Denies fever(s) Card Reports no additional complaints and Denies syncope Resp Denies cough GI Denies abdominal pain and Denies heartburn Reports as per HPI and Denies change in libido Neuro Denies syncope Psych Denies change in libido Endo Denies change in libido Physical Exam Const General: cooperative, healthy appearing, comfortable and no acute distress Orientation/consciousness: patient oriented x3 HEENT Face and sinus: Yes normal facial exam Mouth: moist mucous membranes Neck Neck: Yes normal visual inspection, Yes full ROM and Yes trachea midline Chest Chest palpation & inspection: normal inspection of the chest Resp Effort & Inspection: normal respiratory effort, able to speak in complete sentences and no respiratory distress GI Inspection: Yes normal to inspection Back/Spine/Pelvis Cervical Spine: normal cervical lordosis Thoracic/Lumbar Spine: thoracic and lumbar spine normal to inspection Skin General skin exam: no rashes or lesions noted Neuro General: patient oriented x3, gait normal, tone normal and moves all extremities Extrem General: Yes normal to inspection and Yes capillary refill normal Assessment & Plan Assessment & Plan (1) Prostate cancer metastatic to bone: Code(s): C61 - Malignant neoplasm of prostate; C79.51 - Secondary malignant neoplasm of bone Plan Three-month follow-up PSA and testosterone Switch from bicalutamide to abiraterone based on bone scan result Patient Instructions: This note is constructed using voice recognition software. While every effort has been made to ensure accuracy financial assistance specialist errors may have been included. Imaging studies, laboratory and physical exam results were discussed and reviewed in detail. No major barriers to patient understanding were identified. An opportunity to ask questions regarding the treatment plan was provided. All questions were answered. The patient expressed understanding and agreement with the above treatment plan. The patient is aware they should contact our office by phone for worsening of their current condition or the appearance of new urologic symptoms. Compliance is encouraged with any medications and followup testing that is ordered. It is a privilege to participate in the urologic care of your patient. If you have any questions or concerns regarding treatment for the above conditions, or other urologic issues, please do not hesitate to contact me. The office telephone contact is [phone]. Sincerely, Dr Nain Sarmiento MD, [facility] - Urology Compassionate Specialist Care for the Genitourinary System Coding Level of Care Code 38533-Htgk Fac sub, mod Diagnoses Prostate cancer metastatic to bone C61; C79.51
--- OUTSIDE RECORDS SUMMARY | 2024-10-13 15:46 | XMS_ITS | Encounter Summary ---
Author Organization [employer] Address [address] [place] [address] [place] [address] Care Team Providers Care Laboratory Technologist Name Role Phone Unavailable Primary Care Provider Unavailabl e Encounter Details Date Type Department Care Team (Late st Contact Info) Description 07/24/2023 Abstract [facility] DENTAL [address] [place] [address] Jerry Emerson, DMD [address] [place] [address] Social History Tobacco Use Types Packs/Day Years [...]
--- OUTSIDE RECORDS SUMMARY | 2024-10-13 15:46 | XMS_ITS | Encounter Summary ---
Author Organization [employer] Address [address] [facility] 7 [place] [address] Care Team Providers Care Post Exchange Manager Name Role Phone Unavailable Primary Care Provider Unavailabl e Encounter Details Date Type Department Care Team (Latest Contact Info) Description 10/04/2020 Abstract [facility] CONVERSIONS Dental, Provider, DDS Social History [...]
--- OUTSIDE RECORDS SUMMARY | 2024-10-13 15:46 | XMS_ITS | Encounter Summary ---
Author Organization [employer] Address [address] [place] [address] [place] [address] Care Team Providers Care Galley Boy Name Role Phone Unavailable Primary Care Provider Unavailabl e Encounter Details Date Type Department Care Team (Late st Contact Info) Description 08/07/2023 Abstract [facility] DENTAL [address] [place] [address] Jerry Emerson, DMD [address] [place] [address] Social History Tobacco Use Types Packs/Day Years [...]
--- OUTSIDE RECORDS SUMMARY | 2024-10-13 15:46 | XMS_ITS | Encounter Summary ---
Author Organization [employer] Address [address] [place] [address] [place] [address] Care Team Providers Care Manager Mail Name Role Phone Unavailable Primary Care Provider Unavailabl e Encounter Details Date Type Department Care Team (Late st Contact Info) Description 08/07/2023 Abstract [facility] DENTAL [address] [place] [address] Jerry Emerson, DMD [address] [place] [address] Social History Tobacco Use Types Packs/Day Years [...]
--- OUTSIDE RECORDS SUMMARY | 2024-10-13 15:46 | XMS_ITS | Encounter Summary ---
Author Organization [employer] Address [address] [place] [address] [place] [address] Care Team Providers Care Wood Setter Name Role Phone Unavailable Primary Care Provider Unavailabl e Encounter Details Date Type Department Care Team (Late st Contact Info) Description 07/04/[address] [facility] DENTAL [address] [place] [address] Jerry Emerson, DMD [address] [place] [address] Social History Tobacco Use Types Packs/Day Years [...]
--- OUTSIDE RECORDS SUMMARY | 2024-10-13 15:46 | XMS_ITS | Encounter Summary ---
Author Organization [employer] Address [address] [place] [address] [place] [address] Care Team Providers Care Field Operations Technician Name Role Phone Unavailable Primary Care Provider Unavailabl e Encounter Details Date Type Department Care Team (Late st Contact Info) Description 08/07/2023 Abstract [facility] DENTAL [address] [place] [address] Jerry Emerson, DMD [address] [place] [address] Social History Tobacco Use Types Packs/Day Years [...]
--- OUTSIDE RECORDS SUMMARY | 2024-10-13 15:46 | XMS_ITS | Encounter Summary ---
Author Organization [employer] Address [address] [place] [address] [place] [address] Care Team Providers Care Home Hospice Rn Name Role Phone Unavailable Primary Care Provider Unavailabl e Encounter Details Date Type Department Care Team (Late st Contact Info) Description 07/24/2023 Abstract [facility] DENTAL [address] [place] [address] Jerry Emerson, DMD [address] [place] [address] Social History Tobacco Use Types Packs/Day Years [...]
--- OUTSIDE RECORDS SUMMARY | 2024-10-13 15:46 | XMS_ITS | Encounter Summary ---
Author Organization [employer] Address [address] [place] [address] [place] [address] Care Team Providers Care Blender/Braze Applicator Name Role Phone Unavailable Primary Care Provider Unavailabl e Encounter Details Date Type Department Care Team (Late st Contact Info) Description 07/04/2023 Abstract [facility] DENTAL [address] [place] [address] Jerry Emerson, DMD 230 [place] [address] Social History Tobacco Use Types Packs/Day Years [...]
--- OUTSIDE RECORDS SUMMARY | 2024-10-13 15:46 | XMS_ITS | Encounter Summary ---
Author Organization [employer] Address [address] [facility] 7 [place] [address] Care Team Providers Care Portrait Photographer Name Role Phone Unavailable Primary Care Provider Unavailabl e Encounter Details Date Type Department Care Team (Latest Contact Info) Description 10/16/2018 Abstract [facility] CONVERSIONS Dental, Provider, DDS Social History Tobacco [...]
--- OUTSIDE RECORDS SUMMARY | 2024-10-13 15:46 | XMS_ITS | Encounter Summary ---
Author Organization [employer] Address [address] [place] [address] [place] [address] Care Team Providers Care Insole Toe Snipping Machine Operator Name Role Phone Unavailable Primary Care Provider Unavailabl e Encounter Details Date Type Department Care Team (Late st Contact Info) Description 07/24/[address] [facility] DENTAL [address] [place] [address] Jerry Emerson, DMD [address] [place] [address] Social History Tobacco Use Types Packs/Day Years [...]
--- OUTSIDE RECORDS SUMMARY | 2024-10-13 15:46 | XMS_ITS | Encounter Summary ---
Author Organization [employer] Address [address] [place] [address] [place] [address] Care Team Providers Care Club Lounge Attendant Name Role Phone Unavailable Primary Care Provider Unavailabl e Encounter Details Date Type Department Care Team (Late st Contact Info) Description 07/04/2023 Abstract [facility] DENTAL [address] [place] [address] Jerry Emerson, DMD [address] [place] [address] Social History Tobacco Use Types Packs/Day Years [...]
--- OUTSIDE RECORDS SUMMARY | 2024-10-13 15:46 | XMS_ITS | Encounter Summary ---
Author Organization [employer] Address [address] [place] [address] [place] [address] Care Team Providers Care Ap Operator Name Role Phone Unavailable Primary Care Provider Unavailabl e Encounter Details Date Type Department Care Team (Late st Contact Info) Description 07/24/2023 Abstract [facility] DENTAL [address] [place] [address] Jerry Emerson, DMD [address] [place] [address] Social History Tobacco Use Types Packs/Day Years [...]
--- OUTSIDE RECORDS SUMMARY | 2024-10-13 15:46 | XMS_ITS | Encounter Summary ---
Author Organization [employer] Address [address] [place] [address] [place] [address] Care Team Providers Care Window Assembler Name Role Phone Unavailable Primary Care Provider Unavailabl e Encounter Details Date Type Department Care Team (Late st Contact Info) Description 07/24/2023 Abstract [facility] DENTAL [address] [place] [address] Jerry Emerson, DMD [address] [place] [address] Social History Tobacco Use Types Packs/Day Years [...]
--- OUTSIDE RECORDS SUMMARY | 2024-10-13 15:46 | XMS_ITS | Clinical Summary ---
Author Organization [employer] Address [address] [facility] 7t [place] [address] Care Team Providers Care Batch Tester Name Role Phone Unavailable Primary Care Provider [...] Encounters Date Type Department Care Team Description 10/06/2024 2:30 PM EDT Office Visit [facility] DENTAL [address] [place] [address] Natasha Dinh from Last 3 Months Social History Tobacco [...] 2024 05/08/2023, 04/01/2022, 11/02/2021, Additional history exists Dental Oral Exam 11/17/2024 05/19/2024, , 07/23/2023, Additional history exists Dental X-Ray: Bitewings 01/28/2025 01/28/20 24, 07/23/2023, 06/19/2022 Dental Prophylaxis 04/09/2025 10/06/2024, 1 08/02/2023, 03/05/2024, Additional history exists Tobacco Screening 10/06/2025 10/06/2024 Pneumococcal Vaccine: 50+ Years Completed 2023, 09/22/2018, 09/30/2016, Additional history exists Influenza Vaccine Completed 05/04/2024, , 04/16/2023, Additional history exists HIB Vaccines Aged Out [...] Associated Diagnosis Comments ORAL HYGIENE INSTRUCTIONS Routine 2024 2:30 PM EDT COMPREHENSIVE PERIODONTAL EVALUATION - NEW OR ESTABLISHED PATIENT Routine 10/06/2024 2:30 PM EDT TOPICAL APPLICATION OF FLUORIDE - EXCLUDING VARNISH Routine 10/06/2024 2:30 PM EDT PROPHYLAXIS - ADULT Routine 10/06/2024 2 :30 PM EDT COMPREHENSIVE ORAL EVALUATION - NEW OR ESTABLISHED PATIENT Routine 05/19/2024 11:00 AM EST BITEWINGS - 4 RADIOGRAPHIC IMAGES Routine 01/28/2024 9:00 AM EDT from Last 3 Months or Most Recently Relevant to Health Maintenance
--- OUTSIDE RECORDS SUMMARY | 2024-10-13 15:46 | XMS_ITS | Encounter Summary ---
Author Organization [employer] Address [address] [place] [address] [place] [address] Care Team Providers Care Civil Structural Designer Name Role Phone Unavailable Primary Care Provider Unavailabl e Encounter Details Date Type Department Care Team (Late st Contact Info) Description 08/07/2023 Abstract [facility] DENTAL [address] [place] [address] Jerry Emerson, DMD [address] [place] [address] Social History Tobacco Use Types Packs/Day Years [...]
== END 2024-10-13 16:00 | disposition home or self-care (01) ==
LOC: HO.HUSV 13:11
PROVIDERS: PCP Internal Medicine Medical Oncology; Visit Provider Urology
DX: C61 Malignant neoplasm of prostate (principal); C79.51 Secondary malignant neoplasm of bone
CPT/HCPCS: 99309

== ENCOUNTER 2024-11-16 12:56 | Outpatient (REF) | payer MEDICARE, SELFPAY ==
[2024-11-16 12:59] LABS: MANUAL DIFF FLAG NO
[2024-11-16 13:20] LABS: Basophils Percent Auto 0.4 % (0-2); Eosinophils Absolute Auto 0.2 X10*3/uL (0.0-0.4); Eosinophils Percent Auto 3.1 % (0-4); Hematocrit 44.3 % (42.0-52.0); Hemoglobin 15.7 g/dl (14.0-18.0); Imm Gran Abs Auto 0.04 X10*3/uL (0.00-0.03); Imm Gran Pct Auto 0.6 % (0.0-0.4); Lymphocytes Absolute Auto 1.9 X10*3/uL (1.2-4.9); Lymphocytes Percent Auto 27.1 % (20-40); Mean Corpuscular HGB Conc 35.4 g/dl (31.0-36.0); Mean Corpuscular Hemoglobin 33.3 pg (27.0-33.0); Mean Corpuscular Volume 94.1 fL (80.0-98.0); Mean Platelet Volume 10.2 fL (9.4-12.4); Monocytes Absolute Auto 0.4 X10*3/uL (0.1-1.2); Monocytes Percent Auto 5.8 % (2-11); Neutrophils Absolute Auto 4.5 x10*3/uL (2.0-8.3); Platelet Count 113 X10*3/uL (160-400); Red Blood Count 4.71 X10*6/uL (4.60-5.80); Red Cell Distribution Width 13.8 % (11.0-16.0); White Blood Count 7.1 X10*3/uL (4.8-10.8)
[2024-11-16 13:36] LABS: Alanine Aminotransferase < 6 U/L (0-40); Albumin Level 4.1 g/dL (3.5-5.0); Anion Gap 15 (12-20); Aspartate Amino Transferase 21 U/L (5-37); Bilirubin Total 1.4 mg/dL (0.0-1.0); Blood Urea Nitrogen 32 mg/dL (9-16); Carbon Dioxide 28 mmol/L (22-29); Chloride 105 mmol/L (96-108); Estimated Glomerular Filt Rate 55; Glucose Random 90 mg/dL (60-115); Potassium 3.8 mmol/L (3.3-5.1); Sodium 144 mmol/L (135-145); Total Protein 7.1 g/dL (6.5-8.0)
--- OUTSIDE RECORDS SUMMARY | 2024-11-16 14:07 | XMS_ITS | Encounter Summary ---
Author Organization [employer] Address [address] [facility] 7 [place] [address] Care Team Providers Care Battery Recharger Name Role Phone Unavailable Primary Care Provider Unavailabl e Encounter Details Date Type Department Care Team (Late st Contact Info) Description 07/04/2023 Abstract [facility] DENTAL [address] [place] [address] Jerry Emerson, DMD [address] [place] [address] Social History Tobacco Use Types Packs/Day Years Used Date Smoking Tobacco: Unknown Sex and Gender Information Value Date Recorded Sex Assigned at Male 05/13/2022 10:26 AM EDT Legal Sex Male 10:26 AM EDT Gender Identity Male 05/13/2022 10:26 AM EDT Sexual Orientation Straight 05/13/2022 10 :26 AM EDT documented as of this encounter Plan of Treatment Upcoming Encounters Date Type Department Care Team (Late st Contact Info) Description 12/08/2024 11:30 AM EDT Office Visit [facility] DENTAL [address] [place] [address] Jerry Emerson, DMD [address] [place] [address] documented as of this encounter Visit Diagnoses Not on filedocumented in this encounter
--- OUTSIDE RECORDS SUMMARY | 2024-11-16 14:07 | XMS_ITS | Encounter Summary ---
Author Organization [employer] Address [address] [facility] 7 [place] [address] Care Team Providers Care Skip Loader Name Role Phone Unavailable Primary Care Provider Unavailabl e Encounter Details Date Type Department Care Team (Late st Contact Info) Description 08/07/2023 Abstract [facility] DENTAL [address] [place] [address] Jerry Emerson, DMD [address] [place] [address] Social History Tobacco Use Types Packs/Day Years [...] Description 12/08/2024 11:30 AM EDT Office Visit [facility] DENTAL [address] [place] [address] Jerry Emerson, DMD [address] [place] [address] documented as of this encounter Visit Diagnoses Not on filedocumented in this encounter
--- OUTSIDE RECORDS SUMMARY | 2024-11-16 14:07 | XMS_ITS | Encounter Summary ---
Author Organization [employer] Address [address] [facility] 7 [place] [address] Care Team Providers Care Addiction Specialist Name Role Phone Unavailable Primary Care Provider Unavailabl e Encounter Details Date Type Department Care Team (Late st Contact Info) Description 07/24/2023 Abstract [facility] DENTAL [address] [place] [address] Jerry Emerson, DMD [address] [place] [address] Social History Tobacco Use Types Packs/Day Years [...] Description 12/08/2024 11:30 AM EDT Office Visit [facility] DENTAL [address] [place] [address] Jerry Emerson, DMD [address] [place] [address] documented as of this encounter Visit Diagnoses Not on filedocumented in this encounter
--- OUTSIDE RECORDS SUMMARY | 2024-11-16 14:07 | XMS_ITS | Encounter Summary ---
Author Organization [employer] Address [address] [facility] 7 [place] [address] Care Team Providers Care Tool Technician Name Role Phone Unavailable Primary Care Provider Unavailabl e Encounter Details Date Type Department Care Team (Late st Contact Info) Description 08/07/2023 Abstract [facility] DENTAL [address] [place] [address] Jerry Emerson, DMD [address] [place] [address] Social History Tobacco Use Types Packs/Day Years [...] Description 12/08/2024 11:30 AM EDT Office Visit [facility] DENTAL [address] [place] [address] Jerry Emerson, DMD [address] [place] [address] documented as of this encounter Visit Diagnoses Not on filedocumented in this encounter
--- OUTSIDE RECORDS SUMMARY | 2024-11-16 14:07 | XMS_ITS | Encounter Summary ---
Author Organization [employer] Address [address] [facility] 7 [place] [address] Care Team Providers Care Agency Development Manager Name Role Phone Unavailable Primary Care Provider Unavailabl e Encounter Details Date Type Department Care Team (Late st Contact Info) Description 07/24/2023 Abstract [facility] DENTAL [address] [place] [address] Jeryr Emerson, DMD [address] [place] [address] Social History Tobacco Use Types Packs/Day Years [...] Description 12/08/2024 11:30 AM EDT Office Visit [facility] DENTAL [address] [place] [address] Jerry Emerson, DMD [address] [place] [address] documented as of this encounter Visit Diagnoses Not on filedocumented in this encounter
--- OUTSIDE RECORDS SUMMARY | 2024-11-16 14:07 | XMS_ITS | Clinical Summary ---
Author Organization [employer] Address [address] [facility] 7t [place] [address] Care Team Providers Care Printed Circuit Photographer Name Role Phone Unavailable Primary Care [...] Description 10/06/2024 2:30 PM EDT Office Visit [facility] DENTAL [address] [place] [address] Natasha Dinh from Last 3 Months Social [...] Mass Index - - Plan of Treatment Upcoming Encounters Date Type Department Care Team (Late st Contact Info) Description 12/08/2024 11:30 AM EDT Office Visit [facility] DENTAL [address] [place] [address] Jerry Emerson, DMD [address] [place] [address] Health Maintenance Due Date Last Done Comments [...]
--- OUTSIDE RECORDS SUMMARY | 2024-11-16 14:07 | XMS_ITS | Encounter Summary ---
Author Organization [employer] Address [address] [facility] 7 [place] [address] Care Team Providers Care Cell Cleaner Name Role Phone Unavailable Primary Care Provider Unavailabl e Encounter Details Date Type Department Care Team (Late st Contact Info) Description 08/07/2023 Abstract [facility] DENTAL [address] [place] [address] Jerry Emerson, DMD [address] [place] [address] Social History Tobacco Use Types Packs/Day Years [...] Description 12/08/2024 11:30 AM EDT Office Visit [facility] DENTAL [address] [place] [address] Jerry Emerson, DMD [address] [place] [address] documented as of this encounter Visit Diagnoses Not on filedocumented in this encounter
--- OUTSIDE RECORDS SUMMARY | 2024-11-16 14:07 | XMS_ITS | Encounter Summary ---
Author Organization [employer] Address [address] [facility] 7 [place] [address] Care Team Providers Care Salon Customer Experience Specialist Name Role Phone Unavailable Primary Care Provider Unavailabl e Encounter Details Date Type Department Care Team (Late st Contact Info) Description 07/24/2023 Abstract [facility] DENTAL [address] [place] [address] Jerry Emerson, DMD [address] [place] [address] Social History Tobacco Use Types Packs/Day Years [...] Description 12/08/2024 11:30 AM EDT Office Visit [facility] DENTAL [address] [place] [address] Jerry Emerson, DMD [address] [place] [address] documented as of this encounter Visit Diagnoses Not on filedocumented in this encounter
--- OUTSIDE RECORDS SUMMARY | 2024-11-16 14:07 | XMS_ITS | Encounter Summary ---
Author Organization [employer] Address [address] [facility] 7 [place] [address] Care Team Providers Care Postpartum Rn Name Role Phone Unavailable Primary Care Provider Unavailabl e Encounter Details Date Type Department Care Team (Late st Contact Info) Description 07/24/2023 Abstract [facility] DENTAL [address] [place] [address] Jerry Emerson, DMD [address] [place] [address] Social History Tobacco Use Types Packs/Day Years [...] 12/08/2024 11:30 AM EDT Office Visit [facility] DENTAL [address] [place] [address] Jrery Emerson, DMD [address] [place] [address] documented as of this encounter Visit Diagnoses Not on filedocumented in this encounter
--- OUTSIDE RECORDS SUMMARY | 2024-11-16 14:07 | XMS_ITS | Encounter Summary ---
Author Organization [employer] Address [address] [facility] [address] [place] [address] Care Team Providers Care Marketing Content Coordinator Name Role Phone Unavailable Primary Care Provider Unavailabl e Encounter Details Date Type Department Care Team (Late st Contact Info) Description 07/04/2023 Abstract [facility] [address] [place] [address] Jerry Emerson, DMD [address] [place] [address] Social History Tobacco Use Types Packs/Day Years [...] Description 12/08/2024 11:30 AM EDT Office Visit [facility] [address] [place] [address] Jerry Emerson, DMD [address] [place] [address] documented as of this encounter Visit Diagnoses Not on filedocumented in this encounter
--- OUTSIDE RECORDS SUMMARY | 2024-11-16 14:07 | XMS_ITS | Encounter Summary ---
Author Organization [employer] Address [address] [facility] [address] [place] [address] Care Team Providers Care Cream Tester Name Role Phone Unavailable Primary Care Provider Unavailabl e Encounter Details Date Type Department Care Team (Latest Contact Info) Description 10/16/2018 Abstract [facility] CON[facility] Dental, Provider, DDS Social History [...] Description 12/08/2024 11:30 AM EDT Office Visit [facility] [address] [place] [address] Jerry Emerson, ISELA [address] [place] [address] documented as of this encounter Visit Diagnoses Not on filedocumented in this encounter
--- OUTSIDE RECORDS SUMMARY | 2024-11-16 14:07 | XMS_ITS | Encounter Summary ---
Author Organization [employer] Address [address] [facility] [address] [place] [address] Care Team Providers Care Railroad Car Cleaning Supervisor Name Role Phone Unavailable Primary Care Provider Unavailabl e Encounter Details Date Type Department Care Team (Late st Contact Info) Description 07/04/2023 Abstract [facility] [address] [place] [address] Jerry Emerson, DMD [address] [place] [address] Social History Tobacco Use Types Packs/Day Years [...] Description 12/08/2024 11:30 AM EDT Office Visit [facility] [address] [place] [address] Jerry Emerson, DMD [address] [place] [address] documented as of this encounter Visit Diagnoses Not on filedocumented in this encounter
--- OUTSIDE RECORDS SUMMARY | 2024-11-16 14:07 | XMS_ITS | Encounter Summary ---
Author Organization [employer] Address [address] [facility] [address] [place] [address] Care Team Providers Care Program Control Analyst Name Role Phone Unavailable Primary Care Provider Unavailabl e Encounter Details Date Type Department Care Team (Late st Contact Info) Description 07/24/2023 Abstract [facility] [address] [place] [address] Jerry Emerson, DMD [address] [place] [address] Social History Tobacco Use Types Packs/Day Years [...] Description 12/08/2024 11:30 AM EDT Office Visit [facility] [address] [place] [address] Jerry Emerson, DMD [address] [place] [address] documented as of this encounter Visit Diagnoses Not on filedocumented in this encounter
--- OUTSIDE RECORDS SUMMARY | 2024-11-16 14:07 | XMS_ITS | Encounter Summary ---
Author Organization [employer] Address [address] [facility] [address] [place] [address] Care Team Providers Care Pewter Caster Name Role Phone Unavailable Primary Care Provider Unavailabl e Encounter Details Date Type Department Care Team (Late st Contact Info) Description 08/07/2023 Abstract [facility] [address] [place] [address] Jerry Emerson, DMD [address] [place] [address] Social History Tobacco Use Types Packs/Day Years [...] Description 12/08/2024 11:30 AM EDT Office Visit [facility] [address] [place] [address] Jerry Emerson, DMD [address] [place] [address] documented as of this encounter Visit Diagnoses Not on filedocumented in this encounter
--- OUTSIDE RECORDS SUMMARY | 2024-11-16 14:07 | XMS_ITS | Encounter Summary ---
Author Organization [employer] Address [address] [facility] [address] [place] [address] Care Team Providers Care Platform Operations Director Name Role Phone Unavailable Primary Care Provider Unavailabl e Encounter Details Date Type Department Care Team (Latest Contact Info) Description 10/04/2020 Abstract [facility] CON[facility] Dental, Provider, DDS Social History [...] Description 12/08/2024 11:30 AM EDT Office Visit [facility] [address] [place] [address] Jerry Emerson, ISELA [address] [place] [address] documented as of this encounter Visit Diagnoses Not on filedocumented in this encounter
[2024-11-16 17:01] LABS: Alkaline Phosphatase 96 U/L (39-117)
== END 2024-11-16 12:57 | disposition home or self-care (01) ==
LOC: HO.HSH2E 12:56
PROVIDERS: Visit Provider Internal Medicine Endocrinology, Diabetes & Metabolism
DX: R41.82 Altered mental status, unspecified (principal); G20.C Parkinsonism, unspecified
CPT/HCPCS: 36415; 80053; 85025

== ENCOUNTER 2025-02-22 07:00 | Outpatient (REF) | payer MEDICARE, SELFPAY ==
--- OUTSIDE RECORDS SUMMARY | 2025-02-22 07:04 | XMS_ITS | Encounter Summary ---
Author Organization [employer] Address [address] [facility] [address] [place] [address] Care Team Providers Care Bill Board Poster Name Role Phone Unavailable Primary Care Provider Unavailabl e Encounter Details Date Type Department Care Team (Late st Contact Info) Description 07/04/2023 Abstract [facility] [address] [place] [address] Jerry Emerson, DMD [address] [place] [address] Social History Tobacco Use Types Packs/Day Years [...]
[2025-02-22 07:47] LABS: Prostate Specific Antigen 1.04 ng/mL (<0.05-4.0)
== END 2025-02-22 07:01 | disposition home or self-care (01) ==
LOC: HO.HSH2E 07:00
PROVIDERS: Visit Provider Internal Medicine Endocrinology, Diabetes & Metabolism
DX: Z12.5 Encounter for screening for malignant neoplasm of prostate (principal)
CPT/HCPCS: 36415; 84153